=== PATIENT | male | born 1950 | race Caucasian/White ===

== ENCOUNTER 2017-05-06 09:46 | Outpatient (CLI) | payer MEDICARE, SELFPAY ==
[2017-05-06 15:55] LABS: PHA INR Fingerstick 1.6 (0.9-1.1)
[2017-05-13 11:43] LABS: PHA INR Fingerstick 2.9 (0.9-1.1)
== END 2017-05-13 11:55 | disposition home or self-care (01) ==
PROVIDERS: PCP Internal Medicine Adolescent Medicine; Visit Provider Internal Medicine
DX: Z79.01 Long term (current) use of anticoagulants (principal); Z51.81 Encounter for therapeutic drug level monitoring; I48.91 Unspecified atrial fibrillation
CPT/HCPCS: 85610; 99211; G0463

== ENCOUNTER → 2017-05-13 08:23 | Outpatient (POV) | payer MEDICARE, SELFPAY | PROVIDERS: PCP Internal Medicine Adolescent Medicine; Visit Provider Thoracic Surgery (Cardiothoracic Vascular Surgery) | DX: Z00.00 Encounter for general adult medical examination without abnormal findings (principal) ==

== ENCOUNTER 2017-05-20 09:17 | Outpatient (CLI) | payer MEDICARE, SELFPAY ==
[2017-05-20 13:28] LABS: PHA INR Fingerstick 3.8 (0.9-1.1)
== END 2017-05-20 13:43 | disposition home or self-care (01) ==
LOC: ACC 09:19
PROVIDERS: PCP Internal Medicine Adolescent Medicine; Visit Provider Internal Medicine
DX: Z79.01 Long term (current) use of anticoagulants (principal); Z51.81 Encounter for therapeutic drug level monitoring; I48.91 Unspecified atrial fibrillation
CPT/HCPCS: 85610; 99211; G0463

== ENCOUNTER 2017-05-30 09:52 | Outpatient (CLI) | payer MEDICARE, SELFPAY | END 2017-05-30 12:04 | disposition home or self-care (01) | LOC: ACC 09:54 | PROVIDERS: PCP Internal Medicine Adolescent Medicine; Visit Provider Internal Medicine | DX: Z79.01 Long term (current) use of anticoagulants (principal); Z51.81 Encounter for therapeutic drug level monitoring; I48.91 Unspecified atrial fibrillation | CPT/HCPCS: 85610; 99211; G0463 ==

== ENCOUNTER 2017-06-13 10:03 | Outpatient (CLI) | payer MEDICARE, SELFPAY ==
[2017-06-13 11:04] LABS: PHA INR Fingerstick 2.1 (0.9-1.1)
== END 2017-06-13 11:15 | disposition home or self-care (01) ==
LOC: ACC 10:04
PROVIDERS: PCP Internal Medicine Adolescent Medicine; Visit Provider Internal Medicine
DX: Z79.01 Long term (current) use of anticoagulants (principal); Z51.81 Encounter for therapeutic drug level monitoring; I48.91 Unspecified atrial fibrillation
CPT/HCPCS: 85610; 99211; G0463

== ENCOUNTER → 2017-07-04 11:22 | Outpatient (CLI) | payer MEDICARE, SELFPAY ==
[2017-07-04 11:42] LABS: Basophils # 0.1 K/mm3 (0-0.2); Basophils % 0.7 % (0.1-2.0); Eosinophils # 0.3 K/mm3 (0.0-0.4); Eosinophils % 2.6 % (0.1-12.0); Hematocrit 43.8 % (42.0-52.0); Hemoglobin 14.4 g/dL (14.1-18.0); Lymphocytes # 2.1 K/mm3 (0.7-4.5); Lymphocytes % 21.5 K/mm3 (10-50); Mean Corpuscular HGB Conc 32.8 g/dL (31.8-35.4); Mean Corpuscular Hemoglobin 31.8 pg (27.0-31.2); Mean Platelet Volume 7.2 fl (7.4-10.4); Monocytes # 0.4 K/mm3 (0.1-1.0); Monocytes % 4.2 % (1.7-9.3); Neutrophils % 70.9 % (37.0-80.0); Platelet Count 306 K/mm3 (142-424); Red Blood Count 4.52 M/mm3 (4.60-6.20); Red Cell Distribution Width 13.4 % (11.5-17.5); White Blood Count 9.8 K/mm3 (4.8-10.8)
[2017-07-04 13:47] LABS: Alanine Aminotransferase 26 U/L (12-78); Albumin Level 4.1 gm/dL (3.4-5.0); Albumin/Globulin Ratio 1.2 (1.1-1.8); Alkaline Phosphatase 48 U/L (46-116); Anion Gap 10.8 mEq/L (5-15); Aspartate Amino Transferase 20 U/L (15-37); Bilirubin,Total 0.5 mg/dL (0.2-1.0); Blood Urea Nitrogen 12 mg/dL (7-18); Calcium 9.6 mg/dL (8.5-10.1); Carbon Dioxide 32 mmol/L (21.0-32.0); Chloride 103 mmol/L (98-107); Chol/HDL Ratio 8.3 (1-3.5); Cholesterol 257 mg/dL (140-200); Creatinine,Serum 0.96 mg/dL (0.70-1.30); Estimated Glomerular Filt Rate 78 ml/min (>60); GFR (African American) 94 ML/MIN (>60); Globulin 3.3 gm/dl (1.3-3.2); Glucose 109 mg/dL (74-106); HDL Cholesterol 31 mg/dL (27-67); LDL Cholesterol 162 mg/dL (0-130); Potassium 4.8 mmoL/L (3.5-5.1); Sodium 141 mmol/L (136-145); Thyroid Stimulating Hormone 4.32 uIU/ml (0.358-3.740); Total Protein,Serum 7.4 gm/dL (6.4-8.2); Triglycerides 318 mg/dL (30-200); VLDL Cholesterol 64 mg/dL (0-40)
== END ==
PROVIDERS: Visit Provider Internal Medicine Adolescent Medicine
DX: E78.5 Hyperlipidemia, unspecified (principal); I48.0 Paroxysmal atrial fibrillation
CPT/HCPCS: 36415; 80053; 80061; 84443; 85025

== ENCOUNTER → 2017-07-07 10:02 | Outpatient (CLI) | payer MEDICARE, SELFPAY ==
--- NOTE | 2017-07-07 10:05 | MR_ITS ---
MR cervical spine wo con, MR 3-d myelogram/MRCP HISTORY: Pain when flexing and extending neck. Intermittent numbness and tingling radiating down Lt arm. Stiffness in neck ITS.REASON: RADICULOPATHY OF ARM ORDERING PHYSICIAN: Gulshan Haines MD PATIENT AGE: 66 years TECHNIQUE: Standard multiplanar multiecho sequences are performed without contrast. 3-D MIP and myelographic images are also rendered and reviewed FINDINGS: The craniocervical junction has an unremarkable appearance. There is normal alignment. There is slight reversal of the cervical lordosis which may be due to patient positioning or muscle spasm. C2-C3: Unremarkable. C3-C4: Mild right-sided uncovertebral hypertrophy with mild right-sided foraminal narrowing. C4-C5: Unremarkable. C5-C6: 2 mm anterolisthesis of C5 with minimal bulging disc. Mild left foraminal narrowing from uncovertebral hypertrophy. Facet hypertrophic changes are present on the right. C6-C7: There is a small left-sided foraminal disc protrusion/herniation causing narrowing of the left foramen. This may be associated with uncovertebral hypertrophy. This is difficult to ascertain. Nonetheless, there is left-sided foraminal narrowing. Degenerative disc disease is present at this level. C7-T1: Unremarkable. IMPRESSION: 1. 2 mm anterolisthesis of C5 with minimal bulging disc. Mild left foraminal narrowing from uncovertebral hypertrophy. Facet hypertrophic changes are present on the right. 2. There is a small left-sided foraminal disc protrusion/herniation at C6-C7 causing narrowing of the left foramen. This may be associated with uncovertebral hypertrophy. This is difficult to ascertain. Nonetheless, there is left-sided foraminal narrowing. Degenerative disc disease is present at this level.
== END ==
PROVIDERS: PCP Internal Medicine Adolescent Medicine; Visit Provider Internal Medicine Adolescent Medicine
DX: M54.10 Radiculopathy, site unspecified (principal)
CPT/HCPCS: 72141; 76376

== ENCOUNTER 2017-07-11 09:46 | Outpatient (CLI) | payer MEDICARE, SELFPAY ==
[2017-07-11 15:55] LABS: PHA INR Fingerstick 2.4 (0.9-1.1)
== END 2017-07-11 15:58 | disposition home or self-care (01) ==
LOC: ACC 09:47
PROVIDERS: PCP Internal Medicine Adolescent Medicine; Visit Provider Internal Medicine
DX: Z79.01 Long term (current) use of anticoagulants (principal); Z51.81 Encounter for therapeutic drug level monitoring; I48.91 Unspecified atrial fibrillation
CPT/HCPCS: 85610; 99211; G0463

== ENCOUNTER 2017-08-08 10:19 | Outpatient (CLI) | payer MEDICARE, SELFPAY ==
[2017-08-08 11:41] LABS: PHA INR Fingerstick 2.2 (0.9-1.1)
== END 2017-08-08 11:53 | disposition home or self-care (01) ==
LOC: ACC 10:20
PROVIDERS: PCP Internal Medicine Adolescent Medicine; Visit Provider Internal Medicine
DX: Z79.01 Long term (current) use of anticoagulants (principal); Z51.81 Encounter for therapeutic drug level monitoring; I48.91 Unspecified atrial fibrillation
CPT/HCPCS: 85610; 99211; G0463

== ENCOUNTER → 2017-08-19 07:28 | Outpatient (CLI) | payer MEDICARE, SELFPAY ==
--- NOTE | 2017-08-19 07:30 | NM_ITS ---
CARDIOLITE SPECT MYOCARDIAL PERFUSION SCAN, REST AND STRESS: EXERCISE STRESS [facility] REVIEW QGS EF AND WALL MOTION EVALUATION: QPS - PERFUSION EVALUATION HISTORY: soa DOSE: 10.62 mCi technetium 99m mibi intravenously at rest followed by 33.0 mCi technetium 99m mibi following the intravenous ministration of 0.4 mg of Lexiscan. Resting blood pressure is 107/63. Stress blood pressure 118/69. FINDINGS: Ejection fraction is calculated to be 37%. Stress images reveal severe left ventricular dilatation with severely reduced activity throughout the inferior and apical wall. Rest images reveal no significant change. Gated images calculated ejection fraction of 37% with severe left ventricular dilatation and severe global hypokinesis IMPRESSION: Previous inferior apical myocardial infarction without reversible ischemia accompanied by severe left ventricular dilatation severely reduced ejection fraction and severe global hypokinesis
--- NOTE | 2017-08-19 09:57 | HMH.ITSHM ---
meloxicam metoprolol terazosin gabapentin lisinopril amlodipine
== END ==
PROVIDERS: PCP Internal Medicine Adolescent Medicine; Visit Provider Internal Medicine
DX: R06.00 Dyspnea, unspecified (principal); I44.7 Left bundle-branch block, unspecified; I48.91 Unspecified atrial fibrillation; I34.0 Nonrheumatic mitral (valve) insufficiency; I10 Essential (primary) hypertension; Z79.01 Long term (current) use of anticoagulants
CPT/HCPCS: 78452; 93017; 93306; A9502; J2785

== ENCOUNTER 2017-09-15 12:36 | Outpatient (RCR) | payer MEDICARE, SELFPAY | END 2017-11-18 12:58 | disposition home or self-care (01) | LOC: PT 12:36 | PROVIDERS: PCP Internal Medicine Adolescent Medicine; Visit Provider Internal Medicine | DX: Z95.5 Presence of coronary angioplasty implant and graft (principal) | CPT/HCPCS: 93798 ==

== ENCOUNTER 2017-09-19 09:32 | Outpatient (CLI) | payer MEDICARE, SELFPAY ==
[2017-09-19 11:03] LABS: PHA INR Fingerstick 2.3 (0.9-1.1)
[2017-09-19 11:57] LABS: Anion Gap 11.9 mEq/L (5-15); Blood Urea Nitrogen 25 mg/dL (7-18); Calcium 9.1 mg/dL (8.5-10.1); Carbon Dioxide 29 mmol/L (21.0-32.0); Chloride 102 mmol/L (98-107); Creatinine,Serum 1.25 mg/dL (0.70-1.30); Estimated Glomerular Filt Rate 57 ml/min (>60); GFR (African American) 70 ML/MIN (>60); Glucose 114 mg/dL (74-106); Potassium 4.9 mmoL/L (3.5-5.1); Sodium 138 mmol/L (136-145)
== END 2017-09-19 11:29 | disposition home or self-care (01) ==
PROVIDERS: PCP Internal Medicine Adolescent Medicine; Visit Provider Internal Medicine
DX: Z79.01 Long term (current) use of anticoagulants (principal); Z51.81 Encounter for therapeutic drug level monitoring; I48.91 Unspecified atrial fibrillation
CPT/HCPCS: 36415; 80048; 85610; 99211; G0463

== ENCOUNTER → 2017-09-28 07:16 | Outpatient (CLI) | payer MEDICARE, SELFPAY ==
[2017-09-28 09:31] LABS: Anion Gap 12.2 mEq/L (5-15); Blood Urea Nitrogen 16 mg/dL (7-18); Calcium 8.9 mg/dL (8.5-10.1); Carbon Dioxide 30 mmol/L (21.0-32.0); Chloride 103 mmol/L (98-107); Creatinine,Serum 1.14 mg/dL (0.70-1.30); Estimated Glomerular Filt Rate 64 ml/min (>60); GFR (African American) 77 ML/MIN (>60); Glucose 133 mg/dL (74-106); Potassium 4.2 mmoL/L (3.5-5.1); Sodium 141 mmol/L (136-145)
== END ==
PROVIDERS: Visit Provider Urology
DX: Z79.01 Long term (current) use of anticoagulants (principal); Z51.81 Encounter for therapeutic drug level monitoring; I48.91 Unspecified atrial fibrillation
CPT/HCPCS: 36415; 80048

== ENCOUNTER 2017-10-10 09:47 | Outpatient (CLI) | payer MEDICARE, SELFPAY ==
[2017-10-10 11:30] LABS: PHA INR Fingerstick 2.3 (0.9-1.1)
== END 2017-10-10 15:45 | disposition home or self-care (01) ==
LOC: ACC 09:49
PROVIDERS: PCP Internal Medicine Adolescent Medicine; Visit Provider Internal Medicine
DX: Z79.01 Long term (current) use of anticoagulants (principal); Z51.81 Encounter for therapeutic drug level monitoring; I48.91 Unspecified atrial fibrillation
CPT/HCPCS: 85610; 99211; G0463

== ENCOUNTER 2017-11-14 09:28 | Outpatient (CLI) | payer MEDICARE, SELFPAY ==
[2017-11-14 10:12] LABS: PHA INR Fingerstick 2.4 (0.9-1.1)
== END 2017-11-14 10:23 | disposition home or self-care (01) ==
LOC: ACC 09:29
PROVIDERS: PCP Internal Medicine Adolescent Medicine; Visit Provider Internal Medicine
DX: Z79.01 Long term (current) use of anticoagulants (principal); Z51.81 Encounter for therapeutic drug level monitoring; I48.91 Unspecified atrial fibrillation
CPT/HCPCS: 85610; 99211; G0463

== ENCOUNTER → 2017-12-05 11:54 | Outpatient (CLI) | payer MEDICARE, SELFPAY ==
--- NOTE | 2017-12-05 | CA_ITS ---
PROCEDURE: 2-D M-mode and color Doppler study INDICATIONS FOR THE TEST: Chest pain COPD Heart Murmur+ Tobacco Smokingex Palpitations+ Fatigue+ Syncope Edema Hypertension+Diabetes Mellitus Rheumatic Fever SOB+SILVEIRA+Obesity Hyperlipidemia+ Family History HD+ Additional History AFIB, CHF, history of EF 37%, stents PATIENT INFORMATION HEIGHT: 73 WEIGHT: 278 GENDER: Male B/P: 126/72 2-D/M-MODE INTERPRETATION: 2-D MEASUREMENTS OBSERVED VALUES IN CMS Right Ventricular Dimension (RVDd) 2.7 Interventricular Septum (Thickness)(IVsd) 1.2 Left Ventricular Internal Dimensions(LVIDd) 6.6 Left Ventricular Posterior Wall (Thickness)(LVPWd) 1.2 Aortic Root 3.0 Aortic Cusp Separation 2.2 Left Atrial Dimensions (LAD) 5.7 2D 1. Left atrium is markedly enlarged, left ventricle is mildly dilated, visually estimated ejection fraction approximately 40-45%, with no regional wall motion abnormality. 2. The right atrium and right ventricle are mildly enlarged with normal contractility. 3. The aortic valve is thickened and calcified leaflet continue to display mobility. Morphologically there is no aortic stenosis. 4. The mitral valve leaflets are minimally thickened, degenerative changes are seen in both anterior and posterior mitral leaflet. 5. The tricuspid valve is grossly normal. 6. The pulmonic valve is poorly visualized. 7. No significant pericardial effusion noted. DOPPLER INTERROGATION: Doppler interrogation of the aortic, mitral and tricuspid valvular presence of mild aortic, severe mitral and mild tricuspid regurgitation, tricuspid regurgitation jet velocity is insufficient for calculation of the right ventricular systolic pressure. Diastolic parameters are inconclusive. CONCLUSION: 1. Left atrium, dilated left ventricle, visually estimated ejection fraction approximately 40-45%, diastolic parameters are inconclusive. There is no regional wall motion abnormality. 2. Abnormal mitral valve as described above associated with severe mitral regurgitation. 3. Thickened and calcified aortic valve morphologically aortic stenosis, there is mild aortic insufficiency. 4. No significant pericardial effusion noted.
[2017-12-05 12:38] LABS: Hemoglobin A1C 6.5 % (0.0-7.0)
== END ==
PROVIDERS: PCP Internal Medicine Adolescent Medicine; Visit Provider Internal Medicine
DX: R73.9 Hyperglycemia, unspecified (principal); I44.7 Left bundle-branch block, unspecified; I48.91 Unspecified atrial fibrillation
CPT/HCPCS: 36415; 83036; 93306

== ENCOUNTER 2017-12-12 09:38 | Outpatient (CLI) | payer MEDICARE, SELFPAY ==
[2017-12-12 10:42] LABS: PHA INR Fingerstick 2.1 (0.9-1.1)
== END 2017-12-12 10:44 | disposition home or self-care (01) ==
LOC: ACC 09:40
PROVIDERS: PCP Internal Medicine Adolescent Medicine; Visit Provider Internal Medicine
DX: Z51.81 Encounter for therapeutic drug level monitoring (principal); Z79.01 Long term (current) use of anticoagulants; I48.91 Unspecified atrial fibrillation
CPT/HCPCS: 85610; 99211; G0463

== ENCOUNTER → 2018-01-20 09:44 | Outpatient (CLI) | payer MEDICARE, SELFPAY ==
--- NOTE | 2018-01-20 09:45 | CA_ITS ---
PROCEDURE: 2-D M-mode and color Doppler study INDICATIONS FOR THE TEST: Chest pain COPD Heart Murmur Tobacco Smoking Palpitations Fatigue Syncope Edema HypertensionXDiabetes Mellitus Rheumatic Fever SOBXDOEXObesityXHyperlipidemiaX Family History HD Additional History CAD,AF,LBBB [place] DONE 12/22/17 PATIENT INFORMATION HEIGHT: 73 WEIGHT:275 GENDER: Male B/P:116/68 2-D/M-MODE INTERPRETATION: 2-D MEASUREMENTS OBSERVED VALUES IN CMS Right Ventricular Dimension (RVDd) 2.7 Interventricular Septum (Thickness)(IVsd) 1.2 Left Ventricular Internal Dimensions(LVIDd) 6.9 Left Ventricular Posterior Wall (Thickness)(LVPWd) 1.2 Aortic Root 3.3 Aortic Cusp Separation 1.7 Left Atrial Dimensions (LAD) 4.2 2D 1. Left atrium is moderately enlarged, left ventricle is mildly dilated, visually estimated ejection fraction approximately 40%, endocardial surfaces are poorly visualized, there appears to be moderate hypokinesis involving the inferobasal and posterobasal wall. 2. The right atrium and right ventricle are mildly enlarged with normal contractility. 3. The aortic valve is thickened and calcified leaflet continue to display mobility. 4. The mitral valve leaflets are minimally thickened. 5. The pulmonic valve is poorly visualized. 6. No significant pericardial effusion noted. DOPPLER INTERROGATION: Doppler interrogation of the aortic, mitral and tricuspid valvular presence of mild aortic, severe mitral and mild tricuspid regurgitation, calculated right ventricular systolic pressure is 42 mmHg consistent with moderate pulmonary hypertension, there is Doppler evidence of raised left atrial and left ventricular end-diastolic pressure. CONCLUSION: 1. Moderately enlarged left atrium is mildly dilated left ventricle, visually estimated ejection fraction 40% with segmental wall motion abnormality described above, endocardial subsequent poorly visualized. 2. Mild aortic, severe mitral and mild tricuspid regurgitation, dilated right ventricular systolic pressure is 42 mmHg consistent with moderate pulmonary hypertension. 3. Doppler evidence of raised left ventricular end-diastolic as well as left atrial pressure. 4. No significant pericardial effusion noted.
== END ==
PROVIDERS: PCP Internal Medicine Adolescent Medicine; Visit Provider Internal Medicine
DX: E78.5 Hyperlipidemia, unspecified (principal); I10 Essential (primary) hypertension; I11.9 Hypertensive heart disease without heart failure; I25.10 Atherosclerotic heart disease of native coronary artery without angina pectoris; I34.0 Nonrheumatic mitral (valve) insufficiency; I44.7 Left bundle-branch block, unspecified; I48.91 Unspecified atrial fibrillation; I50.40 Unspecified combined systolic (congestive) and diastolic (congestive) heart failure; R01.1 Cardiac murmur, unspecified; R06.00 Dyspnea, unspecified; R60.9 Edema, unspecified; R93.1 Abnormal findings on diagnostic imaging of heart and coronary circulation; R94.31 Abnormal electrocardiogram [ECG] [EKG]; Z01.818 Encounter for other preprocedural examination; Z79.01 Long term (current) use of anticoagulants
CPT/HCPCS: 93306

== ENCOUNTER 2018-01-24 09:41 | Outpatient (CLI) | payer MEDICARE, SELFPAY ==
[2018-01-24 15:28] LABS: PHA INR Fingerstick 1.9 (0.9-1.1)
== END 2018-01-24 15:39 | disposition home or self-care (01) ==
LOC: ACC 09:43
PROVIDERS: PCP Internal Medicine Adolescent Medicine; Visit Provider Internal Medicine
DX: Z51.81 Encounter for therapeutic drug level monitoring (principal); Z79.01 Long term (current) use of anticoagulants; I48.91 Unspecified atrial fibrillation
CPT/HCPCS: 85610; 99211; G0463

== ENCOUNTER 2018-02-20 09:52 | Outpatient (CLI) | payer MEDICARE, SELFPAY | END 2018-02-21 09:42 | disposition home or self-care (01) | LOC: ACC 09:53 | PROVIDERS: PCP Internal Medicine Adolescent Medicine; Visit Provider Internal Medicine | DX: Z51.81 Encounter for therapeutic drug level monitoring (principal); Z79.01 Long term (current) use of anticoagulants; I48.91 Unspecified atrial fibrillation | CPT/HCPCS: 85610; 99211; G0463 ==

== ENCOUNTER → 2018-03-07 07:50 | Outpatient (CLI) | payer MEDICARE, SELFPAY ==
[2018-03-07 08:31] LABS: INR 1.95 (0.9-1.1); Prothrombin Time 19.7 seconds (9.4-11.8)
[2018-03-07 08:50] LABS: Hemoglobin A1C 6.4 % (0.0-7.0)
[2018-03-07 08:56] LABS: Basophils # 0.1 K/mm3 (0-0.2); Basophils % 0.7 % (0.1-2.0); Eosinophils # 0.2 K/mm3 (0.0-0.4); Eosinophils % 2.6 % (0.1-12.0); Hematocrit 38.6 % (42.0-52.0); Hemoglobin 12.7 g/dL (14.1-18.0); Lymphocytes # 1.8 K/mm3 (0.7-4.5); Lymphocytes % 22.5 % (10-50); Mean Corpuscular HGB Conc 32.9 g/dL (31.8-35.4); Mean Corpuscular Hemoglobin 31.5 pg (27.0-31.2); Mean Corpuscular Volume 95.9 fl (80-94); Mean Platelet Volume 7.1 fl (7.4-10.4); Monocytes # 0.5 K/mm3 (0.1-1.0); Monocytes % 5.6 % (1.7-9.3); Neutrophils # 5.6 K/mm3 (1.8-7.8); Neutrophils % 68.6 % (37.0-80.0); Platelet Count 288 K/mm3 (142-424); Red Blood Count 4.02 M/mm3 (4.60-6.20); Red Cell Distribution Width 13.1 % (11.5-17.5); White Blood Count 8.1 K/mm3 (4.8-10.8)
[2018-03-07 09:10] LABS: Alanine Aminotransferase 23 U/L (12-78); Albumin Level 3.8 gm/dL (3.4-5.0); Albumin/Globulin Ratio 1.2 (1.1-1.8); Alkaline Phosphatase 48 U/L (46-116); Anion Gap 13.4 mEq/L (5-15); Aspartate Amino Transferase 13 U/L (15-37); Bilirubin,Total 0.4 mg/dL (0.2-1.0); Blood Urea Nitrogen 16 mg/dL (7-18); Calcium 8.3 mg/dL (8.5-10.1); Carbon Dioxide 29 mmol/L (21.0-32.0); Chloride 104 mmol/L (98-107); Chol/HDL Ratio 5.8 (1-3.5); Cholesterol 168 mg/dL (140-200); Creatinine,Serum 0.96 mg/dL (0.70-1.30); Estimated Glomerular Filt Rate 78 ml/min (>60); GFR (African American) 94 ML/MIN (>60); Globulin 3.1 gm/dl (1.3-3.2); Glucose 128 mg/dL (74-106); HDL Cholesterol 29 mg/dL (27-67); LDL Cholesterol 81 mg/dL (0-130); Potassium 4.4 mmoL/L (3.5-5.1); Sodium 142 mmol/L (136-145); Total Protein,Serum 6.9 gm/dL (6.4-8.2); Triglycerides 291 mg/dL (30-200); VLDL Cholesterol 58 mg/dL (0-40)
== END ==
PROVIDERS: Visit Provider Internal Medicine Adolescent Medicine
DX: E78.5 Hyperlipidemia, unspecified (principal); I48.0 Paroxysmal atrial fibrillation; E11.69 Type 2 diabetes mellitus with other specified complication
CPT/HCPCS: 36415; 80053; 80061; 83036; 85025; 85610

== ENCOUNTER 2018-04-03 10:21 | Outpatient (CLI) | payer MEDICARE, SELFPAY ==
[2018-04-03 11:01] LABS: PHA INR Fingerstick 1.9 (0.9-1.1)
== END 2018-04-03 11:06 | disposition home or self-care (01) ==
LOC: ACC 10:23
PROVIDERS: PCP Internal Medicine Adolescent Medicine; Visit Provider Internal Medicine
DX: Z51.81 Encounter for therapeutic drug level monitoring (principal); Z79.01 Long term (current) use of anticoagulants; I48.91 Unspecified atrial fibrillation
CPT/HCPCS: 85610; 99211; G0463

== ENCOUNTER → 2018-05-08 10:36 | Outpatient (CLI) | payer MEDICARE, SELFPAY ==
--- NOTE | 2018-05-08 10:37 | CI_ITS ---
Cerebrovascular Exam Indications: 785.9 Bruit. IMPRESSIONS 1. The bilateral vertebral arteries are patent with normal antegrade flow. 2. Study suggests 20-49% stenosis involving the right internal carotid artery and the left internal carotid artery. 3. Study suggests >60% stenosis involving the right external carotid artery and the left external carotid artery. Carotid duplex study. Complete study and Doppler flow study including spectral analysis, color and latham scale imaging. Height: Height: 160cm. Height: 63in. Weight: Weight: 132.9kg. Weight: 292.4lb. Body mass index: BMI: 51.9kg/m^2. Body surface area: BSA: 2.52m^2. Location: Vascular laboratory. Patient status: Outpatient. Tables: Arterial flow: + +--------+--------+ Location V sys V ed + +--------+--------+ Right CCA - proximal 77.8cm/s 22cm/s + +--------+--------+ Right CCA - distal 85.5cm/s 18.7cm/s + +--------+--------+ Right ECA 191cm/s -------- + +--------+--------+ Right ICA - proximal 66cm/s 23.2cm/s + +--------+--------+ Right ICA - mid 76.2cm/s 29.1cm/s + +--------+--------+ Right ICA - distal 92.7cm/s 31.8cm/s + +--------+--------+ Right vertebral 34.2cm/s -------- + +--------+--------+ Left CCA - proximal 113cm/s 33.4cm/s + +--------+--------+ Left CCA - distal 138cm/s 26.5cm/s + +--------+--------+ Left ECA 218cm/s -------- + +--------+--------+ Left ICA - proximal 112cm/s 38.5cm/s + +--------+--------+ Left ICA - mid 108cm/s 40.1cm/s + +--------+--------+ Left ICA - distal 127cm/s 39.3cm/s + +--------+--------+ Left vertebral 32.2cm/s -------- + +--------+--------+ Velocity ratios: + + + + + + Right, V sys Right, V ed Left, V sys Left, V ed + + + + + + Max ICA/dist CCA 1.08 1.7 0.92 1.51 + + + + + + (Report amended ) Electronically signed by: Ammon Aiken [id number]
== END ==
PROVIDERS: PCP Internal Medicine Adolescent Medicine; Visit Provider Nurse Practitioner Family
DX: I10 Essential (primary) hypertension (principal); I25.10 Atherosclerotic heart disease of native coronary artery without angina pectoris; I34.0 Nonrheumatic mitral (valve) insufficiency; I44.7 Left bundle-branch block, unspecified; I48.91 Unspecified atrial fibrillation; R01.1 Cardiac murmur, unspecified; R06.00 Dyspnea, unspecified; R09.89 Other specified symptoms and signs involving the circulatory and respiratory systems; R94.31 Abnormal electrocardiogram [ECG] [EKG]; Z79.01 Long term (current) use of anticoagulants
CPT/HCPCS: 93880

== ENCOUNTER 2018-05-15 10:10 | Outpatient (CLI) | payer MEDICARE, SELFPAY ==
[2018-05-15 11:08] LABS: PHA INR Fingerstick 1.8 (0.9-1.1)
== END 2018-05-15 13:22 | disposition home or self-care (01) ==
LOC: ACC 10:11
PROVIDERS: PCP Internal Medicine Adolescent Medicine; Visit Provider Internal Medicine
DX: Z51.81 Encounter for therapeutic drug level monitoring (principal); Z79.01 Long term (current) use of anticoagulants; I48.91 Unspecified atrial fibrillation
CPT/HCPCS: 85610; 99211; G0463

== ENCOUNTER → 2018-05-19 10:18 | Outpatient (CLI) | payer MEDICARE, SELFPAY ==
[2018-05-19 11:04] LABS: INR 1.74 (0.9-1.1); Prothrombin Time 17.6 seconds (9.4-11.8)
[2018-05-19 12:03] LABS: Hemoglobin A1C 6.8 % (0.0-7.0)
[2018-05-19 12:17] LABS: Alanine Aminotransferase 23 U/L (12-78); Albumin/Globulin Ratio 1.2 (1.1-1.8); Alkaline Phosphatase 51 U/L (46-116); Anion Gap 13.5 mEq/L (5-15); Aspartate Amino Transferase 16 U/L (15-37); Bilirubin,Total 0.8 mg/dL (0.2-1.0); Blood Urea Nitrogen 18 mg/dL (7-18); Carbon Dioxide 28 mmol/L (21.0-32.0); Chloride 101 mmol/L (98-107); Chol/HDL Ratio 5.8 (1-3.5); Cholesterol 161 mg/dL (140-200); Creatinine,Serum 1.06 mg/dL (0.70-1.30); Estimated Glomerular Filt Rate 69 ml/min (>60); GFR (African American) 84 ML/MIN (>60); Globulin 3.3 gm/dl (1.3-3.2); Glucose 112 mg/dL (74-106); HDL Cholesterol 28 mg/dL (27-67); LDL Cholesterol 77 mg/dL (0-130); Potassium 4.5 mmoL/L (3.5-5.1); Sodium 138 mmol/L (136-145); Total Protein,Serum 7.3 gm/dL (6.4-8.2); Triglycerides 281 mg/dL (30-200); VLDL Cholesterol 56 mg/dL (0-40)
== END ==
PROVIDERS: Visit Provider Internal Medicine Adolescent Medicine
DX: I48.0 Paroxysmal atrial fibrillation (principal); E11.69 Type 2 diabetes mellitus with other specified complication; E78.5 Hyperlipidemia, unspecified
CPT/HCPCS: 36415; 80053; 80061; 83036; 85610

== ENCOUNTER 2018-06-05 09:59 | Outpatient (CLI) | payer MEDICARE, SELFPAY ==
[2018-06-05 11:07] LABS: PHA INR Fingerstick 1.9 (0.9-1.1)
== END 2018-06-05 11:11 | disposition home or self-care (01) ==
LOC: ACC 10:00
PROVIDERS: PCP Internal Medicine Adolescent Medicine; Visit Provider Internal Medicine
DX: Z51.81 Encounter for therapeutic drug level monitoring (principal); Z79.01 Long term (current) use of anticoagulants
CPT/HCPCS: 85610; 99211; G0463

== ENCOUNTER 2018-07-03 09:19 | Outpatient (CLI) | payer MEDICARE, SELFPAY ==
[2018-07-03 10:12] LABS: PHA INR Fingerstick 1.9 (0.9-1.1)
== END 2018-07-03 10:13 | disposition home or self-care (01) ==
LOC: ACC 09:20
PROVIDERS: PCP Internal Medicine Adolescent Medicine; Visit Provider Internal Medicine
DX: Z51.81 Encounter for therapeutic drug level monitoring (principal); Z79.01 Long term (current) use of anticoagulants; I48.91 Unspecified atrial fibrillation
CPT/HCPCS: 85610; 99211; G0463

== ENCOUNTER 2018-07-24 10:17 | Outpatient (CLI) | payer MEDICARE, SELFPAY ==
[2018-07-24 12:01] LABS: PHA INR Fingerstick 2.5 (0.9-1.1)
== END 2018-07-24 12:10 | disposition home or self-care (01) ==
LOC: ACC 10:18
PROVIDERS: PCP Internal Medicine Adolescent Medicine; Visit Provider Internal Medicine
DX: Z51.81 Encounter for therapeutic drug level monitoring (principal); Z79.01 Long term (current) use of anticoagulants; I48.91 Unspecified atrial fibrillation
CPT/HCPCS: 85610; 99211; G0463

== ENCOUNTER 2018-08-21 09:46 | Outpatient (CLI) | payer MEDICARE, SELFPAY ==
[2018-08-21 10:36] LABS: PHA INR Fingerstick 2.5 (0.9-1.1)
== END 2018-08-21 11:55 | disposition home or self-care (01) ==
LOC: ACC 09:47
PROVIDERS: PCP Internal Medicine Adolescent Medicine; Visit Provider Internal Medicine
DX: Z51.81 Encounter for therapeutic drug level monitoring (principal); Z79.01 Long term (current) use of anticoagulants; I48.91 Unspecified atrial fibrillation
CPT/HCPCS: 85610; 99211; G0463

== ENCOUNTER → 2018-08-22 07:18 | Outpatient (CLI) | payer MEDICARE, SELFPAY ==
[2018-08-22 08:21] LABS: Anion Gap 12.8 mEq/L (5-15); Blood Urea Nitrogen 24 mg/dL (7-18); Calcium 9.1 mg/dL (8.5-10.1); Carbon Dioxide 29 mmol/L (21.0-32.0); Chloride 105 mmol/L (98-107); Creatinine,Serum 1.01 mg/dL (0.70-1.30); Estimated Glomerular Filt Rate 73 ml/min (>60); GFR (African American) 89 ML/MIN (>60); Glucose 122 mg/dL (74-106); Potassium 4.8 mmoL/L (3.5-5.1); Sodium 142 mmol/L (136-145)
== END ==
PROVIDERS: Visit Provider Nurse Practitioner Family
DX: I11.0 Hypertensive heart disease with heart failure (principal); I25.10 Atherosclerotic heart disease of native coronary artery without angina pectoris; I48.91 Unspecified atrial fibrillation; N62 Hypertrophy of breast
CPT/HCPCS: 36415; 80048

== ENCOUNTER 2018-10-02 09:52 | Outpatient (CLI) | payer MEDICARE, SELFPAY ==
[2018-10-02 14:05] LABS: PHA INR Fingerstick 2.5 (0.9-1.1)
== END 2018-10-02 14:27 | disposition home or self-care (01) ==
LOC: ACC 09:53
PROVIDERS: Physician Assistant; PCP Internal Medicine Adolescent Medicine; Visit Provider Internal Medicine
DX: Z51.81 Encounter for therapeutic drug level monitoring (principal); Z79.01 Long term (current) use of anticoagulants; I48.91 Unspecified atrial fibrillation
CPT/HCPCS: 85610; 99211; G0463

== ENCOUNTER → 2018-10-23 08:30 | Outpatient (CLI) | payer MEDICARE, SELFPAY ==
[2018-10-23 09:10] LABS: Anion Gap 11.8 mEq/L (5-15); Blood Urea Nitrogen 16 mg/dL (7-18); Calcium 8.7 mg/dL (8.5-10.1); Carbon Dioxide 29 mmol/L (21.0-32.0); Chloride 106 mmol/L (98-107); Creatinine,Serum 0.91 mg/dL (0.70-1.30); Estimated Glomerular Filt Rate 83 ml/min (>60); GFR (African American) 100 ML/MIN (>60); Glucose 119 mg/dL (74-106); Potassium 4.8 mmoL/L (3.5-5.1); Sodium 142 mmol/L (136-145)
== END ==
PROVIDERS: Visit Provider Internal Medicine
DX: I11.9 Hypertensive heart disease without heart failure (principal); I25.10 Atherosclerotic heart disease of native coronary artery without angina pectoris; Z51.81 Encounter for therapeutic drug level monitoring; Z79.01 Long term (current) use of anticoagulants; I48.91 Unspecified atrial fibrillation
CPT/HCPCS: 36415; 80048

== ENCOUNTER 2018-11-13 09:56 | Outpatient (CLI) | payer MEDICARE, SELFPAY ==
[2018-11-13 11:15] LABS: PHA INR Fingerstick 2.1 (0.9-1.1)
== END 2018-11-13 11:19 | disposition home or self-care (01) ==
LOC: ACC 09:57
PROVIDERS: PCP Internal Medicine Adolescent Medicine; Visit Provider Internal Medicine
DX: Z51.81 Encounter for therapeutic drug level monitoring (principal); Z79.01 Long term (current) use of anticoagulants
CPT/HCPCS: 85610; 99211; G0463

== ENCOUNTER → 2018-12-06 11:29 | Outpatient (CLI) | payer MEDICARE, SELFPAY ==
[2018-12-06 12:11] LABS: Basophils # 0.1 K/mm3 (0-0.2); Basophils % 0.7 % (0.1-2.0); Eosinophils # 0.2 K/mm3 (0.0-0.4); Eosinophils % 2.3 % (0.1-12.0); Hematocrit 30.8 % (42.0-52.0); Hemoglobin 9.3 g/dL (14.1-18.0); Lymphocytes # 1.6 K/mm3 (0.7-4.5); Lymphocytes % 22.6 % (10-50); Mean Corpuscular HGB Conc 30.1 g/dL (31.8-35.4); Mean Corpuscular Hemoglobin 24.7 pg (27.0-31.2); Mean Corpuscular Volume 82.3 fl (80-94); Monocytes # 0.4 K/mm3 (0.1-1.0); Monocytes % 5.6 % (1.7-9.3); Neutrophils # 4.8 K/mm3 (1.8-7.8); Neutrophils % 68.8 % (37.0-80.0); Platelet Count 290 K/mm3 (142-424); Red Blood Count 3.75 M/mm3 (4.60-6.20); Red Cell Distribution Width 16.2 % (11.5-17.5)
[2018-12-06 12:51] LABS: Anion Gap 12.1 mEq/L (5-15); Blood Urea Nitrogen 15 mg/dL (7-18); Calcium 8.6 mg/dL (8.5-10.1); Carbon Dioxide 30 mmol/L (21.0-32.0); Chloride 104 mmol/L (98-107); Creatinine,Serum 1.03 mg/dL (0.70-1.30); Estimated Glomerular Filt Rate 72 ml/min (>60); GFR (African American) 87 ML/MIN (>60); Glucose 98 mg/dL (74-106); Potassium 4.1 mmoL/L (3.5-5.1); Sodium 142 mmol/L (136-145)
== END ==
PROVIDERS: Visit Provider Urology
DX: R06.02 Shortness of breath (principal); I25.10 Atherosclerotic heart disease of native coronary artery without angina pectoris
CPT/HCPCS: 36415; 80048; 85025

== ENCOUNTER 2018-12-25 09:50 | Outpatient (CLI) | payer MEDICARE, SELFPAY ==
[2018-12-25 14:39] LABS: PHA INR Fingerstick 2.7 (0.9-1.1)
== END 2018-12-25 14:40 | disposition home or self-care (01) ==
LOC: ACC 09:51
PROVIDERS: Physician Assistant; PCP Internal Medicine Adolescent Medicine; Visit Provider Internal Medicine
DX: Z51.81 Encounter for therapeutic drug level monitoring (principal); Z79.01 Long term (current) use of anticoagulants; I48.91 Unspecified atrial fibrillation
CPT/HCPCS: 85610; 99211; G0463

== ENCOUNTER 2019-01-26 08:50 | Outpatient (CLI) | payer MEDICARE, SELFPAY | END 2019-01-26 15:51 | disposition home or self-care (01) | LOC: ACC 08:51 | PROVIDERS: PCP Internal Medicine Adolescent Medicine; Visit Provider Internal Medicine | DX: Z51.81 Encounter for therapeutic drug level monitoring (principal); Z79.01 Long term (current) use of anticoagulants; I48.91 Unspecified atrial fibrillation | CPT/HCPCS: 85610; 99211; G0463 ==

== ENCOUNTER → 2019-02-12 08:04 | Outpatient (CLI) | payer MEDICARE, SELFPAY ==
[2019-02-12 08:40] LABS: Basophils # 0.1 K/mm3 (0-0.2); Basophils % 0.9 % (0.1-2.0); Eosinophils # 0.1 K/mm3 (0.0-0.4); Eosinophils % 1.7 % (0.1-12.0); Hematocrit 39.6 % (42.0-52.0); Hemoglobin 11.4 g/dL (14.1-18.0); Lymphocytes # 1.8 K/mm3 (0.7-4.5); Lymphocytes % 21.7 % (10-50); Mean Corpuscular HGB Conc 28.7 g/dL (31.8-35.4); Mean Corpuscular Hemoglobin 24.2 pg (27.0-31.2); Mean Corpuscular Volume 84.3 fl (80-94); Mean Platelet Volume 7.1 fl (7.4-10.4); Monocytes # 0.4 K/mm3 (0.1-1.0); Monocytes % 5.3 % (1.7-9.3); Neutrophils # 5.7 K/mm3 (1.8-7.8); Neutrophils % 70.4 % (37.0-80.0); Platelet Count 425 K/mm3 (142-424); Red Cell Distribution Width 16.2 % (11.5-17.5); White Blood Count 8.1 K/mm3 (4.8-10.8)
[2019-02-12 09:39] LABS: Alanine Aminotransferase 20 U/L (12-78); Albumin Level 3.9 gm/dL (3.4-5.0); Albumin/Globulin Ratio 1.1 (1.1-1.8); Alkaline Phosphatase 72 U/L (46-116); Anion Gap 13.5 mEq/L (5-15); Aspartate Amino Transferase 20 U/L (15-37); Bilirubin,Total 0.4 mg/dL (0.2-1.0); Blood Urea Nitrogen 16 mg/dL (7-18); Calcium 8.2 mg/dL (8.5-10.1); Carbon Dioxide 27 mmol/L (21.0-32.0); Chloride 103 mmol/L (98-107); Chol/HDL Ratio 4.8 (1-3.5); Cholesterol 140 mg/dL (140-200); Creatinine,Serum 1.12 mg/dL (0.70-1.30); Estimated Glomerular Filt Rate 65 ml/min (>60); GFR (African American) 78 ML/MIN (>60); Globulin 3.4 gm/dl (1.3-3.2); Glucose 106 mg/dL (74-106); HDL Cholesterol 29 mg/dL (27-67); LDL Cholesterol 69 mg/dL (0-130); Potassium 4.5 mmoL/L (3.5-5.1); Sodium 139 mmol/L (136-145); Total Protein,Serum 7.3 gm/dL (6.4-8.2); Triglycerides 212 mg/dL (30-200); VLDL Cholesterol 42 mg/dL (0-40)
[2019-02-12 12:36] LABS: Hemoglobin A1C 6.8 % (0.0-7.0)
[2019-02-14 07:35] LABS: H. pylori Breath Test Negative (Negative)
== END ==
PROVIDERS: Internal Medicine Adolescent Medicine; Visit Provider Surgery
DX: E78.5 Hyperlipidemia, unspecified (principal); E11.69 Type 2 diabetes mellitus with other specified complication; I48.0 Paroxysmal atrial fibrillation
CPT/HCPCS: 36415; 80053; 80061; 83013; 83036; 84443; 85025

== ENCOUNTER 2019-02-23 10:00 | Outpatient (CLI) | payer MEDICARE, SELFPAY ==
[2019-02-23 14:07] LABS: PHA INR Fingerstick 2.4 (0.9-1.1)
== END 2019-02-23 14:14 | disposition home or self-care (01) ==
LOC: ACC 10:01
PROVIDERS: PCP Internal Medicine Adolescent Medicine; Visit Provider Internal Medicine
DX: Z51.81 Encounter for therapeutic drug level monitoring (principal); Z79.01 Long term (current) use of anticoagulants; I48.91 Unspecified atrial fibrillation
CPT/HCPCS: 85610; 99211; G0463

== ENCOUNTER 2019-03-30 10:12 | Outpatient (CLI) | payer MEDICARE, SELFPAY ==
[2019-03-30 12:02] LABS: PHA INR Fingerstick 2.5 (0.9-1.1)
== END 2019-03-30 12:09 | disposition home or self-care (01) ==
PROVIDERS: PCP Internal Medicine Adolescent Medicine; Visit Provider Physician Assistant
DX: Z51.81 Encounter for therapeutic drug level monitoring (principal); Z79.01 Long term (current) use of anticoagulants; I48.91 Unspecified atrial fibrillation
CPT/HCPCS: 85610; 99211; G0463

== ENCOUNTER 2019-05-11 10:01 | Outpatient (CLI) | payer MEDICARE, SELFPAY ==
[2019-05-11 15:02] LABS: PHA INR Fingerstick 2.8 (0.9-1.1)
== END 2019-05-11 15:05 | disposition home or self-care (01) ==
LOC: ACC 10:02
PROVIDERS: Nurse Practitioner Family; PCP Internal Medicine Adolescent Medicine; Visit Provider Internal Medicine
DX: Z51.81 Encounter for therapeutic drug level monitoring (principal); Z79.01 Long term (current) use of anticoagulants; I48.91 Unspecified atrial fibrillation
CPT/HCPCS: 85610; 99211; G0463

== ENCOUNTER → 2019-05-23 09:12 | Outpatient (CLI) | payer MEDICARE, SELFPAY | PROVIDERS: PCP Internal Medicine Adolescent Medicine; Visit Provider Internal Medicine | DX: I44.7 Left bundle-branch block, unspecified (principal); I34.0 Nonrheumatic mitral (valve) insufficiency | CPT/HCPCS: 93306 ==

== ENCOUNTER 2019-06-22 10:10 | Outpatient (CLI) | payer MEDICARE, SELFPAY | END 2019-06-22 11:29 | disposition home or self-care (01) | LOC: ACC 10:11 | PROVIDERS: PCP Internal Medicine Adolescent Medicine; Visit Provider Physician Assistant | DX: Z51.81 Encounter for therapeutic drug level monitoring (principal); Z79.01 Long term (current) use of anticoagulants; I48.91 Unspecified atrial fibrillation | CPT/HCPCS: 99211; G0463 ==

== ENCOUNTER → 2019-07-16 11:15 | Outpatient (CLI) | payer MEDICARE, SELFPAY ==
[2019-07-16 12:07] LABS: Basophils # 0.2 K/mm3 (0-0.2); Basophils % 2.1 % (0.1-2.0); Eosinophils # 0.1 K/mm3 (0.0-0.4); Eosinophils % 1.5 % (0.1-12.0); Hematocrit 46.5 % (42.0-52.0); Hemoglobin 14.7 g/dL (14.1-18.0); Lymphocytes # 1.9 K/mm3 (0.7-4.5); Lymphocytes % 23.3 % (10-50); Mean Corpuscular HGB Conc 31.7 g/dL (31.8-35.4); Mean Corpuscular Hemoglobin 29.5 pg (27.0-31.2); Mean Corpuscular Volume 93.4 fl (80-94); Mean Platelet Volume 8.4 fl (7.4-10.4); Monocytes # 0.4 K/mm3 (0.1-1.0); Monocytes % 4.4 % (1.7-9.3); Neutrophils # 5.8 K/mm3 (1.8-7.8); Neutrophils % 68.8 % (37.0-80.0); Platelet Count 317 K/mm3 (142-424); Red Blood Count 4.99 M/mm3 (4.60-6.20); Red Cell Distribution Width 15.5 % (11.5-17.5); White Blood Count 8.4 K/mm3 (4.8-10.8)
[2019-07-16 12:34] LABS: Hemoglobin A1C 6.1 % (4.0-6.0)
[2019-07-16 12:57] LABS: Chloride 97 mmol/L (98-107); Potassium 5.3 mmoL/L (3.5-5.1); Sodium 141 mmol/L (136-145)
[2019-07-16 12:59] LABS: Alanine Aminotransferase 22 U/L (12-78); Anion Gap 16.3 mEq/L (5-15); Aspartate Amino Transferase 30 U/L (17-59); Blood Urea Nitrogen 15 mg/dl (9-20); Carbon Dioxide 33 mmol/L (22.0-30.0); Estimated Glomerular Filt Rate 66 ml/min (>60); GFR (African American) 80 ML/MIN (>60)
[2019-07-16 13:00] LABS: Albumin/Globulin Ratio 1.6 (1.1-1.8); Alkaline Phosphatase 58 U/L (38-126); Bilirubin,Total 0.6 mg/dl (0.2-1.3); Calcium 10.3 mg/dl (8.4-10.2); Chol/HDL Ratio 6.3 (1-3.5); Cholesterol 232 mg/dl (140-200); Globulin 3.2 g/dL (1.3-3.2); Glucose 113 mg/dl (74-100); HDL Cholesterol 37 mg/dl (40-60); Total Protein,Serum 8.2 g/dl (6.3-8.2); Triglycerides 358 mg/dl (30-150); VLDL Cholesterol 72 mg/dL (0-40)
[2019-07-16 13:11] LABS: Direct LDL Cholesterol 140.88 mg/dL (100-129)
== END ==
PROVIDERS: Visit Provider Internal Medicine Adolescent Medicine
DX: E78.5 Hyperlipidemia, unspecified (principal); E11.69 Type 2 diabetes mellitus with other specified complication
CPT/HCPCS: 36415; 80053; 80061; 83036; 85025

== ENCOUNTER 2019-08-17 09:49 | Outpatient (CLI) | payer MEDICARE, SELFPAY | END 2019-08-17 15:54 | disposition home or self-care (01) | LOC: ACC 09:51 | PROVIDERS: Physician Assistant; PCP Internal Medicine Adolescent Medicine; Visit Provider Nurse Practitioner Family | DX: Z51.81 Encounter for therapeutic drug level monitoring (principal); Z79.01 Long term (current) use of anticoagulants; I48.91 Unspecified atrial fibrillation | CPT/HCPCS: 99211; G0463 ==

== ENCOUNTER 2019-09-21 09:53 | Outpatient (CLI) | payer MEDICARE, SELFPAY ==
[2019-09-21 11:45] LABS: PHA INR Fingerstick 2.6 (0.9-1.1)
== END 2019-09-21 11:50 | disposition home or self-care (01) ==
LOC: ACC 09:55
PROVIDERS: Physician Assistant; PCP Internal Medicine Adolescent Medicine; Visit Provider Internal Medicine
DX: Z51.81 Encounter for therapeutic drug level monitoring (principal); Z79.01 Long term (current) use of anticoagulants; I48.91 Unspecified atrial fibrillation
CPT/HCPCS: 85610; 99211; G0463

== ENCOUNTER → 2019-09-28 07:54 | Outpatient (CLI) | payer MEDICARE, SELFPAY ==
[2019-09-28 08:57] LABS: Basophils # 0.1 K/mm3 (0-0.2); Basophils % 0.8 % (0.1-2.0); Eosinophils # 0.1 K/mm3 (0.0-0.4); Eosinophils % 1.6 % (0.1-12.0); Hematocrit 44.9 % (42.0-52.0); Hemoglobin 15.1 g/dL (14.1-18.0); Lymphocytes # 1.5 K/mm3 (0.7-4.5); Lymphocytes % 20.4 % (10-50); Mean Corpuscular HGB Conc 33.6 g/dL (31.8-35.4); Mean Corpuscular Hemoglobin 31.6 pg (27.0-31.2); Mean Corpuscular Volume 94.1 fl (80-94); Monocytes # 0.3 K/mm3 (0.1-1.0); Monocytes % 3.9 % (1.7-9.3); Neutrophils # 5.4 K/mm3 (1.8-7.8); Neutrophils % 73.2 % (37.0-80.0); Platelet Count 270 K/mm3 (142-424); Red Blood Count 4.77 M/mm3 (4.60-6.20); Red Cell Distribution Width 14.3 % (11.5-17.5); White Blood Count 7.3 K/mm3 (4.8-10.8)
[2019-09-28 09:17] LABS: INR 3.23 (0.9-1.1); Prothrombin Time 30.8 seconds (9.4-11.8)
[2019-09-28 09:27] LABS: Chloride 104 mmol/L (98-107); Sodium 138 mmol/L (136-145)
[2019-09-28 09:29] LABS: Blood Urea Nitrogen 20 mg/dl (9-20); Estimated Glomerular Filt Rate 74 ml/min (>60); GFR (African American) 89 ML/MIN (>60)
[2019-09-28 09:30] LABS: Alanine Aminotransferase 19 U/L (12-78); Albumin Level 4.7 g/dl (3.5-5.0); Albumin/Globulin Ratio 1.6 (1.1-1.8); Alkaline Phosphatase 51 U/L (38-126); Aspartate Amino Transferase 28 U/L (17-59); Bilirubin,Total 0.7 mg/dl (0.2-1.3); Carbon Dioxide 30 mmol/L (22.0-30.0); Cholesterol 198 mg/dl (140-200); Globulin 2.9 g/dL (1.3-3.2); Total Protein,Serum 7.6 g/dl (6.3-8.2); Triglycerides 255 mg/dl (30-150); VLDL Cholesterol 51 mg/dL (0-40)
[2019-09-28 09:31] LABS: Calcium 9.9 mg/dl (8.4-10.2); Chol/HDL Ratio 5.5 (1-3.5); Glucose 119 mg/dl (74-100); HDL Cholesterol 36 mg/dl (40-60)
[2019-09-28 09:40] LABS: Hemoglobin A1C 6.2 % (4.0-6.0)
[2019-09-28 09:43] LABS: Direct LDL Cholesterol 106.98 mg/dL (100-129)
== END ==
PROVIDERS: Visit Provider Internal Medicine Adolescent Medicine
DX: I48.0 Paroxysmal atrial fibrillation (principal); E78.5 Hyperlipidemia, unspecified; E11.69 Type 2 diabetes mellitus with other specified complication
CPT/HCPCS: 36415; 80053; 80061; 83036; 85025; 85610

== ENCOUNTER → 2019-11-02 09:55 | Outpatient (CLI) | payer MEDICARE, SELFPAY ==
[2019-11-02 10:48] LABS: INR 3.65 (0.9-1.1); Prothrombin Time 34.5 seconds (9.4-11.8)
== END ==
PROVIDERS: PCP Internal Medicine Adolescent Medicine; Visit Provider Nurse Practitioner Family
DX: I48.91 Unspecified atrial fibrillation (principal); Z79.01 Long term (current) use of anticoagulants
CPT/HCPCS: 36415; 85610

== ENCOUNTER 2019-11-07 09:24 | Outpatient (CLI) | payer MEDICARE, SELFPAY ==
[2019-11-07 10:09] LABS: PHA INR Fingerstick 2.1 (0.9-1.1)
== END 2019-11-07 10:15 | disposition home or self-care (01) ==
LOC: ACC 09:25
PROVIDERS: PCP Internal Medicine Adolescent Medicine; Visit Provider Internal Medicine Adolescent Medicine
DX: Z79.01 Long term (current) use of anticoagulants (principal); Z51.81 Encounter for therapeutic drug level monitoring; I48.91 Unspecified atrial fibrillation
CPT/HCPCS: 85610; 99211; G0463

== ENCOUNTER 2019-11-21 09:16 | Outpatient (CLI) | payer MEDICARE, SELFPAY ==
[2019-11-21 10:09] LABS: PHA INR Fingerstick 2.2 (0.9-1.1)
== END 2019-11-21 10:12 | disposition home or self-care (01) ==
LOC: ACC 09:17
PROVIDERS: Physician Assistant; PCP Internal Medicine Adolescent Medicine; Visit Provider Nurse Practitioner Family
DX: Z51.81 Encounter for therapeutic drug level monitoring (principal); Z79.01 Long term (current) use of anticoagulants; I48.91 Unspecified atrial fibrillation
CPT/HCPCS: 85610; 99211; G0463

== ENCOUNTER → 2019-12-24 09:01 | Outpatient (CLI) | payer MEDICARE, SELFPAY ==
[2019-12-24 09:24] LABS: Basophils # 0.1 K/mm3 (0-0.2); Eosinophils # 0.2 K/mm3 (0.0-0.4); Eosinophils % 1.9 % (0.1-12.0); Hematocrit 44.2 % (42.0-52.0); Hemoglobin 14.5 g/dL (14.1-18.0); Lymphocytes % 22.8 % (10-50); Mean Corpuscular HGB Conc 32.7 g/dL (31.8-35.4); Mean Corpuscular Hemoglobin 31.7 pg (27.0-31.2); Mean Corpuscular Volume 96.9 fl (80-94); Mean Platelet Volume 7.7 fl (7.4-10.4); Monocytes # 0.5 K/mm3 (0.1-1.0); Monocytes % 5.2 % (1.7-9.3); Neutrophils % 69.1 % (37.0-80.0); Platelet Count 232 K/mm3 (142-424); Red Blood Count 4.56 M/mm3 (4.60-6.20); Red Cell Distribution Width 13.9 % (11.5-17.5); White Blood Count 8.7 K/mm3 (4.8-10.8)
[2019-12-24 11:53] LABS: Chloride 102 mmol/L (98-107); Sodium 141 mmol/L (136-145)
[2019-12-24 11:56] LABS: Alanine Aminotransferase 16 U/L (12-78); Alkaline Phosphatase 48 U/L (38-126); Aspartate Amino Transferase 26 U/L (17-59); Bilirubin,Total 0.6 mg/dl (0.2-1.3); Blood Urea Nitrogen 19 mg/dl (9-20); Carbon Dioxide 32 mmol/L (22.0-30.0); Cholesterol 206 mg/dl (140-200); Estimated Glomerular Filt Rate 74 ml/min (>60); GFR (African American) 89 ML/MIN (>60); Triglycerides 335 mg/dl (30-150); VLDL Cholesterol 67 mg/dL (0-40)
[2019-12-24 11:57] LABS: Albumin Level 4.4 g/dl (3.5-5.0); Albumin/Globulin Ratio 1.5 (1.1-1.8); Calcium 9.5 mg/dl (8.4-10.2); Chol/HDL Ratio 6.4 (1-3.5); Globulin 2.9 g/dL (1.3-3.2); Glucose 118 mg/dl (74-100); HDL Cholesterol 32 mg/dl (40-60); Total Protein,Serum 7.3 g/dl (6.3-8.2)
[2019-12-24 12:08] LABS: Direct LDL Cholesterol 104.11 mg/dL (100-129)
[2019-12-24 12:25] LABS: Thyroid Stimulating Hormone 4.68 uIU/mL (0.465-4.68)
[2019-12-24 14:02] LABS: Hemoglobin A1C 6.4 % (4.0-6.0)
== END ==
PROVIDERS: Visit Provider Internal Medicine Adolescent Medicine
DX: E78.5 Hyperlipidemia, unspecified (principal); I48.0 Paroxysmal atrial fibrillation; G25.81 Restless legs syndrome; E11.69 Type 2 diabetes mellitus with other specified complication
CPT/HCPCS: 36415; 80053; 80061; 82728; 83036; 83735; 84443; 85025

== ENCOUNTER 2019-12-25 11:20 | Outpatient (CLI) | payer MEDICARE, SELFPAY ==
[2019-12-25 13:16] LABS: PHA INR Fingerstick 2.2 (0.9-1.1)
== END 2019-12-25 13:19 | disposition home or self-care (01) ==
LOC: ACC 11:24
PROVIDERS: PCP Internal Medicine Adolescent Medicine; Visit Provider Physician Assistant
DX: Z51.81 Encounter for therapeutic drug level monitoring (principal); Z79.01 Long term (current) use of anticoagulants; I48.91 Unspecified atrial fibrillation
CPT/HCPCS: 85610; 99211; G0463

== ENCOUNTER 2020-02-05 11:08 | Outpatient (CLI) | payer MEDICARE, SELFPAY ==
[2020-02-05 16:30] LABS: PHA INR Fingerstick 2.5 (0.9-1.1)
== END 2020-02-05 16:37 | disposition home or self-care (01) ==
LOC: ACC 11:09
PROVIDERS: PCP Internal Medicine Adolescent Medicine; Visit Provider Nurse Practitioner Family
DX: Z51.81 Encounter for therapeutic drug level monitoring (principal); Z79.01 Long term (current) use of anticoagulants
CPT/HCPCS: 85610; 99211; G0463

== ENCOUNTER → 2020-02-28 08:01 | Outpatient (CLI) | payer MEDICARE, SELFPAY ==
--- NOTE | 2020-02-28 08:02 | CA_ITS ---
APPROVED REPORT EXAM: Comprehensive 2D, Doppler, and color-flow Echocardiogram [employer] Supervisor: America Gillis, RT(R) Ht: 6 ft 1 in Wt: 276lbs BSA: 2.47 BP: 116/82 mmHg Indications: severe MR, CAD, CM, EF 30-35% echo 05/2019, AICD, chronic AF 2D Dimensions LVOT 2.18 cm (M/F) 1.5-2.5 M-Mode Dimensions RVDd 2.95 cm (0.9-2.6) LA Diam 6.17 cm (1.9-4.0) LVDd 6.74 cm (3.5-5.7) Ao Diam 3.44 cm (2.0-3.7) LVDs 5.10 cm (3.5-5.7) IVSd 1.03 cm (0.6-1.1) PWd 1.08 cm (0.6-1.1) EF (Teich) 47.20% FS 24.30% EDV (Teich) 234.50 mL ESV (Teich) 123.80 mL LV Diastology E Decel Time 187.00 (160-240 msec) E/A Ratio 2.5 MED E' 8.40 (< 7 cm/sec) E'/MED E' Ratio 13.98 (>14) LAT E' 9.80 (<10 cm/sec) E/LAT E' Ratio 11.98 (>14) Aortic Valve AI PHT 504.00 ms Mitral Valve MV E Max Eyad. 117.00 (40-130 cm/s) MV A Velocity 46.00 (40-130 cm/s) E/A Ratio 2.57 MV Decel. Time 187.00 (160-240 ms) MV PHT 55.00 ms Tricuspid Valve TR P. Velocity 258.00 cm/s RAP Estimate 15.00 mmHg RVSP 41.50 mmHg Left Ventricle Left atrium is moderately enlarged, left ventricle is mildly dilated, there is mild concentric left ventricular hypertrophy, visually estimated ejection fraction 30 to 35%, left ventricle is globally hypokinetic. Superimposed segmental wall motion abnormality cannot be entirely excluded as endocardial surfaces are poorly visualized. Diastolic parameters are inconclusive. Right Ventricle Right atrium is moderately enlarged, right ventricle is mildly dilated with normal contractility, there is catheter noted right atrium and right ventricle which is likely a pacemaker or an AICD lead. Aortic Valve Aortic valve is thickened and calcified leaflet chordae display mobility, there is no aortic stenosis there is mild aortic insufficiency. Mitral Valve Mitral valve leaflets are minimally thickened, there is no mitral stenosis, there is mitral regurgitation present which is likely in severe range. There is tall event with restrictive filling pattern suggestive raise left ventricular end-diastolic pressure. Tricuspid Valve Tricuspid valve grossly normal, there is mild tricuspid regurgitation, calculated right ventricular systolic pressure is 41 mmHg. Pulmonic Valve Pulmonic valve is minimally thickened and fibrosed, there is mild pulmonic insufficiency Great Vessels Aortic root is normal size. Inferior vena cava is normal size with normal inspiratory collapse. Pericardium No significant pericardial effusion noted Conclusion 1. Biatrial enlargement, dilated left ventricle, visually estimated ejection fraction 30 to 35% left ventricle is globally hypokinetic, Doppler evidence of raise left ventricular end-diastolic pressure. Diastolic parameters are inconclusive. 2. Mildly enlarged right ventricle with normal contractility. 3. Thickened and calcified aortic valve without Doppler evidence of aortic stenosis, there is mild aortic insufficiency. 4. Minimally thickened mitral valve leaflet, there is no mitral stenosis, there is mitral regurgitation present which is likely in severe range. 5. Mild tricuspid regurgitation, calculated right ventricular systolic pressure is 41 mmHg. 6. No significant pericardial effusion noted. Electronically signed by : Jhon Lo, 02/28/2020 10:17:44
== END ==
PROVIDERS: PCP Internal Medicine Adolescent Medicine; Visit Provider Physician Assistant
DX: E78.2 Mixed hyperlipidemia (principal); I11.0 Hypertensive heart disease with heart failure; I25.10 Atherosclerotic heart disease of native coronary artery without angina pectoris; I34.0 Nonrheumatic mitral (valve) insufficiency; I48.20 Chronic atrial fibrillation, unspecified; I50.40 Unspecified combined systolic (congestive) and diastolic (congestive) heart failure; R09.89 Other specified symptoms and signs involving the circulatory and respiratory systems; R94.31 Abnormal electrocardiogram [ECG] [EKG]; Z79.01 Long term (current) use of anticoagulants
CPT/HCPCS: 93306

== ENCOUNTER → 2020-03-05 08:50 | Outpatient (CLI) | payer MEDICARE, SELFPAY ==
[2020-03-05 10:54] LABS: Chloride 101 mmol/L (98-107)
[2020-03-05 10:55] LABS: Potassium 5.1 mmoL/L (3.5-5.1); Sodium 142 mmol/L (136-145)
[2020-03-05 10:57] LABS: Blood Urea Nitrogen 17 mg/dl (9-20); Estimated Glomerular Filt Rate 74 ml/min (>60); GFR (African American) 89 ML/MIN (>60)
[2020-03-05 10:58] LABS: Anion Gap 15.1 mEq/L (5-15); Calcium 10.2 mg/dl (8.4-10.2); Carbon Dioxide 31 mmol/L (22.0-30.0); Glucose 124 mg/dl (74-100)
== END ==
PROVIDERS: Visit Provider Internal Medicine Cardiovascular Disease
DX: E78.5 Hyperlipidemia, unspecified (principal); I11.0 Hypertensive heart disease with heart failure; I25.10 Atherosclerotic heart disease of native coronary artery without angina pectoris; I34.0 Nonrheumatic mitral (valve) insufficiency; I44.7 Left bundle-branch block, unspecified; I48.91 Unspecified atrial fibrillation; I50.40 Unspecified combined systolic (congestive) and diastolic (congestive) heart failure; I50.9 Heart failure, unspecified; R09.89 Other specified symptoms and signs involving the circulatory and respiratory systems; R94.31 Abnormal electrocardiogram [ECG] [EKG]; Z79.01 Long term (current) use of anticoagulants
CPT/HCPCS: 36415; 80048

== ENCOUNTER 2020-03-19 10:07 | Outpatient (CLI) | payer MEDICARE, SELFPAY ==
[2020-03-19 12:26] LABS: PHA INR Fingerstick 2.2 (0.9-1.1)
== END 2020-03-19 13:24 | disposition home or self-care (01) ==
LOC: ACC 10:08
PROVIDERS: PCP Internal Medicine Adolescent Medicine; Visit Provider Physician Assistant
DX: Z51.81 Encounter for therapeutic drug level monitoring (principal); Z79.01 Long term (current) use of anticoagulants; I48.91 Unspecified atrial fibrillation
CPT/HCPCS: 85610; 99211; G0463

== ENCOUNTER → 2020-04-02 08:39 | Outpatient (CLI) | payer MEDICARE, SELFPAY ==
[2020-04-02 09:13] LABS: Basophils # 0.1 K/mm3 (0-0.2); Eosinophils # 0.1 K/mm3 (0.0-0.4); Eosinophils % 1.7 % (0.1-12.0); Hematocrit 51.3 % (42.0-52.0); Hemoglobin 16.7 g/dL (14.1-18.0); Lymphocytes % 25.7 % (10-50); Mean Corpuscular HGB Conc 32.5 g/dL (31.8-35.4); Mean Corpuscular Hemoglobin 32.3 pg (27.0-31.2); Mean Corpuscular Volume 99.4 fl (80-94); Mean Platelet Volume 7.7 fl (7.4-10.4); Monocytes # 0.4 K/mm3 (0.1-1.0); Monocytes % 4.7 % (1.7-9.3); Neutrophils # 5.3 K/mm3 (1.8-7.8); Neutrophils % 66.9 % (37.0-80.0); Platelet Count 265 K/mm3 (142-424); Red Blood Count 5.16 M/mm3 (4.60-6.20); Red Cell Distribution Width 13.5 % (11.5-17.5); White Blood Count 7.9 K/mm3 (4.8-10.8)
[2020-04-02 10:07] LABS: Chloride 100 mmol/L (98-107); Sodium 140 mmol/L (136-145)
[2020-04-02 10:09] LABS: Alanine Aminotransferase 25 U/L (12-78); Aspartate Amino Transferase 31 U/L (17-59); Blood Urea Nitrogen 22 mg/dl (9-20); Estimated Glomerular Filt Rate 66 ml/min (>60); GFR (African American) 80 ML/MIN (>60)
[2020-04-02 10:10] LABS: Albumin Level 5.1 g/dl (3.5-5.0); Albumin/Globulin Ratio 1.5 (1.1-1.8); Alkaline Phosphatase 45 U/L (38-126); Bilirubin,Total 0.8 mg/dl (0.2-1.3); Calcium 10.4 mg/dl (8.4-10.2); Carbon Dioxide 30 mmol/L (22.0-30.0); Chol/HDL Ratio 6.4 (1-3.5); Cholesterol 236 mg/dl (140-200); Globulin 3.3 g/dL (1.3-3.2); Glucose 120 mg/dl (74-100); HDL Cholesterol 37 mg/dl (40-60); Total Protein,Serum 8.4 g/dl (6.3-8.2)
[2020-04-02 10:14] LABS: Triglycerides 412 mg/dl (30-150)
[2020-04-02 10:21] LABS: Direct LDL Cholesterol 109.38 mg/dL (100-129)
[2020-04-02 10:40] LABS: Thyroid Stimulating Hormone 4.39 uIU/mL (0.465-4.68)
[2020-04-02 10:42] LABS: Hemoglobin A1C 6.2 % (4.0-6.0)
== END ==
PROVIDERS: Internal Medicine Adolescent Medicine; Visit Provider Internal Medicine Cardiovascular Disease
DX: I48.0 Paroxysmal atrial fibrillation (principal); E11.69 Type 2 diabetes mellitus with other specified complication; E78.5 Hyperlipidemia, unspecified
CPT/HCPCS: 36415; 80048; 80053; 80061; 83036; 84443; 85025

== ENCOUNTER → 2020-05-01 09:50 | Outpatient (CLI) | payer MEDICARE, SELFPAY ==
--- NOTE | 2020-05-01 10:07 | XR_ITS ---
PROCEDURE: XR CHEST PORTABLE CLINICAL HISTORY: COVID OUTPATIENT COMPARISON: CR XR CHEST PORTABLE from 11/29/2018 FINDINGS: There is cardiomegaly without failure. Cardiac pacemaker device is present with biventricular and right atrial leads. Coronary artery stent noted on left. The lungs are clear without infiltrates, suspicious nodules, or pleural effusions. No acute bony abnormalities. IMPRESSION: Cardiomegaly with pacemaker present. No acute finding Dictated by: Ghassan Alcantara MD 05/01/2020 11:14 Ghassan Alcantara MD in [facility] 05/01/2020 11:14
[2020-05-01 10:29] LABS: Adenovirus,PCR Not Detected (NotDetected); Bordetella Pertussis Not Detected (NotDetected); Chlamydophila Pneumoniae, PCR Not Detected (NotDetected); Coronavirus 229E Not Detected (NotDetected); Coronavirus NL63 Not Detected (NotDetected); Coronavirus OC43 Not Detected (NotDetected); Coronovirus HKU1,PCR Not Detected (NotDetected); Human Metapneumovirus Not Detected (NotDetected); Influenza A, PCR Not Detected (NotDetected); Influenza AH1, 2009 Not Detected (NotDetected); Influenza AH1, PCR Not Detected (NotDetected); Influenza AH3,PCR Not Detected (NotDetected); Influenza B, PCR Not Detected (NotDetected); Mycoplasma Pneumoniae, PCR Not Detected (NotDetected); Parainfluenza 1, PCR Not Detected (NotDetected); Parainfluenza 2, PCR Not Detected (NotDetected); Parainfluenza 3, PCR Not Detected (NotDetected); Parainfluenza 4, PCR Not Detected (NotDetected); Respiratory Syncytial Virus Not Detected (NotDetected); Rhinovirus/Enterovirus Not Detected (NotDetected)
[2020-05-01 10:34] VITALS: BMI 27.1
[2020-05-01 10:44] LABS: Basophils % 0.5 % (0.1-2.0); Chloride 101 mmol/L (98-107); Eosinophils % 0.2 % (0.1-12.0); Hematocrit 45.5 % (42.0-52.0); Hemoglobin 14.9 g/dL (14.1-18.0); Lymphocytes # 1.3 K/mm3 (0.7-4.5); Lymphocytes % 19.5 % (10-50); Mean Corpuscular HGB Conc 32.7 g/dL (31.8-35.4); Mean Corpuscular Hemoglobin 31.6 pg (27.0-31.2); Mean Corpuscular Volume 96.5 fl (80-94); Mean Platelet Volume 8.1 fl (7.4-10.4); Monocytes # 0.3 K/mm3 (0.1-1.0); Monocytes % 4.4 % (1.7-9.3); Neutrophils # 5.2 K/mm3 (1.8-7.8); Neutrophils % 75.4 % (37.0-80.0); Platelet Count 246 K/mm3 (142-424); Red Blood Count 4.71 M/mm3 (4.60-6.20); Red Cell Distribution Width 13.4 % (11.5-17.5); Sodium 138 mmol/L (136-145); White Blood Count 6.9 K/mm3 (4.8-10.8)
[2020-05-01 10:45] LABS: Potassium 4.6 mmoL/L (3.5-5.1)
[2020-05-01 10:47] LABS: Blood Urea Nitrogen 20 mg/dl (9-20); Estimated Glomerular Filt Rate 54 ml/min (>60); GFR (African American) 66 ML/MIN (>60)
[2020-05-01 10:48] LABS: Anion Gap 14.6 mEq/L (5-15); Calcium 9.4 mg/dl (8.4-10.2); Carbon Dioxide 27 mmol/L (22.0-30.0); Glucose 140 mg/dl (74-100)
[2020-05-01 13:34] LABS: Coronavirus 19, PCR Detected (NotDetected)
== END ==
PROVIDERS: PCP Internal Medicine Adolescent Medicine; Visit Provider Internal Medicine Adolescent Medicine
DX: Z20.822 Contact with and (suspected) exposure to COVID-19 (principal); U07.1 COVID-19; R50.9 Fever, unspecified
CPT/HCPCS: 36415; 71045; 80048; 85025; 87581; 87633; 87798

== ENCOUNTER 2020-05-02 10:10 | Outpatient (CLI) | payer MEDICARE, SELFPAY ==
[2020-05-02] VITALS (9 sets, daily range): BP systolic 94–113; BP diastolic 57–73; PULSE 69–90; RESP 18; TEMP 36.9–37.2; O2SAT 95–96
--- NOTE | 2020-05-02 11:15 | PC.NURSE ---
pt infusion complete at this time. Will continue to monitor.
== END 2020-05-02 12:25 | disposition home or self-care (01) ==
LOC: INF 10:11
PROVIDERS: PCP Internal Medicine Adolescent Medicine; Visit Provider Internal Medicine Adolescent Medicine
DX: U07.1 COVID-19 (principal)
CPT/HCPCS: 96365

== ENCOUNTER 2020-05-10 13:18 | Inpatient (IN) | payer MEDICARE, SELFPAY ==
[2020-05-10] VITALS (12 sets, daily range): BP systolic 77–119; BP diastolic 47–78; PULSE 65–118; RESP 14–20; TEMP 36.7–37.2; O2SAT 94–99; BMI 28.5; BMI 33.2
--- NOTE | 2020-05-10 13:36 | XR_ITS ---
PROCEDURE: XR CHEST PORTABLE Referring Doctor: Martin Westbrook Patient Age:69Y CLINICAL HISTORY: weakness Dizzy. Low blood pressure some dyspnea COMPARISON: CR XR CHEST PORTABLE from 11/29/2018 CR XR CHEST PORTABLE from 05/01/[address] ANGIO CHEST from 05/10/2020 FINDINGS: AP portable upright chest performed today and compared to a May 01 CXR Prominent cardiomegaly but vascularity appears normal however on plain film with no CHF evident on plain film. No pleural effusions evident CP angle sharp. Pacemaker/ICD device overlying the left chest. Leads appear stable and intact as before. The lungs are well expanded and appear clear. No definitive infiltrates on plain film (But would note subsequent CT a few hours later showed subtle patchy infiltrates bilaterally most evident along the periphery of the left chest). A still these are not evident on plain film although I would note the pacemaker partially obscures the left mid chest where the subtle patchy infiltrates are most evident on subsequent CT The chest wall stable unremarkable IMPRESSION: . Lungs appear clear with no convincing infiltrate or acute findings on this plain film (I would note subsequent CT showed subtle patchy infiltrates at the periphery of the left lung but still these are not evident on this plain film even in retrospect) . Prominent cardiomegaly. . Pacer device overlying the left chest partially obscures the left mid lung Dictated by: Ammon Aiken MD 05/10/2020 20:24 Ammon Aiken MD in [facility] 05/10/2020 20:24
--- NOTE | 2020-05-10 13:42 | ECG_ITS ---
APPROVED REPORT Exam: Resting ECG HR:97 bpm ECG Measurements Heart Rate 97 AXES QRSd 158 QRS 175 QT 410 T 44 QTc 520 Conclusion Electronic ventricular pacemaker Electronically signed by : Gulshan Haines, 05/14/2020 17:47:32
[2020-05-10 13:43] LABS: Basophils # 0.1 K/mm3 (0-0.2); Basophils % 0.7 % (0.1-2.0); Eosinophils # 0.1 K/mm3 (0.0-0.4); Eosinophils % 0.5 % (0.1-12.0); Hematocrit 40.2 % (42.0-52.0); Hemoglobin 12.8 g/dL (14.1-18.0); Lymphocytes # 3.4 K/mm3 (0.7-4.5); Lymphocytes % 32.4 % (10-50); Mean Corpuscular HGB Conc 31.8 g/dL (31.8-35.4); Mean Corpuscular Volume 97.3 fl (80-94); Mean Platelet Volume 8.7 fl (7.4-10.4); Monocytes # 0.5 K/mm3 (0.1-1.0); Monocytes % 4.8 % (1.7-9.3); Neutrophils # 6.5 K/mm3 (1.8-7.8); Neutrophils % 61.7 % (37.0-80.0); Platelet Count 492 K/mm3 (142-424); Red Blood Count 4.13 M/mm3 (4.60-6.20); Red Cell Distribution Width 14.7 % (11.5-17.5); White Blood Count 10.5 K/mm3 (4.8-10.8)
[2020-05-10 14:02] LABS: Chloride 105 mmol/L (98-107); Potassium 4.6 mmoL/L (3.5-5.1); Sodium 141 mmol/L (136-145)
[2020-05-10 14:05] LABS: Alanine Aminotransferase 29 U/L (12-78); Albumin Level 4.1 g/dl (3.5-5.0); Albumin/Globulin Ratio 1.2 (1.1-1.8); Alkaline Phosphatase 54 U/L (38-126); Anion Gap 13.6 mEq/L (5-15); Aspartate Amino Transferase 35 U/L (17-59); Bilirubin,Total 0.8 mg/dl (0.2-1.3); Blood Urea Nitrogen 41 mg/dl (9-20); Carbon Dioxide 27 mmol/L (22.0-30.0); Creatinine Clearance Estimated 91 mL/min (50-200); Estimated Glomerular Filt Rate 74 ml/min (>60); GFR (African American) 89 ML/MIN (>60); Globulin 3.3 g/dL (1.3-3.2); Total Protein,Serum 7.4 g/dl (6.3-8.2)
[2020-05-10 14:06] LABS: Calcium 9.4 mg/dl (8.4-10.2); Glucose 130 mg/dl (74-100)
[2020-05-10 14:19] LABS: Troponin I 0.02 ng/ml (0.00-0.034)
[2020-05-10 14:39] LABS: Lipase 102 U/L (23-300)
[2020-05-10 14:45] LABS: Activated Partial Thrombo Time 37.5 seconds (23.6-34.0)
[2020-05-10 14:52] LABS: NT Pro Brain Natriuretic Pep. 2340 pg/mL (0-125)
[2020-05-10 14:55] LABS: Troponin I 0.02 ng/ml (0.00-0.034)
[2020-05-10 15:14] LABS: Thyroid Stimulating Hormone 1.35 uIU/mL (0.465-4.68)
--- NOTE | 2020-05-10 15:51 | CT_ITS ---
PROCEDURE: CT ANGIO CHEST Referring Doctor: Martin Westbrook Patient Age:69Y CLINCIAL INDICATION: weakness Dyspnea. COMPARISON: No exams were available for comparison TECHNIQUE: IV Contrast: Bolus administration 70ML Isovue 370 followed by 40 mL normal saline Helical axial images obtained with thick slab volume MIP P sagittal and coronal reformats performed by technologist on CT workstation. All CT scans at the facility use one or more dose reduction, viz: automated exposure control, ma/kV adjustment per patient size (including targeted exams where dose is matched to indication, i.e. head), or iterative reconstruction technique. FINDINGS: PULMONARY ARTERIES: No pulmonary embolus evident.. Good visualization of pulmonary arteries with no intraluminal thrombus evident. No PE evident the AORTA: Lack of contrast the reaching aorta makes it difficult evaluate internal features at the aorta. For the only faint contrast aorta but I see no suspicious findings of dissection toward cannot be excluded on this exam but the aorta is normal in caliber. No aneurysmal dilatation. LUNGS: Numerous the scattered small patchy infiltrates bilaterally most evident peripherally. The these are most evident along periphery left lung. Most numerous patchy areas of infiltrate along the lateral aspect of the left upper lobe here at the left mid lung. Also scattered few small patchy infiltrates at posterior LLL and left lung base. Right lung: A few faint peripheral infiltrates at right lung of the most notable at the medial aspect RLL Also small patchy infiltrate at the periphery of the RML and a few at the posterior right keyon at RLL and peripherally at the the RML , as well as at the periphery of the are UL at and just above the fissure Borderline to suggestion of minor thickening central airways of which may reflect some mild associated bronchitis or chronic bronchitis with given history of past smoking. PLEURAL SPACES: No pleural effusion. No evidence of pneumothorax. HEART: Extensive dense coronary artery calcification. Streak artifact from pacemaker wires mild cardiomegaly with slow progression of contrast to the heart which may reflect some diminished cardiac output the the the the the the the. No significant pericardial effusion. MEDIASTINAL AND HILAR STRUCTURES: Calcified nodes subcarinal region reflect old granulomatous disease.. Scattered small to moderate size nodes elsewhere throughout the mediastinum of most likely minor reactive nodes. No significantly enlarged pathological nodes otherwise. No significant hilar adenopathy no mediastinal or hilar mass evident. No dominant adenopathy BONY STRUCTURES: No acute bony abnormalities apparent. Mild degenerative changes T-spine mild dextroscoliosis upper T-spine. Tiny sclerotic focus upper thoracic vertebra most likely bone island approximately T4 LYMPH NODES: No significant enlarged lymph nodes evident. UPPER ABDOMEN: Cholelithiasis-small gallstone dependent gallbladder measuring 3.5 mm size . Fatty changes liver.. Moderate distended a food filled stomach IMPRESSION: 1..Developing Bilateral Pneumonia, left lung > right . Numerous Small Patchy Infiltrates mainly distributed about periphery of lung [place] bilaterally. These patchy infiltrates are most numerous and most evident along the periphery of the left lung This pattern suspect for viral pneumonia such as covid 19. Laboratory correlation required Also note borderline-to mild thickening of central airways which may reflect minimal bronchitis or mild chronic bronchitis. 2...No Evidence Of Pulmonary Embolism. Excellent visualization pulmonary arteries 3..No aorti
--- NOTE | 2020-05-10 15:51 | CT_ITS ---
PROCEDURE: CT HEAD/BRAIN WO CON Referring Doctor: Martin Westbrook Patient Age:69Y CLINICAL INDICATION: weakness 69-year-old Former smoker COMPARISON: No exams were available for comparison TECHNIQUE: No IV contrast utilized on the CT of the brain Standard axial images were obtained. All CT scans at the facility use one or more dose reduction, viz: automated exposure control, ma/kV adjustment per patient size (including targeted exams where dose is matched to indication, i.e. head), or iterative reconstruction technique. FINDINGS: No acute intracranial findings. No intracranial hemorrhage.. No territorial infarct . Diffuse cerebral atrophy, age-appropriate Minimal atherosclerotic calcification at carotid siphons No mass or midline shift nor mass effect. No subdural or extra-axial fluid collection is evident. No hydrocephalus.The ventricles and basal cisterns appear clear and satisfactory. Posterior fossa unremarkable. Scalp unremarkable. Skull intact Small lucent area along inner table skull right frontal region is most likely benign arachnoid granulation. Mastoid air cells are well developed. Only note opacification of a few of the mastoid air cells towards the the most inferior left mastoid tip.-reflecting only very minor mastoid effusion on left the right mastoid air cells clear unremarkable a. Note generous cerumen in the left external auditory canal., with moderate cerumen at the right external auditory canal Middle ear clear. IAC's symmetric. CP angle regions clear Nosinus air-fluid level. Visualized portions of the paranasal sinuses are well developed and clear.. The the IMPRESSION: No acute intracranial findings . Diffuse cerebral atrophy. Minor other observations in text Dictated by: Ammon Aiken MD 05/10/2020 16:57 Ammon Aiken MD in [facility] 05/10/2020 16:57
--- NOTE | 2020-05-10 15:51 | PC.NURSE ---
Per chart pt was tested on 05/01/20 for covid 19 and tested positive at this facility. Per [facility] criteria pt does not need to be tested within 10 days of admission.
--- NOTE | 2020-05-10 16:20 | PC.NURSE ---
pt to radiology
--- NOTE | 2020-05-10 17:49 | HMH.EDWEAK ---
ED Disposition Clinical Impression: Dehydration, AICD (automatic cardioverter/defibrillator) present, Atypical syncope CAD (coronary artery disease) Qualifiers: Coronary Disease-Associated Artery/Lesion type: teller artery [place] vs. transplanted heart: teller heart Associated angina: without angina Qualified Code(s): I25.10 - Atherosclerotic heart disease of teller coronary artery without angina pectoris Atrial fibrillation Qualifiers: Atrial fibrillation type: longstanding persistent Qualified Code(s): I48.11 - Longstanding persistent atrial fibrillation Disposition: Admitted As Inpatient Condition on Discharge: Fair Referrals: Gulshan Haines MD [Primary Care Provider] - - Critical Care Critical Care Time: No Attestation: On 05/10/20, the high probability of a clinically significant, sudden or life threatening deterioration of the following system(s) required my full and direct attention, intervention and personal management. The time I documented below is in addition to time spent performing reported procedures but includes the following listed in this critical care notation. Medical Decision Making - Medical Records Medical records reviewed: Yes: I reviewed the patient's medical records. - Finesse Inquiry Pt receiving controlled substance: No Vital Signs: 05/10/20 13:19 05/10/20 13:49 05/10/20 14:11 Temperature 98.0 F Temperature Source Oral Pulse Rate [Left Radial] 116 H 95 H 93 H Respiratory Rate 14 18 Blood Pressure [Right Arm] 77/52 L 96/75 L 96/61 L Blood Pressure Mean [Right Arm] 60 82 72 Blood Pressure Source [Right Arm] Automatic Cuff Blood Pressure Position [Right Arm] Sitting 02 Sat by Pulse Oximetry 99 98 97 Oxygen Delivery Method Room Air Room Air Room Air 05/10/20 14:30 05/10/20 15:00 05/10/20 15:50 Temperature Temperature Source Pulse Rate [Left Radial] 91 H 103 H 92 H Respiratory Rate Blood Pressure [Right Arm] 95/61 L 109/65 L 90/56 L Blood Pressure Mean [Right Arm] 72 79 67 Blood Pressure Source [Right Arm] Automatic Cuff Automatic Cuff Automatic Cuff Blood Pressure Position [Right Arm] Sitting Sitting Sitting 02 Sat by Pulse Oximetry 95 97 96 Oxygen Delivery Method Room Air Room Air Room Air 05/10/20 17:00 Temperature Temperature Source Pulse Rate [Left Radial] 110 H Respiratory Rate 20 Blood Pressure [Right Arm] 113/71 Blood Pressure Mean [Right Arm] 85 Blood Pressure Source [Right Arm] Automatic Cuff Blood Pressure Position [Right Arm] Sitting 02 Sat by Pulse Oximetry 96 Oxygen Delivery Method Room Air - Lab Data Lab Results 05/10/20 13:38: WBC 10.5, RBC 4.13 L, Hgb 12.8 L, Hct 40.2 L, MCV 97.3 H, MCH 31.0, MCHC 31.8, RDW 14.7, Plt Count 492 H, MPV 8.7, Neut % (Auto) 61.7, Lymph % (Auto) 32.4, [place] % (Auto) 4.8, Eos % (Auto) 0.5, Baso % (Auto) 0.7, Neut # (Auto) 6.5, Lymph # (Auto) 3.4, [place] # (Auto) 0.5, Eos # (Auto) 0.1, Baso # (Auto) 0.1 05/10/20 13:38: Sodium 141, Potassium 4.6, Chloride 105, Carbon Dioxide 27, Anion Gap 13.6, BUN 41 H, Creatinine 1.00, Estimated Creat Clear 91, Estimated GFR 74, Est GFR ( Amer) 89, Glucose 130 H, Calcium 9.4, Total Bilirubin 0.8, AST 35, ALT 29, Alkaline Phosphatase 54, Troponin I 0.02, Total Protein 7.4, Albumin 4.1, Globulin 3.3 H, Albumin/Globulin Ratio 1.2 05/10/20 13:38: APTT 37.5 H 05/10/20 13:38: Troponin I 0.02, NT-Pro-B Natriuret Pep 2340 H, Lipase 102, TSH 1.35 05/10/20 14:48: Lactate 2.0 Result diagrams: 05/10/20 13:38 05/10/20 13:38 Orders (Tests/Meds): ED MEDICATIONS Discontinued Medications Generic Name Dose Route Start Last Admin Trade Name Freq PRN Reason Stop Dose Admin Sodium Chloride 1,000 mls @ 999 mls/hr 05/10/20 13:45 05/10/20 14:03 Sod Chlor 0.9% 1000ml Bag IV 05/10/20 14:45 999 mls/hr .Q1H1M SCOTT Administration Iopamidol 70 ml 05/10/20 16:37 05/10/20 16:38 Iopamidol-370 (76%);100ml Bottle IV 02/20/21 16:38 70 ml ONCE ONE Administration
--- NOTE | 2020-05-10 17:57 | PC.NURSE ---
NELLI HILL speaking with Dr Valenzuela who is pharmacy operations specialist for Dr Haines.
[2020-05-10 18:07] LABS: Microscopic, Urine URINE MICROSCOPIC (MICROSCOPIC)
[2020-05-10 18:09] LABS: Appearance,Urine CLEAR (Clear); Bilirubin,Urine Negative (Negative); Blood, Urine TRACE-I (Negative); Color,Urine YELLOW (Yellow); Glucose,Urine (UA) Negative (Negative); Ketones,Urine TRACE (Negative); Leukocyte Esterase,Urine Negative (Negative); Nitrate,Urine Negative (Negative); Protein,Urine Negative (Negative); Urobilinogen,Urine 0.2 EU/dl (0.2)
[2020-05-10 18:18] LABS: INR 6.38 (0.9-1.1); Prothrombin Time 59.8 seconds (9.4-11.8)
--- NOTE | 2020-05-10 18:18 | PC.NURSE ---
notified ER of critical pt/inr
[2020-05-10 18:23] LABS: Troponin I 0.02 ng/ml (0.00-0.034)
--- NOTE | 2020-05-10 18:34 | PC.NURSE ---
received report on pt. asked about pt bp. no new orders.
[2020-05-10 21:17] LABS: Troponin I 0.02 ng/ml (0.00-0.034)
[2020-05-11] VITALS (16 sets, daily range): BP systolic 86–128; BP diastolic 54–78; PULSE 92–145; RESP 17–21; TEMP 37–37.3; O2SAT 95–97; BMI 33.3
[2020-05-11 03:12] LABS: Basophils # 0.1 K/mm3 (0-0.2); Basophils % 0.6 % (0.1-2.0); Eosinophils # 0.1 K/mm3 (0.0-0.4); Eosinophils % 0.9 % (0.1-12.0); Hematocrit 33.6 % (42.0-52.0); Hemoglobin 11.3 g/dL (14.1-18.0); Lymphocytes # 4.4 K/mm3 (0.7-4.5); Lymphocytes % 37.4 % (10-50); Mean Corpuscular HGB Conc 33.5 g/dL (31.8-35.4); Mean Corpuscular Hemoglobin 31.6 pg (27.0-31.2); Mean Corpuscular Volume 94.3 fl (80-94); Mean Platelet Volume 8.4 fl (7.4-10.4); Monocytes # 0.5 K/mm3 (0.1-1.0); Monocytes % 4.1 % (1.7-9.3); Neutrophils # 6.7 K/mm3 (1.8-7.8); Platelet Count 419 K/mm3 (142-424); Red Blood Count 3.57 M/mm3 (4.60-6.20); Red Cell Distribution Width 13.9 % (11.5-17.5); White Blood Count 11.7 K/mm3 (4.8-10.8)
[2020-05-11 03:32] LABS: Chloride 111 mmol/L (98-107); Sodium 144 mmol/L (136-145)
[2020-05-11 03:33] LABS: Potassium 4.4 mmoL/L (3.5-5.1)
[2020-05-11 03:35] LABS: Alanine Aminotransferase 30 U/L (12-78); Albumin Level 3.7 g/dl (3.5-5.0); Albumin/Globulin Ratio 1.2 (1.1-1.8); Alkaline Phosphatase 48 U/L (38-126); Anion Gap 16.4 mEq/L (5-15); Aspartate Amino Transferase 35 U/L (17-59); Bilirubin,Total 0.7 mg/dl (0.2-1.3); Blood Urea Nitrogen 53 mg/dl (9-20); Carbon Dioxide 21 mmol/L (22.0-30.0); Creatinine Clearance Estimated 109 mL/min (50-200); Estimated Glomerular Filt Rate 83 ml/min (>60); GFR (African American) 101 ML/MIN (>60); Total Protein,Serum 6.7 g/dl (6.3-8.2)
[2020-05-11 03:36] LABS: Glucose 111 mg/dl (74-100)
--- NOTE | 2020-05-11 06:09 | PC.NURSE ---
pt is AxOx4, with activity pt goes into a fib with RVR with rates up to 170, pt complaints of dizziness at these times, but BP remains stable, pt paced at times with rates 80-120, pt did wake up at 0230 and wanted to get on BSC, once on the BSC patient began to complain of SOA, dizzinesss and began to vomit what appeared to blood, HR noted to be 170 at this time, pt also had a tarry black stool at this time, stallion manager was notified and new orders were received, pt was returned to bed and stated he felt better at ths time, since this time patient has rested well
--- NOTE | 2020-05-11 07:48 | XR_ITS ---
PROCEDURE: XR CHEST PORTABLE CLINICAL HISTORY: f/u icu exam COMPARISON: CR XR CHEST PORTABLE from 11/29/2018 CR XR CHEST PORTABLE from 05/01/[address] ANGIO CHEST from 05/10/2020 CR XR CHEST PORTABLE from 05/10/2020 FINDINGS: There is stable moderate generalized cardiomegaly. The left sided chest wall cardiac device is again noted with electrodes in good position. The lung col[place] are well expanded and appear clear of infiltrate. The costophrenic angles are clear. No acute bony abnormalities. IMPRESSION: Stable generalized cardiomegaly, no acute chest pathology noted Dictated by: Dr. Loyd Ryan MD 05/11/2020 08:27 Dr. Loyd Ryan MD in [place] 05/11/2020 08:27
[2020-05-11 08:56] LABS: Prothrombin Time 43.7 seconds (9.4-11.8)
[2020-05-11 08:58] LABS: INR 4.52 (0.9-1.1)
--- NOTE | 2020-05-11 09:04 | PC.NURSE ---
PER MD MARCUM. PT MAY HAVE CLEAR LIQUIDS, BUT WILL BE NPO AFTER MIDNIGHT. CBC AT NOON AND AT 1800. IF HEMOGLOBIN IS BELOW 9 THEN TO INFUSE 2 UNITS PRBC.
--- NOTE | 2020-05-11 09:14 | HMH.HP ---
*Admission Date: 05/10/20 *Chief complaint: Shortness of air/Weakness *History of present illness: 69-year-old white male with coronary atherosclerosis, cardiomyopathy, status post valve replacement who is on chronic warfarin therapy, diagnosed with COVID-19 on May 01. He was weak and had lots of GI symptoms. Did receive intravenous antibody infusion at [facility] on or about May 02 which seemed to improve the situation but he became very weak over the last couple of days. He reports that he had an episode of syncope but awoke spontaneously. Very ill-defined episode, no preceding palpitations, chest pain or neurologic abnormality --he noticed that he has had decreasing p.o. intake, some nausea, came to the hospital, noted to have elevated BNP levels, CT scan of chest revealed no evidence of PE, did have viral type infiltrates, and evidence of fluid overload. Admitted to hospital for further evaluation. Overnight patient had some abdominal discomfort followed by a massive amount of melanotic stool accompanied with GI coffee-ground emesis. He feels better but now feels very weak and tired. [facility] History I have reviewed the patient's past medical history: Yes Medical History: Reports:: Atrial Fibrillation, Carotid Stenosis, Congestive Heart Failure, Coronary Artery Disease, Gastroesophageal Reflux Disease(GERD), Heart Murmur, Hyperlipidemia, Hypertension, Internal Pacemaker, Palpitations, Valvular Heart Disease Denies:: Cancer, Diabetes Mellitus Type 1, Diabetes Mellitus Type 2, MRSA, Seizures *Have you ever received a pneumonia vaccine?: Yes *Have you received a flu vaccine this season?: Yes Other Medical History: Reports: Arthritis. Denies: Blood Transfusion Reaction Laterality Cases: Right: Arthroscopy Shoulder Other Surgeries: Yes: Cardiac Catheterization, Cardiac Surgery, Colonoscopy, Coronary Stent, EGD, Pacemaker, Other Amputation: No Fractures: No - *Social History Smoking Status: Former smoker Tobacco Type: cigarettes # Packs/Day (cigarettes): 1 #Yrs smoked (if former smoker): 4 Alcohol Intake: never Alcohol Intake Frequency:: holidays/special occasions only Substance Use Type: denies use *Occupational Status:: retired Housing: house Household Members: family *Travel in the last 8 weeks: None Family Hx:: Coronary Artery Disease, Heart Attack, Hyperlipidemia, Hypertension Review of Systems - Review of Systems Review of systems:: pertinent systems reviewed and negative unless documented below . Reports fatigue, reports dyspnea is better after admission. GI issues as above. Denies urology issues. Denies skin issues or neurologic issue other than weakness. - *Neurologic Reports fainting, Reports weakness Meds Home Medications Medication Instructions Recorded Confirmed Type citalopram 20 mg tablet 20 mg PO QHS tab 05/02/17 05/10/20 History terazosin 2 mg capsule 4 mg PO QHS cap 05/02/17 05/10/20 History loratadine 10 mg tablet 10 mg PO DAILY tab 08/02/17 05/10/20 History lisinopril 20 mg tablet 20 mg PO DAILY tab 10/18/17 05/10/20 History warfarin 7.5 mg tablet 7.5 mg PO MO #30 tab 01/08/19 05/10/20 Rx famotidine 20 mg tablet 20 mg PO BID 03/02/19 05/10/20 History furosemide 20 mg tablet 20 mg PO DAILY #90 tab 09/17/19 05/10/20 Rx warfarin 5 mg tablet 5 mg PO SUTUWETHFRSA #30 tab 12/05/19 05/10/20 Rx Aspirin [Low Dose Aspirin EC] 81 mg PO DAILY 05/10/20 05/10/20 History Metoprolol Succinate [Metoprolol 50 mg PO BID 05/10/20 05/10/20 History Succinate 50mg Tablet*] Rosuvastatin Calcium 20 mg PO DAILY 05/10/20 05/10/20 History Spironolactone [Spironolactone 25 mg PO DAILY 05/10/20 05/10/20 History 25mg Tablet] Allergies Allergy/AdvReac Type Severity Reaction Status Date / Time No Known Drug Allergies Allergy Unknown Verified 05/10/20 19:46 [NKDA] Exam Vital signs and Labs for Last 24 Hours: Temp Pulse Resp BP Pulse Ox 99.2 F 121 H 21 103/54 L 97 05/11/20
[2020-05-11 09:16] LABS: Hematocrit 30.1 % (42.0-52.0)
[2020-05-11 09:21] LABS: Hemoglobin 10.2 g/dL (14.1-18.0)
[2020-05-11 09:36] LABS: Procalcitonin 0.065 ng/mL (0.0-2.0)
--- NOTE | 2020-05-11 10:07 | PC.NURSE ---
Spke with Dr Haines at approx 1000. Notified him that Dr. Jackson (application development consultant for Gen Surg) was consulting on other patients today if he would like pt to be seen by gen surgery today. Per Dr. Haines, NPO now, and consult Dr. Jackson for consult today. Primary care staff informed, orders entered.
[2020-05-11 12:04] LABS: Basophils % 0.5 % (0.1-2.0); Eosinophils # 0.1 K/mm3 (0.0-0.4); Eosinophils % 1.1 % (0.1-12.0); Hematocrit 29.6 % (42.0-52.0); Hemoglobin 9.6 g/dL (14.1-18.0); Lymphocytes # 1.8 K/mm3 (0.7-4.5); Lymphocytes % 18.4 % (10-50); Mean Corpuscular HGB Conc 32.4 g/dL (31.8-35.4); Mean Corpuscular Hemoglobin 31.3 pg (27.0-31.2); Mean Corpuscular Volume 96.8 fl (80-94); Mean Platelet Volume 8.2 fl (7.4-10.4); Monocytes # 0.4 K/mm3 (0.1-1.0); Monocytes % 3.8 % (1.7-9.3); Neutrophils # 7.2 K/mm3 (1.8-7.8); Neutrophils % 76.3 % (37.0-80.0); Platelet Count 338 K/mm3 (142-424); Red Blood Count 3.06 M/mm3 (4.60-6.20); Red Cell Distribution Width 13.8 % (11.5-17.5); White Blood Count 9.4 K/mm3 (4.8-10.8)
--- NOTE | 2020-05-11 12:10 | HMH.GSCON ---
*Admission Date: 05/10/20 *Reason for consult:: GI bleed. *History of present illness: Mr. Chris is a 69-year-old male with known history of COVID positive. Presented to [facility] emergency department with complaints of syncope and generalized weakness. Describes dehydration and overall not feeling well over the past few days. Admitted to the ICU/special care unit for monitored care. Known history of cardiac dysrhythmias and coronary artery disease. Today is hospital day #1 after admission. Complicated by hematemesis and melena. Multiple episodes over short period of time of coffee-ground emesis followed by bright red blood. No similar episodes in the past. Presents with chronic warfarin therapy with remarkably high INR; greater than 6. Now measures 4.5. Hemoglobin has decreased to 10.2. Currently no signs of active bleeding. Hemodynamically stable. Review of Systems - Review of Systems Review of systems:: pertinent systems reviewed and negative unless documented below - *Neurologic Reports fainting, Reports weakness [facility] History Medical History: Reports:: Atrial Fibrillation, Carotid Stenosis, Congestive Heart Failure, Coronary Artery Disease, Gastroesophageal Reflux Disease(GERD), Heart Murmur, Hyperlipidemia, Hypertension, Internal Pacemaker, Palpitations, Valvular Heart Disease Denies:: Cancer, Diabetes Mellitus Type 1, Diabetes Mellitus Type 2, MRSA, Seizures *Have you ever received a pneumonia vaccine?: Yes *Have you received a flu vaccine this season?: Yes Other Medical History: Reports: Arthritis. Denies: Blood Transfusion Reaction Laterality Cases: Right: Arthroscopy Shoulder Other Surgeries: Yes: Cardiac Catheterization, Cardiac Surgery, Colonoscopy, Coronary Stent, EGD, Pacemaker, Other Amputation: No Fractures: No - *Social History Smoking Status: Former smoker Tobacco Type: cigarettes # Packs/Day (cigarettes): 1 #Yrs smoked (if former smoker): 4 Alcohol Intake: never Alcohol Intake Frequency:: holidays/special occasions only Substance Use Type: denies use *Occupational Status:: retired Housing: house Household Members: family *Travel in the last 8 weeks: None Family Hx:: Coronary Artery Disease, Heart Attack, Hyperlipidemia, Hypertension Meds Home Medications Medication Instructions Recorded Confirmed Type citalopram 20 mg tablet 20 mg PO QHS tab 05/02/17 05/10/20 History terazosin 2 mg capsule 4 mg PO QHS cap 05/02/17 05/10/20 History loratadine 10 mg tablet 10 mg PO DAILY tab 08/02/17 05/10/20 History lisinopril 20 mg tablet 20 mg PO DAILY tab 10/18/17 05/10/20 History warfarin 7.5 mg tablet 7.5 mg PO MO #30 tab 01/08/19 05/10/20 Rx famotidine 20 mg tablet 20 mg PO BID 03/02/19 05/10/20 History furosemide 20 mg tablet 20 mg PO DAILY #90 tab 09/17/19 05/10/20 Rx warfarin 5 mg tablet 5 mg PO SUTUWETHFRSA #30 tab 12/05/19 05/10/20 Rx Aspirin [Low Dose Aspirin EC] 81 mg PO DAILY 05/10/20 05/10/20 History Metoprolol Succinate [Metoprolol 50 mg PO BID 05/10/20 05/10/20 History Succinate 50mg Tablet*] Rosuvastatin Calcium 20 mg PO DAILY 05/10/20 05/10/20 History Spironolactone [Spironolactone 25 mg PO DAILY 05/10/20 05/10/20 History 25mg Tablet] Allergies Allergy/AdvReac Type Severity Reaction Status Date / Time No Known Drug Allergies Allergy Unknown Verified 05/10/20 19:46 [NKDA] Exam Vital signs and Labs for Last 24 Hours: Temp Pulse Resp BP Pulse Ox 99.2 F 145 H 21 103/54 L 97 05/11/20 08:00 05/11/20 08:00 05/11/20 08:00 05/11/20 08:00 05/11/20 08:00 Laboratory Results - last 24 hr 05/10/20 13:38: WBC 10.5, RBC 4.13 L, Hgb 12.8 L, Hct 40.2 L, MCV 97.3 H, MCH 31.0, MCHC 31.8, RDW 14.7, Plt Count 492 H, MPV 8.7, Neut % (Auto) 61.7, Lymph % (Auto) 32.4, [place] % (Auto) 4.8, Eos % (Auto) 0.5, Baso % (Auto) 0.7, Neut # (Auto) 6.5, Lymph # (Auto) 3.4, [place] # (Auto) 0.5, Eos # (Auto) 0.1, Baso # (Auto) 0.1 05/10/20 13:38: Sodium 141, Potassium 4.6
--- NOTE | 2020-05-11 13:33 | HMH.PHAVTE ---
[facility] Pharmacy VTE Monitoring - Patient Demographics Admission date: 05/10/20 Report Date: 05/11/20 Time: 13:33 Allergies/Adverse Reactions: Patient Allergies No Known Drug Allergies [NKDA] Allergy (Unknown, Verified 05/10/20 19:46) Height: 1.85 m Weight: 113.852 kg Patient Problems: Current Active Problems (Last Updated 12/20/18 @ 11:52 by Patito John RN) Dehydration (Acute) Atypical syncope (Acute) Pneumonia due to COVID-19 virus (Acute) GI bleeding (Acute) CHF (congestive heart failure) (Chronic) AICD (automatic cardioverter/defibrillator) present (Chronic) CAD (coronary artery disease) (Chronic) Current use of long-term anticoagulation (Chronic) Atrial fibrillation (Chronic) - VTE Risk Labs: VTE Related Lab Results Hgb 9.6 g/dL (14.1-18.0) L 05/11/20 11:50 Hct 29.6 % (42.0-52.0) L 05/11/20 11:50 Plt Count 338 K/mm3 (142-424) 05/11/20 11:50 PT 43.7 seconds (9.4-11.8) H 05/11/20 08:34 INR 4.52 (0.9-1.1) H 05/11/20 08:34 APTT 37.5 seconds (23.6-34.0) H 05/10/20 13:38 BUN 53 mg/dl (9-20) H D 05/11/20 03:00 Creatinine 0.90 mg/dl (0.66-1.25) 05/11/20 03:00 Estimated Creat Clear 109 mL/min (50-200) 05/11/20 03:00 Was VTE Risk Assessment Performed: Yes VTE Score: 7 VTE Risk Level: Moderate Risk - Prophylaxis VTE Prophylaxis Ordered?: Yes (INR IS SUPRATHERAPEUTIC (INR=4.52)) Types of VTE Prophylaxis: TEDS Knee High Location of Applied Device: Bilateral Lower Extremeties
--- NOTE | 2020-05-11 13:43 | HMH.PHAINT ---
HOME MEDICATIONS RECONCILED FROM RX FILL LIST AND PATIENT INTERVIEW.
--- NOTE | 2020-05-11 13:48 | HMH.PHAINT ---
PATIENT WILL NOT BE GETTING REMDESIVIR OR COVID ORDER SET VITAMINS PER DR MARCUM.
--- NOTE | 2020-05-11 17:30 | PC.NURSE ---
pt had an episode this AM of one dark tarry stool and one vomit of bright bloody color. none since then. pt HR remains in low 100's since each admin of cardizem. pt does report dizziness when ambulating. pt uses urinal. no other complaints. vss. will cont. to monitor.
[2020-05-11 18:38] LABS: Basophils # 0.1 K/mm3 (0-0.2); Basophils % 0.5 % (0.1-2.0); Eosinophils # 0.1 K/mm3 (0.0-0.4); Eosinophils % 0.8 % (0.1-12.0); Hematocrit 28.4 % (42.0-52.0); Hemoglobin 9.4 g/dL (14.1-18.0); Lymphocytes # 3.1 K/mm3 (0.7-4.5); Lymphocytes % 29.7 % (10-50); Mean Corpuscular HGB Conc 33.2 g/dL (31.8-35.4); Mean Corpuscular Hemoglobin 31.7 pg (27.0-31.2); Mean Corpuscular Volume 95.6 fl (80-94); Mean Platelet Volume 8.1 fl (7.4-10.4); Monocytes # 0.4 K/mm3 (0.1-1.0); Monocytes % 3.8 % (1.7-9.3); Neutrophils # 6.7 K/mm3 (1.8-7.8); Platelet Count 354 K/mm3 (142-424); Red Blood Count 2.97 M/mm3 (4.60-6.20); Red Cell Distribution Width 13.9 % (11.5-17.5); White Blood Count 10.4 K/mm3 (4.8-10.8)
[2020-05-12] VITALS (28 sets, daily range): BP systolic 114–164; BP diastolic 63–85; PULSE 72–124; RESP 18–20; TEMP 36.2–37.3; O2SAT 94–98; BMI 33.4; BMI 33.5
--- NOTE | 2020-05-12 06:47 | PC.NURSE ---
pt has had one black tarry stool this shift, no vomiting, pt HR has been 90-112, no complaints of SOA or chest pain, has not complained of dizziness, lungs CTA
[2020-05-12 06:56] LABS: Basophils % 0.5 % (0.1-2.0); Eosinophils # 0.2 K/mm3 (0.0-0.4); Hematocrit 24.4 % (42.0-52.0); Lymphocytes # 2.3 K/mm3 (0.7-4.5); Lymphocytes % 24.6 % (10-50); Mean Corpuscular HGB Conc 33.1 g/dL (31.8-35.4); Mean Corpuscular Hemoglobin 31.9 pg (27.0-31.2); Mean Corpuscular Volume 96.5 fl (80-94); Mean Platelet Volume 8.5 fl (7.4-10.4); Monocytes # 0.4 K/mm3 (0.1-1.0); Monocytes % 4.5 % (1.7-9.3); Neutrophils # 6.2 K/mm3 (1.8-7.8); Neutrophils % 68.4 % (37.0-80.0); Platelet Count 345 K/mm3 (142-424); Red Blood Count 2.53 M/mm3 (4.60-6.20); Red Cell Distribution Width 14.3 % (11.5-17.5); White Blood Count 9.1 K/mm3 (4.8-10.8)
[2020-05-12 07:07] LABS: Chloride 113 mmol/L (98-107); Sodium 142 mmol/L (136-145)
[2020-05-12 07:10] LABS: Alanine Aminotransferase 19 U/L (12-78); Albumin Level 3.3 g/dl (3.5-5.0); Alkaline Phosphatase 46 U/L (38-126); Aspartate Amino Transferase 26 U/L (17-59); Bilirubin,Total 0.7 mg/dl (0.2-1.3); Blood Urea Nitrogen 33 mg/dl (9-20); Calcium 8.6 mg/dl (8.4-10.2); Carbon Dioxide 27 mmol/L (22.0-30.0); Creatinine Clearance Estimated 110 mL/min (50-200); Estimated Glomerular Filt Rate 95 ml/min (>60); GFR (African American) 115 ML/MIN (>60); Glucose 116 mg/dl (74-100); Total Protein,Serum 5.8 g/dl (6.3-8.2)
[2020-05-12 07:11] LABS: Albumin/Globulin Ratio 1.3 (1.1-1.8); Globulin 2.5 g/dL (1.3-3.2)
[2020-05-12 07:12] LABS: Hemoglobin 8.1 g/dL (14.1-18.0)
[2020-05-12 07:19] LABS: INR 3.45 (0.9-1.1); Prothrombin Time 34.2 seconds (9.4-11.8)
--- NOTE | 2020-05-12 07:48 | CA_ITS ---
APPROVED REPORT EXAM: Comprehensive 2D, Doppler, and color-flow Echocardiogram Explosives Worker: Bev Parekh RCS, RVS Ht: 6 ft 0 in Wt: 251lbs BSA: 2.35 BP: 103/54 mmHg Indications: Sever mitral regurgitaiton awaiting repair, s/p Covid-19, A-fib,Cad-CM, Chf 2D Dimensions LVDs 4.90 cm LA Volume 188.30 mL LVOT 2.19 cm (M/F) 1.5-2.5 LA Volume Index 78.50 mL/m2 (M/F) 16-34 M-Mode Dimensions RVDd 2.72 cm (0.9-2.6) LA Diam 6.10 cm (1.9-4.0) LVDd 7.41 cm (3.5-5.7) Ao Diam 3.32 cm (2.0-3.7) LVDs 5.31 cm (3.5-5.7) IVSd 1.21 cm (0.6-1.1) PWd 1.29 cm (0.6-1.1) EF (Teich) 53.20% EPSs 1.35 cm FS 28.30% EDV (Teich) 290.30 mL TAPSE 2.84 (<1.7) ESV (Teich) 135.90 mL LV Diastology E Decel Time 100.00 (160-240 msec) E/A Ratio 1.49 MED E' 11.00 (< 7 cm/sec) E'/MED E' Ratio 10.01 (>14) LAT E' 10.80 (<10 cm/sec) E/LAT E' Ratio 10.19 (>14) Pulm Vein s 39.00 cm/sec Pulm Vein d 27.00 cm/sec Ar-A Duration 117.00 msec Aortic Valve LVOT Max 97.00 (70-110 cm/s) LVOT VTI 13.46 cm AoV Peak Eyad. 212.00 (50-130 cm/s) AI PHT 336.00 ms AO Peak GR. 17.90 mmHg AO Mean GR. 10.10 (<5 mmHg) AO VTI 44.53 (18-25 cm) NATHALY (VTI) 1.14 (2.5-4.5 cm2) Mitral Valve MV E Max Eyad. 110.00 (40-130 cm/s) MV A Velocity 74.00 (40-130 cm/s) E/A Ratio 1.49 MV Decel. Time 100.00 (160-240 ms) MV Mean Gr. 3.00 (<2mmHg) MV PHT 29.00 ms Pulmonary Valve PV Peak Velocity 86.00 (50-150 cm/s) LA End VMAX 206.00 cm/s Tricuspid Valve TR P. Velocity 276.00 cm/s RAP Estimate 10.00 mmHg RVSP 40.40 mmHg Left Ventricle Left atrium is moderately enlarged, left ventricle is mildly dilated, visually estimated ejection fraction approximately 45%, there is abnormal septal motion, diastolic parameters are inconclusive. Right Ventricle Right atrium and right ventricle are mildly enlarged with normal contractility, there is a pacemaker leads in the right atrium and right ventricle. Aortic Valve Aortic valve is minimally thickened and fibrosed, there is no aortic stenosis, there is mild aortic insufficiency. Mitral Valve Mitral valve is minimally thickened and fibrosed, there is severe mitral regurgitation, possibility of ruptured chordae cannot be excluded. Tricuspid Valve Tricuspid valve is grossly normal, there is mild tricuspid regurgitation, tricuspid regurgitation jet velocity is inadequate for calculation of the right ventricular systolic pressure. Pulmonic Valve Pulmonic valve is poorly visualized. Great Vessels Aortic root is normal size. Pericardium No significant pericardial effusion noted. Conclusion 1. Enlarged left atrium, mildly dilated left ventricle, visually estimated ejection fraction 45%, there is abnormal septal motion. Diastolic parameters are inconclusive. 2. Mild aortic insufficiency 3. Severe mitral regurgitation as described above. 4. No significant pericardial effusion noted. Electronically signed by : Jhon Lo, 05/12/2020 18:36:03
--- NOTE | 2020-05-12 08:14 | HMH.ACPN2 ---
Internal Medicine - PN: Subj *Date: 05/12/20 *Time: 08:14 Interval history: No further episodes of melena or coffeeground emesis.... minimal abd pain. Good PO of liquids Exam Vital signs and Labs for Last 24 Hours: Temp Pulse Resp BP Pulse Ox 98.6 F 90 19 137/80 98 05/11/20 20:00 05/12/20 04:00 05/12/20 04:00 05/12/20 04:00 05/12/20 04:00 Laboratory Results - last 24 hr 05/11/20 08:34: PT 43.7 H, INR 4.52 H 05/11/20 08:34: Procalcitonin 0.065 05/11/20 08:34: Hgb 10.2 L, Hct 30.1 L 05/11/20 11:50: WBC 9.4, RBC 3.06 L, Hgb 9.6 L, Hct 29.6 L, MCV 96.8 H, MCH 31.3 H, MCHC 32.4, RDW 13.8, Plt Count 338, MPV 8.2, Neut % (Auto) 76.3, Lymph % (Auto) 18.4, [place] % (Auto) 3.8, Eos % (Auto) 1.1, Baso % (Auto) 0.5, Neut # (Auto) 7.2, Lymph # (Auto) 1.8, [place] # (Auto) 0.4, Eos # (Auto) 0.1, Baso # (Auto) 0.0 05/11/20 18:10: WBC 10.4, RBC 2.97 L, Hgb 9.4 L, Hct 28.4 L, MCV 95.6 H, MCH 31.7 H, MCHC 33.2, RDW 13.9, Plt Count 354, MPV 8.1, Neut % (Auto) 65.0, Lymph % (Auto) 29.7, [place] % (Auto) 3.8, Eos % (Auto) 0.8, Baso % (Auto) 0.5, Neut # (Auto) 6.7, Lymph # (Auto) 3.1, [place] # (Auto) 0.4, Eos # (Auto) 0.1, Baso # (Auto) 0.1 05/12/20 06:10: WBC 9.1, RBC 2.53 L, Hgb 8.1 L D, Hct 24.4 L, MCV 96.5 H, MCH 31.9 H, MCHC 33.1, RDW 14.3, Plt Count 345, MPV 8.5, Neut % (Auto) 68.4, Lymph % (Auto) 24.6, [place] % (Auto) 4.5, Eos % (Auto) 2.0, Baso % (Auto) 0.5, Neut # (Auto) 6.2, Lymph # (Auto) 2.3, [place] # (Auto) 0.4, Eos # (Auto) 0.2, Baso # (Auto) 0.0 05/12/20 06:10: Sodium 142, Potassium 4.0, Chloride 113 H, Carbon Dioxide 27 D, Anion Gap 6.0, BUN 33 H D, Creatinine 0.80, Estimated Creat Clear 110, Estimated GFR 95, Est GFR ( Amer) 115, Glucose 116 H, Calcium 8.6, Total Bilirubin 0.7, AST 26 D, ALT 19 D, Alkaline Phosphatase 46, Total Protein 5.8 L, Albumin 3.3 L D, Globulin 2.5, Albumin/Globulin Ratio 1.3 05/12/20 06:10: PT 34.2 H, INR 3.45 H I & O for Last 24 hours: Intake & Output 05/09/20 05/10/20 05/11/20 05/12/20 11:59 11:59 11:59 11:59 Intake Total 240 / 240 Output Total 435 / 435 1075 / 1075 Balance -435 / -435 -835 / -835 Weight 251 lb 252 lb 7 oz - Constitutional no acute distress, chronically ill appearing - *Routine HEENT Exam Head: Present: normocephalic Eye: Present: EOMI, PERRL ENT: Present: mucous membranes moist - *Routine Neck Exam Present: supple. Absent: lymphadenopathy - *Routine Respiratory Exam Present: CTA bilaterally - *Routine Cardiovascular Exam Present: murmur, irregular rhythm - *Routine Abdominal Exam Present: soft, normoactive bowel sounds. Absent: tenderness - *Routine Extremities Exam Absent: cyanosis, clubbing, edema - *Routine Skin Exam Present: pallor, warm. Absent: rash - *Routine Neurological Exam Present: alert, oriented X3 Assessment and Plan (1) Pneumonia due to COVID-19 virus Status: Acute Category: Medical Code(s): U07.1 - COVID-19; J12.82 - Pneumonia due to coronavirus disease 2019 (2) GI bleeding Status: Acute Category: Medical Code(s): K92.2 - Gastrointestinal hemorrhage, unspecified (3) Atypical syncope Status: Acute Category: Medical Code(s): R55 - Syncope and collapse (4) Dehydration Status: Acute Category: Medical Code(s): E86.0 - Dehydration (5) AICD (automatic cardioverter/defibrillator) present Status: Chronic Category: Surgical Code(s): Z95.810 - Presence of automatic (implantable) cardiac defibrillator (6) Atrial fibrillation Status: Chronic Qualifiers: Atrial fibrillation type: longstanding persistent Qualified Code(s): I48.11 - Longstanding persistent atrial fibrillation Category: Medical Code(s): I48.91 - Unspecified atrial fibrillation (7) CAD (coronary artery disease) Status: Chronic Qualifiers: Coronary Disease-Associated Artery/Lesion type: cahto artery [place] vs. transplanted heart: cahto heart Associated angina: without angina Qualified Code(s): I
--- NOTE | 2020-05-12 14:12 | HMH.CNCARD ---
History of Present Illness Consult date: 05/12/20 Requesting physician: Gulshan Haines Consult reason: atrial fibrillation, congestive heart failure, shortness of breath Chief complaint: SOA, weakness, bleeding History of present illness: This is a 69-year-old white gentleman who was admitted to the hospital with shortness of breath and weakness. The patient was previously diagnosed with COVID-19 on May 01 of this year. The patient did receive IV antibody infusion here at [facility] around May 02 but states that he really did not have any improvement in his symptoms. The patient states that he has been progressively more weak and fatigued and progressively more short of breath. The patient states that he was so weak and fatigued he felt as if he were going to pass out. He states that he really did not have a syncopal episode where he completely went out of it but he felt like he was going to pass out. He states that he was really short of breath especially with exertion. This improved with rest but did not always completely go away. The patient had associated nausea and was not really able to eat much prior to coming into the hospital. Once he was admitted to the hospital the patient did have abdominal discomfort followed by massive coffee-ground emesis and blood in his stool. The patient states that he has continued to have some abdominal pain in the bilateral lower quadrants but this is better than it has been. He denies any fever, chills, PND or orthopnea. He denies any chest pain or chest pressure. He denies any racing of the heart. [facility] History I have reviewed the patient's past medical history: Yes Medical History: Reports:: Atrial Fibrillation, Carotid Stenosis, Congestive Heart Failure, Coronary Artery Disease, Gastroesophageal Reflux Disease(GERD), Heart Murmur, Hyperlipidemia, Hypertension, Internal Pacemaker, Palpitations, Valvular Heart Disease Denies:: Cancer, Diabetes Mellitus Type 1, Diabetes Mellitus Type 2, MRSA, Seizures *Have you ever received a pneumonia vaccine?: Yes *Have you received a flu vaccine this season?: Yes Other Medical History: Reports: Arthritis. Denies: Blood Transfusion Reaction Laterality Cases: Right: Arthroscopy Shoulder Other Surgeries: Yes: Cardiac Catheterization, Cardiac Surgery, Colonoscopy, Coronary Stent, EGD, Pacemaker, Other Amputation: No Fractures: No - *Social History Smoking Status: Former smoker Tobacco Type: cigarettes # Packs/Day (cigarettes): 1 #Yrs smoked (if former smoker): 4 Alcohol Intake: never Alcohol Intake Frequency:: holidays/special occasions only Substance Use Type: denies use *Occupational Status:: retired Housing: house Household Members: family *Travel in the last 8 weeks: None Family Hx:: Coronary Artery Disease, Heart Attack, Hyperlipidemia, Hypertension Meds Home Medications Medication Instructions Recorded Confirmed Type citalopram 20 mg tablet 20 mg PO HS tab 05/02/17 05/11/20 History terazosin 2 mg capsule 4 mg PO HS cap 05/02/17 05/11/20 History loratadine 10 mg tablet 10 mg PO DAILY tab 08/02/17 05/10/20 History lisinopril 20 mg tablet 20 mg PO DAILY tab 10/18/17 05/10/20 History famotidine 20 mg tablet 20 mg PO BID 03/02/19 05/10/20 History furosemide 20 mg tablet 20 mg PO DAILY #90 tab 09/17/19 05/10/20 Rx warfarin 5 mg tablet 5 mg PO SUTUWETHFRSA #30 tab 12/05/19 05/10/20 Rx Aspirin [Low Dose Aspirin EC] 81 mg PO DAILY 05/10/20 05/10/20 History Metoprolol Succinate [Metoprolol 50 mg PO BID 05/10/20 05/10/20 History Succinate 50mg Tablet*] Rosuvastatin Calcium 20 mg PO HS 05/10/20 05/11/20 History Spironolactone [Spironolactone 25 mg PO DAILY 05/10/20 05/10/20 History 25mg Tablet] Brimonidine Tartrate [Alphagan 1 drp EYE-RIGHT BID 05/11/20 05/11/20 History 0.2% Ophth Soln 5mL] Warfarin Sodium [Coumadin 5mg 7.5 mg PO MO@1700 05/11/20 05/11/20 History tablet] Allergies Allergy/AdvReac Type Severity Maria Eugenia
--- NOTE | 2020-05-12 19:05 | PC.NURSE ---
HE IS AOX4, ABLE TO MAKE NEEDS KNOWN TO STAFF, HAS DENIED ABD PAIN AND N/V/D T/O SHIFT. ABD IS SOFT AND ROUND ON PALPATION, BOWEL SOUNDS PRESENT X4, 2 SMALL BLACK TARRY STOOLS THIS SHIFT, NO VOMITING, PT HAS TOLERATED BLOOD TRANSFUSION WELL, VITAL SIGNS HAVE REMAINED STABLE T/O SHIFT, Mary MANZANARES ORDERED DOSE OF METOPROLOL THIS AFTERNOON R/Y TO PT TACHYCARDIA, SHE HAS EXPRESSED THAT SHE WISHES TO KEEP HIS HR BELOW 100 BPM, HE HAS NOT C/O CHEST PAIN, PACED ON TELE WITH FLUCTUATING HR, HE HAS TOLERATED CLEARS T/O SHIFT, BUT WILL NEEDS TO BE NPO AT MIDNIGHT, DR MARCUM HAS STATED THAT GOAL IS FOR GI CONSULT WHEN INR NORMALIZES. NO NEEDS AT THIS TIME, WILL CONTINUE TO MONITOR.
[2020-05-12 19:47] LABS: POC Glucose,Bedside 112 (70-110)
[2020-05-12 19:47] LABS: POC Glucose,Bedside 124 (70-110)
--- NOTE | 2020-05-12 22:49 | PC.NURSE ---
Post transfusion patient shows no s/s of acute distress or transfusion reaction. 1 hour post H&H sent to lab, VS WNL and urine is clear and yellow with no odor noted at this time.
[2020-05-13] VITALS (10 sets, daily range): BP systolic 105–139; BP diastolic 59–78; PULSE 70–82; RESP 17–20; TEMP 36.7–37; O2SAT 94–97; BMI 72.7
[2020-05-13 02:08] LABS: POC Glucose,Bedside 110 (70-110)
[2020-05-13 04:49] LABS: POC Glucose,Bedside 116 (70-110)
[2020-05-13 06:56] LABS: Basophils % 0.5 % (0.1-2.0); Eosinophils # 0.1 K/mm3 (0.0-0.4); Eosinophils % 0.6 % (0.1-12.0); Hematocrit 30.5 % (42.0-52.0); Hemoglobin 10.1 g/dL (14.1-18.0); Lymphocytes % 24.6 % (10-50); Mean Corpuscular HGB Conc 33.3 g/dL (31.8-35.4); Mean Corpuscular Hemoglobin 31.3 pg (27.0-31.2); Mean Corpuscular Volume 93.9 fl (80-94); Mean Platelet Volume 8.5 fl (7.4-10.4); Monocytes # 0.4 K/mm3 (0.1-1.0); Neutrophils # 5.8 K/mm3 (1.8-7.8); Neutrophils % 69.2 % (37.0-80.0); Platelet Count 267 K/mm3 (142-424); Red Blood Count 3.24 M/mm3 (4.60-6.20); Red Cell Distribution Width 15.7 % (11.5-17.5); White Blood Count 8.3 K/mm3 (4.8-10.8)
[2020-05-13 07:00] LABS: Chloride 104 mmol/L (98-107); Potassium 3.7 mmoL/L (3.5-5.1); Sodium 139 mmol/L (136-145)
[2020-05-13 07:03] LABS: Anion Gap 5.7 mEq/L (5-15); Blood Urea Nitrogen 21 mg/dl (9-20); Calcium 8.7 mg/dl (8.4-10.2); Carbon Dioxide 33 mmol/L (22.0-30.0); Creatinine Clearance Estimated 74 mL/min (50-200); Estimated Glomerular Filt Rate 74 ml/min (>60); GFR (African American) 89 ML/MIN (>60); Glucose 110 mg/dl (74-100)
--- NOTE | 2020-05-13 07:15 | HMH.ACPN2 ---
Internal Medicine - PN: Subj *Date: 05/13/20 *Time: 08:34 Interval history: Did well overnight. No acute events. No further events of hematemesis, does reports 2-3 dark stools in the past 24hrs. Received transfusion yesterday, tolerated well with good response. Hgb stable this morning. Vitals better with improved heart rate control this morning. Remains afebrile. Only complaint is some lower abdominal cramping. Denies any nausea, shortness of breath, confusion, chest pain. Exam Vital signs and Labs for Last 24 Hours: Temp Pulse Resp BP Pulse Ox 98.1 F 80 17 111/75 96 05/13/20 00:00 05/13/20 04:00 05/13/20 00:00 05/13/20 00:00 05/13/20 00:00 Laboratory Results - last 24 hr 05/12/20 06:10: PT 34.2 H, INR 3.45 H 05/12/20 08:55: Blood Type A Positive, Antibody Screen Negative, Crossmatch (AHG) See Detail 05/12/20 09:47: Blood Type Confirm A Positive 05/12/20 13:31: POC Glucose 112 H 05/12/20 18:39: POC Glucose 124 H 05/12/20 22:25: Hgb 10.0 L D, Hct 29.0 L 05/12/20 22:56: POC Glucose 110 05/13/20 04:33: POC Glucose 116 H 05/13/20 05:30: WBC 8.3, RBC 3.24 L D, Hgb 10.1 L, Hct 30.5 L, MCV 93.9, MCH 31.3 H, MCHC 33.3, RDW 15.7, Plt Count 267, MPV 8.5, Neut % (Auto) 69.2, Lymph % (Auto) 24.6, [place] % (Auto) 5.0, Eos % (Auto) 0.6, Baso % (Auto) 0.5, Neut # (Auto) 5.8, Lymph # (Auto) 2.0, [place] # (Auto) 0.4, Eos # (Auto) 0.1, Baso # (Auto) 0.0 05/13/20 05:30: Sodium 139, Potassium 3.7, Chloride 104, Carbon Dioxide 33 H D, Anion Gap 5.7, BUN 21 H D, Creatinine 1.00 D, Estimated Creat Clear 74, Estimated GFR 74, Est GFR ( Amer) 89 D, Glucose 110 H, Calcium 8.7 I & O for Last 24 hours: Intake & Output 05/10/20 05/11/20 05/12/20 05/13/20 23:59 23:59 23:59 23:59 Intake Total 240 / 240 870 / 870 88 / 88 Output Total 260 / 260 650 / 1250 2150 / 2750 600 / 600 Balance -260 / -260 -410 / -1010 -1280 / -1880 -512 / -512 Weight 114.107 kg 113.852 kg 115 kg 248.9 kg - Constitutional no acute distress, obese - *Routine HEENT Exam Head: Present: normocephalic Eye: Present: EOMI, PERRL ENT: Present: mucous membranes moist - *Routine Neck Exam Present: supple. Absent: lymphadenopathy - *Routine Respiratory Exam Present: CTA bilaterally - *Routine Cardiovascular Exam Present: RRR - *Routine Abdominal Exam Present: soft, normoactive bowel sounds. Absent: tenderness - *Routine Extremities Exam Absent: cyanosis, clubbing, edema - *Routine Skin Exam Present: warm. Absent: rash - *Routine Neurological Exam Present: alert, oriented X3 Assessment and Plan (1) Pneumonia due to COVID-19 virus Status: Acute Category: Medical Code(s): U07.1 - COVID-19; J12.82 - Pneumonia due to coronavirus disease 2019 (2) GI bleeding Status: Acute Category: Medical Code(s): K92.2 - Gastrointestinal hemorrhage, unspecified (3) Atypical syncope Status: Acute Category: Medical Code(s): R55 - Syncope and collapse (4) Dehydration Status: Acute Category: Medical Code(s): E86.0 - Dehydration (5) AICD (automatic cardioverter/defibrillator) present Status: Chronic Category: Surgical Code(s): Z95.810 - Presence of automatic (implantable) cardiac defibrillator (6) Atrial fibrillation Status: Chronic Qualifiers: Atrial fibrillation type: longstanding persistent Qualified Code(s): I48.11 - Longstanding persistent atrial fibrillation Category: Medical Code(s): I48.91 - Unspecified atrial fibrillation (7) CAD (coronary artery disease) Status: Chronic Qualifiers: Coronary Disease-Associated Artery/Lesion type: [place] artery [place] vs. 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
[2020-05-13 07:27] LABS: INR 3.95 (0.9-1.1); Prothrombin Time 38.7 seconds (9.4-11.8)
--- NOTE | 2020-05-13 08:49 | PC.NURSE ---
SPOKE WITH PEPE RAMOS REGARDING PT HR IN THE 70'S AND ORDERED DOSE OF METOPROLOL SUCCINATE 100 MG SHE STATED THAT IT WAS OKAY TO GIVE R/T PT HAVING AN INTERNAL PACEMAKER. DR PADILLA ALSO AWARE AND HAS GIVEN THE OKAY.
--- NOTE | 2020-05-13 09:52 | HMH.GSPN ---
Subjective Narrative: Patient is a 69-year-old male who was seen in consultation by construction services technician surgery on 05/11/2020. Patient has a history of coronary artery disease, atrial fibrillation, left bundle branch block, congestive heart failure, prior AICD placement, numerous drug-eluting stents placed, on chronic warfarin anticoagulation therapy. He had recently been treated for Covid pneumonia diagnosed on 05/01/2020. He had developed progressive weakness, fatigue, and shortness of air with near syncopal episodes. He was admitted on 05/10/2020. He had developed coffee-ground emesis and melena. INR was 6. He was seen by on-call surgeon and it was felt that once his INR had normalized that EGD would be indicated. Of note, the patient had previously undergone colonoscopy by Dr. Milad Chavez on 11/01/2016 at which time he banded hemorrhoids and noted diverticulosis. I had performed upper endoscopy on 01/16/2019 at which time the patient required Lovenox bridge. He was found to have minimal prepyloric erosion on upper endoscopy. His hemoglobin had diminished to 8 and he was transfused 2 units with appropriate response to 10. It was felt that once his INR normalized upper endoscopy would be entertained. Progress Note: A&P (1) Pneumonia due to COVID-19 virus Status: Acute (2) GI bleeding Status: Acute Assessment and plan: Plan for upper endoscopy once INR within reasonable parameters (3) Atypical syncope Status: Acute (4) Dehydration Status: Acute (5) AICD (automatic cardioverter/defibrillator) present Status: Chronic (6) Atrial fibrillation Status: Chronic (7) CAD (coronary artery disease) Status: Chronic (8) Current use of retirement anticoagulation Status: Chronic (9) Atrial fibrillation Status: Chronic (10) Systolic CHF Status: Chronic (11) Dyspnea Status: Chronic (12) Mitral valve regurgitation Status: Chronic (13) Supratherapeutic INR Status: Acute Exam Vital signs and Labs for Last 24 Hours: Temp Pulse Resp BP Pulse Ox 98.2 F 70 20 115/78 95 05/13/20 07:59 05/13/20 08:59 05/13/20 08:00 05/13/20 07:59 05/13/20 08:00 Laboratory Results - last 24 hr 05/12/20 08:55: Blood Type A Positive, Antibody Screen Negative, Crossmatch (AHG) See Detail 05/12/20 09:47: Blood Type Confirm A Positive 05/12/20 13:31: POC Glucose 112 H 05/12/20 18:39: POC Glucose 124 H 05/12/20 22:25: Hgb 10.0 L D, Hct 29.0 L 05/12/20 22:56: POC Glucose 110 05/13/20 04:33: POC Glucose 116 H 05/13/20 05:30: WBC 8.3, RBC 3.24 L D, Hgb 10.1 L, Hct 30.5 L, MCV 93.9, MCH 31.3 H, MCHC 33.3, RDW 15.7, Plt Count 267, MPV 8.5, Neut % (Auto) 69.2, Lymph % (Auto) 24.6, [place] % (Auto) 5.0, Eos % (Auto) 0.6, Baso % (Auto) 0.5, Neut # (Auto) 5.8, Lymph # (Auto) 2.0, [place] # (Auto) 0.4, Eos # (Auto) 0.1, Baso # (Auto) 0.0 05/13/20 05:30: Sodium 139, Potassium 3.7, Chloride 104, Carbon Dioxide 33 H D, Anion Gap 5.7, BUN 21 H D, Creatinine 1.00 D, Estimated Creat Clear 74, Estimated GFR 74, Est GFR ( Amer) 89 D, Glucose 110 H, Calcium 8.7 05/13/20 05:30: PT 38.7 H, INR 3.95 H I & O for Last 24 hours: Intake & Output 05/10/20 05/11/20 05/12/20 05/13/20 11:59 11:59 11:59 11:59 Intake Total 460 / 460 1098 / 1098 Output Total 435 / 435 1325 / 1325 1900 / 1900 Balance -435 / -435 -865 / -865 -802 / -802 Weight 251 lb 252 lb 7 oz 548 lb 11.689 oz
--- NOTE | 2020-05-13 13:46 | HMH.PNCARD ---
Subjective Date: 05/13/20 Time: 11:00 Principal diagnosis: GI bleed, afib, MR Interval history: This is a 69-year-old white gentleman who was admitted to the hospital with shortness of breath and weakness. The patient was found to have a GI bleed with an INR that was supratherapeutic at 6. His INR is down to 3.9 today but is up from 3.4 yesterday. He did get a unit of packed red blood cells yesterday because of his anemia. He reports having some blood in his stool last night but no more emesis with blood. He denies any chest pain or pressure. He is still having some shortness of breath states that this is better than it was. He denies any lower extremity edema. He denies any racing of the heart. He denies any fever, chills, nausea, vomiting, diarrhea, PND or orthopnea. The patient was found to be in heart failure by his heart logic on his biventricular AICD. He did get IV Lasix yesterday and has a -1200 mL fluid balance. The patient will need to have an EGD but they are waiting until his INR is down to normal range before proceeding with this procedure. Of note he does have severe mitral regurgitation that does require repair which can be done on an outpatient basis. Exam Vital signs and Labs for Last 24 Hours: Temp Pulse Resp BP Pulse Ox 98.2 F 73 20 130/67 97 05/13/20 11:55 05/13/20 11:55 05/13/20 11:55 05/13/20 11:55 05/13/20 11:55 Laboratory Results - last 24 hr 05/12/20 08:55: Blood Type A Positive, Antibody Screen Negative, Crossmatch (AHG) See Detail 05/12/20 13:31: POC Glucose 112 H 05/12/20 18:39: POC Glucose 124 H 05/12/20 22:25: Hgb 10.0 L D, Hct 29.0 L 05/12/20 22:56: POC Glucose 110 05/13/20 04:33: POC Glucose 116 H 05/13/20 05:30: WBC 8.3, RBC 3.24 L D, Hgb 10.1 L, Hct 30.5 L, MCV 93.9, MCH 31.3 H, MCHC 33.3, RDW 15.7, Plt Count 267, MPV 8.5, Neut % (Auto) 69.2, Lymph % (Auto) 24.6, [place] % (Auto) 5.0, Eos % (Auto) 0.6, Baso % (Auto) 0.5, Neut # (Auto) 5.8, Lymph # (Auto) 2.0, [place] # (Auto) 0.4, Eos # (Auto) 0.1, Baso # (Auto) 0.0 05/13/20 05:30: Sodium 139, Potassium 3.7, Chloride 104, Carbon Dioxide 33 H D, Anion Gap 5.7, BUN 21 H D, Creatinine 1.00 D, Estimated Creat Clear 74, Estimated GFR 74, Est GFR ( Amer) 89 D, Glucose 110 H, Calcium 8.7 05/13/20 05:30: PT 38.7 H, INR 3.95 H I & O for Last 24 hours: Intake & Output 05/10/20 05/11/20 05/12/20 05/13/20 23:59 23:59 23:59 23:59 Intake Total 240 / 240 870 / 870 448 / 448 Output Total 260 / 260 650 / 1250 2150 / 2750 600 / 600 Balance -260 / -260 -410 / -1010 -1280 / -1880 -152 / -152 Weight 251 lb 9 oz 251 lb 253 lb 8.505 oz 548 lb 11.689 oz Narrative: Telemetry strip shows V pacing with a rate of 70, underlying atrial fibrillation. echo shows: 1. Enlarged left atrium, mildly dilated left ventricle, visually estimated ejection fraction 45%, there is abnormal septal motion. Diastolic parameters are inconclusive. 2. Mild aortic insufficiency 3. Severe mitral regurgitation as described above. 4. No significant pericardial effusion noted. - Constitutional no acute distress, obese - *Routine HEENT Exam Head: Present: normocephalic, atraumatic Eye: Present: EOMI, PERRL ENT: Present: mucous membranes moist - *Routine Neck Exam Present: supple, full ROM, normal carotid upstroke. Absent: JVD, carotid bruit, lymphadenopathy - *Routine Respiratory Exam Present: CTA bilaterally - *Routine Cardiovascular Exam Present: Normal S1, Normal S2, murmur, irregularly irregular - *Routine Abdominal Exam Present: soft, normoactive bowel sounds. Absent: tenderness, distended - *Routine Extremities Exam Present: full ROM, pulses intact, normal capillary refill. Absent: cyanosis, clubbing, edema - *Routine Skin Exam Present: intact, warm. Absent: erythema, rash - *Routine Neurological Exam Present: alert, oriented X3, CN II-XII intact. Absent: sensory deficit, motor deficit Progress Note: A&P (1) Atrial fibrillation
--- NOTE | 2020-05-13 16:50 | PC.NURSE ---
HE IS AOX4, ABLE TO MAKE NEEDS KNOWN TO STAFF, HE HAS RESTED IN BED FOR DURATION OF SHIFT, HAS BEEN USING URINAL AT THE BEDSIDE, NO BM NOTED THUS FAR, HE HAS DENIED N/V/D ABD IS SOFT ROUND AND NON-TENDER, PACED WITH HR IN 70-80'S ON TELE. TOLERATING RA WELL, NO NEEDS AT THIS TIME.
--- NOTE | 2020-05-13 23:30 | PC.NURSE ---
He is A&Ox4. He reports a productive cough. He is unsure of the sputum color. He did ambulate independently to the bathroom and had a BM. BM was granular in appearance. No blood visualized in stool. He reports SOA occasionally. He reports that his abdomen hurts when he coughs and rates 3/10. He reports pain relief with a BM. Hyperactive bowel sounds. He continues on RA. NPO at midnight.
[2020-05-14] VITALS (19 sets, daily range): BP systolic 97–123; BP diastolic 57–73; PULSE 70–75; RESP 14–18; TEMP 36.6–36.8; O2SAT 94–99; BMI 34.5
--- NOTE | 2020-05-14 05:45 | PC.NURSE ---
His O2 drops while he is asleep but it rebounds quickly. He stated he has been diagnosed with sleep apnea but that he wears breathe right strips at home and it helps.
[2020-05-14 06:16] LABS: Chloride 105 mmol/L (98-107); Sodium 139 mmol/L (136-145)
[2020-05-14 06:19] LABS: Blood Urea Nitrogen 16 mg/dl (9-20); Carbon Dioxide 33 mmol/L (22.0-30.0); Creatinine Clearance Estimated 107 mL/min (50-200); Estimated Glomerular Filt Rate 74 ml/min (>60); GFR (African American) 89 ML/MIN (>60)
[2020-05-14 06:20] LABS: Calcium 8.6 mg/dl (8.4-10.2); Glucose 104 mg/dl (74-100)
[2020-05-14 06:55] LABS: INR 1.32 (0.9-1.1); Prothrombin Time 14.3 seconds (9.4-11.8)
[2020-05-14 06:57] LABS: Basophils % 0.6 % (0.1-2.0); Eosinophils # 0.1 K/mm3 (0.0-0.4); Eosinophils % 1.5 % (0.1-12.0); Hematocrit 30.7 % (42.0-52.0); Hemoglobin 10.5 g/dL (14.1-18.0); Lymphocytes # 1.9 K/mm3 (0.7-4.5); Lymphocytes % 29.2 % (10-50); Mean Corpuscular HGB Conc 34.4 g/dL (31.8-35.4); Mean Corpuscular Volume 95.9 fl (80-94); Mean Platelet Volume 8.9 fl (7.4-10.4); Monocytes # 0.3 K/mm3 (0.1-1.0); Monocytes % 4.8 % (1.7-9.3); Neutrophils # 4.1 K/mm3 (1.8-7.8); Neutrophils % 63.9 % (37.0-80.0); Platelet Count 252 K/mm3 (142-424); Red Cell Distribution Width 15.8 % (11.5-17.5); White Blood Count 6.5 K/mm3 (4.8-10.8)
--- NOTE | 2020-05-14 07:46 | P.PN_ITS ---
[facility] Anesthesia Checklist - Patient Identification Patient Identification: Arm Band, Verbal (Name & ) - Structural Data Admitted From: Inpatient Planned Operative Procedure/s: egd Consent for Planned Operative Procedure(s) Verified: Yes Verified Documents: Surgical Consent - Chart Verification Results Verified: CBC, PT, PTT, INR - Additional verifications Anesthesia Reactions: No Hx Blood Transfusions: No Blood Transfusion Reaction: No - Neurological Assessment Level of Consciousness: Awake - Anesthesia Plan Anesthesia Risk discussed: Yes Anesthesia Plan: Verified ASA Class: IV Anesthesia Type: MAC [facility] History Medical History: Reports:: Atrial Fibrillation, Carotid Stenosis, Congestive Heart Failure, Coronary Artery Disease, Gastroesophageal Reflux Disease(GERD), Heart Murmur, Hyperlipidemia, Hypertension, Internal Pacemaker, Palpitations, Valvular Heart Disease Denies:: Cancer, Diabetes Mellitus Type 1, Diabetes Mellitus Type 2, MRSA, Seizures *Have you ever received a pneumonia vaccine?: Yes *Have you received a flu vaccine this season?: Yes Other Medical History: Reports: Arthritis. Denies: Blood Transfusion Reaction Anesthesia experience/problems:: no problems Laterality Cases: Right: Arthroscopy Shoulder Other Surgeries: Yes: Cardiac Catheterization, Cardiac Surgery, Colonoscopy, Coronary Stent, EGD, Pacemaker, Other Amputation: No Fractures: No - *Social History Smoking Status: Former smoker Tobacco Type: cigarettes # Packs/Day (cigarettes): 1 #Yrs smoked (if former smoker): 4 Alcohol Intake: never Alcohol Intake Frequency:: holidays/special occasions only Substance Use Type: denies use *Occupational Status:: retired Housing: house Household Members: family *Travel in the last 8 weeks: None Family Hx:: Coronary Artery Disease, Heart Attack, Hyperlipidemia, Hypertension
[2020-05-14 07:52] LABS: POC Glucose,Bedside 103 (70-110)
[2020-05-14 07:52] LABS: POC Glucose,Bedside 114 (70-110)
[2020-05-14 07:52] LABS: POC Glucose,Bedside 104 (70-110)
[2020-05-14 07:52] LABS: POC Glucose,Bedside 112 (70-110)
--- NOTE | 2020-05-14 08:08 | HMH.SCOPE ---
- Procedure: Date: 05/14/20 Patient Date of :: 1950 Procedure Performed:: Esophagogastroduodenoscopy with biopsy Indications:: Patient is a 69-year-old male who was seen in consultation by electronic train control technician surgery on 05/11/2020. Patient has a history of coronary artery disease, atrial fibrillation, left bundle branch block, congestive heart failure, prior AICD placement, numerous drug-eluting stents placed, on chronic warfarin anticoagulation therapy. He had recently been treated for Covid pneumonia diagnosed on 05/01/2020. He had developed progressive weakness, fatigue, and shortness of air with near syncopal episodes. He was re-admitted on 05/10/2020. He had developed coffee-ground emesis and melena. INR was 6. He was seen by on-call surgeon and it was felt that once his INR had normalized that EGD would be indicated. Of note, the patient had previously undergone colonoscopy by Dr. Milad Chavez on 11/01/2016 at which time he banded hemorrhoids and noted diverticulosis. I had performed upper endoscopy on 01/16/2019 at which time the patient required Lovenox bridge. He was found to have minimal prepyloric erosion on upper endoscopy at that time. His hemoglobin had diminished to 8 and he was transfused 2 units with appropriate response to 10. And has remained stable. It was felt that once his INR normalized upper endoscopy would be entertained. INR was within reasonable limits this morning. Performing Provider:: Carlos Eli MD Referring Provider:: Gulshan Haines MD Sedation:: MAC sedation Procedure:: Patient was taken to endoscopy procedure room. He was positioned in lateral decubitus position. Adequate intravenous sedation was achieved. Olympus endoscope was inserted via the oropharynx. Esophagus was cannulated and surveyed. Esophagus appeared unremarkable. Gastroesophageal junction was encountered at approximately 40 cm from the incisors. Stomach was cannulated and insufflated. There was some moderate nonerosive mid body gastritis. Retroflexion revealed no evidence of any appreciable hiatal hernia. In the prepyloric location of the antrum there were approximately 3 small ulcers with exudate and clean base with no stigmata of recent bleeding. 1 ulcer appeared more inflamed with reactive surrounding gastritis. Pylorus was traversed and endoscope was advanced into the mid duodenum which appeared unremarkable. However, within the duodenal bulb there was some nonerosive duodenitis. Limited biopsy was obtained of the edge of the more inflamed appearing prepyloric ulcer. Stomach was desufflated and the endoscope was withdrawn. Findings:: 3 ulcerations in the antrum with clean exudative base and no stigmata of recent bleeding Moderate nonerosive gastritis Nonerosive duodenitis Recommendations:: Continue proton pump inhibitor. May consider Cytotec in addition. May require repeat endoscopy in the future to assess for healing. Complications:: None Estimated blood obtained (mL): 1
--- NOTE | 2020-05-14 08:40 | HMH.ACPN2 ---
Internal Medicine - PN: Subj *Date: 05/14/20 *Time: 08:40 Interval history: Patient has returned from upper endoscopy which was done without complications, procedure note reviewed, surgery input appreciated. Patient feels good, is oriented, breathing easily. Exam Vital signs and Labs for Last 24 Hours: Temp Pulse Resp BP Pulse Ox 98.1 F 70 18 123/64 94 L 05/14/20 07:46 05/14/20 08:22 05/14/20 07:46 05/14/20 07:46 05/14/20 07:46 Laboratory Results - last 24 hr 05/13/20 11:34: POC Glucose 103 05/13/20 17:25: POC Glucose 112 H 05/13/20 20:27: POC Glucose 114 H 05/14/20 04:41: POC Glucose 104 05/14/20 05:16: WBC 6.5, RBC 3.20 L, Hgb 10.5 L, Hct 30.7 L, MCV 95.9 H, MCH 33.0 H, MCHC 34.4, RDW 15.8, Plt Count 252, MPV 8.9, Neut % (Auto) 63.9, Lymph % (Auto) 29.2, [place] % (Auto) 4.8, Eos % (Auto) 1.5, Baso % (Auto) 0.6, Neut # (Auto) 4.1, Lymph # (Auto) 1.9, [place] # (Auto) 0.3, Eos # (Auto) 0.1, Baso # (Auto) 0.0 05/14/20 05:16: Sodium 139, Potassium 4.0, Chloride 105, Carbon Dioxide 33 H, Anion Gap 5.0, BUN 16, Creatinine 1.00, Estimated Creat Clear 107, Estimated GFR 74, Est GFR ( Amer) 89, Glucose 104 H, Calcium 8.6 05/14/20 05:16: PT 14.3 H, INR 1.32 H I & O for Last 24 hours: Intake & Output 05/11/20 05/12/20 05/13/20 05/14/20 11:59 11:59 11:59 11:59 Intake Total 460 / 460 1098 / 1098 544 / 544 Output Total 435 / 435 1325 / 1325 1900 / 1900 Balance -435 / -435 -865 / -865 -802 / -802 544 / 544 Weight 251 lb 252 lb 7 oz 548 lb 11.689 oz 247 lb 1.6 oz Narrative: Alert, oriented, normal vital signs, lungs clear, abdomen soft, heart rate irregular, rate controlled. Previously noted murmur. No edema, no clubbing, neurologically intact. Oropharynx clear. Assessment and Plan (1) Atrial fibrillation Status: Chronic Qualifiers: Atrial fibrillation type: longstanding persistent Qualified Code(s): I48.11 - Longstanding persistent atrial fibrillation Category: Medical Code(s): I48.91 - Unspecified atrial fibrillation (2) Pneumonia due to COVID-19 virus Status: Acute Category: Medical Code(s): U07.1 - COVID-19; J12.82 - Pneumonia due to coronavirus disease 2019 (3) GI bleeding Status: Acute Category: Medical Code(s): K92.2 - Gastrointestinal hemorrhage, unspecified (4) Atypical syncope Status: Acute Category: Medical Code(s): R55 - Syncope and collapse (5) Dehydration Status: Acute Category: Medical Code(s): E86.0 - Dehydration (6) AICD (automatic cardioverter/defibrillator) present Status: Chronic Category: Surgical Code(s): Z95.810 - Presence of automatic (implantable) cardiac defibrillator (7) CAD (coronary artery disease) Status: Chronic Qualifiers: Coronary Disease-Associated Artery/Lesion type: [place] artery Circle vs. transplanted heart: [place] heart Associated angina: without angina Qualified Code(s): I25.10 - Atherosclerotic heart disease of [place] coronary artery without angina pectoris Category: Medical Code(s): I25.10 - Atherosclerotic heart disease of [place] coronary artery without angina pectoris (8) Current use of manager terminal anticoagulation Status: Chronic Category: Medical Code(s): Z79.01 - vermin exterminator (current) use of anticoagulants (9) Systolic CHF Status: Chronic Qualifiers: Heart failure chronicity: acute on chronic Qualified Code(s): I50.23 - Acute on chronic systolic (congestive) heart failure Category: Medical Code(s): I50.20 - Unspecified systolic (congestive) heart failure (10) Dyspnea Status: Chronic Qualifiers: Dyspnea type: shortness of breath Qualified Code(s): R06.02 - Shortness of breath; R06.00 - Dyspnea, unspecified; R06.01 - Orthopnea Category: Medical Code(s): R06.00 - Dyspnea, unspecified (11) Mitral valve regurgitation Status: Chronic Qualifiers: Cardiac valve disease etiology: etiology unspecified Qualified Code(s): I34.0 - Nonrheumat
--- NOTE | 2020-05-14 08:49 | SUR.OPER ---
Pt recovered in procedure room
--- NOTE | 2020-05-14 10:49 | HMH.PNCARD ---
Subjective Date: 05/14/20 Time: 10:30 Principal diagnosis: GI bleed, afib, MR Interval history: This is a 69-year-old white gentleman who was admitted to the hospital with shortness of breath and weakness. He was found to have a GI bleed with a supratherapeutic INR. His INR did reversed with vitamin K and he underwent EGD this morning. This does show 3 areas of ulceration to the antrum with clean exudative base and no recent bleeding. There is moderate nonerosive gastritis and nonerosive duodenitis. Proton pump inhibitor has been recommended. They will also consider Cytotec and repeat EGD later to check for healing. Today the patient denies any chest pain or pressure. He states his shortness of breath is much better. He denies any lower extremity edema. He denies any fever, chills, nausea, vomiting, diarrhea, PND or orthopnea. He remains in atrial fibrillation with rate control. He has been diuresed for CHF as well. Exam Vital signs and Labs for Last 24 Hours: Temp Pulse Resp BP Pulse Ox 98.2 F 70 14 112/62 96 05/14/20 10:00 05/14/20 10:00 05/14/20 10:00 05/14/20 10:00 05/14/20 10:00 Laboratory Results - last 24 hr 05/13/20 11:34: POC Glucose 103 05/13/20 17:25: POC Glucose 112 H 05/13/20 20:27: POC Glucose 114 H 05/14/20 04:41: POC Glucose 104 05/14/20 05:16: WBC 6.5, RBC 3.20 L, Hgb 10.5 L, Hct 30.7 L, MCV 95.9 H, MCH 33.0 H, MCHC 34.4, RDW 15.8, Plt Count 252, MPV 8.9, Neut % (Auto) 63.9, Lymph % (Auto) 29.2, [place] % (Auto) 4.8, Eos % (Auto) 1.5, Baso % (Auto) 0.6, Neut # (Auto) 4.1, Lymph # (Auto) 1.9, [place] # (Auto) 0.3, Eos # (Auto) 0.1, Baso # (Auto) 0.0 05/14/20 05:16: Sodium 139, Potassium 4.0, Chloride 105, Carbon Dioxide 33 H, Anion Gap 5.0, BUN 16, Creatinine 1.00, Estimated Creat Clear 107, Estimated GFR 74, Est GFR ( Amer) 89, Glucose 104 H, Calcium 8.6 05/14/20 05:16: PT 14.3 H, INR 1.32 H I & O for Last 24 hours: Intake & Output 05/11/20 05/12/20 05/13/20 05/14/20 23:59 23:59 23:59 23:59 Intake Total 240 / 240 870 / 870 808 / 808 184 / 184 Output Total 650 / 1250 2150 / 2750 600 / 600 Balance -410 / -1010 -1280 / -1880 208 / 208 184 / 184 Weight 251 lb 253 lb 8.505 oz 548 lb 11.689 oz 247 lb 1.6 oz Narrative: Telemetry strip shows ventricular pacing with a rate of 70, underlying rhythm is atrial fibrillation. - Constitutional no acute distress, obese - *Routine HEENT Exam Head: Present: normocephalic, atraumatic Eye: Present: EOMI, PERRL ENT: Present: mucous membranes moist - *Routine Neck Exam Present: supple, full ROM, normal carotid upstroke. Absent: JVD, carotid bruit, lymphadenopathy - *Routine Respiratory Exam Present: CTA bilaterally - *Routine Cardiovascular Exam Present: Normal S1, Normal S2, murmur, irregularly irregular - *Routine Abdominal Exam Present: soft, normoactive bowel sounds. Absent: tenderness, distended - *Routine Extremities Exam Present: full ROM, pulses intact, normal capillary refill. Absent: cyanosis, clubbing, edema - *Routine Skin Exam Present: intact, warm. Absent: erythema, rash - *Routine Neurological Exam Present: alert, oriented X3, CN II-XII intact. Absent: sensory deficit, motor deficit Progress Note: A&P (1) Atrial fibrillation Status: Chronic (2) Pneumonia due to COVID-19 virus Status: Acute (3) GI bleeding Status: Acute (4) Atypical syncope Status: Acute (5) Dehydration Status: Acute (6) AICD (automatic cardioverter/defibrillator) present Status: Chronic (7) CAD (coronary artery disease) Status: Chronic (8) Current use of parts counterman anticoagulation Status: Chronic (9) Systolic CHF Status: Chronic (10) Dyspnea Status: Chronic (11) Mitral valve regurgitation Status: Chronic (12) Supratherapeutic INR Status: Acute Assessment and Plan for All Diagnoses:: plan: 1. Patient was mated to the hospital shortness of breath and fatigue. He was treated
[2020-05-14 11:09] LABS: POC Glucose,Bedside 125 (70-110)
--- NOTE | 2020-05-14 13:44 | HMH.DCSUM ---
General - General Admission date:: 05/10/20 Discharge date: 05/14/20 HPI HPI: 69-year-old white male with coronary atherosclerosis, cardiomyopathy, status post valve replacement who is on chronic warfarin therapy, diagnosed with COVID-19 on May 01. He was weak and had lots of GI symptoms. Did receive intravenous antibody infusion at [facility] on or about May 02 which seemed to improve the situation but he became very weak over the last couple of days. He reports that he had an episode of syncope but awoke spontaneously. Very ill-defined episode, no preceding palpitations, chest pain or neurologic abnormality --he noticed that he has had decreasing p.o. intake, some nausea, came to the hospital, noted to have elevated BNP levels, CT scan of chest revealed no evidence of PE, did have viral type infiltrates, and evidence of fluid overload. Admitted to hospital for further evaluation. Overnight patient had some abdominal discomfort followed by a massive amount of melanotic stool accompanied with GI coffee-ground emesis. He feels better but now feels very weak and tired. Hospital Course Hospital Course: Respiratory status was stable throughout his admission, did not require oxygen. The night after admission had evidence of a significant GI bleed with blood loss, transfused with 2 units and stabilized. Please see daily progress notes. Surgery was able to do endoscopy today after INR was corrected. Showed 3 areas of previous bleeding, no active bleeding. Recommended twice daily proton pump inhibitor and Cytotec. Patient felt much better, cardiology saw him and recommended no anticoagulation therapy given high risk of bleeding until they have seen him again next week for possible definitive therapy with watchman device. Patient felt good today, 8, up in the chair, did his activities of daily living, will be discharged home with close follow-up as noted. Objective Vital signs: Temp Pulse Resp BP Pulse Ox 98.0 F 70 16 105/67 L 95 05/14/20 12:30 05/14/20 12:30 05/14/20 12:30 05/14/20 12:30 05/14/20 12:30 no acute distress - *Routine HEENT Exam Head: Present: normocephalic Eye: Present: EOMI, PERRL ENT: Present: mucous membranes moist - *Routine Neck Exam Present: supple - *Routine Respiratory Exam Present: CTA bilaterally - *Routine Cardiovascular Exam Present: RRR, murmur, irregular rhythm - *Routine Abdominal Exam Present: soft, normoactive bowel sounds. Absent: tenderness - *Routine Extremities Exam Absent: cyanosis, clubbing, edema - *Routine Skin Exam Present: warm. Absent: rash - Detailed Eye Exam Eyelids: Bilateral normal inspection Results Labs on day of discharge: Labs from last 24 hours 05/14/20 05/14/20 05/14/20 10:55 05:16 05:16 WBC RBC Hgb Hct MCV MCH MCHC RDW Plt Count MPV Neut % (Auto) Lymph % (Auto) [place] % (Auto) Eos % (Auto) Baso % (Auto) Neut # (Auto) Lymph # (Auto) [place] # (Auto) Eos # (Auto) Baso # (Auto) PT 14.3 H INR 1.32 H Sodium 139 Potassium 4.0 Chloride 105 Carbon Dioxide 33 H Anion Gap 5.0 BUN 16 Creatinine 1.00 Estimated Creat Clear 107 Estimated GFR 74 Est GFR ( Amer) 89 Glucose 104 H POC Glucose 125 H Calcium 8.6 05/14/20 05/14/20 05/13/20 05:16 04:41 20:27 WBC 6.5 RBC 3.20 L Hgb 10.5 L Hct 30.7 L MCV 95.9 H MCH 33.0 H MCHC 34.4 RDW 15.8 Plt Count 252 MPV 8.9 Neut % (Auto) 63.9 Lymph % (Auto) 29.2 [place] % (Auto) 4.8 Eos % (Auto) 1.5 Baso % (Auto) 0.6 Neut # (Auto) 4.1 Lymph # (Auto) 1.9 [place] # (Auto) 0.3 Eos # (Auto) 0.1 Baso # (Auto) 0.0 PT INR Sodium Potassium Chloride Carbon Dioxide Anion Gap BUN Creatinine Estimated Creat Clear Estimated GFR Est GFR ( Amer) Gl
== END 2020-05-14 14:41 | disposition home or self-care (01) | DRG 177 ==
LOC: ER 17:59 → ICU 05-11 10:04
PROVIDERS: Surgery; Admitting Provider Family Medicine; Emergency Provider Emergency Medicine; PCP Internal Medicine Adolescent Medicine; Visit Provider Internal Medicine Adolescent Medicine
PROC: 0DJ08ZZ Inspection of Upper Intestinal Tract, Via Natural or Artificial Opening Endoscopic (ICD-10-PCS; CPT 43235; principal; 2020-05-14 08:00)
DX: U07.1 COVID-19 (principal); J12.82 Pneumonia due to coronavirus disease 2019; I50.23 Acute on chronic systolic (congestive) heart failure; I48.11 Longstanding persistent atrial fibrillation; K92.2 Gastrointestinal hemorrhage, unspecified; I11.0 Hypertensive heart disease with heart failure; Z87.891 Personal history of nicotine dependence; I34.0 Nonrheumatic mitral (valve) insufficiency; Z95.810 Presence of automatic (implantable) cardiac defibrillator; Z95.5 Presence of coronary angioplasty implant and graft; Z79.01 Long term (current) use of anticoagulants; Z79.82 Long term (current) use of aspirin; Z79.899 Other long term (current) drug therapy; I25.5 Ischemic cardiomyopathy
CPT/HCPCS: 43239; 36415; 70450; 71045; 71275; 80048; 80053; 81001; 82962; 83605; 83690; 83880; 84145; 84443; 84484; 85014; 85018; 85025; 85610; 85730; 86850; 88305; 93005; 93306; 96365; 99284; J2405; P9016; Q9967

== ENCOUNTER → 2020-05-26 09:51 | Outpatient (CLI) | payer MEDICARE, SELFPAY ==
[2020-05-26 12:37] LABS: Basophils # 0.1 K/mm3 (0-0.2); Basophils % 0.8 % (0.1-2.0); Eosinophils # 0.1 K/mm3 (0.0-0.4); Eosinophils % 1.5 % (0.1-12.0); Hematocrit 37.1 % (42.0-52.0); Hemoglobin 11.8 g/dL (14.1-18.0); Lymphocytes # 1.9 K/mm3 (0.7-4.5); Lymphocytes % 26.7 % (10-50); Mean Corpuscular HGB Conc 31.8 g/dL (31.8-35.4); Mean Corpuscular Hemoglobin 30.8 pg (27.0-31.2); Mean Corpuscular Volume 96.8 fl (80-94); Mean Platelet Volume 8.8 fl (7.4-10.4); Monocytes # 0.4 K/mm3 (0.1-1.0); Neutrophils # 4.7 K/mm3 (1.8-7.8); Neutrophils % 66.1 % (37.0-80.0); Platelet Count 155 K/mm3 (142-424); Red Blood Count 3.83 M/mm3 (4.60-6.20); Red Cell Distribution Width 16.7 % (11.5-17.5); White Blood Count 7.1 K/mm3 (4.8-10.8)
[2020-05-26 13:17] LABS: Chloride 101 mmol/L (98-107); Potassium 5.2 mmoL/L (3.5-5.1); Sodium 141 mmol/L (136-145)
[2020-05-26 13:20] LABS: Anion Gap 11.2 mEq/L (5-15); Blood Urea Nitrogen 16 mg/dl (9-20); Carbon Dioxide 34 mmol/L (22.0-30.0); Estimated Glomerular Filt Rate 66 ml/min (>60); GFR (African American) 80 ML/MIN (>60)
[2020-05-26 13:21] LABS: Glucose 112 mg/dl (74-100)
== END ==
PROVIDERS: PCP Internal Medicine Adolescent Medicine; Visit Provider Internal Medicine
DX: Z01.818 Encounter for other preprocedural examination (principal); Z20.822 Contact with and (suspected) exposure to COVID-19
CPT/HCPCS: 36415; 80048; 85025; U0003

== ENCOUNTER → 2020-06-21 08:03 | Outpatient (CLI) | payer MEDICARE, SELFPAY ==
[2020-06-21 08:57] LABS: Basophils # 0.1 K/mm3 (0-0.2); Basophils % 0.9 % (0.1-2.0); Eosinophils # 0.1 K/mm3 (0.0-0.4); Eosinophils % 1.4 % (0.1-12.0); Hematocrit 42.5 % (42.0-52.0); Hemoglobin 13.1 g/dL (14.1-18.0); Lymphocytes # 1.9 K/mm3 (0.7-4.5); Lymphocytes % 23.6 % (10-50); Mean Corpuscular HGB Conc 30.8 g/dL (31.8-35.4); Mean Corpuscular Hemoglobin 29.3 pg (27.0-31.2); Mean Corpuscular Volume 95.3 fl (80-94); Mean Platelet Volume 7.7 fl (7.4-10.4); Monocytes # 0.3 K/mm3 (0.1-1.0); Monocytes % 4.4 % (1.7-9.3); Neutrophils # 5.5 K/mm3 (1.8-7.8); Neutrophils % 69.7 % (37.0-80.0); Platelet Count 249 K/mm3 (142-424); Red Blood Count 4.46 M/mm3 (4.60-6.20); Red Cell Distribution Width 14.2 % (11.5-17.5); White Blood Count 7.8 K/mm3 (4.8-10.8)
[2020-06-21 10:37] LABS: Chloride 100 mmol/L (98-107); Potassium 4.5 mmoL/L (3.5-5.1); Sodium 138 mmol/L (136-145)
[2020-06-21 10:40] LABS: Anion Gap 12.5 mEq/L (5-15); Blood Urea Nitrogen 20 mg/dl (9-20); Carbon Dioxide 30 mmol/L (22.0-30.0); Estimated Glomerular Filt Rate 74 ml/min (>60); GFR (African American) 89 ML/MIN (>60)
[2020-06-21 10:41] LABS: Calcium 9.9 mg/dl (8.4-10.2); Glucose 122 mg/dl (74-100)
[2020-06-21 13:49] LABS: Coronavirus 19 IgG Antibody Positive (Negative); Coronavirus 19 IgM Antibody Negative (Negative)
== END ==
PROVIDERS: PCP Internal Medicine Adolescent Medicine; Visit Provider Nurse Practitioner Family
DX: E78.5 Hyperlipidemia, unspecified (principal); I25.10 Atherosclerotic heart disease of native coronary artery without angina pectoris; I34.0 Nonrheumatic mitral (valve) insufficiency; I44.7 Left bundle-branch block, unspecified; I48.91 Unspecified atrial fibrillation; I50.40 Unspecified combined systolic (congestive) and diastolic (congestive) heart failure; K92.2 Gastrointestinal hemorrhage, unspecified; R06.00 Dyspnea, unspecified; Z79.01 Long term (current) use of anticoagulants; I48.11 Longstanding persistent atrial fibrillation; Z01.818 Encounter for other preprocedural examination; Z20.822 Contact with and (suspected) exposure to COVID-19; I11.0 Hypertensive heart disease with heart failure
CPT/HCPCS: 36415; 80048; 85025; 86328; U0003

== ENCOUNTER 2020-06-23 08:55 | Day surgery (SDC) | payer MEDICARE, SELFPAY ==
[2020-06-23] VITALS (12 sets, daily range): BP systolic 100–140; BP diastolic 59–81; PULSE 73–95; RESP 12–18; TEMP 36.8; O2SAT 90–99; BMI 34.9
--- NOTE | 2020-06-23 07:18 | IR_ITS ---
APPROVED REPORT Patient Location: Outpatient PROCEDURES Left heart catheterization Left ventriculogram Selective coronary angiogram INDICATION Preoperative evaluation for watchman device, Ischemic cardiomyopathy, Known coronary disease, Systolic congestive heart failure, Informed consent was obtained prior to the procedure. COMPLICATIONS None Estimated Blood Loss: Less than 10 mls TECHNIQUE One percent lidocaine used to anesthetize the right anterior aspect of the wrist. The right radial artery was accessed via the Seldinger technique. A 6 Thai sheath was placed in the right radial artery. 2.5 mg of verapamil, 800 mcg of nitroglycerin, 1mg Lidocaine and 5000 U Heparin were given through the arterial sheath. The trap catheter was also used to perform left heart catheterization, left ventriculogram and selective coronary angiogram. At the end of the procedure the sheath was removed good hemostasis was achieved using Traclet band, patient was transferred to the postop holding area in stable condition. ANGIOGRAPHIC RESULTS The left main artery Normal The left anterior descending artery Has stents in the proximal through mid segment which have mild 20 to 30% diffuse in-stent restenosis. The mid LAD then has a 40 to 50% stenosis within a 2 mm diameter vessel. The circumflex artery Gives rise to a ramus intermedius which is proximally occluded the true circumflex artery gives rise to 2 medium sized obtuse marginal arteries both of which are patent with mild 20 to 30% stenosis The right coronary artery Is a dominant vessel and has diffuse proximal and mid vessel calcifications with diffuse 20 and 30% nonflow limiting stenosis The HUANG ventriculogram reveals Dilated ventricle with reduced ejection fraction estimated 25% The left ventricular end-diastolic pressure 30 mmHg IMPRESSION Coronary disease as described above Reduced ejection fraction with moderate to severely elevated LVEDP PLAN 1. Medical management 2. Interrogate biventricular pacemaker and determine if [facility] therapy can be adjusted to provide better LV synchrony 3. Increase diuretics in order to decrease EDP 4. Continued standard therapy for systolic congestive heart failure as well as coronary artery/ischemic heart disease Electronically signed by : Song Hopper, 06/23/2020 10:46:06
== END 2020-06-23 14:46 | disposition home or self-care (01) ==
LOC: CATHLAB 08:57
PROVIDERS: PCP Internal Medicine Adolescent Medicine; Visit Provider Internal Medicine
DX: E78.5 Hyperlipidemia, unspecified (principal); I11.0 Hypertensive heart disease with heart failure; I25.10 Atherosclerotic heart disease of native coronary artery without angina pectoris; I34.0 Nonrheumatic mitral (valve) insufficiency; I44.7 Left bundle-branch block, unspecified; I48.11 Longstanding persistent atrial fibrillation; I50.22 Chronic systolic (congestive) heart failure; K92.2 Gastrointestinal hemorrhage, unspecified; Z79.01 Long term (current) use of anticoagulants
CPT/HCPCS: 93458; 99152; C1725; C1760; C1769; J1644; Q9967

== ENCOUNTER → 2020-08-11 07:59 | Outpatient (CLI) | payer MEDICARE, SELFPAY | PROVIDERS: Visit Provider Thoracic Surgery (Cardiothoracic Vascular Surgery) | DX: Z11.52 Encounter for screening for COVID-19 (principal); U07.1 COVID-19 | CPT/HCPCS: U0003 ==

== ENCOUNTER → 2020-10-29 07:41 | Outpatient (CLI) | payer MEDICARE, SELFPAY ==
[2020-10-29 08:05] LABS: Basophils # 0.1 K/mm3 (0-0.2); Eosinophils # 0.1 K/mm3 (0.0-0.4); Eosinophils % 1.9 % (0.1-12.0); Hematocrit 30.5 % (42.0-52.0); Hemoglobin 9.2 g/dL (14.1-18.0); Lymphocytes # 1.4 K/mm3 (0.7-4.5); Lymphocytes % 20.7 % (10-50); Mean Corpuscular HGB Conc 30.2 g/dL (31.8-35.4); Mean Corpuscular Hemoglobin 25.3 pg (27.0-31.2); Mean Corpuscular Volume 83.9 fl (80-94); Mean Platelet Volume 8.2 fl (7.4-10.4); Monocytes # 0.3 K/mm3 (0.1-1.0); Monocytes % 4.4 % (1.7-9.3); Neutrophils # 4.8 K/mm3 (1.8-7.8); Platelet Count 402 K/mm3 (142-424); Red Blood Count 3.63 M/mm3 (4.60-6.20); Red Cell Distribution Width 14.6 % (11.5-17.5); White Blood Count 6.6 K/mm3 (4.8-10.8)
[2020-10-29 08:56] LABS: Chloride 105 mmol/L (98-107); Potassium 4.5 mmoL/L (3.5-5.1); Sodium 141 mmol/L (136-145)
[2020-10-29 08:58] LABS: Alanine Aminotransferase 12 U/L (12-78); Bilirubin,Unconjugated 0.2 mg/dL (0.0-1.1); Blood Urea Nitrogen 16 mg/dl (9-20); Estimated Glomerular Filt Rate 74 ml/min (>60); GFR (African American) 89 ML/MIN (>60)
[2020-10-29 08:59] LABS: Albumin Level 4.6 g/dl (3.5-5.0); Alkaline Phosphatase 85 U/L (38-126); Anion Gap 14.5 mEq/L (5-15); Aspartate Amino Transferase 25 U/L (17-59); Bilirubin,Direct 0.6 mg/dl (0.0-0.4); Bilirubin,Indirect 0.2 mg/dL (0.0-0.9); Bilirubin,Total 0.8 mg/dl (0.2-1.3); Calcium 9.2 mg/dl (8.4-10.2); Carbon Dioxide 26 mmol/L (22.0-30.0); Chol/HDL Ratio 5.7 (1-3.5); Cholesterol 154 mg/dl (140-200); Glucose 118 mg/dl (74-100); HDL Cholesterol 27 mg/dl (40-60); Total Protein,Serum 7.5 g/dl (6.3-8.2); Triglycerides 204 mg/dl (30-150); VLDL Cholesterol 41 mg/dL (0-40)
[2020-10-29 09:10] LABS: Direct LDL Cholesterol 85.82 mg/dL (100-129)
[2020-10-29 09:15] LABS: Free T4 (Free Thyroxine) 1.19 ng/dl (0.78-2.19)
== END ==
PROVIDERS: Visit Provider Physician Assistant
DX: E78.5 Hyperlipidemia, unspecified (principal); I25.10 Atherosclerotic heart disease of native coronary artery without angina pectoris; I34.0 Nonrheumatic mitral (valve) insufficiency; I44.7 Left bundle-branch block, unspecified; I48.91 Unspecified atrial fibrillation; I50.40 Unspecified combined systolic (congestive) and diastolic (congestive) heart failure; I50.9 Heart failure, unspecified; K92.2 Gastrointestinal hemorrhage, unspecified; R09.89 Other specified symptoms and signs involving the circulatory and respiratory systems; R94.31 Abnormal electrocardiogram [ECG] [EKG]; I11.0 Hypertensive heart disease with heart failure
CPT/HCPCS: 36415; 80048; 80061; 80076; 84439; 84443; 85025

== ENCOUNTER → 2021-03-02 11:46 | Outpatient (CLI) | payer MEDICARE, SELFPAY ==
[2021-03-02 12:20] LABS: Basophils # 0.1 K/mm3 (0-0.2); Basophils % 0.8 % (0.1-2.0); Eosinophils # 0.2 K/mm3 (0.0-0.4); Eosinophils % 2.2 % (0.1-12.0); Hemoglobin 14.4 g/dL (14.1-18.0); Lymphocytes # 2.1 K/mm3 (0.7-4.5); Mean Corpuscular Hemoglobin 29.1 pg (27.0-31.2); Mean Corpuscular Volume 90.8 fl (80-94); Mean Platelet Volume 7.5 fl (7.4-10.4); Monocytes # 0.4 K/mm3 (0.1-1.0); Monocytes % 4.4 % (1.7-9.3); Neutrophils # 5.4 K/mm3 (1.8-7.8); Neutrophils % 66.5 % (37.0-80.0); Platelet Count 281 K/mm3 (142-424); Red Blood Count 4.96 M/mm3 (4.60-6.20); White Blood Count 8.1 K/mm3 (4.8-10.8)
[2021-03-02 12:56] LABS: Alanine Aminotransferase 20 U/L (12-78); Albumin Level 4.8 g/dl (3.5-5.0); Alkaline Phosphatase 62 U/L (38-126); Anion Gap 13.9 mEq/L (5-15); Aspartate Amino Transferase 35 U/L (17-59); Bilirubin,Direct 0.2 mg/dl (0.0-0.4); Bilirubin,Indirect 0.6 mg/dL (0.0-0.9); Bilirubin,Total 0.8 mg/dl (0.2-1.3); Bilirubin,Unconjugated 0.5 mg/dL (0.0-1.1); Blood Urea Nitrogen 19 mg/dl (9-20); Calcium 10.1 mg/dl (8.4-10.2); Carbon Dioxide 36 mmol/L (22.0-30.0); Chloride 96 mmol/L (98-107); Chol/HDL Ratio 6.6 (1-3.5); Cholesterol 198 mg/dl (140-200); Estimated Glomerular Filt Rate 73 ml/min (>60); GFR (African American) 89 ML/MIN (>60); Glucose 115 mg/dl (74-100); HDL Cholesterol 30 mg/dl (40-60); Potassium 4.9 mmoL/L (3.5-5.1); Sodium 141 mmol/L (136-145); Total Protein,Serum 7.8 g/dl (6.3-8.2); Triglycerides 335 mg/dl (30-150); VLDL Cholesterol 67 mg/dL (0-40)
[2021-03-02 13:07] LABS: Direct LDL Cholesterol 106.95 mg/dL (100-129)
[2021-03-02 13:14] LABS: Free T4 (Free Thyroxine) 1.24 ng/dl (0.78-2.19)
[2021-03-02 13:28] LABS: Thyroid Stimulating Hormone 1.86 uIU/mL (0.465-4.68)
== END ==
PROVIDERS: Visit Provider Physician Assistant
DX: E11.9 Type 2 diabetes mellitus without complications (principal); E78.2 Mixed hyperlipidemia; I11.0 Hypertensive heart disease with heart failure; I25.10 Atherosclerotic heart disease of native coronary artery without angina pectoris; I34.0 Nonrheumatic mitral (valve) insufficiency; I48.11 Longstanding persistent atrial fibrillation; I50.22 Chronic systolic (congestive) heart failure; I50.23 Acute on chronic systolic (congestive) heart failure; Z79.01 Long term (current) use of anticoagulants; Z95.810 Presence of automatic (implantable) cardiac defibrillator; Z98.890 Other specified postprocedural states; I63.9 Cerebral infarction, unspecified
CPT/HCPCS: 80048; 80061; 80076; 84439; 84443; 85025

== ENCOUNTER → 2021-03-31 12:41 | Outpatient (CLI) | payer MEDICARE, SELFPAY ==
--- NOTE | 2021-03-31 12:45 | CA_ITS ---
APPROVED REPORT EXAM: Comprehensive 2D, Doppler, and color-flow Echocardiogram Acquisition Associate: Bev Parekh, RCS, RVS Ht: 6 ft 0 in Wt: 276lbs BSA: 2.44 BP: 147/95 mmHg Indications: LVE, CHF, A-fib, S/p MV repair: appendage ligation, Hx-COVID, HTN, HLD, Obesity 2D Dimensions IVSd 1.04 cm LVEF (Visual) 29.10 % PWd 1.24 cm LA Volume 108.10 mL LVDd 6.44 cm LA Volume Index 44.30 mL/m2 (M/F) 16-34 LVDs 5.54 cm Aortic Root 3.35 cm Left Atrium 5.73 cm LVOT 2.02 cm (M/F) 1.5-2.5 M-Mode Dimensions RVDd 3.75 cm (0.9-2.6) LA Diam 5.74 cm (1.9-4.0) LVDd 6.28 cm (3.5-5.7) Ao Diam 3.36 cm (2.0-3.7) LVDs 5.36 cm (3.5-5.7) IVSd 1.29 cm (0.6-1.1) PWd 0.98 cm (0.6-1.1) EF (Teich) 32.40% EPSs 1.87 cm FS 15.70% EDV (Teich) 205.60 mL TAPSE 1.65 (<1.7) ESV (Teich) 138.90 mL LV Diastology E Decel Time 158.00 (160-240 msec) E/A Ratio 1.13 MED E' 6.50 (< 7 cm/sec) MED A' 5.50 cm/s E'/MED E' Ratio 17.03 (>14) LAT E' 7.50 (<10 cm/sec) E/LAT E' Ratio 14.76 (>14) Aortic Valve LVOT Max 86.00 (70-110 cm/s) LVOT VTI 13.76 cm AoV Peak Eyad. 150.00 (50-130 cm/s) AI PHT 461.00 ms AO Peak GR. 9.00 mmHg AO Mean GR. 4.90 (<5 mmHg) AO VTI 28.25 (18-25 cm) NATHALY (VTI) 1.56 (2.5-4.5 cm2) Mitral Valve MV E Max Eyad. 111.00 (40-130 cm/s) MV A Velocity 98.00 (40-130 cm/s) E/A Ratio 1.13 MV Decel. Time 158.00 (160-240 ms) MV Mean Gr. 5.00 (<2mmHg) MV PHT 46.00 ms Pulmonary Valve PV Peak Velocity 62.00 (50-150 cm/s) OR End VMAX 201.00 cm/s Tricuspid Valve TR P. Velocity 258.00 cm/s RAP Estimate 10.00 mmHg RVSP 36.70 mmHg Left Ventricle Left atrium is moderately enlarged, left ventricle is mildly dilated, there is reduced left ventricular systolic function, visually estimated ejection fraction 35% left ventricular globally hypokinetic. Diastolic parameters are inconclusive. Right Ventricle Right atrium and right ventricle are mildly enlarged, there is pacemaker leads in the right atrium and right ventricle. Aortic Valve Aortic valve is thickened and calcified without Doppler evidence of aortic stenosis, there is mild aortic insufficiency. Mitral Valve Mitral valve ring is present in mitral position, there is no significant mitral inflow obstruction seen, there is mitral regurgitation present which is likely in severe range. Tricuspid Valve Tricuspid valve is minimally thickened, there is mild tricuspid regurgitation, calculated right ventricular systolic pressure 36 mmHg. Pulmonic Valve Pulmonic valve is poorly visualized. Great Vessels Aortic root is normal size. Inferior vena cava is poorly visualized. Pericardium No significant pericardial effusion noted. Conclusion 1. Biatrial enlargement, dilated left ventricle, severely reduced left ventricular systolic function, visually estimated ejection fraction 35%, left ventricle is globally hypokinetic, diastolic parameters inconclusive. 2. Status post mitral valve repair, there is no significant mitral inflow obstruction, there is mitral regurgitation present which is likely in severe range. 3. Mild tricuspid regurgitation, calculated right ventricular systolic pressure 36 mmHg. 4. No significant pericardial effusion noted. 5. Inferior vena cava is not well visualized. Electronically signed by : Jhon Lo MD 03/31/2021 19:51:35
--- NOTE | 2021-03-31 13:29 | XR_ITS ---
FINAL REPORT CLINICAL HISTORY: dyspnea COMPARISON: May 11, 2020 FINDINGS: Cardiomegaly is noted. Postoperative changes are seen from median sternotomy. A left subclavian ICD is present. There is mild pulmonary vascular congestion, worse. No acute pulmonary abnormalities identified. There is no pneumothorax. The bony thorax is intact. IMPRESSION: Mild pulmonary vascular congestion, worse. Reviewed, Interpreted and Dictated by Carlos Fernández III, MD Transcribed by Maria Antonia Landis Authenticated by Carlos Fernández III, MD on 03/31/2021 02:37:34 PM [facility]
== END ==
PROVIDERS: PCP Internal Medicine Adolescent Medicine; Visit Provider Physician Assistant
DX: E78.2 Mixed hyperlipidemia (principal); I11.0 Hypertensive heart disease with heart failure; I25.10 Atherosclerotic heart disease of native coronary artery without angina pectoris; I34.0 Nonrheumatic mitral (valve) insufficiency; I48.11 Longstanding persistent atrial fibrillation; I50.22 Chronic systolic (congestive) heart failure; I50.23 Acute on chronic systolic (congestive) heart failure; Z79.01 Long term (current) use of anticoagulants; Z95.810 Presence of automatic (implantable) cardiac defibrillator; Z98.890 Other specified postprocedural states
CPT/HCPCS: 71046; 93306

== ENCOUNTER → 2021-04-08 08:00 | Outpatient (CLI) | payer MEDICARE, SELFPAY ==
[2021-04-08 09:41] LABS: Blood Urea Nitrogen 23 mg/dl (9-20); Calcium 9.9 mg/dl (8.4-10.2); Carbon Dioxide 32 mmol/L (22.0-30.0); Chloride 98 mmol/L (98-107); Estimated Glomerular Filt Rate 66 ml/min (>60); GFR (African American) 80 ML/MIN (>60); Glucose 123 mg/dl (74-100); Sodium 139 mmol/L (136-145)
[2021-04-08 09:50] LABS: NT Pro Brain Natriuretic Pep. 1090 pg/mL (0-125)
== END ==
PROVIDERS: Visit Provider Internal Medicine Cardiovascular Disease
DX: Z01.812 Encounter for preprocedural laboratory examination; Z11.52 Encounter for screening for COVID-19; R06.02 Shortness of breath; I11.0 Hypertensive heart disease with heart failure; I25.10 Atherosclerotic heart disease of native coronary artery without angina pectoris; I34.0 Nonrheumatic mitral (valve) insufficiency; I48.11 Longstanding persistent atrial fibrillation; I50.22 Chronic systolic (congestive) heart failure; I50.23 Acute on chronic systolic (congestive) heart failure; E78.2 Mixed hyperlipidemia; R09.89 Other specified symptoms and signs involving the circulatory and respiratory systems; R94.31 Abnormal electrocardiogram [ECG] [EKG]; Z79.01 Long term (current) use of anticoagulants; Z95.810 Presence of automatic (implantable) cardiac defibrillator; Z98.890 Other specified postprocedural states
CPT/HCPCS: 36415; 80048; 83880; C9803; U0003; U0005

== ENCOUNTER 2021-04-10 07:14 | Day surgery (SDC) | payer MEDICARE, SELFPAY ==
[2021-04-10 07:38] VITALS: BP 133/95; PULSE 97; RESP 16; TEMP 36.9; O2SAT 97; BMI 37.3
--- NOTE | 2021-04-10 07:51 | CA_ITS ---
APPROVED REPORT EXAM: Comprehensive 2D, Doppler, and color-flow Echocardiogram Hog Cooler: RT Geno(R) Ht: 6 ft 0 in Wt: 275lbs BSA: 2.44 BP: 139/80 mmHg Indications: severe MR, hx of MV repair, HTN, hyperlipidemia, obesity, appendage ligation, CHF Mitral Valve MV Mean Gr. 2.00 (<2mmHg) MV PHT 55.00 ms MVA PHT 4.0 cm2 Procedure After obtaining informed consent, patient underwent transesophageal echo in the [facility]. Type of Sedation : Conscious Sedation Sedation was administered by Afshin Worley C.R.N.A. Transesophageal probe was inserted and advanced into esophagus without difficulty by Dr. Lilly Dumas. The CAMERON was performed without complications. Throughout the procedure, the blood pressure, pulse oximetry, cardiac rhythm, and rate were monitored. The patient tolerated the procedure without adverse effects. Recovery from conscious sedation was uneventful and vital signs were stable. Left Ventricle Left ventricle is mildly dilated, reduced left ventricular systolic function, visually estimated ejection fraction in the obtained views is approximately 30 to 35%. Left ventricle is globally hypokinetic. Right Ventricle Right ventricle is mildly enlarged with mild reduced contractility. Atria Left atrium is moderately enlarged, there is no thrombus seen in left atrium, left atrial appendage does not appear to be ligated, there is no thrombus seen in the left atrial appendage, there is poor appendage flow. Right atrium is moderately enlarged, there is catheter noted in the right atrium and right ventricle which is likely a pacemaker lead. Intra-atrial septum is intact, there is no flow across the interatrial septum, agitated saline contrast study fails to identify intracardiac shunt. Aortic Valve Aortic valve is thickened and calcified without restriction to leaflet mobility, there is mild aortic insufficiency. Mitral Valve Status post mitral valve repair with mitral valve ring, there is no mitral inflow obstruction, there is mitral regurgitation present which is likely in severe range. Pulmonary vein Doppler was not obtainable. Tricuspid Valve Tricuspid valve leaflets are minimally thickened, there is mild tricuspid regurgitation. Pulmonic Valve Pulmonic valve is grossly normal. Great Vessels Aortic root is normal size. Ascending, arch and descending thoracic aorta there is no aneurysm or dissection. Inferior vena cava is not well visualized. Pericardium No significant pericardial effusion noted. Conclusion 1. Biatrial enlargement, dilated left ventricle, reduced left ventricular systolic function, visually estimated ejection fraction in the obtained views is 30 to 35%. 2. Status post mitral valve repair, the valve leaflets have significant degenerative changes both in the anterior posterior mitral leaflet, there is no significant mitral inflow obstruction, there is severe mitral regurgitation present, there is no perivalvular regurgitation. 3. Mild tricuspid regurgitation. 4. Mildly enlarged right ventricle with mild reduced contractility. 5. Mild aortic and tricuspid regurgitation. 6. Agitated saline contrast study fails to identify intracardiac shunt. 7. No significant pericardial effusion noted. Electronically signed by : Jhon Lo MD 04/10/2021 10:35:13
[2021-04-10 07:58] VITALS: BP 133/95; PULSE 97; RESP 16; TEMP 36.9; O2SAT 95
[2021-04-10 08:09] VITALS: BP 133/95; PULSE 97; RESP 16; TEMP 36.9; O2SAT 95
[2021-04-10 08:29] VITALS: BP 85/50; PULSE 75; RESP 21; O2SAT 94
[2021-04-10 08:31] VITALS: BP 91/56; PULSE 82; RESP 21; O2SAT 95
--- NOTE | 2021-04-10 08:39 | P.PN_ITS ---
[facility] Anesthesia Checklist - Patient Identification Patient Identification: Arm Band, Verbal (Name & ) - Structural Data Admitted From: Home Planned Operative Procedure/s: CAMERON Consent for Planned Operative Procedure(s) Verified: Yes Verified Documents: Surgical Consent - NPO Status Verified Time NPO: 00:00 - Additional verifications Anesthesia Reactions: No Hx Blood Transfusions: No Blood Transfusion Reaction: No - Airway Assessment C-Spine Mobility Assessed: Yes TMJ Mobility Assessed: Yes Dentition: Good Dentition - Neurological Assessment Level of Consciousness: Awake, Alert, Appropriate - Anesthesia Plan Anesthesia Risk discussed: Yes Anesthesia Type: MAC [facility] History Medical History: Reports:: Atrial Fibrillation, Carotid Stenosis, Congestive Heart Failure, Coronary Artery Disease, Gastroesophageal Reflux Disease(GERD), Heart Murmur, Hyperlipidemia, Hypertension, Internal Pacemaker, Palpitations, Valvular Heart Disease Denies:: Cancer, Diabetes Mellitus Type 1, Diabetes Mellitus Type 2, MRSA, Seizures *Have you ever received a pneumonia vaccine?: Yes *Have you received a flu vaccine this season?: Yes Other Medical History: Reports: Arthritis. Denies: Blood Transfusion Reaction Anesthesia experience/problems:: none Laterality Cases: Right: Arthroscopy Shoulder Other Surgeries: Yes: CABG, Cardiac Catheterization, Cardiac Surgery, Colonoscopy, Coronary Stent, EGD, Pacemaker, Other Amputation: No Fractures: No - *Social History Smoking Status: Former smoker Tobacco Type: cigarettes # Packs/Day (cigarettes): 1 #Yrs smoked (if former smoker): 4 Alcohol Intake: never Alcohol Intake Frequency:: holidays/special occasions only Substance Use Type: denies use *Occupational Status:: retired Housing: house Household Members: family *Travel in the last 8 weeks: None Family Hx:: Coronary Artery Disease, Heart Attack, Hyperlipidemia, Hypertension
[2021-04-10 09:22] VITALS: BP 111/64; PULSE 82; RESP 18; O2SAT 96
[2021-04-10 09:48] LABS: Basophils # 0.1 K/mm3 (0-0.2); Basophils % 1.6 % (0.1-2.0); Eosinophils # 0.2 K/mm3 (0.0-0.4); Eosinophils % 2.1 % (0.1-12.0); Hematocrit 49.6 % (42.0-52.0); Hemoglobin 15.7 g/dL (14.1-18.0); Lymphocytes # 1.8 K/mm3 (0.7-4.5); Lymphocytes % 21.6 % (10-50); Mean Corpuscular HGB Conc 31.7 g/dL (31.8-35.4); Mean Corpuscular Hemoglobin 30.7 pg (27.0-31.2); Mean Platelet Volume 8.6 fl (7.4-10.4); Monocytes # 0.6 K/mm3 (0.1-1.0); Monocytes % 6.9 % (1.7-9.3); Neutrophils # 5.7 K/mm3 (1.8-7.8); Neutrophils % 67.7 % (37.0-80.0); Platelet Count 310 K/mm3 (142-424); Red Blood Count 5.12 M/mm3 (4.60-6.20); Red Cell Distribution Width 17.2 % (11.5-17.5); White Blood Count 8.4 K/mm3 (4.8-10.8)
[2021-04-10 09:53] LABS: Chloride 98 mmol/L (98-107); Potassium 5.4 mmoL/L (3.5-5.1); Sodium 140 mmol/L (136-145)
[2021-04-10 09:56] LABS: Anion Gap 19.4 mEq/L (5-15); Blood Urea Nitrogen 26 mg/dl (9-20); Calcium 9.8 mg/dl (8.4-10.2); Carbon Dioxide 28 mmol/L (22.0-30.0); Creatinine Clearance Estimated 118 mL/min (50-200); Estimated Glomerular Filt Rate 73 ml/min (>60); GFR (African American) 89 ML/MIN (>60); Glucose 118 mg/dl (74-100)
[2021-04-10 10:05] LABS: NT Pro Brain Natriuretic Pep. 991 pg/mL (0-125)
== END 2021-04-10 09:26 | disposition home or self-care (01) ==
PROVIDERS: PCP Internal Medicine Adolescent Medicine; Visit Provider Internal Medicine Cardiovascular Disease
DX: E78.2 Mixed hyperlipidemia (principal); I11.0 Hypertensive heart disease with heart failure; I25.10 Atherosclerotic heart disease of native coronary artery without angina pectoris; I34.0 Nonrheumatic mitral (valve) insufficiency; I48.11 Longstanding persistent atrial fibrillation; I50.23 Acute on chronic systolic (congestive) heart failure; R06.02 Shortness of breath; R09.89 Other specified symptoms and signs involving the circulatory and respiratory systems; R94.31 Abnormal electrocardiogram [ECG] [EKG]; Z79.01 Long term (current) use of anticoagulants; Z95.810 Presence of automatic (implantable) cardiac defibrillator
CPT/HCPCS: 80048; 83880; 85025; 93312; J2704

== ENCOUNTER → 2021-04-28 08:07 | Outpatient (CLI) | payer MEDICARE, SELFPAY ==
[2021-04-28 08:42] LABS: Basophils # 0.1 K/mm3 (0-0.2); Basophils % 1.6 % (0.1-2.0); Eosinophils # 0.2 K/mm3 (0.0-0.4); Eosinophils % 2.8 % (0.1-12.0); Hematocrit 44.1 % (42.0-52.0); Lymphocytes % 25.1 % (10-50); Mean Corpuscular HGB Conc 31.8 g/dL (31.8-35.4); Mean Corpuscular Hemoglobin 31.2 pg (27.0-31.2); Mean Corpuscular Volume 98.1 fl (80-94); Mean Platelet Volume 7.8 fl (7.4-10.4); Monocytes # 0.4 K/mm3 (0.1-1.0); Monocytes % 5.1 % (1.7-9.3); Neutrophils # 5.1 K/mm3 (1.8-7.8); Neutrophils % 65.4 % (37.0-80.0); Platelet Count 255 K/mm3 (142-424); Red Cell Distribution Width 15.7 % (11.5-17.5); White Blood Count 7.8 K/mm3 (4.8-10.8)
[2021-04-28 10:08] LABS: Chloride 98 mmol/L (98-107); Potassium 4.9 mmoL/L (3.5-5.1); Sodium 136 mmol/L (136-145)
[2021-04-28 10:11] LABS: Blood Urea Nitrogen 20 mg/dl (9-20); Estimated Glomerular Filt Rate 73 ml/min (>60); GFR (African American) 89 ML/MIN (>60)
[2021-04-28 10:12] LABS: Anion Gap 12.9 mEq/L (5-15); Calcium 9.4 mg/dl (8.4-10.2); Carbon Dioxide 30 mmol/L (22.0-30.0); Glucose 122 mg/dl (74-100)
[2021-04-28 10:19] LABS: NT Pro Brain Natriuretic Pep. 1370 pg/mL (0-125)
== END ==
PROVIDERS: Urology; PCP Internal Medicine Adolescent Medicine; Visit Provider Physician Assistant
DX: Z01.812 Encounter for preprocedural laboratory examination; Z11.52 Encounter for screening for COVID-19; R06.00 Dyspnea, unspecified; I48.91 Unspecified atrial fibrillation; I34.0 Nonrheumatic mitral (valve) insufficiency; I50.40 Unspecified combined systolic (congestive) and diastolic (congestive) heart failure; I11.0 Hypertensive heart disease with heart failure; E78.5 Hyperlipidemia, unspecified; I25.10 Atherosclerotic heart disease of native coronary artery without angina pectoris; R09.89 Other specified symptoms and signs involving the circulatory and respiratory systems; R94.31 Abnormal electrocardiogram [ECG] [EKG]; Z79.01 Long term (current) use of anticoagulants; Z95.810 Presence of automatic (implantable) cardiac defibrillator; Z98.890 Other specified postprocedural states
CPT/HCPCS: 36415; 80048; 83880; 85025; C9803; U0003; U0005

== ENCOUNTER 2021-04-30 08:09 | Day surgery (SDC) | payer MEDICARE, SELFPAY ==
[2021-04-30] VITALS (13 sets, daily range): BP systolic 101–145; BP diastolic 57–91; PULSE 69–86; RESP 16–20; TEMP 36.7–36.8; O2SAT 90–99; BMI 37.5
--- NOTE | 2021-04-30 07:03 | IR_ITS ---
APPROVED REPORT Patient Location: Outpatient PROCEDURES Right heart catheterization Left heart catheterization Selective coronary angiogram Left ventriculogram INDICATION Preoperative evaluation for mitral valve surgery, Severe mitral regurgitation, Pulmonary hypertension Informed consent was obtained prior to the procedure. COMPLICATIONS None Estimated Blood Loss: Less than 10 mls TECHNIQUE One percent lidocaine was used to anesthetize the right anterior aspect of the right wrist. The right radial artery was accessed via the Seldinger technique and a 6 [place] hydrophilic sheath was placed in the right radial artery. Following this one percent lidocaine was used to anesthetize the right anterior aspect of the right neck. The right internal jugular vein was accessed via the Seldinger technique and a 7 [place] sheath was placed in the right internal jugular vein. Following this an arterial cocktail was administered using 5000U heparin, 2.5 mg verapamil, 1mg Lidocaine and 800mcg nitroglycerin into the right radial sheath. A trap catheter was used to perform left heart catheterization left ventriculogram and selective coronary angiography while a [place]Maggie catheter was used to perform right heart catheterization. Saturations were obtained in the pulmonary artery and right atrium. At the end of the procedure the arterial sheath was removed good hemostasis was achieved using Traclet band. Patient was transferred to the postop holding area in stable condition for venous sheath removal. ANGIOGRAPHIC RESULTS The left main artery Normal The left anterior descending artery Has proximal to mid vessel eccentric 30 to 40% stenosis with diffuse multiple 30% stenoses throughout the mid segment. The circumflex artery Is nondominant gives rise to a moderate sized ramus intermedius which is occluded at mid segment. It does give off a small to moderate branch prior to the occlusion which has 30% to 40% mid vessel stenoses. This branches 1.25 mm in diameter. The circumflex artery is a nondominant vessel has mild proximal 20 to 30% stenoses The right coronary artery Is a dominant vessel and has proximal and mid vessel diffuse 20 to 30% stenoses. Distally there are multiple 30% stenoses The HUANG ventriculogram reveals Dilated ventricle with reduced ejection fraction estimated at 30% The left ventricular end-diastolic pressure 24 mmHg Right atrial pressure 15 mmHg Pulmonary pressure 45/25 mmHg Pulmonary occlusion pressure 24 mmHg Right atrial saturation and pulmonary saturation 77% IMPRESSION Coronary disease as described above Dilated ventricle with reduced ejection fraction Moderate pulmonary hypertension Elevated left-sided filling pressures PLAN 1. For the time being patient would benefit from additional diuresis in order to decrease LVEDP and left-sided filling pressures 2. Medical management for coronary artery disease 3. Mitral valve surgery at Dr. Lo's discretion Electronically signed by : Song Hopper MD 04/30/2021 13:21:13
--- NOTE | 2021-04-30 11:08 | SUR.PHASEII ---
REPORT TO TG IN POST OP
[2021-04-30 13:40] LABS: CATHL Arterial O2 SAT 77 % (90-100); CATHL Venous O2 SAT 78 % (75-80)
== END 2021-04-30 13:05 | disposition home or self-care (01) ==
LOC: CATHLAB 08:11
PROVIDERS: PCP Internal Medicine Adolescent Medicine; Visit Provider Internal Medicine
DX: E78.5 Hyperlipidemia, unspecified (principal); I25.10 Atherosclerotic heart disease of native coronary artery without angina pectoris; I34.0 Nonrheumatic mitral (valve) insufficiency; I48.91 Unspecified atrial fibrillation; R06.00 Dyspnea, unspecified; R09.89 Other specified symptoms and signs involving the circulatory and respiratory systems; R94.31 Abnormal electrocardiogram [ECG] [EKG]; Z79.01 Long term (current) use of anticoagulants; Z95.810 Presence of automatic (implantable) cardiac defibrillator; I50.43 Acute on chronic combined systolic (congestive) and diastolic (congestive) heart failure; I11.0 Hypertensive heart disease with heart failure
CPT/HCPCS: 82810; 93460; 99152; C1725; C1760; C1769; C1894; J1644; Q9967

== ENCOUNTER → 2021-06-04 08:50 | Outpatient (CLI) | payer MEDICARE, SELFPAY ==
[2021-06-04 10:26] LABS: Chol/HDL Ratio 7.3 (1-3.5); Cholesterol 175 mg/dl (140-200); HDL Cholesterol 24 mg/dl (40-60); Triglycerides 304 mg/dl (30-150); VLDL Cholesterol 61 mg/dL (0-40)
[2021-06-04 10:29] LABS: Anion Gap 14.8 mEq/L (5-15); Blood Urea Nitrogen 24 mg/dl (9-20); Calcium 9.7 mg/dl (8.4-10.2); Carbon Dioxide 29 mmol/L (22.0-30.0); Chloride 99 mmol/L (98-107); Estimated Glomerular Filt Rate 66 ml/min (>60); GFR (African American) 80 ML/MIN (>60); Glucose 124 mg/dl (74-100); Potassium 4.8 mmoL/L (3.5-5.1); Sodium 138 mmol/L (136-145)
[2021-06-04 10:37] LABS: Direct LDL Cholesterol 86.65 mg/dL (100-129)
[2021-06-04 17:08] LABS: Hemoglobin A1C 6.6 % (4.0-6.0)
== END ==
PROVIDERS: PCP Internal Medicine Adolescent Medicine; Visit Provider Internal Medicine
DX: E78.5 Hyperlipidemia, unspecified (principal); I25.10 Atherosclerotic heart disease of native coronary artery without angina pectoris; I34.0 Nonrheumatic mitral (valve) insufficiency; I48.91 Unspecified atrial fibrillation; I50.20 Unspecified systolic (congestive) heart failure; I50.9 Heart failure, unspecified; Z79.01 Long term (current) use of anticoagulants; Z95.810 Presence of automatic (implantable) cardiac defibrillator; Z98.890 Other specified postprocedural states; I11.0 Hypertensive heart disease with heart failure; Z79.899 Other long term (current) drug therapy
CPT/HCPCS: 36415; 80048; 80061; 83036

== ENCOUNTER → 2021-08-10 08:20 | Outpatient (CLI) | payer MEDICARE, SELFPAY ==
[2021-08-10 09:36] LABS: Anion Gap 12.6 mEq/L (5-15); Blood Urea Nitrogen 21 mg/dl (9-20); Calcium 9.6 mg/dl (8.4-10.2); Carbon Dioxide 26 mmol/L (22.0-30.0); Chloride 101 mmol/L (98-107); Estimated Glomerular Filt Rate 66 ml/min (>60); GFR (African American) 80 ML/MIN (>60); Glucose 129 mg/dl (74-100); Potassium 4.6 mmoL/L (3.5-5.1); Sodium 135 mmol/L (136-145)
== END ==
PROVIDERS: Visit Provider Internal Medicine Advanced Heart Failure and Transplant Cardiology
DX: I50.22 Chronic systolic (congestive) heart failure (principal); Z20.822 Contact with and (suspected) exposure to COVID-19
CPT/HCPCS: 36415; 80048; C9803; U0003; U0005

== ENCOUNTER → 2021-09-08 08:00 | Outpatient (CLI) | payer MEDICARE, SELFPAY ==
[2021-09-08 09:18] LABS: Anion Gap 12.1 mEq/L (5-15); Blood Urea Nitrogen 25 mg/dl (9-20); Carbon Dioxide 31 mmol/L (22.0-30.0); Chloride 100 mmol/L (98-107); Estimated Glomerular Filt Rate 54 ml/min (>60); GFR (African American) 66 ML/MIN (>60); Glucose 129 mg/dl (74-100); Potassium 5.1 mmoL/L (3.5-5.1); Sodium 138 mmol/L (136-145)
== END ==
PROVIDERS: PCP Internal Medicine Adolescent Medicine; Visit Provider Nurse Practitioner Family
DX: I50.20 Unspecified systolic (congestive) heart failure (principal); I25.5 Ischemic cardiomyopathy
CPT/HCPCS: 36415; 80048

== ENCOUNTER → 2021-09-15 08:48 | Outpatient (CLI) | payer MEDICARE, SELFPAY ==
[2021-09-15 09:59] LABS: Anion Gap 12.4 mEq/L (5-15); Blood Urea Nitrogen 22 mg/dl (9-20); Calcium 9.9 mg/dl (8.4-10.2); Carbon Dioxide 32 mmol/L (22.0-30.0); Chloride 99 mmol/L (98-107); Estimated Glomerular Filt Rate 60 ml/min (>60); GFR (African American) 72 ML/MIN (>60); Glucose 120 mg/dl (74-100); Potassium 5.4 mmoL/L (3.5-5.1); Sodium 138 mmol/L (136-145)
[2021-09-15 14:00] LABS: Hemoglobin A1C 6.3 % (4.0-6.0)
== END ==
PROVIDERS: PCP Internal Medicine Adolescent Medicine; Visit Provider Internal Medicine Adolescent Medicine
DX: E11.69 Type 2 diabetes mellitus with other specified complication (principal)
CPT/HCPCS: 36415; 80048; 83036

== ENCOUNTER → 2021-10-02 07:30 | Outpatient (CLI) | payer MEDICARE, SELFPAY ==
[2021-10-02 08:08] LABS: Basophils # 0.1 K/mm3 (0-0.2); Basophils % 1.6 % (0.1-2.0); Eosinophils # 0.2 K/mm3 (0.0-0.4); Eosinophils % 2.1 % (0.1-12.0); Hematocrit 42.6 % (42.0-52.0); Hemoglobin 14.1 g/dL (14.1-18.0); Lymphocytes # 1.9 K/mm3 (0.7-4.5); Lymphocytes % 22.9 % (10-50); Mean Corpuscular HGB Conc 33.1 g/dL (31.8-35.4); Mean Corpuscular Hemoglobin 33.8 pg (27.0-31.2); Mean Platelet Volume 8.1 fl (7.4-10.4); Monocytes # 0.5 K/mm3 (0.1-1.0); Monocytes % 5.5 % (1.7-9.3); Neutrophils # 5.7 K/mm3 (1.8-7.8); Neutrophils % 67.8 % (37.0-80.0); Platelet Count 269 K/mm3 (142-424); Red Blood Count 4.18 M/mm3 (4.60-6.20); Red Cell Distribution Width 12.7 % (11.5-17.5); White Blood Count 8.5 K/mm3 (4.8-10.8)
[2021-10-02 08:30] LABS: Hemoglobin A1C 6.2 % (4.0-6.0)
[2021-10-02 08:35] LABS: Chloride 99 mmol/L (98-107); Potassium 4.3 mmoL/L (3.5-5.1); Sodium 138 mmol/L (136-145)
[2021-10-02 08:37] LABS: Alanine Aminotransferase 19 U/L (12-78); Aspartate Amino Transferase 30 U/L (17-59); Blood Urea Nitrogen 30 mg/dl (9-20); Estimated Glomerular Filt Rate 60 ml/min (>60); GFR (African American) 72 ML/MIN (>60)
[2021-10-02 08:38] LABS: Albumin Level 4.7 g/dl (3.5-5.0); Albumin/Globulin Ratio 1.7 (1.1-1.8); Alkaline Phosphatase 50 U/L (38-126); Anion Gap 13.3 mEq/L (5-15); Bilirubin,Total 0.5 mg/dl (0.2-1.3); Calcium 9.8 mg/dl (8.4-10.2); Carbon Dioxide 30 mmol/L (22.0-30.0); Chol/HDL Ratio 7.1 (1-3.5); Cholesterol 184 mg/dl (140-200); Globulin 2.7 g/dL (1.3-3.2); Glucose 132 mg/dl (74-100); HDL Cholesterol 26 mg/dl (40-60); Total Protein,Serum 7.4 g/dl (6.3-8.2); Triglycerides 360 mg/dl (30-150); VLDL Cholesterol 72 mg/dL (0-40)
[2021-10-02 08:49] LABS: Direct LDL Cholesterol 85.41 mg/dL (100-129)
[2021-10-02 08:55] LABS: T4 (Thyroxine) 7.8 ug/dl (5.53-11.0); Triiodothryronine (T3) Uptake 39 % (23.5-40.5)
[2021-10-02 09:09] LABS: Thyroid Stimulating Hormone 2.25 uIU/mL (0.465-4.68)
== END ==
PROVIDERS: PCP Internal Medicine Adolescent Medicine; Visit Provider Nurse Practitioner Family
DX: Z01.818 Encounter for other preprocedural examination (principal); Z20.822 Contact with and (suspected) exposure to COVID-19; R42 Dizziness and giddiness; I48.0 Paroxysmal atrial fibrillation; E11.69 Type 2 diabetes mellitus with other specified complication; E78.5 Hyperlipidemia, unspecified
CPT/HCPCS: 36415; 80053; 80061; 83036; 84436; 84443; 84479; 85025; C9803; U0003; U0005

== ENCOUNTER → 2021-11-18 07:56 | Outpatient (CLI) | payer MEDICARE, SELFPAY ==
[2021-11-18 08:50] LABS: Chloride 104 mmol/L (98-107); Sodium 141 mmol/L (136-145)
[2021-11-18 08:51] LABS: Potassium 4.2 mmoL/L (3.5-5.1)
[2021-11-18 08:54] LABS: Anion Gap 16.2 mEq/L (5-15); Blood Urea Nitrogen 23 mg/dl (9-20); Calcium 9.5 mg/dl (8.4-10.2); Carbon Dioxide 25 mmol/L (22.0-30.0); Estimated Glomerular Filt Rate 66 ml/min (>60); GFR (African American) 80 ML/MIN (>60); Glucose 150 mg/dl (74-100)
== END ==
PROVIDERS: PCP Internal Medicine Adolescent Medicine; Visit Provider Internal Medicine Advanced Heart Failure and Transplant Cardiology
DX: I50.22 Chronic systolic (congestive) heart failure (principal)
CPT/HCPCS: 36415; 80048

== ENCOUNTER → 2022-04-19 07:54 | Outpatient (CLI) | payer MEDICARE, SELFPAY ==
[2022-04-19 08:44] LABS: Chloride 103 mmol/L (98-107)
[2022-04-19 08:45] LABS: Potassium 4.5 mmoL/L (3.5-5.1); Sodium 140 mmol/L (136-145)
[2022-04-19 08:47] LABS: Blood Urea Nitrogen 26 mg/dl (9-20); Estimated Glomerular Filt Rate 73 ml/min (>60); GFR (African American) 89 ML/MIN (>60)
[2022-04-19 08:48] LABS: Anion Gap 12.5 mEq/L (5-15); Carbon Dioxide 29 mmol/L (22.0-30.0); Glucose 114 mg/dl (74-100)
== END ==
PROVIDERS: Nurse Practitioner Family; PCP Internal Medicine Adolescent Medicine; Visit Provider Internal Medicine Adolescent Medicine
DX: I50.20 Unspecified systolic (congestive) heart failure (principal); I25.5 Ischemic cardiomyopathy
CPT/HCPCS: 36415; 80048

== ENCOUNTER → 2022-11-25 08:58 | Outpatient (CLI) | payer MEDICARE, SELFPAY ==
[2022-11-25 09:28] LABS: Basophils # 0.1 K/mm3 (0-0.2); Basophils % 0.6 % (0.1-2.0); Eosinophils # 0.2 K/mm3 (0.0-0.4); Eosinophils % 2.7 % (0.1-12.0); Hemoglobin 14.2 g/dL (14.1-18.0); Lymphocytes # 1.5 K/mm3 (0.7-4.5); Lymphocytes % 19.5 % (10-50); Mean Corpuscular HGB Conc 31.6 g/dL (31.8-35.4); Mean Corpuscular Hemoglobin 30.5 pg (27.0-31.2); Mean Corpuscular Volume 96.7 fl (80-94); Mean Platelet Volume 7.9 fl (7.4-10.4); Monocytes # 0.4 K/mm3 (0.1-1.0); Monocytes % 4.9 % (1.7-9.3); Neutrophils # 5.5 K/mm3 (1.8-7.8); Neutrophils % 72.3 % (37.0-80.0); Platelet Count 240 K/mm3 (142-424); Red Blood Count 4.65 M/mm3 (4.60-6.20); White Blood Count 7.7 K/mm3 (4.8-10.8)
[2022-11-25 10:10] LABS: Alanine Aminotransferase 19 U/L (12-78); Albumin Level 4.6 g/dl (3.5-5.0); Albumin/Globulin Ratio 1.6 (1.1-1.8); Alkaline Phosphatase 47 U/L (38-126); Anion Gap 12.1 mEq/L (5-15); Aspartate Amino Transferase 25 U/L (17-59); Bilirubin,Total 0.7 mg/dl (0.2-1.3); Blood Urea Nitrogen 27 mg/dl (9-20); Calcium 9.5 mg/dl (8.4-10.2); Carbon Dioxide 29 mmol/L (22.0-30.0); Chloride 102 mmol/L (98-107); Cholesterol 168 mg/dl (140-200); Estimated Glomerular Filt Rate 59 ml/min (>60); GFR (African American) 72 ML/MIN (>60); Globulin 2.9 g/dL (1.3-3.2); Glucose 110 mg/dl (74-100); HDL Cholesterol 24 mg/dl (40-60); Potassium 5.1 mmoL/L (3.5-5.1); Sodium 138 mmol/L (136-145); Total Protein,Serum 7.5 g/dl (6.3-8.2); Triglycerides 267 mg/dl (30-150); VLDL Cholesterol 53 mg/dL (0-40)
[2022-11-25 10:17] LABS: Hemoglobin A1C 6.3 % (4.0-6.0)
[2022-11-25 10:21] LABS: NT Pro Brain Natriuretic Pep. 1900 pg/mL (0-125)
[2022-11-25 10:22] LABS: Direct LDL Cholesterol 85.37 mg/dL (100-129)
[2022-11-25 10:41] LABS: Thyroid Stimulating Hormone 1.53 uIU/mL (0.465-4.68)
== END ==
PROVIDERS: PCP Internal Medicine Adolescent Medicine; Visit Provider Nurse Practitioner Family
DX: I50.20 Unspecified systolic (congestive) heart failure (principal); E78.5 Hyperlipidemia, unspecified; E11.9 Type 2 diabetes mellitus without complications; I48.0 Paroxysmal atrial fibrillation
CPT/HCPCS: 36415; 80053; 80061; 83036; 83880; 84443; 85025

== ENCOUNTER → 2022-12-23 08:18 | Outpatient (CLI) | payer MEDICARE, SELFPAY ==
[2022-12-23 08:59] LABS: Chloride 101 mmol/L (98-107); Potassium 4.4 mmoL/L (3.5-5.1); Sodium 139 mmol/L (136-145)
[2022-12-23 09:02] LABS: Blood Urea Nitrogen 24 mg/dl (9-20); Estimated Glomerular Filt Rate 59 ml/min (>60); GFR (African American) 72 ML/MIN (>60)
[2022-12-23 09:03] LABS: Anion Gap 13.4 mEq/L (5-15); Calcium 9.2 mg/dl (8.4-10.2); Carbon Dioxide 29 mmol/L (22.0-30.0); Glucose 111 mg/dl (74-100)
[2022-12-23 09:11] LABS: NT Pro Brain Natriuretic Pep. 1630 pg/mL (0-125)
== END ==
PROVIDERS: PCP Internal Medicine Adolescent Medicine; Visit Provider Nurse Practitioner Family
DX: I50.20 Unspecified systolic (congestive) heart failure (principal)
CPT/HCPCS: 36415; 80048; 83880

== ENCOUNTER 2023-04-27 00:47 | Emergency (ER) | payer MEDICARE, SELFPAY ==
[2023-04-27 00:49] VITALS: BP 153/107; PULSE 118; RESP 16; TEMP 37.6; O2SAT 96; BMI 36.3
[2023-04-27 00:58] VITALS: BP 153/107; PULSE 68; RESP 22; O2SAT 94
--- NOTE | 2023-04-27 01:02 | ECG_ITS ---
APPROVED REPORT Exam: Resting ECG HR:116 bpm ECG Measurements Heart Rate 116 AXES TN 236 P -86 QRSd 166 QRS 199 QT 388 T 38 QTc 457 Conclusion ELECTRONIC VENTRICULAR PACEMAKER ABNORMAL RHYTHM ECG UNCONFIRMED REPORT Electronically signed by : Gulshan Haines MD 04/27/2023 21:46:22
--- NOTE | 2023-04-27 01:02 | XR_ITS ---
PROCEDURE INFORMATION: Exam: XR Chest Exam date and time: 04/27/2023 1:11 AM Age: 72 years old Clinical indication: Shortness of breath; Additional info: SOA TECHNIQUE: Imaging protocol: Radiologic exam of the chest. Views: 1 view. COMPARISON: CR XR CHEST 2V 03/31/2021 1:40 PM FINDINGS: Tubes, catheters and devices: There is a left chest implanted cardiac device. Lungs: No evidence of acute pulmonary disease or infiltrates Pleural spaces: No large effusion or pneumothorax. Heart/Mediastinum: Stable cardiac and mediastinal contours. There is a prosthetic cardiac valve. Bones/joints: No evidence of acute osseous abnormalities within the visualized portions of the thoracic spine and ribs. Osseous structures appear appropriate for patient age. The patient is status post median sternotomy. IMPRESSION: No dense parenchymal consolidation, pleural effusion, or pneumothorax.
--- NOTE | 2023-04-27 01:03 | ED_ITS ---
Discharge Plan Disposition Patient Disposition: Home, Self-Care Prescriptions Prescriptions: New levofloxacin 750 mg tablet 750 mg PO DAILY 5 Days Qty: 5 0RF No Action aspirin 81 mg tablet,delayed release (DR/EC) 81 mg PO DAILY Entresto 49-51 mg tablet 1 tab PO BID tamsulosin 0.4 mg capsule 0.4 mg PO DAILY Patient Comments: TAKE 1 CAPSULE BY MOUTH ONCE DAILY citalopram 20 mg tablet 20 mg PO HS Farxiga 10 mg tablet 10 mg PO DAILY spironolactone 100 mg tablet 100 mg PO DAILY Patient Comments: TAKE 1 TABLET BY MOUTH ONCE DAILY timolol maleate 0.5 % drops 1 drp Eye-Right BID Patient Comments: INSTILL 1 DROP INTO RIGHT EYE TWICE DAILY latanoprost 0.005 % drops 1 drp Eye-Both HS Patient Comments: INSTILL 1 DROP INTO EACH EYE ONCE DAILY AT NIGHT rosuvastatin 40 mg tablet 40 mg PO DAILY Qty: 90 3RF brimonidine 5 ML bottle 1 drp Eye-Right BID pantoprazole 40 MG tablet,delayed release (DR/EC) 40 mg PO BID metoprolol succinate 50 mg tablet extended release 24 hr 50 mg PO DAILY levothyroxine 88 MCG tablet 88 mcg PO DAILY Referrals Follow up/Referrals: Gulshan Haines MD [Primary Care Provider] - See instructions Activity Restrictions/Add. Instructions Additional Instructions/Restrictions: Please follow-up with your primary care provider. Please return to the emergency department if you develop any new or worsening symptoms or become concerned for your health. Please take antibiotics as prescribed for treatment of possible bacterial pneumonia. Clinical Impressions Clinical Impression: Acute dyspnea Pneumonia Qualifiers: Pneumonia type: due to unspecified organism Laterality: unspecified laterality Discharge ED Provider: [facility] HPI General Chief complaint: Shortness of Breath/Dyspnea Stated complaint: Weakness,SOA Time Seen by Provider: 04/27/23 01:01 History of Present Illness HPI narrative: 32-year-old male with history of hypertension, hyperlipidemia, coronary artery disease status post multiple stents, A-fib, AICD in place, presents with worsening shortness of breath. He reports that he has been having chills, nasal congestion, intermittent productive cough at home over the last 4 days. Denies fever. Patient denies any significant pulmonary history, reports that he quit smoking 30 years ago. He denies any chest pain abdominal pain. Related Data Home Medications Medication Instructions Recorded Confirmed citalopram 20 mg tablet 20 mg PO HS Depression 05/02/17 04/27/23 brimonidine 0.2 % eye drops 1 drp Eye-Right BID EYES 05/11/20 04/27/23 pantoprazole 40 mg tablet,delayed 40 mg PO BID GERD 06/23/20 04/27/23 release levothyroxine 88 mcg tablet 88 mcg PO DAILY thyroid 04/10/21 04/27/23 tamsulosin 0.4 mg capsule 0.4 mg PO DAILY 06/24/21 04/27/23 aspirin 81 mg tablet,delayed 81 mg PO DAILY 09/30/21 04/27/23 release sacubitril 49 mg-valsartan 51 mg 1 tab PO BID 09/30/21 04/27/23 tablet (Entresto) dapagliflozin propanediol 10 mg 10 mg PO DAILY 12/30/21 04/27/23 tablet (Farxiga) latanoprost 0.005 % eye drops 1 drp Eye-Both HS 04/06/23 04/27/23 spironolactone 100 mg tablet 100 mg PO DAILY 04/06/23 04/27/23 timolol maleate 0.5 % eye drops 1 drp Eye-Right BID 04/06/23 04/27/23 metoprolol succinate 50 mg 50 mg PO DAILY 04/27/23 04/27/23 tablet,extended release 24 hr Previous Rx's Medication Instructions Recorded rosuvastatin 40 mg tablet 40 mg PO DAILY Cholesterol #90 tabs 09/20/22 levofloxacin 750 mg tablet 750 mg PO DAILY 5 days #5 tabs 04/27/23 Allergies Allergy/AdvReac Type Severity Reaction Status Date / Time No Known Drug Allergies Allergy Unknown Verified 04/27/23 01:23 [NKDA] [facility] Disclaimer: The information contained in this section may have been updated after the patient was seen, as this information can be updated by other users. 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 use of usp anticoagulation Encounter for pre-operative cardiovascular clearance Gynecomastia HHD (hypertensive heart disease) HLD (hyperlipidemia) Ischemic mitral valve regurgitation Severe mitral valve regurgitation Surgical History History of colonoscopy S/P left atrial appendage ligation Social History Smoking Status: Former smoker tobacco type: cigarettes packs per day: 1 second hand exposure: No alcohol intake: never substance use type: denies use current occupational status: retired Travel in the last 8 weeks: Inside the [place] household members: family housing: apartment current occupational exposures/hazards: No caffeine: Yes ROS Obtained: Yes All systems reviewed & no additional complaints except as documented Physical Exam General General appearance: alert and in no apparent distress Head Head exam: atraumatic and normocephalic Eye Eye exam: Present normal appearance, PERRL and EOMI ENT ENT exam: Present normal oropharynx and normal external ear exam Neck Neck exam: Present normal inspection and full ROM Chest Chest inspection: Present normal inspection and symmetric chest wall rise; Absent tenderness Respiratory Respiratory exam: Present other (Faint rhonchi heard on the right); Absent respiratory distress Cardiovascular Cardiovascular exam: Present tachycardia and irregular rhythm Abdominal Exam Abdominal exam: Present soft and distention; Absent tenderness or guarding Extremities Exam Extremities exam: Present normal inspection; Absent edema or joint swelling Back Exam Back exam: Present normal inspection; Absent tenderness Neurological Exam Neurological exam: Present alert and oriented X3; Absent motor sensory deficit Psychiatric Psychiatric exam: Present normal affect and normal mood Skin Skin exam: Present warm, dry and normal color Lymphatic Lymphatic Findings: no adenopathy Medical Decision Making Medical Records Medical records reviewed: Yes I reviewed the patient's medical records. Finesse Inquiry Pt receiving controlled substance: No Finesse was queried for this patient: No Vital Signs: 04/27/23 00:49 04/27/23 00:58 04/27/23 01:31 Temperature 99.6 F Temperature Source Oral Pulse Rate 68 82 Pulse Rate [Radial] 118 H Respiratory Rate 16 22 23 Blood Pressure 153/107 H 142/76 H Blood Pressure [Right Arm] 153/107 H Blood Pressure Mean [Right Arm] 122 Blood Pressure Source Blood Pressure Source [Right Arm] Automatic Cuff Blood Pressure Position Blood Pressure Position [Right Arm] Supine 02 Sat by Pulse Oximetry 96 94 L 92 L Oxygen Delivery Method Room Air 04/27/23 02:02 Temperature 99.5 F Temperature Source Oral Pulse Rate 88 Pulse Rate [Radial] Respiratory Rate 16 Blood Pressure 139/93 H Blood Pressure [Right Arm] Blood Pressure Mean [Right Arm] Blood Pressure Source Automatic Cuff Blood Pressure Source [Right Arm] Blood Pressure Position Sitting Blood Pressure Position [Right Arm] 02 Sat by Pulse Oximetry Oxygen Delivery Method Room Air Lab Data Lab results reviewed: Yes I reviewed the patient's lab results. Lab Results 04/27/23 01:00: WBC 10.3, RBC 4.22 L, Hgb 13.5 L, Hct 42.5, MCV 100.7 H, MCH 32.0 H, MCHC 31.8, RDW 13.2, Plt Count 227, MPV 8.0, Neut % (Auto) 72.9, Lymph % (Auto) 19.0, [place] % (Auto) 3.9, Eos % (Auto) 3.5, Baso % (Auto) 0.7, Neut # (Auto) 7.5, Lymph # (Auto) 2.0, [place] # (Auto) 0.4, Eos # (Auto) 0.4, Baso # (Auto) 0.1, Sodium 138, Potassium 4.2, Chloride 101, Carbon Dioxide 29, Anion Gap 12.2, BUN 23 H, Creatinine 1.30 H, Estimated Creat Clear 88, Estimated GFR 54 L, Est GFR ( Amer) 65, Glucose 145 H, Calcium 8.9, Total Bilirubin 0.7, AST 28, ALT 21, Alkaline Phosphatase 44, Total Protein 7.4, Albumin 4.4, Globulin 3.0, Albumin/Globulin Ratio 1.5 04/27/23 01:06: SARS-CoV-2 (PCR) Not detected, Influenza A Untype (PCR) Not detected, Influenza Type B (PCR) Not detected 04/27/23 01:00 04/27/23 01:00 Orders (Tests/Meds): ED MEDICATIONS Discontinued Medications Generic Name Dose Route Start Last Admin Trade Name Freq PRN Reason Stop Dose Admin Levofloxacin 750 mg 04/27/23 01:58 04/27/23 02:01 Levofloxacin 750 Mg Tablet PO 04/27/23 01:59 750 mg ONCE ONE Administration ORDERS Category Date Time Status CXR --portable [XR chest portable] Stat Exams 04/27/23 01:02 Completed CBC w/Auto Diff [Complete Blood Count Auto Diff] Stat Lab 04/27/23 01:00 Completed CMP [Comprehensive Metabolic Panel] Stat Lab 04/27/23 01:00 Completed Rapid PCR Covid and Flu A/B Stat Lab 04/27/23 01:06 Completed ECG initial [place] Routine Y 04/27/23 01:02 Completed Medical Decision Narrative: 72-year-old male with history as reported above presents with 4 days of worsening cough, nasal congestion, shortness of breath, chills. History was obtained via conversation with patient, chart review. On arrival, patient is temp 99.6, mildly tachycardic, satting mid 90s on room air moving all extremities spontaneously. Full physical exam performed and significant for faint rhonchi on the right. Differential includes but is not limited to bacterial pneumonia, viral pneumonia, COVID, flu. Workup initiated including CBC CMP open flu swab chest x-ray. On re-evaluation, patient [remains afebrile, HD stable.] Continues to sat mid 90s on room air. Tachycardia resolved. Laboratory workup independently interpreted by me and significant for no leukocytosis, normal electrolytes and renal function for patient.. Imaging independently interpreted by me and significant for no obvious focal opacity see radiology read for full review of final results. EKG independently interpreted by me and significant for rate of 116, intermitten tly V paced rhythm, no apparent ischemic ST changes.. Admission for treatment of pneumonia was considered given age and comorbidities, but deemed unnecessary due to hemodynamic stability, normal oxygen levels, lack of definitive diagnostic imaging. Given patient history, exam and workup, patient's presentation most likely represents either viral syndrome or bacterial pneumonia. Patient is continuing to feel worse after 4 days, has mildly decreased oxygen saturations and mildly increased heart rate, has been having productive cough. Given his age and comorbidities he is at high risk for decompensation if he has a bacterial pneumonia that is untreated. His chest x-ray is not concerning, but his history and exam are concerning enough. He was treated with Levaquin in ED and discharged with prescription for Levaquin for treatment of community acquired pneumonia. Procedures Risk/Benefits of Procedure(s) Were Explained: Yes Critical Care Critical Care Time Critical Care Time: No
[2023-04-27 01:12] LABS: Basophils # 0.1 K/mm3 (0-0.2); Basophils % 0.7 % (0.1-2.0); Eosinophils # 0.4 K/mm3 (0.0-0.4); Eosinophils % 3.5 % (0.1-12.0); Hematocrit 42.5 % (42.0-52.0); Hemoglobin 13.5 g/dL (14.1-18.0); Mean Corpuscular HGB Conc 31.8 g/dL (31.8-35.4); Mean Corpuscular Volume 100.7 fl (80-94); Monocytes # 0.4 K/mm3 (0.1-1.0); Monocytes % 3.9 % (1.7-9.3); Neutrophils # 7.5 K/mm3 (1.8-7.8); Neutrophils % 72.9 % (37.0-80.0); Platelet Count 227 K/mm3 (142-424); Red Blood Count 4.22 M/mm3 (4.60-6.20); Red Cell Distribution Width 13.2 % (11.5-17.5); White Blood Count 10.3 K/mm3 (4.8-10.8)
[2023-04-27 01:17] LABS: Alanine Aminotransferase 21 U/L (12-78); Albumin Level 4.4 g/dl (3.5-5.0); Albumin/Globulin Ratio 1.5 (1.1-1.8); Alkaline Phosphatase 44 U/L (38-126); Anion Gap 12.2 mEq/L (5-15); Aspartate Amino Transferase 28 U/L (17-59); Bilirubin,Total 0.7 mg/dl (0.2-1.3); Blood Urea Nitrogen 23 mg/dl (9-20); Calcium 8.9 mg/dl (8.4-10.2); Carbon Dioxide 29 mmol/L (22.0-30.0); Chloride 101 mmol/L (98-107); Creatinine Clearance Estimated 88 mL/min (50-200); Estimated Glomerular Filt Rate 54 ml/min (>60); GFR (African American) 65 ML/MIN (>60); Glucose 145 mg/dl (74-100); Potassium 4.2 mmoL/L (3.5-5.1); Sodium 138 mmol/L (136-145); Total Protein,Serum 7.4 g/dl (6.3-8.2)
[2023-04-27 01:30] LABS: Coronavirus 19, PCR Not Detected (NotDetected); Influenza A, PCR Not Detected (NotDetected); Influenza B, PCR Not Detected (NotDetected)
[2023-04-27 01:31] VITALS: BP 142/76; PULSE 82; RESP 23; O2SAT 92
--- NOTE | 2023-04-27 01:42 | PC.NURSE ---
patients given ice chips
[2023-04-27] MEDS: levoFLOXacin 750 MG TABLET PO (02:01)
[2023-04-27 02:02] VITALS: BP 139/93; PULSE 88; RESP 16; TEMP 37.5; O2SAT 95
== END 2023-04-27 02:06 | disposition home or self-care (01) ==
PROVIDERS: Emergency Provider Emergency Medicine; PCP Internal Medicine Adolescent Medicine
DX: J18.9 Pneumonia, unspecified organism (principal); R06.00 Dyspnea, unspecified; R06.02 Shortness of breath; E78.5 Hyperlipidemia, unspecified; I48.91 Unspecified atrial fibrillation; I11.9 Hypertensive heart disease without heart failure; I25.118 Atherosclerotic heart disease of native coronary artery with other forms of angina pectoris; I34.0 Nonrheumatic mitral (valve) insufficiency; Z87.891 Personal history of nicotine dependence; Z95.810 Presence of automatic (implantable) cardiac defibrillator
CPT/HCPCS: 71045; 80053; 85025; 87636; 93005

== ENCOUNTER 2023-04-27 19:07 | Observation (INO) | payer MEDICARE, SELFPAY ==
[2023-04-27] VITALS (8 sets, daily range): BP systolic 115–132; BP diastolic 68–84; PULSE 84–106; RESP 18–22; TEMP 36.9–37.1; O2SAT 93–95; BMI 35.6
--- NOTE | 2023-04-27 19:24 | ECG_ITS ---
APPROVED REPORT Exam: Resting ECG HR:113 bpm ECG Measurements Heart Rate 113 AXES [place] 221 P 241 QRSd 176 QRS 180 QT 398 T 34 QTc 465 Conclusion ELECTRONIC VENTRICULAR PACEMAKER ABNORMAL RHYTHM ECG UNCONFIRMED REPORT Electronically signed by : Gulshan Haines MD 04/27/2023 21:44:30
--- NOTE | 2023-04-27 19:25 | XR_ITS ---
PROCEDURE INFORMATION: Exam: XR Chest Exam date and time: 04/27/2023 7:32 PM Age: 72 years old Clinical indication: Shortness of breath; Prior surgery; Surgery date: 6+ months; Surgery type: Pacemaker; Additional info: Shortness of air TECHNIQUE: Imaging protocol: Radiologic exam of the chest. Views: 2 views. COMPARISON: CR XR CHEST PORTABLE 04/27/2023 1:11 AM FINDINGS: Tubes, catheters and devices: Stable implanted cardiac device. Lungs: Unremarkable. No consolidation. Pleural spaces: Unremarkable. No pleural effusion. No pneumothorax. Heart/Mediastinum: Prosthetic cardiac valve. Stable cardiomegaly. Bones/joints: Median sternotomy wires. IMPRESSION: No acute findings.
[2023-04-27 19:40] LABS: Basophils # 0.1 K/mm3 (0-0.2); Basophils % 0.6 % (0.1-2.0); Eosinophils # 0.2 K/mm3 (0.0-0.4); Eosinophils % 1.5 % (0.1-12.0); Hematocrit 41.2 % (42.0-52.0); Lymphocytes # 1.9 K/mm3 (0.7-4.5); Lymphocytes % 16.3 % (10-50); Mean Corpuscular HGB Conc 33.9 g/dL (31.8-35.4); Mean Corpuscular Hemoglobin 33.7 pg (27.0-31.2); Mean Corpuscular Volume 99.4 fl (80-94); Mean Platelet Volume 8.1 fl (7.4-10.4); Monocytes # 0.6 K/mm3 (0.1-1.0); Monocytes % 5.1 % (1.7-9.3); Neutrophils # 8.7 K/mm3 (1.8-7.8); Neutrophils % 76.5 % (37.0-80.0); Platelet Count 221 K/mm3 (142-424); Red Blood Count 4.14 M/mm3 (4.60-6.20); White Blood Count 11.3 K/mm3 (4.8-10.8)
--- NOTE | 2023-04-27 19:40 | PC.NURSE ---
patient gone to RAD at this time.
[2023-04-27 19:41] LABS: Chloride 100 mmol/L (98-107); Potassium 4.6 mmoL/L (3.5-5.1); Sodium 133 mmol/L (136-145)
[2023-04-27 19:44] LABS: Alanine Aminotransferase 24 U/L (12-78); Albumin Level 4.8 g/dl (3.5-5.0); Albumin/Globulin Ratio 1.5 (1.1-1.8); Alkaline Phosphatase 45 U/L (38-126); Anion Gap 13.6 mEq/L (5-15); Aspartate Amino Transferase 33 U/L (17-59); Bilirubin,Total 1.2 mg/dl (0.2-1.3); Blood Urea Nitrogen 24 mg/dl (9-20); Calcium 9.2 mg/dl (8.4-10.2); Carbon Dioxide 24 mmol/L (22.0-30.0); Creatinine Clearance Estimated 94 mL/min (50-200); Estimated Glomerular Filt Rate 59 ml/min (>60); GFR (African American) 72 ML/MIN (>60); Globulin 3.1 g/dL (1.3-3.2); Glucose 134 mg/dl (74-100); Total Protein,Serum 7.9 g/dl (6.3-8.2)
[2023-04-27 19:45] LABS: Lactic Acid 1.7 mmol/L (0.7-2.1)
[2023-04-27 19:49] LABS: VBG Base Excess -2.7 mmol/L (-2.4-2.3); VBG Oxygen Saturation 82.4 % (50-70); VBG PCO2 36.1 mmol/L (35-51); VBG PO2 44.6 mmol/L (28-40); VBG Total CO2 23.1 mmol/L (23-27)
[2023-04-27 19:54] LABS: NT Pro Brain Natriuretic Pep. 9820 pg/mL (0-125)
[2023-04-27 19:57] LABS: Troponin I < 0.01 ng/ml (0.00-0.034)
--- NOTE | 2023-04-27 20:00 | PC.NURSE ---
patient back in room at this time.
--- NOTE | 2023-04-27 20:02 | PC.NURSE ---
in room talking with patient at this time.
--- NOTE | 2023-04-27 20:19 | HMH.EDCP ---
Discharge Plan Disposition Patient Disposition: Admitted Prescriptions Prescriptions: No Action aspirin 81 mg tablet,delayed release (DR/EC) 81 mg PO DAILY Entresto 49-51 mg tablet 1 tab PO BID tamsulosin 0.4 mg capsule 0.4 mg PO DAILY Patient Comments: TAKE 1 CAPSULE BY MOUTH ONCE DAILY citalopram 20 mg tablet 20 mg PO HS Farxiga 10 mg tablet 10 mg PO DAILY spironolactone 100 mg tablet 100 mg PO DAILY Patient Comments: TAKE 1 TABLET BY MOUTH ONCE DAILY timolol maleate 0.5 % drops 1 drp Eye-Right BID Patient Comments: INSTILL 1 DROP INTO RIGHT EYE TWICE DAILY latanoprost 0.005 % drops 1 drp Eye-Both HS Patient Comments: INSTILL 1 DROP INTO EACH EYE ONCE DAILY AT NIGHT rosuvastatin 40 mg tablet 40 mg PO DAILY Qty: 90 3RF brimonidine 5 ML bottle 1 drp Eye-Right BID pantoprazole 40 MG tablet,delayed release (DR/EC) 40 mg PO BID metoprolol succinate 50 mg tablet extended release 24 hr 50 mg PO DAILY levofloxacin 750 mg tablet 750 mg PO DAILY 5 Days Qty: 5 0RF levothyroxine 88 MCG tablet 88 mcg PO DAILY Referrals Follow up/Referrals: Gulshan Haines MD [Primary Care Provider] - See instructions Clinical Impressions Clinical Impression: Acute decompensated heart failure, URI (upper respiratory infection) Discharge ED Provider: Kenji Tavares General Chief Complaint: Shortness of Breath/Dyspnea Stated Complaint: SOA Time Seen by Provider: 04/27/23 20:00 Mode of Arrival: Ambulatory Source of Information: Patient Limitations: Physical Limitations Description of Symptoms (Recalled from ER Triage Doc. by RN): pt reports being sick for 5 days, seen here last night for SOA, given antibiotics, reports SOA getting worse, hard to breathing laying down, non productive cough, runny nose History of Present Illness HPI narrative: Patient is a 72-year-old male who is a bounce back from an ED visit earlier today. He has a history of decompensated ischemic cardiomyopathy most recently having an echo showing an ejection fraction of 35%. Also has a history of having a sternotomy and open heart failure for valvular repair he is unable to describe exactly which valve this was but it was done in 2020 he states. He is followed by Dr. Hopper here for his heart failure. Also followed by [facility] heart failure team. Has an AICD in place. Was seen this morning for what he describes as productive cough and a cold. [place] well earlier in the week was able to do activities of daily living was able to get up feed his animals cook himself breakfast etc. However the last 4 days he has had severe fatigue any type of movement severely short of breath. No increase in weight gain no lower extremity swelling the side of a portion is normal. No decreased urine output. But he also states that he is having decreased p.o. intake. He was seen by Dr. Brandon Florence this morning had a normal chest x-ray just I had a high clinical pretest probability for bacterial pneumonia and started him on Levaquin. Patient states he is only gotten worse at home. States he has been unable to sleep for 48 hours to his dyspnea. States that if I discharged him right now he will come right back to the emergency department. Related Data Home Medications Medication Instructions Recorded Confirmed citalopram 20 mg tablet 20 mg PO HS Depression 05/02/17 04/27/23 brimonidine 0.2 % eye drops 1 drp Eye-Right BID EYES 05/11/20 04/27/23 pantoprazole 40 mg tablet,delayed 40 mg PO BID GERD 06/23/20 04/27/23 release levothyroxine 88 mcg tablet 88 mcg PO DAILY thyroid 04/10/21 04/27/23 tamsulosin 0.4 mg capsule 0.4 mg PO DAILY 06/24/21 04/27/23 aspirin 81 mg tablet,delayed 81 mg PO DAILY 09/30/21 04/27/23 release sacubitril 49 mg-valsartan 51 mg 1 tab PO BID 09/30/21 04/27/23 tablet (Entresto) dapagliflozin propanediol 10 mg 10 mg PO DAILY 12/30/21 04/27/23 tablet (Farxiga) latanoprost 0.005 % eye drops 1 drp Eye-Both HS 04/06/23 04/27/23 spironolactone 100 mg tablet 100 mg PO DAILY 04/06/23 04/27/23 timolol maleate 0.5 % eye drops 1 drp Eye-Right BID 04/06/23 04/27/23 metoprolol succinate 50 mg 50 mg PO DAILY 04/27/23 04/27/23 tablet,extended release 24 hr Previous Rx's Medication Instructions Recorded rosuvastatin 40 mg tablet 40 mg PO DAILY Cholesterol #90 tabs 09/20/22 levofloxacin 750 mg tablet 750 mg PO DAILY 5 days #5 tabs 04/27/23 Allergies Allergy/AdvReac Type Severity Reaction Status Date / Time No Known Drug Allergies Allergy Unknown Verified 04/27/23 01:23 [NKDA] [facility] Disclaimer: The information contained in this section may have been updated after the patient was seen, as this information can be updated by other users. 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 Encounter for pre-operative cardiovascular clearance Gynecomastia HHD (hypertensive heart disease) HLD (hyperlipidemia) Ischemic mitral valve regurgitation Severe mitral valve regurgitation Surgical History History of colonoscopy S/P left atrial appendage ligation Social History Smoking Status: Never smoker second hand exposure: No alcohol intake: never substance use type: denies use current occupational status: retired Travel in the last 8 weeks: Inside the [place] household members: family housing: apartment current occupational exposures/hazards: No caffeine: Yes ROS Obtained: Yes All systems reviewed & no additional complaints except as documented Physical Exam General General appearance: alert Respiratory Respiratory exam: Present other (Diffuse coarse breath sounds no respiratory distress oxygen saturation is 93% on room air) Cardiovascular Cardiovascular exam: Present regular rate, normal rhythm and other (Bilateral lower extremity pitting edema symmetric) Neurological Exam Neurological exam: Present alert and oriented X3 HEART Score HEART Score HEART Score assessment performed?: Yes History (anamnesis): Slightly suspicious ECG: Non-specific disturbance Age: >65 years Risk factors: 3 or more risk factors Troponin: </= normal limit HEART Score: 5 Procedures Miscellaneous Procedure Procedure Performed: Limited cardiac ultrasound Indication: Dyspnea Identified structures: The heart was visualized in the parasternal long axis, parastenal short axis, apical four chamber and subxyphiod views. The IVC was visualized in the short axis and long axis at its entry into the right atrium. Findings: Severely depressed LVEF, no pericardial effusion no evidence of right heart strain. IVC is plethoric without respirophasic variation Impression: Severe heart failure with reduced ejection fraction no evidence of right heart strain or pericardial effusion Images were saved to permanent archive The study was technically adequate CPT: 64656-14 This study was performed by ia, and I personally interpreted all images/videos. Based on my clinical judgement, these images were adequate and did not necessitate further imaging. Limited lung ultrasound A focused ultrasound exam of the pleural spaces was performed to evaluate for pneumothorax, pulmonary edema, pleural effusion and/or consolidation. The ultrasound was performed with the following indications, as noted in the H&P: Dyspnea Identified structures: Right and left thoracic cavities were examined. Findings: Bilateral lung sliding is present there are scant B-lines in the anterior and lateral aspects of the right and left aspect no pleural effusions bilaterally no focal consolidation Impression: No evidence of pneumothorax that there are no pleural effusions bilaterally there is some scant B-lines consistent with mild pulmonary edema Images are saved to permanent archive The study was technically adequate CPT 56230-32 This study was performed by ia, and I personally interpreted all images/videos. Based on my clinical judgement, these images were adequate and did not necessitate further imaging. Critical Care Critical Care Time Critical Care Time: No Medical Decision Making [place] Inquiry Pt receiving controlled substance: No Vital Signs Vital Signs: 04/27/23 19:08 04/27/23 19:30 04/27/23 20:00 Temperature 98.5 F Temperature Source Oral Pulse Rate 84 98 H Pulse Rate [Right] 106 H Respiratory Rate 20 18 20 Blood Pressure 124/80 132/84 Blood Pressure [Right Arm] 115/83 Blood Pressure Mean 91 89 Blood Pressure Mean [Right Arm] 93 Blood Pressure Source [Right Arm] Automatic Cuff Blood Pressure Position [Right Arm] Sitting 02 Sat by Pulse Oximetry 95 95 94 L Oxygen Delivery Method Room Air Room Air Room Air Lab Data Lab results reviewed: Yes I reviewed the patient's lab results. Labs: Lab Results 04/27/23 19:20: WBC 11.3 H, RBC 4.14 L, Hgb 14.0 L, Hct 41.2 L, MCV 99.4 H, MCH 33.7 H, MCHC 33.9, RDW 13.0, Plt Count 221, MPV 8.1, Neut % (Auto) 76.5, Lymph % (Auto) 16.3, [place] % (Auto) 5.1, Eos % (Auto) 1.5, Baso % (Auto) 0.6, Neut # (Auto) 8.7 H, Lymph # (Auto) 1.9, [place] # (Auto) 0.6, Eos # (Auto) 0.2, Baso # (Auto) 0.1, Sodium 133 L, Potassium 4.6, Chloride 100, Carbon Dioxide 24, Anion Gap 13.6, BUN 24 H, Creatinine 1.20, Estimated Creat Clear 94, Estimated GFR 59, Est GFR ( Amer) 72, Glucose 134 H, Lactate 1.7, Calcium 9.2, Total Bilirubin 1.2, AST 33, ALT 24, Alkaline Phosphatase 45, Troponin I < 0.01, NT-Pro-B Natriuret Pep 9820 H, Total Protein 7.9, Albumin 4.8, Globulin 3.1, Albumin/Globulin Ratio 1.5 04/27/23 19:28: VBG pH 7.40, VBG pCO2 36.1, VBG pO2 44.6 H, VBG HCO3 22.0 L, VBG Total CO2 23.1, VBG O2 Saturation 82.4 H, VBG Base Excess -2.7 L 04/27/23 19:20 04/27/23 19:20 Response Orders (Tests/Meds): ORDERS Category Date Time Status Chest XR 2 view (NOT portable) [XR chest 2V] Stat Exams 04/27/23 19:25 Completed POCUS Point of Care (ER Only) Stat Exams 04/27/23 20:08 Ordered Brain Natriuretic Peptide Stat Lab 04/27/23 19:20 Completed Complete Blood Count Auto Diff Stat Lab 04/27/23 19:20 Completed Comprehensive Metabolic Panel Stat Lab 04/27/23 19:20 Completed Lactic Acid Stat Lab 04/27/23 19:20 Completed Troponin I Q3H Lab 04/27/23 22:30 Ordered Troponin I Q3H Lab 04/28/23 01:30 Ordered Troponin I Stat Lab 04/27/23 19:20 Completed Blood Culture Stat Micro 04/27/23 19:48 Received VBG [Venous Blood Gas] Stat RT 04/27/23 19:28 Completed ECG initial [place] Routine Y 04/27/23 19:24 Completed ECG Data Tracing #1: Attestation: I reviewed this ECG and interpreted as documented below: (Hypersensitivity EKG shows a ventricular rate of 113 there is electronic ventricular pacemaker Sgarbossa is negative cannot rule out ischemia appears to be appropriately capturing) MDM Narrative Medical Decision Narrative: Patient is a 72-year-old male bounce back here primarily for worsening shortness of breath superimposed on what appears to be a viral upper respiratory infection. COVID and flu are negative earlier this morning. Chest x-ray x 2 is negative for focal consolidation is not consistent with a bacterial infection. At this point I would discontinue antibiotics. I suspect that his viral respiratory infection exacerbated his severe heart failure. I did a bedside echo which did show severe depressed EF which appears to be worse than 35% document in the past. It is possible at some point in the past has had further ischemia. He is not in any distress not hypoxic but he is a bounce back states he cannot eat and cannot sleep at home due to his severe dyspnea. For this reason we will put him in the hospital for further cardiac evaluation.
--- NOTE | 2023-04-27 20:20 | PC.NURSE ---
Observation admission to 207 with decompensated heart failure to service of the hospitalist.
--- NOTE | 2023-04-27 20:27 | P.HP_ITS ---
History of Present Illness *Admission Date: 04/27/23 *Reason for visit:: SOB *History of present illness: This is a 72-year-old male with extensive cardiac PMHx including HFrEF, s/p AICD in placement, CAD, HLD, HTN, mitral regurgitation, afib, who was seen earlier today and discharged home for SOB. Patient returned back due to worsening of his symptoms. Patient stated he felt well earlier in the week was able to do activities of daily living was able to get up feed his animals cook himself breakfast etc. However the last 4 days he has had severe fatigue any type of movement severely short of breath. No increase in weight gain no lower extremity swelling the side of a portion is normal. No decreased urine output. But he also states that he is having decreased p.o. intake. He was seen this morning had a normal chest x-ray just I had a high clinical pretest probability for bacterial pneumonia and started him on Levaquin. Patient states he is only gotten worse at home. States he has been unable to sleep for 48 hours to his dyspnea. Admitted for further work up and treatment. [facility] Disclaimer: The information contained in this section may have been updated after the patient was seen, as this information can be updated by other users. 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 Encounter for pre-operative cardiovascular clearance Gynecomastia HFrEF (heart failure with reduced ejection fraction) HHD (hypertensive heart disease) HLD (hyperlipidemia) Ischemic mitral valve regurgitation Severe mitral valve regurgitation Surgical History (Updated 04/28/23 @ 13:30 by Vinita Leonard APRN) History of colonoscopy Presence of biventricular AICD S/P left atrial appendage ligation Social History (Updated 04/27/23 @ 21:25 by Bimal Zamora RN) Smoking Status: Former smoker tobacco type: cigarettes packs per day: 1 second hand exposure: No alcohol intake: former substance use type: denies use current occupational status: retired Travel in the last 8 weeks: [place] the [place] household members: family housing: apartment current occupational exposures/hazards: No caffeine: Yes Review of Systems Review of Systems Review of systems:: pertinent systems reviewed and negative unless documented below Meds Home Medications and Allergies Home Medications Medication Instructions Recorded Confirmed Type citalopram 20 mg tablet 20 mg PO HS Depression 05/02/17 04/27/23 History brimonidine 0.2 % eye drops 1 drp Eye-Right BID EYES 05/11/20 04/27/23 History pantoprazole 40 mg tablet,delayed 40 mg PO BID GERD 06/23/20 04/27/23 History release levothyroxine 88 mcg tablet 88 mcg PO DAILY thyroid 04/10/21 04/27/23 History tamsulosin 0.4 mg capsule 0.4 mg PO DAILY 06/24/21 04/27/23 History aspirin 81 mg tablet,delayed 81 mg PO DAILY 09/30/21 04/27/23 History release sacubitril 49 mg-valsartan 51 mg 1 tab PO BID 09/30/21 04/27/23 History tablet (Entresto) dapagliflozin propanediol 10 mg 10 mg PO DAILY 12/30/21 04/27/23 History tablet (Farxiga) rosuvastatin 40 mg tablet 40 mg PO DAILY Cholesterol #90 tabs 09/20/22 04/27/23 Rx latanoprost 0.005 % eye drops 1 drp Eye-Both HS 04/06/23 04/27/23 History spironolactone 100 mg tablet 100 mg PO DAILY 04/06/23 04/27/23 History timolol maleate 0.5 % eye drops 1 drp Eye-Right BID 04/06/23 04/27/23 History ascorbic acid (vitamin C) 100 mg 100 mg PO DAILY 04/27/23 04/27/23 History tablet famotidine 20 mg tablet 20 mg PO DAILY 04/27/23 04/27/23 History levofloxacin 750 mg tablet 750 mg PO DAILY 5 days #5 tabs 04/27/23 04/27/23 Rx metoprolol succinate 50 mg 50 mg PO BID 04/27/23 04/28/23 History tablet,extended release 24 hr prednisolone acetate 1 % eye 1 drp Eye-Right BID 04/27/23 04/27/23 History drops,suspension sennosides 8.6 mg tablet (senna) 8.6 mg PO HS 04/27/23 04/27/23 History New Prescriptions to Start Prescriptions: Allergies Allergy/AdvReac Type Severity Reaction Status Date / Time No Known Drug Allergies Allergy Unknown Verified 04/27/23 01:23 [NKDA] Exam Data for Last 24 hours Vital signs and Labs for Last 24 Hours: Temp Pulse Resp BP Pulse Ox O2 Del Method 98.5 F 98 H 20 132/84 94 L Room Air 04/27/23 19:08 04/27/23 20:00 04/27/23 20:00 04/27/23 20:00 04/27/23 20:00 04/27/23 20:00 Laboratory Results - last 24 hr 04/27/23 19:20: WBC 11.3 H, RBC 4.14 L, Hgb 14.0 L, Hct 41.2 L, MCV 99.4 H, MCH 33.7 H, MCHC 33.9, RDW 13.0, Plt Count 221, MPV 8.1, Neut % (Auto) 76.5, Lymph % (Auto) 16.3, [place] % (Auto) 5.1, Eos % (Auto) 1.5, Baso % (Auto) 0.6, Neut # (Auto) 8.7 H, Lymph # (Auto) 1.9, [place] # (Auto) 0.6, Eos # (Auto) 0.2, Baso # (Auto) 0.1, Sodium 133 L, Potassium 4.6, Chloride 100, Carbon Dioxide 24, Anion Gap 13.6, BUN 24 H, Creatinine 1.20, Estimated Creat Clear 94, Estimated GFR 59, Est GFR ( Amer) 72, Glucose 134 H, Lactate 1.7, Calcium 9.2, Total Bilirubin 1.2, AST 33, ALT 24, Alkaline Phosphatase 45, Troponin I < 0.01, NT-Pro-B Natriuret Pep 9820 H, Total Protein 7.9, Albumin 4.8, Globulin 3.1, Albumin/Globulin Ratio 1.5 04/27/23 19:28: VBG pH 7.40, VBG pCO2 36.1, VBG pO2 44.6 H, VBG HCO3 22.0 L, VBG Total CO2 23.1, VBG O2 Saturation 82.4 H, VBG Base Excess -2.7 L I & O for Last 24 hours: Intake & Output 04/24/23 04/25/23 04/26/23 04/27/23 23:59 23:59 23:59 23:59 Weight 122.47 kg Constitutional Constitutional: mild distress, obese and cooperative *Routine HEENT Exam Head: Present normocephalic and atraumatic Eye: Present EOMI, PERRL and normal accommodation ENT: Present mucous membranes moist *Routine Neck Exam Neck: Present supple, full ROM and trachea midline; Absent lymphadenopathy *Routine Respiratory Exam Respiratory: Present CTA bilaterally, normal respiratory effort, able to speak in complete sentences and symmetric chest movement; Absent respiratory distress *Routine Cardiovascular Exam Cardiovascular: Present RRR, Normal S1, Normal S2 and murmur *Routine Abdominal Exam Abdominal: Present soft, normoactive bowel sounds and obese; Absent tenderness *Routine Rectal Exam Rectal:: deferred *Routine Genitalia Exam Genitalia:: deferred *Routine Extremities Exam Extremities: Present full ROM and pulses intact; Absent cyanosis, clubbing or edema *Routine Skin Exam Skin: Present intact, dry and warm; Absent rash *Routine Neurological Exam Neurological: Present alert, oriented X3, normal reflexes, moving all extremities and normal speech Routine Psychiatric Exam Psychiatric: Present normal thought process, cooperative and good judgment H&P: Result Imaging and Cardiology EKG: Status: image reviewed by me and Preliminary report Chest x-ray: Status: image reviewed by me, Preliminary report and final report Assessment and Plan *Assessment and plan (1) Acute dyspnea: Status: Acute Category: Medical Code(s): R06.00 - Dyspnea, unspecified (2) Acute decompensated heart failure: Status: Acute Category: Medical Code(s): I50.9 - Heart failure, unspecified (3) Status post mitral valve repair: Status: Chronic Category: Surgical Code(s): Z98.890 - Other specified postprocedural states (4) AICD (automatic cardioverter/defibrillator) present: Status: Chronic Category: Surgical Code(s): Z95.810 - Presence of automatic (implantable) cardiac defibrillator (5) HLD (hyperlipidemia): Status: Chronic Qualifiers: Hyperlipidemia type: mixed hyperlipidemia Qualified Code(s): E78.2 - Mixed hyperlipidemia Category: Medical Code(s): E78.5 - Hyperlipidemia, unspecified (6) HHD (hypertensive heart disease): Status: Chronic Qualifiers: Heart failure chronicity: chronic Heart failure presence: with heart failure Heart failure type: systolic Qualified Code(s): I11.0 - Hypertensive heart disease with heart failure; I50.22 - Chronic systolic (congestive) heart failure Category: Medical Code(s): I11.9 - Hypertensive heart disease without heart failure (7) CAD (coronary artery disease): Status: Chronic Qualifiers: Associated angina: without angina Coronary Disease-Associated Artery/Lesion type: [place] artery [place] vs. transplanted heart: [place] heart Qualified Code(s): I25.10 - Atherosclerotic heart disease of [place] coronary artery without angina pectoris Category: Medical Code(s): I25.10 - Atherosclerotic heart disease of [place] coronary artery without angina pectoris Plan 72-year-old male with extensive cardiac PMHx including HFrEF, s/p AICD in placement, CAD, HLD, HTN, mitral regurgitation, afib, who was seen earlier today and discharged home for SOB. Patient returned back due to worsening of his symptoms. Of note, patient has a history of ischemic cardiomyopathy most recently echo showing an ejection fraction of 35%. Also has a history of having a sternotomy and open heart failure for valvular repair he is unable to describe exactly which valve this was but it was done in 2020 he states. He is followed by Dr. Hopper here for his heart failure as well as [facility] heart failure team. Has an AICD in place. On arrival patient presented visible congested but satting in the 90's on RA. respiratory panel obtained. Bedside heart US performed by ED provider suspected markedly reduced EF, presumably worse than previous, BNP 9820. CXR negative for focal congestion. Findings discussed with ER. We proceed with the admission. Plan as follow: -Acute dyspnea in the setting of acute decompensated heart failure: [facility] Obtain echo in the morning One-time Lasix 40 mg IV given Monitor for shortness of breath, currently on room air Patient on home Entresto and spironolactone. Resumed -Other complicating factors: Status post mitral valve repair, with mitral regurgitation. -Other ruled out diagnoses is URI: Respiratory panel ordered. COVID and influenza negative Chest x-ray negative Sputum culture pending Guaifenesin 600 mg p.o. twice daily for cough History of hypertensive heart disease, CAD hyperlipidemia AICD placement: Medical conditions reviewed Patient on metoprolol aspirin and statin Obesity. Lovenox for DVT prophylaxis. On Protonix for GERD and GI bleed protection Patient would like to be DNR. Plan discussed with patient and agreed for. Rounded on patient after nurse practitioner. Personally examined and interviewed patient. Agree with exam findings and care plan as documented.
--- NOTE | 2023-04-27 20:28 | PC.NURSE ---
Rounded on patient, patient provided with a cup of ice at this time.
--- NOTE | 2023-04-27 21:02 | PC.NURSE ---
pt arrived to floor via wheelchair @2100
[2023-04-27] MEDS: PANTOPRAZOLE 40MG TABLET 40 MG PO (21:03)
[2023-04-27] MEDS: ENOXAPARIN 40MG/0.4ML SYRINGE 40 MG SQ (21:03)
--- NOTE | 2023-04-27 21:51 | PC.NURSE ---
patients scrotum is covered in numerous small dot sized blood blisters - after shower patient had blood running down his legs and believes he washed to hard with washcloth. He states this is his baseline and has happened before. Bleeding stopped quickly. denies pain or discomfort.
[2023-04-27 23:30] LABS: Troponin I < 0.01 ng/ml (0.00-0.034)
[2023-04-28] VITALS (10 sets, daily range): BP systolic 115–120; BP diastolic 64–86; PULSE 77–106; RESP 16–22; TEMP 36.6–37.4; O2SAT 90–96; BMI 35.1
[2023-04-28 01:50] LABS: Troponin I 0.01 ng/ml (0.00-0.034)
[2023-04-28] MEDS: FUROSEMIDE 40MG/4ML VIAL 40 MG IV ×3 (02:56→15:58)
[2023-04-28 07:17] LABS: Basophils % 0.3 % (0.1-2.0); Eosinophils # 0.2 K/mm3 (0.0-0.4); Eosinophils % 1.5 % (0.1-12.0); Hematocrit 41.5 % (42.0-52.0); Hemoglobin 13.4 g/dL (14.1-18.0); Lymphocytes # 2.1 K/mm3 (0.7-4.5); Lymphocytes % 18.3 % (10-50); Mean Corpuscular HGB Conc 32.2 g/dL (31.8-35.4); Mean Corpuscular Hemoglobin 31.4 pg (27.0-31.2); Mean Corpuscular Volume 97.6 fl (80-94); Monocytes # 0.8 K/mm3 (0.1-1.0); Monocytes % 7.4 % (1.7-9.3); Neutrophils # 8.1 K/mm3 (1.8-7.8); Neutrophils % 72.5 % (37.0-80.0); Platelet Count 207 K/mm3 (142-424); Red Blood Count 4.26 M/mm3 (4.60-6.20); Red Cell Distribution Width 13.2 % (11.5-17.5); White Blood Count 11.2 K/mm3 (4.8-10.8)
[2023-04-28 07:22] LABS: Chloride 99 mmol/L (98-107); Potassium 4.6 mmoL/L (3.5-5.1); Sodium 136 mmol/L (136-145)
[2023-04-28 07:25] LABS: Alanine Aminotransferase 21 U/L (12-78); Albumin Level 4.5 g/dl (3.5-5.0); Albumin/Globulin Ratio 1.5 (1.1-1.8); Alkaline Phosphatase 47 U/L (38-126); Anion Gap 13.6 mEq/L (5-15); Aspartate Amino Transferase 34 U/L (17-59); Bilirubin,Total 1.2 mg/dl (0.2-1.3); Blood Urea Nitrogen 24 mg/dl (9-20); Calcium 9.2 mg/dl (8.4-10.2); Carbon Dioxide 28 mmol/L (22.0-30.0); Creatinine Clearance Estimated 85 mL/min (50-200); Estimated Glomerular Filt Rate 54 ml/min (>60); GFR (African American) 65 ML/MIN (>60); Globulin 3.1 g/dL (1.3-3.2); Glucose 107 mg/dl (74-100); Magnesium 1.8 mg/dl (1.6-2.3); Total Protein,Serum 7.6 g/dl (6.3-8.2)
--- NOTE | 2023-04-28 08:02 | HMH.PHAINT1 ---
Pharmacy Intervention Comments: Reconciled medications using external prescription fill history and clarified with patient.
[2023-04-28] MEDS: ENOXAPARIN 40MG/0.4ML SYRINGE 40 MG SQ (09:19)
[2023-04-28] MEDS: PANTOPRAZOLE 40MG TABLET 40 MG PO ×2 (09:20→20:07)
[2023-04-28] MEDS: DAPAGLIFLOZIN PROPANEDIOL 10 MG TABLET PO (09:20)
[2023-04-28] MEDS: SPIRONOLACTONE 25MG TABLET 100 MG PO (09:20)
[2023-04-28] MEDS: ASPIRIN EC 81MG TABLET 81 MG PO (09:20)
[2023-04-28] MEDS: METOPROLOL SUCCINATE XL 50MG TABLET 50 MG PO (09:20)
[2023-04-28] MEDS: guaiFENesin 600 MG TAB.ER.12H PO ×2 (09:20→20:07)
[2023-04-28] MEDS: FAMOTIDINE 20MG TABLET 20 MG PO (09:20)
[2023-04-28] MEDS: LEVOTHYROXINE 88MCG (0.088MG) TAB 88 MCG PO (09:20)
[2023-04-28] MEDS: SACUBITRIL/VALSARTAN 24-26MG TABLET 2 EACH PO (09:20)
[2023-04-28] MEDS: BRIMONIDINE 0.2% OPHTH SOLN 5ML BOTTLE OP ×2 (09:21→20:10)
[2023-04-28] MEDS: prednisoLONE 1% OPTH SOL 5ML OP ×2 (09:21→20:11)
[2023-04-28] MEDS: TIMOLOL 0.5% OPTH SOLN 5ML OP ×2 (09:21→20:09)
--- NOTE | 2023-04-28 13:23 | P.CONCA_ITS ---
History of Present Illness History of Present Illness Consult date: 04/28/23 Requesting physician: Tuan Cortes Consult reason: shortness of breath Chief complaint: SOA History of present illness: This is a 72-year-old white gentleman who presented to the emergency department with complaints of shortness of breath. Patient has known coronary artery disease, HFrEF status post RECORD CENTER SPECIALIST-D placement, hypertension, hyperlipidemia, mitral valve repair, and chronic atrial fibrillation status post left atrial appendage ligation. The patient was evaluated in the emergency department earlier yesterday with shortness of breath and discharged home from the ER. He returned back to the ER later that evening with worsening shortness of breath. The patient states earlier in this week he felt great and was able to do all ac tivities without any problems, even feeding [place] the farm. And then approximately 3 to 4 days ago he started to experience extreme fatigue and severe shortness of breath. The patient states that anytime he was exerting himself he just felt like he could not catch his breath. The patient reports that he felt like his lungs were congested and he had a nonproductive cough associated with the shortness of breath. He denies any weight gain or lower extremity edema. He has no orthopnea. He denies any chest pain or pressure. He denies any fever, chills, nausea, vomiting, diarrhea. [facility] Disclaimer: The information contained in this section may have been updated after the martha qiu was seen, as this information can be updated by other users. Medical History (Updated 04/28/23 @ 13:30 by Vinita Leonard APRN) Anemia Atypical angina CAD (coronary artery disease) Current use of long term care phlebotomist anticoagulation Encounter for pre-operative cardiovascular clearance Gynecomastia HFrEF (heart failure with reduced ejection fraction) HHD (hypertensive heart disease) HLD (hyperlipidemia) Ischemic mitral valve regurgitation Severe mitral valve regurgitation Surgical History (Updated 04/28/23 @ 13:30 by Vinita Leonard APRN) History of colonoscopy Presence of biventricular AICD S/P left atrial appendage ligation Social History (Updated 04/27/23 @ 21:25 by Bimal Zamora RN) Smoking Status: Former smoker tobacco type: cigarettes packs per day: 1 second hand exposure: No alcohol intake: former substance use type: denies use current occupational status: retired Travel in the last 8 weeks: Inside the [place] household members: family housing: apartment current occupational exposures/hazards: No caffeine: Yes Review of Systems Review of Systems Review of systems:: pertinent systems reviewed and negative unless documented below Constitutional Constitutional: Reports system reviewed and no additional complaints, except as documented, Reports fatigue and Reports lethargy Eyes Eyes: Reports system reviewed and no additional complaints, except as documented ENT Ears, Nose, Mouth, and Throat: Reports system reviewed and no additional complaints, except as documented *Cardiovascular Cardiovascular: Reports system reviewed and no additional complaints, except as documented, Denies chest pain, Reports dyspnea and Reports dyspnea on exertion *Respiratory Respiratory: Reports system reviewed and no additional complaints, except as documented, Reports chest congestion, Reports cough, Reports dyspnea and Reports dyspnea on exertion *Gastrointestinal Gastrointestinal: Reports system reviewed and no additional complaints, except as documented *Genitourinary Genitourinary: Reports system reviewed and no additional complaints, except as documented *Musculoskeletal Musculoskeletal: Reports system reviewed and no additional complaints, except as documented Integumentary/Breasts Skin/Breast: Reports system reviewed and no additional complaints, except as documented *Neurologic Neurologic: Reports system reviewed and no additional complaints, except as documented Psychiatric Psychiatric: Reports system reviewed and no additional complaints, except as documented Endocrine Endocrine: Reports system reviewed and no additional complaints, except as documented and Reports fatigue Hematologic/Lymphatic Hematologic/Lymphatic: Reports system reviewed and no additional complaints, except as documented Allergic/Immunologic Allergic/Immunologic: Reports system reviewed and no additional complaints, except as documented Exam Data for Last 24 hours Vital signs and Labs for Last 24 Hours: Temp Pulse Resp BP Pulse Ox O2 Del Method O2 Flow Rate 99.3 F 100 H 20 118/75 96 Nasal Cannula 2 04/28/23 11:35 04/28/23 12:00 04/28/23 11:35 04/28/23 11:35 04/28/23 11:35 04/28/23 11:40 04/28/23 11:40 Laboratory Results - last 24 hr 04/27/23 19:20: WBC 11.3 H, RBC 4.14 L, Hgb 14.0 L, Hct 41.2 L, MCV 99.4 H, MCH 33.7 H, MCHC 33.9, RDW 13.0, Plt Count 221, MPV 8.1, Neut % (Auto) 76.5, Lymph % (Auto) 16.3, Lyman % (Auto) 5.1, Eos % (Auto) 1.5, Baso % (Auto) 0.6, Neut # (Auto) 8.7 H, Lymph # (Auto) 1.9, Lyman # (Auto) 0.6, Eos # (Auto) 0.2, Baso # (Auto) 0.1, Sodium 133 L, Potassium 4.6, Chloride 100, Carbon Dioxide 24, Anion Gap 13.6, BUN 24 H, Creatinine 1.20, Estimated Creat Clear 94, Estimated GFR 59, Est GFR ( Amer) 72, Glucose 134 H, Lactate 1.7, Calcium 9.2, Total Bilirubin 1.2, AST 33, ALT 24, Alkaline Phosphatase 45, Troponin I < 0.01, NT-Pro-B Natriuret Pep 9820 H, Total Protein 7.9, Albumin 4.8, Globulin 3.1, Albumin/Globulin Ratio 1.5 04/27/23 19:28: VBG pH 7.40, VBG pCO2 36.1, VBG pO2 44.6 H, VBG HCO3 22.0 L, VBG Total CO2 23.1, VBG O2 Saturation 82.4 H, VBG Base Excess -2.7 L 04/27/23 22:50: Troponin I < 0.01 04/28/23 01:20: Troponin I 0.01 04/28/23 06:50: WBC 11.2 H, RBC 4.26 L, Hgb 13.4 L, Hct 41.5 L, MCV 97.6 H, MCH 31.4 H, MCHC 32.2, RDW 13.2, Plt Count 207, MPV 7.0 L, Neut % (Auto) 72.5, Lymph % (Auto) 18.3, Lyman % (Auto) 7.4, Eos % (Auto) 1.5, Baso % (Auto) 0.3, Neut # (Auto) 8.1 H, Lymph # (Auto) 2.1, Lyman # (Auto) 0.8, Eos # (Auto) 0.2, Baso # (Auto) 0.0, Sodium 136, Potassium 4.6, Chloride 99, Carbon Dioxide 28, Anion Gap 13.6, BUN 24 H, Creatinine 1.30 H, Estimated Creat Clear 85, Estimated GFR 54 L, Est GFR ( Amer) 65, Glucose 107 H D, Calcium 9.2, Magnesium 1.8, Total Bilirubin 1.2, AST 34, ALT 21, Alkaline Phosphatase 47, Total Protein 7.6, Albumin 4.5, Globulin 3.1, Albumin/Globulin Ratio 1.5 I & O for Last 24 hours: Intake & Output 04/25/23 04/26/23 04/27/23 04/28/23 23:59 23:59 23:59 23:59 Intake Total 130 / 130 355 / 355 Output Total 1400 / 1400 Balance 130 / 130 -1045 / -1045 Weight 270 lb 264 lb 11.2 oz Narrative: EKG #1 is V pacing with a rate of 116 bpm. EKG #2 is V pacing with a rate of 113 bpm. Constitutional Constitutional: no acute distress and obese *Routine HEENT Exam Head: Present normocephalic and atraumatic ENT: Present mucous membranes moist *Routine Neck Exam Neck: Present supple, full ROM and normal carotid upstroke; Absent JVD, carotid bruit or lymphadenopathy *Routine Respiratory Exam Respiratory: Present CTA bilaterally, normal respiratory effort, able to speak in complete sentences and symmetric chest movement *Routine Cardiovascular Exam Cardiovascular: Present Normal S1, Normal S2 and irregularly irregular; Absent murmur or gallop *Routine Abdominal Exam Abdominal: Present soft and normoactive bowel sounds; Absent tenderness, distended or organomegaly *Routine Extremities Exam Extremities: Present full ROM, pulses intact and normal capillary refill; Absent cyanosis, clubbing or edema *Routine Skin Exam Skin: Present intact and warm; Absent erythema *Routine Neurological Exam Neurological: Present alert, oriented X3 and CN II-XII intact; Absent sensory deficit or motor deficit Routine Psychiatric Exam Psychiatric: Present normal affect Meds Home Medications and Allergies Home Medications Medication Instructions Recorded Confirmed Type citalopram 20 mg tablet 20 mg PO HS Depression 05/02/17 04/27/23 History brimonidine 0.2 % eye drops 1 drp Eye-Right BID EYES 05/11/20 04/27/23 History pantoprazole 40 mg tablet,delayed 40 mg PO BID GERD 06/23/20 04/27/23 History release levothyroxine 88 mcg tablet 88 mcg PO DAILY thyroid 04/10/21 04/27/23 History tamsulosin 0.4 mg capsule 0.4 mg PO DAILY 06/24/21 04/27/23 History aspirin 81 mg tablet,delayed 81 mg PO DAILY 09/30/21 04/27/23 History release sacubitril 49 mg-valsartan 51 mg 1 tab PO BID 09/30/21 04/27/23 History tablet (Entresto) dapagliflozin propanediol 10 mg 10 mg PO DAILY 12/30/21 04/27/23 History tablet (Farxiga) rosuvastatin 40 mg tablet 40 mg PO DAILY Cholesterol #90 tabs 09/20/22 04/27/23 Rx latanoprost 0.005 % eye drops 1 drp Eye-Both HS 04/06/23 04/27/23 History spironolactone 100 mg tablet 100 mg PO DAILY 04/06/23 04/27/23 History timolol maleate 0.5 % eye drops 1 drp Eye-Right BID 04/06/23 04/27/23 History ascorbic acid (vitamin C) 100 mg 100 mg PO DAILY 04/27/23 04/27/23 History tablet famotidine 20 mg tablet 20 mg PO DAILY 04/27/23 04/27/23 History levofloxacin 750 mg tablet 750 mg PO DAILY 5 days #5 tabs 04/27/23 04/27/23 Rx metoprolol succinate 50 mg 50 mg PO BID 04/27/23 04/28/23 History tablet,extended release 24 hr prednisolone acetate 1 % eye 1 drp Eye-Right BID 04/27/23 04/27/23 History drops,suspension sennosides 8.6 mg tablet (senna) 8.6 mg PO HS 04/27/23 04/27/23 History New Prescriptions to Start Prescriptions: Allergies Allergy/AdvReac Type Severity Reaction Status Date / Time No Known Drug Allergies Allergy Unknown Verified 04/27/23 01:23 [NKDA] Assessment and Plan *Assessment and plan (1) Acute dyspnea: Status: Acute Category: Medical Code(s): R06.00 - Dyspnea, unspecified (2) HFrEF (heart failure with reduced ejection fraction): Status: Acute Category: Medical Code(s): I50.20 - Unspecified systolic (congestive) heart failure (3) Severe mitral valve regurgitation: Status: Acute Category: Medical Code(s): I34.0 - Nonrheumatic mitral (valve) insufficiency (4) Atrial fibrillation: Status: Chronic Qualifiers: Atrial fibrillation type: unspecified chronic Qualified Code(s): I48.20 - Chronic atrial fibrillation, unspecified Category: Medical Code(s): I48.91 - Unspecified atrial fibrillation (5) S/P left atrial appendage ligation: Status: Acute Category: Surgical Code(s): Z98.890 - Other specified postprocedural states (6) Status post mitral valve repair: Status: Chronic Category: Surgical Code(s): Z98.890 - Other specified postprocedural states (7) CAD (coronary artery disease): Status: Chronic Qualifiers: Coronary Disease-Associated Artery/Lesion type: [place] artery [place] vs. transplanted heart: [place] heart Associated angina: without angina Qualified Code(s): I25.10 - Atherosclerotic heart disease of [place] coronary artery without angina pectoris Category: Medical Code(s): I25.10 - Atherosclerotic heart disease of [place] coronary artery without angina pectoris (8) HHD (hypertensive heart disease): Status: Chronic Qualifiers: Heart failure presence: with heart failure Heart failure type: systolic Heart failure chronicity: chronic Qualified Code(s): I11.0 - Hypertensive heart disease with heart failure; I50.22 - Chronic systolic (congestive) heart failure Category: Medical Code(s): I11.9 - Hypertensive heart disease without heart failure (9) HLD (hyperlipidemia): Status: Chronic Qualifiers: Hyperlipidemia type: mixed hyperlipidemia Qualified Code(s): E78.2 - Mixed hyperlipidemia Category: Medical Code(s): E78.5 - Hyperlipidemia, unspecified (10) HTN (hypertension): Status: Chronic Qualifiers: Hypertension type: essential hypertension Qualified Code(s): I10 - Essential (primary) hypertension Category: Medical Code(s): I10 - Essential (primary) hypertension (11) Presence of biventricular AICD: Status: Acute Category: Surgical Code(s): Z95.810 - Presence of automatic (implantable) cardiac defibrillator Plan Plan: 1. The patient presented to the hospital with shortness of breath. He was admitted for an acute exacerbation of HFrEF. He was given a one-time dose of Lasix. Will continue to diurese him with Lasix 40 mg IV twice daily. 2. Preliminary echocardiogram shows that his ejection fraction is around 20%. The patient is status post mitral valve repair but still has severe mitral regurgitation. This can be because of his decompensated congestive heart failure. Once he is euvolemic we do need to repeat his echocardiogram and if his MR is still in the severe range he may need to be considered for repeat repair/replacement of the mitral valve. 3. He denies any chest pain or pressure. He ruled out for an MT. No plans for invasive left cardiac catheterization at this time. 4. Will get a D-dimer due to his shortness of breath and he was tachycardic on arrival. 5. Coronary artery disease is likely stable. 6. His blood pressure is well-controlled. 7. His LDL goal is less than 55. He is on a statin. 8. Continue Farxiga, Entresto, spironolactone and Toprol for HFrEF. 9. The patient does have chronic atrial fibrillation. He is rate controlled. The patient has a history of a GI bleed and is not on anticoagulation. However, he is status post left atrial pended ligation. 10. The patient has a RECORD CENTER SPECIALIST-D in place and is followed in cardiology clinic. His device heart logic shows that he has no fluid increase. However his echocardiogram does show significant pulmonary hypertension so he is likely fluid overloaded at this time so we will continue with diuresis. 11. The patient will need to be started on low-dose oral Lasix on an outpatient basis once he is discharged from the hospital. 12. Further recommendations will be made pending the patient's response to treatment. Thank you for the opportunity to help participate in the care of this patient. All recommendations and orders are per Dr. Kim.
[2023-04-28] MEDS: SODIUM CHLORIDE 3% 15ML NEB 3 ML IH (13:25)
[2023-04-28 14:02] LABS: D-Dimer 0.38 ug/mL (0.0-0.5)
--- NOTE | 2023-04-28 18:02 | EXP.ACUTE.PN ---
Subjective *Date: 04/28/23 *Time: 18:33 Interval history: Patient states he is feeling little better this morning. Able to lay flat and breathe. Denies any chest pain. Afebrile. Still has minor cough. Having good urine output, -600 cc overnight. Medical Exam Vital signs and Labs for Last 24 Hours: Vital Signs Temp Pulse Pulse Resp BP BP Pulse Ox 04/28/23 16:00 100 H 04/28/23 15:54 04/28/23 15:42 98.3 F 103 H 22 120/86 95 04/28/23 14:58 04/28/23 13:25 77 18 04/28/23 12:00 100 H 04/28/23 11:40 04/28/23 11:35 99.3 F 105 H 20 118/75 96 04/28/23 10:12 04/28/23 08:00 95 04/28/23 09:00 04/28/23 08:00 99.4 F 106 H 16 116/80 94 L 04/28/23 08:00 106 H 04/28/23 06:11 04/28/23 04:00 98 H 04/28/23 04:52 04/28/23 03:54 98.3 F 95 H 22 115/71 93 L 04/28/23 03:00 04/28/23 00:00 95 H 04/27/23 23:56 98.5 F 102 H 20 121/68 93 L 04/28/23 00:38 04/27/23 22:39 04/27/23 21:00 04/27/23 21:28 100 H 04/27/23 21:21 98.6 F 100 H 20 127/76 93 L 04/27/23 20:48 98.7 F 95 H 22 128/77 04/27/23 20:30 101 H 128/77 93 L 04/27/23 20:00 98 H 20 132/84 94 L 04/27/23 19:30 84 18 124/80 95 04/27/23 19:08 98.5 F 106 H 20 115/83 95 O2 Del Method O2 Flow Rate 04/28/23 16:00 04/28/23 15:54 Nasal Cannula 2 04/28/23 15:42 Room Air 04/28/23 14:58 Nasal Cannula 2 04/28/23 13:25 04/28/23 12:00 04/28/23 11:40 Nasal Cannula 2 04/28/23 11:35 Room Air 04/28/23 10:12 Nasal Cannula 2 04/28/23 08:00 Nasal Cannula 2 04/28/23 09:00 Nasal Cannula 2 04/28/23 08:00 Room Air 04/28/23 08:00 04/28/23 06:11 Room Air 04/28/23 04:00 04/28/23 04:52 Room Air 04/28/23 03:54 Room Air 04/28/23 03:00 Room Air 04/28/23 00:00 04/27/23 23:56 Room Air 04/28/23 00:38 Room Air 04/27/23 22:39 Room Air 04/27/23 21:00 Room Air 04/27/23 21:28 Room Air 04/27/23 21:21 Room Air 04/27/23 20:48 Room Air 04/27/23 20:30 04/27/23 20:00 Room Air 04/27/23 19:30 Room Air 04/27/23 19:08 Room Air Intake and Output 04/28/23 04/28/23 04/28/23 07:59 15:59 23:59 Intake Total 875 / 875 Output Total 750 / 1925 1175 / 1925 Balance -750 / -1050 -300 / -1050 Intake: Intake, Oral Amount 875 / 875 Output: Output, Urine Amount 750 / 1925 1175 / 1925 Other: Number of Unmeasured Voids 0 Number of Bowel Movements 1 Weight 120.066 kg Patient Weight 04/28/23 23:59 Weight 120.066 kg Laboratory Results - last 24 hr 04/27/23 19:20: WBC 11.3 H, RBC 4.14 L, Hgb 14.0 L, Hct 41.2 L, MCV 99.4 H, MCH 33.7 H, MCHC 33.9, RDW 13.0, Plt Count 221, MPV 8.1, Neut % (Auto) 76.5, Lymph % (Auto) 16.3, Roberts % (Auto) 5.1, Eos % (Auto) 1.5, Baso % (Auto) 0.6, Neut # (Auto) 8.7 H, Lymph # (Auto) 1.9, Roberts # (Auto) 0.6, Eos # (Auto) 0.2, Baso # (Auto) 0.1, Sodium 133 L, Potassium 4.6, Chloride 100, Carbon Dioxide 24, Anion Gap 13.6, BUN 24 H, Creatinine 1.20, Estimated Creat Clear 94, Estimated GFR 59, Est GFR ( Amer) 72, Glucose 134 H, Lactate 1.7, Calcium 9.2, Total Bilirubin 1.2, AST 33, ALT 24, Alkaline Phosphatase 45, Troponin I < 0.01, NT-Pro-B Natriuret Pep 9820 H, Total Protein 7.9, Albumin 4.8, Globulin 3.1, Albumin/Globulin Ratio 1.5 04/27/23 19:28: VBG pH 7.40, VBG pCO2 36.1, VBG pO2 44.6 H, VBG HCO3 22.0 L, VBG Total CO2 23.1, VBG O2 Saturation 82.4 H, VBG Base Excess -2.7 L 04/27/23 22:50: Troponin I < 0.01 04/28/23 01:20: Troponin I 0.01 04/28/23 06:50: WBC 11.2 H, RBC 4.26 L, Hgb 13.4 L, Hct 41.5 L, MCV 97.6 H, MCH 31.4 H, MCHC 32.2, RDW 13.2, Plt Count 207, MPV 7.0 L, Neut % (Auto) 72.5, Lymph % (Auto) 18.3, Roberts % (Auto) 7.4, Eos % (Auto) 1.5, Baso % (Auto) 0.3, Neut # (Auto) 8.1 H, Lymph # (Auto) 2.1, Roberts # (Auto) 0.8, Eos # (Auto) 0.2, Baso # (Auto) 0.0, Sodium 136, Potassium 4.6, Chloride 99, Carbon Dioxide 28, Anion Gap 13.6, BUN 24 H, Creatinine 1.30 H, Estimated Creat Clear 85, Estimated GFR 54 L, Est GFR ( Amer) 65, Glucose 107 H D, Calcium 9.2, Magnesium 1.8, Total Bilirubin 1.2, AST 34, ALT 21, Alkaline Phosphatase 47, Total Protein 7.6, Albumin 4.5, Globulin 3.1, Albumin/Globulin Ratio 1.5 04/28/23 13:42: D-Dimer 0.38 I & O for Labs for Last 24 Hours: Intake & Output 04/25/23 04/26/23 04/27/23 04/28/23 23:59 23:59 23:59 23:59 Intake Total 130 / 130 875 / 875 Output Total 1925 / 1925 Balance 130 / 130 -1050 / -1050 Weight 122.47 kg 120.066 kg Constitutional: Present no acute distress, obese and chronically ill appearing Head: Present atraumatic and normocephalic ENT: Present normal exam Respiratory: Present crackles (fine in posterior lung [place]) and normal respiratory effort; Absent rhonchi or wheezes Cardiac: Present Reg Rate and Rhythm GI: Present soft and normal bowel sounds; Absent distention or tenderness Extremities: Present normal inspection, full ROM and edema (trace BLE) Skin: Present intact; Absent erythema Neuro: Present Grossly Intact, alert, awake, oriented x 3 and moves all extremities Assessment and Plan *Assessment and plan (1) HFrEF (heart failure with reduced ejection fraction): Status: Acute Category: Medical Code(s): I50.20 - Unspecified systolic (congestive) heart failure (2) Severe mitral valve regurgitation: Status: Acute Category: Medical Code(s): I34.0 - Nonrheumatic mitral (valve) insufficiency (3) Atrial fibrillation: Status: Chronic Qualifiers: Atrial fibrillation type: unspecified chronic Qualified Code(s): I48.20 - Chronic atrial fibrillation, unspecified Category: Medical Code(s): I48.91 - Unspecified atrial fibrillation (4) Acute dyspnea: Status: Acute Category: Medical Code(s): R06.00 - Dyspnea, unspecified (5) Acute decompensated heart failure: Status: Acute Category: Medical Code(s): I50.9 - Heart failure, unspecified (6) Status post mitral valve repair: Status: Chronic Category: Surgical Code(s): Z98.890 - Other specified postprocedural states (7) AICD (automatic cardioverter/defibrillator) present: Status: Chronic Category: Surgical Code(s): Z95.810 - Presence of automatic (implantable) cardiac defibrillator (8) HLD (hyperlipidemia): Status: Chronic Qualifiers: Hyperlipidemia type: mixed hyperlipidemia Qualified Code(s): E78.2 - Mixed hyperlipidemia Category: Medical Code(s): E78.5 - Hyperlipidemia, unspecified (9) HHD (hypertensive heart disease): Status: Chronic Qualifiers: Heart failure presence: with heart failure Heart failure type: systolic Heart failure chronicity: chronic Qualified Code(s): I11.0 - Hypertensive heart disease with heart failure; I50.22 - Chronic systolic (congestive) heart failure Category: Medical Code(s): I11.9 - Hypertensive heart disease without heart failure (10) CAD (coronary artery disease): Status: Chronic Qualifiers: Coronary Disease-Associated Artery/Lesion type: [place] artery [place] vs. transplanted heart: [place] heart Associated angina: without angina Qualified Code(s): I25.10 - Atherosclerotic heart disease of [place] coronary artery without angina pectoris Category: Medical Code(s): I25.10 - Atherosclerotic heart disease of [place] coronary artery without angina pectoris Plan 72-year-old male with extensive cardiac PMHx including HFrEF, s/p AICD in placement, CAD, HLD, HTN, mitral regurgitation, afib, who was seen earlier today and discharged home for SOB. Patient returned back due to worsening of his symptoms. Of note, patient has a history of ischemic cardiomyopathy most recently echo showing an ejection fraction of 35%. Also has a history of having a sternotomy and open heart failure for valvular repair he is unable to describe exactly which valve this was but it was done in 2020 he states. He is followed by Dr. Hopper here for his heart failure as well as [facility] heart failure team. Has an AICD in place. On arrival patient presented visible congested but satting in the 90's on RA. respiratory panel obtained. Bedside heart US performed by ED provider suspected markedly reduced EF, presumably worse than previous, BNP 9820. CXR negative for focal congestion. Findings discussed with ER. Admitted for further management. Cardiology consulted. Responding to diuresis. Continues to require inpatient management for further optimization of volume status. Problems addressed as follows: -Acute dyspnea in the setting of acute decompensated heart failure with reduced ejection fraction -Severe mitral valve regurgitation -Atrial fibrillation Cardiology consulted, appreciate their recommendations. Discussed case this morning, continue diuresis with Lasix 40 mg IV twice daily. Preliminary echocardiogram obtained showing EF around 20%. Still has severe mitral valve regurgitation even in the setting of post valve repair. Recommend repeat echocardiogram once patient is euvolemic Continue aspirin 81 mg daily, dapagliflozin 10 mg daily, metoprolol succinate 50 mg twice daily, Crestor 40 mg daily, spironolactone 100 mg daily continue Farxiga, spironolactone and Toprol for HFrEF. A-fib status post atrial appendage ligation, does not need therapeutic anticoagulation The patient has a INWARD TOLL OPERATOR-D in place and is followed in cardiology clinic. His device heart logic shows that he has no fluid increase. However his echocardiogram does show significant pulmonary hypertension so he is likely fluid overloaded at this time so we will continue with diuresis. Hypothyroid: Continue levothyroxine 88 mcg daily Glaucoma: Continue timolol, prednisone, latanoprost eyedrops Continue citalopram 20 mg nightly for depression Obesity: Complicates all aspects of his care Lovenox for DVT prophylaxis Protonix for GERD and GI bleed protection Patient would like to be DNR. Cardiac diet
[2023-04-28] MEDS: CITALOPRAM 20 MG PO (20:07)
[2023-04-28] MEDS: ROSUVASTATIN 40 MG 1 EACH PO (20:08)
[2023-04-28] MEDS: SACUBITRIL PO (20:08)
[2023-04-28] MEDS: VALSARTAN PO (20:08)
[2023-04-28] MEDS: *PAT OWN MED* TAMSULOSIN 0.4MG CAPSULE 0.400000000000000022 MG PO (20:09)
[2023-04-28] MEDS: LATANOPROST 0.005% OPTH SOLN 2.5ML OP (20:11)
--- NOTE | 2023-04-28 20:18 | CA_ITS ---
APPROVED REPORT EXAM: Comprehensive 2D, Doppler, and color-flow Echocardiogram Insurance Agency Manager: Felicita Roy CRT Ht: 6 ft 1 in Wt: 270lbs BSA: 2.44 BP: 132/84 mmHg Indications: Atrial Fibrillation, Hyperlipidemia, Hypertension/HDD, DNR, S/P MV REPAIR, WATCHMAN DEVICE, CAD, HTN, DM 2D Dimensions LA Volume 64.60 mL LA Volume Index 25.80 mL/m2 (M/F) 16-34 M-Mode Dimensions RVDd 4.13 cm (0.9-2.6) LA Diam 5.57 cm (1.9-4.0) LVDd 6.37 cm (3.5-5.7) LVDs 5.47 cm (3.5-5.7) IVSd 1.45 cm (0.6-1.1) PWd 0.73 cm (0.6-1.1) EF (Teich) 29.40% FS 14.10% EDV (Teich) 206.30 mL TAPSE 1.08 (<1.7) ESV (Teich) 145.60 mL LV Diastology E Decel Time 187 (160-240 msec) E/A Ratio 2.62 MED A' 5.50 cm/s Aortic Valve AI PHT 443.00 ms AO Peak GR. 9.30 mmHg Mitral Valve MV E Max Eyad. 138.0 (40-130 cm/s) MV A Velocity 53.0 (40-130 cm/s) E/A Ratio 2.62 MV PHT 55.0 ms Pulmonary Valve PV Peak Velocity 188.0 (50-150 cm/s) Tricuspid Valve TR P. Velocity 332.00 cm/s RAP Estimate 10.00 mmHg RVSP 54.00 mmHg Left Ventricle The left ventricle is normal size. Left ventricular systolic function is severely decreased. There is normal left ventricular wall thickness. There is severe global hypokinesis present. Diastolic function is indeterminate due to atrial fibrillation. LVEF is 20%. Right Ventricle The right ventricle is moderately dilated. There is moderate reduction in RV function. Atria Left atrium is moderately dilated. Right atrium is moderately dilated. There is no Doppler evidence of interatrial shunt. Aortic Valve The aortic valve is mildly thickened. There is no aortic valvular stenosis. Mild to moderate aortic regurgitation. Mitral Valve Moderate mitral annular calcification. The mitral valve leaflets are mildly thickened. The posterior leaflet appears to have restricted motion. Mild mitral stenosis. Mean MV gradient 6 mmHg (HR 78 bpm). At least moderate mitral regurgitation is present. The MR jet is eccentric and anteriorly directed. The MR jet may be underestimated due to eccentric jet. Tricuspid Valve The tricuspid valve leaflets are thin and pliable. Moderate tricuspid regurgitation. RVSP is 35-40 mmHg. Pulmonic Valve The pulmonary valve is normal in structure. Mild pulmonic regurgitation. Great Vessels The aortic root is normal in size. The ascending aorta is not well-visualized. IVC is normal in size and collapses >50% with inspiration. Pericardium There is no pericardial effusion. Other Information Study Quality: Fair Conclusion Severely reduced LV systolic function (LVEF 20%). Moderate RV dilation with moderate reduction in RV function. Biatrial dilation. Mild to moderate AI. At least moderate MR. The MR jet is eccentric and may be underestimated. Mild MS (mean MV gradient 6 mmHg at HR 78 bpm). Moderate TR. Mild PI. RVSP 35-40 mmHg. Electronically signed by : Leanna Kim MD 05/02/2023 10:46:18
[2023-04-29] VITALS: BP 128/78; PULSE 80; PULSE 90; PULSE 92; RESP 16; TEMP 37.1; O2SAT 94
[2023-04-29 04:00] VITALS: BP 129/70; PULSE 84; PULSE 99; RESP 17; TEMP 36.9; O2SAT 91; BMI 33.3
[2023-04-29] MEDS: LEVOTHYROXINE 88MCG (0.088MG) TAB 88 MCG PO (06:04)
[2023-04-29 06:09] LABS: Basophils % 0.3 % (0.1-2.0); Eosinophils # 0.2 K/mm3 (0.0-0.4); Eosinophils % 1.6 % (0.1-12.0); Hematocrit 44.2 % (42.0-52.0); Lymphocytes # 1.8 K/mm3 (0.7-4.5); Lymphocytes % 17.6 % (10-50); Mean Corpuscular HGB Conc 34.2 g/dL (31.8-35.4); Mean Corpuscular Hemoglobin 33.4 pg (27.0-31.2); Mean Corpuscular Volume 97.6 fl (80-94); Mean Platelet Volume 8.2 fl (7.4-10.4); Monocytes # 0.6 K/mm3 (0.1-1.0); Monocytes % 6.1 % (1.7-9.3); Neutrophils # 7.6 K/mm3 (1.8-7.8); Neutrophils % 74.5 % (37.0-80.0); Platelet Count 220 K/mm3 (142-424); Red Blood Count 4.53 M/mm3 (4.60-6.20); Red Cell Distribution Width 13.1 % (11.5-17.5); White Blood Count 10.3 K/mm3 (4.8-10.8)
[2023-04-29 06:14] LABS: Chloride 97 mmol/L (98-107); Potassium 3.9 mmoL/L (3.5-5.1); Sodium 137 mmol/L (136-145)
[2023-04-29 06:15] LABS: Hemoglobin 15.1 g/dL (14.1-18.0)
[2023-04-29 06:16] LABS: Blood Urea Nitrogen 38 mg/dl (9-20); Creatinine Clearance Estimated 70 mL/min (50-200); Estimated Glomerular Filt Rate 46 ml/min (>60); GFR (African American) 55 ML/MIN (>60)
[2023-04-29 06:17] LABS: Alanine Aminotransferase 22 U/L (12-78); Albumin Level 4.7 g/dl (3.5-5.0); Albumin/Globulin Ratio 1.4 (1.1-1.8); Alkaline Phosphatase 52 U/L (38-126); Anion Gap 13.9 mEq/L (5-15); Aspartate Amino Transferase 41 U/L (17-59); Bilirubin,Total 1.1 mg/dl (0.2-1.3); Calcium 9.3 mg/dl (8.4-10.2); Carbon Dioxide 30 mmol/L (22.0-30.0); Globulin 3.3 g/dL (1.3-3.2); Glucose 113 mg/dl (74-100)
[2023-04-29 08:00] VITALS: BP 89/48; PULSE 100; PULSE 99; RESP 18; TEMP 37.1; O2SAT 91; O2SAT 92
[2023-04-29] MEDS: *PAT OWN MED* ASPIRIN EC 81MG TABLET 81 MG PO (08:24)
[2023-04-29] MEDS: *PAT OWN MED* DAPAGLIFLOZIN PROPANEDIOL 10 MG TABLET PO (08:25)
[2023-04-29] MEDS: *PAT OWN MED* FAMOTIDINE 20MG TABLET 20 MG PO (08:26)
[2023-04-29] MEDS: METOPROLOL SUCCINATE 50 MG PO (08:28)
[2023-04-29] MEDS: FUROSEMIDE 40MG/4ML VIAL 40 MG IV (08:28)
[2023-04-29] MEDS: guaiFENesin 600 MG TAB.ER.12H PO (08:28)
[2023-04-29] MEDS: PANTOPRAZOLE 40MG TABLET 40 MG PO (08:29)
--- NOTE | 2023-04-29 08:36 | PC.NURSE ---
ok to give metoprolol [address] Cortes
[2023-04-29] MEDS: SPIRONOLACTONE 100 MG 1 EACH PO (09:06)
[2023-04-29 09:07] LABS: Cholesterol 199 mg/dl (140-200); HDL Cholesterol 25 mg/dl (40-60); Triglycerides 185 mg/dl (30-150); VLDL Cholesterol 37 mg/dL (0-40)
[2023-04-29] MEDS: SACUBITRIL PO (09:07)
[2023-04-29] MEDS: VALSARTAN PO (09:07)
[2023-04-29 09:17] LABS: Direct LDL Cholesterol 120.39 mg/dL (100-129)
--- NOTE | 2023-04-29 11:55 | P.DS_ITS ---
General Admission date:: 04/27/23 Discharge date: 04/29/23 HPI HPI HPI: This is a 72-year-old male with extensive cardiac PMHx including HFrEF, s/p AICD in placement, CAD, HLD, HTN, mitral regurgitation, afib, who was seen earlier today and discharged home for SOB. Patient returned back due to worsening of his symptoms. Patient stated he felt well earlier in the week was able to do activities of daily living was able to get up feed his animals cook himself breakfast etc. However the last 4 days he has had severe fatigue any type of movement severely short of breath. No increase in weight gain no lower ex tremity swelling the side of a portion is normal. No decreased urine output. But he also states that he is having decreased p.o. intake. He was seen this morning had a normal chest x-ray just I had a high clinical pretest probability for bacterial pneumonia and started him on Levaquin. Patient states he is only gotten worse at home. States he has been unable to sleep for 48 hours to his dyspnea. Admitted for further work up and treatment. Hospital Course Hospital Course Hospital Course: 72-year-old male with extensive cardiac PMHx including HFrEF, s/p AICD in placement, CAD, HLD, HTN, mitral regurgitation, afib, who was seen earlier today and discharged home for SOB. Patient returned back due to worsening of his symptoms. Of note, patient has a history of ischemic cardiomyopathy most recently echo showing an ejection fraction of 35%. Also has a history of having a sternotomy and open heart failure for valvular repair he is unable to describe exactly which valve this was but it was done in 2020 he states. He is followed by Dr. Hopper here for his heart failure as well as [facility] heart failure team. Has an AICD in place. On arrival patient presented visible congested but satting in the 90's on RA. respiratory panel obtained. Bedside heart US performed by ED provider suspected markedly reduced EF, presumably worse than previous, BNP 9820. CXR negative for focal congestion. Findings discussed with ER. Admitted for further management. Cardiology consulted. Patient responded well to diuresis with improvement and dyspnea, ability to lay flat, volume status. Plan for close follow-up as an outpatient for further management. Stable to discharge home. Problems addressed as follows: -Acute dyspnea in the setting of acute decompensated heart failure with reduced ejection fraction -Severe mitral valve regurgitation -Atrial fibrillation Cardiology consulted, appreciate their assistance during admission. Initiated on diuretics. Continue at discharge. Responded well with appropriate diuresis and improved symptoms. Preliminary echocardiogram obtained showing EF around 20%. Still has severe mitral valve regurgitation even in the setting of post valve repair. Recommend repeat echocardiogram once patient is euvolemic. Continue aspirin 81 mg daily, dapagliflozin 10 mg daily, metoprolol succinate 50 mg twice daily, Crestor 40 mg daily, spironolactone 100 mg daily for HFrEF. A- fib status post atrial appendage ligation, does not need therapeutic anticoagulation. 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 His device heart logic shows that he has no fluid increase. However his echocardiogram does show significant pulmonary hypertension so he is likely fluid overloaded at this time so we will continue with diuresis with Lasix daily. Stable to discharge home. Will have further discussion as an outpatient possibility of reevaluation of mitral valve regurgitation and repair options. Hypothyroid: Continue levothyroxine 88 mcg daily Glaucoma: Continue timolol, prednisone, latanoprost eyedrops Continue citalopram 20 mg nightly for depression Exam Data for Last 24 hours Vital signs and Labs for Last 24 Hours: Temp Pulse Resp BP Pulse Ox O2 Del Method O2 Flow Rate 98.8 F 99 H 18 89/48 L 92 L Room Air 2 04/29/23 08:00 04/29/23 08:00 04/29/23 08:00 04/29/23 08:00 04/29/23 08:00 04/29/23 10:22 04/28/23 15:54 Laboratory Results - last 24 hr 04/28/23 13:42: D-Dimer 0.38 04/29/23 05:20: WBC 10.3, RBC 4.53 L, Hgb 15.1 D, Hct 44.2, MCV 97.6 H, MCH 33.4 H, MCHC 34.2, RDW 13.1, Plt Count 220, MPV 8.2, Neut % (Auto) 74.5, Lymph % (Auto) 17.6, [place] % (Auto) 6.1, Eos % (Auto) 1.6, Baso % (Auto) 0.3, Neut # (Auto) 7.6, Lymph # (Auto) 1.8, [place] # (Auto) 0.6, Eos # (Auto) 0.2, Baso # (Auto) 0.0, Sodium 137, Potassium 3.9, Chloride 97 L, Carbon Dioxide 30, Anion Gap 13.9, BUN 38 H D, Creatinine 1.50 H, Estimated Creat Clear 70, Estimated GFR 46 L, Est GFR ( Amer) 55 L, Glucose 113 H, Calcium 9.3, Magnesium 2.0 D, Total Bilirubin 1.1, AST 41, ALT 22, Alkaline Phosphatase 52, Total Protein 8.0, Albumin 4.7, Globulin 3.3 H, Albumin/Globulin Ratio 1.4, Triglycerides 185 H, Cholesterol 199, LDL Cholesterol Direct 120.39, VLDL Cholesterol 37, HDL Cholesterol 25 L, Cholesterol/HDL Ratio 8.0 H I & O for Last 24 hours: Intake & Output 04/26/23 04/27/23 04/28/23 04/29/23 23:59 23:59 23:59 23:59 Intake Total 130 / 130 1295 / 1535 660 / 660 Output Total 1926 / 1926 0 / 0 Balance 130 / 130 -631 / -391 660 / 660 Weight 122.47 kg 120.066 kg 113.988 kg Constitutional Constitutional: no acute distress and obese *Routine HEENT Exam Head: Present normocephalic and atraumatic ENT: Present mucous membranes moist *Routine Neck Exam Neck: Present supple, full ROM and normal carotid upstroke; Absent JVD, carotid bruit or lymphadenopathy *Routine Respiratory Exam Respiratory: Present CTA bilaterally, normal respiratory effort, able to speak in complete sentences and symmetric chest movement; Absent rhonchi, wheezes or crackles *Routine Cardiovascular Exam Cardiovascular: Present Normal S1, Normal S2, murmur and irregularly irregular; Absent gallop *Routine Abdominal Exam Abdominal: Present soft and normoactive bowel sounds; Absent tenderness, distended or organomegaly *Routine Extremities Exam Extremities: Present full ROM, pulses intact and normal capillary refill; Absent cyanosis, clubbing or edema *Routine Skin Exam Skin: Present intact and warm; Absent erythema *Routine Neurological Exam Neurological: Present alert, oriented X3, CN II-XII intact and moving all extremities; Absent sensory deficit, motor deficit or altered mental status Routine Psychiatric Exam Psychiatric: Present normal affect Results Data Completed and Pending Labs on day of discharge: Labs from last 24 hours 04/29/23 04/28/23 05:20 13:42 WBC 10.3 RBC 4.53 L Hgb 15.1 D Hct 44.2 MCV 97.6 H MCH 33.4 H MCHC 34.2 RDW 13.1 Plt Count 220 MPV 8.2 Neut % (Auto) 74.5 Lymph % (Auto) 17.6 [place] % (Auto) 6.1 Eos % (Auto) 1.6 Baso % (Auto) 0.3 Neut # (Auto) 7.6 Lymph # (Auto) 1.8 [place] # (Auto) 0.6 Eos # (Auto) 0.2 Baso # (Auto) 0.0 D-Dimer 0.38 Sodium 137 Potassium 3.9 Chloride 97 L Carbon Dioxide 30 Anion Gap 13.9 BUN 38 H D Creatinine 1.50 H Estimated Creat Clear 70 Estimated GFR 46 L Est GFR ( Amer) 55 L Glucose 113 H Calcium 9.3 Magnesium 2.0 D Total Bilirubin 1.1 AST 41 ALT 22 Alkaline Phosphatase 52 Total Protein 8.0 Albumin 4.7 Globulin 3.3 H Albumin/Globulin Ratio 1.4 Triglycerides 185 H Cholesterol 199 LDL Cholesterol Direct 120.39 VLDL Cholesterol 37 HDL Cholesterol 25 L Cholesterol/HDL Ratio 8.0 H DS: Diagnosis Discharge Diagnosis (1) Acute dyspnea: Status: Acute Code(s): R06.00 - Dyspnea, unspecified (2) Acute decompensated heart failure: Status: Acute Code(s): I50.9 - Heart failure, unspecified (3) Status post mitral valve repair: Status: Chronic Code(s): Z98.890 - Other specified postprocedural states (4) AICD (automatic cardioverter/defibrillator) present: Status: Chronic Code(s): Z95.810 - Presence of automatic (implantable) cardiac defibrillator (5) HLD (hyperlipidemia): Status: Chronic Code(s): E78.5 - Hyperlipidemia, unspecified Qualifiers: Hyperlipidemia type: mixed hyperlipidemia Qualified Code(s): E78.2 - Mixed hyperlipidemia (6) HHD (hypertensive heart disease): Status: Chronic Code(s): I11.9 - Hypertensive heart disease without heart failure Qualifiers: Heart failure chronicity: chronic Heart failure presence: with heart failure Heart failure type: systolic Qualified Code(s): I11.0 - Hypertensive heart disease with heart failure; I50.22 - Chronic systolic (congestive) heart failure (7) CAD (coronary artery disease): Status: Chronic Code(s): I25.10 - Atherosclerotic heart disease of [place] coronary artery without angina pectoris Qualifiers: Associated angina: without angina Coronary Disease-Associated Artery/Lesion type: [place] artery [place] vs. transplanted heart: [place] heart Qualified Code(s): I25.10 - Atherosclerotic heart disease of [place] coronary artery without angina pectoris Meds Home Medications and Allergies Home Medications Medication Instructions Recorded Confirmed Type citalopram 20 mg tablet 20 mg PO HS Depression 05/02/17 04/27/23 History brimonidine 0.2 % eye drops 1 drp Eye-Right BID EYES 05/11/20 04/27/23 History pantoprazole 40 mg tablet,delayed 40 mg PO BID GERD 06/23/20 04/27/23 History release levothyroxine 88 mcg tablet 88 mcg PO DAILY thyroid 04/10/21 04/27/23 History tamsulosin 0.4 mg capsule 0.4 mg PO DAILY 06/24/21 04/27/23 History aspirin 81 mg tablet,delayed 81 mg PO DAILY 09/30/21 04/27/23 History release dapagliflozin propanediol 10 mg 10 mg PO DAILY 12/30/21 04/27/23 History tablet (Farxiga) rosuvastatin 40 mg tablet 40 mg PO DAILY Cholesterol #90 tabs 09/20/22 04/27/23 Rx latanoprost 0.005 % eye drops 1 drp Eye-Both HS 04/06/23 04/27/23 History spironolactone 100 mg tablet 100 mg PO DAILY 04/06/23 04/27/23 History timolol maleate 0.5 % eye drops 1 drp Eye-Right BID 04/06/23 04/27/23 History ascorbic acid (vitamin C) 100 mg 100 mg PO DAILY 04/27/23 04/27/23 History tablet famotidine 20 mg tablet 20 mg PO DAILY 04/27/23 04/27/23 History metoprolol succinate 50 mg 50 mg PO BID 04/27/23 04/28/23 History tablet,extended release 24 hr prednisolone acetate 1 % eye 1 drp Eye-Right BID 04/27/23 04/27/23 History drops,suspension sennosides 8.6 mg tablet (senna) 8.6 mg PO HS 04/27/23 04/27/23 History furosemide 40 mg tablet (Lasix) 40 mg PO DAILY 30 days #30 tabs 04/29/23 Rx sacubitril 24 mg-valsartan 26 mg 1 tab PO BID 30 days #60 tabs 04/29/23 Rx tablet (Entresto) New Prescriptions to Start Prescriptions: furosemide [Lasix] Tuan Cortes sacubitril-valsartan [Entresto] Tuan Cortes Allergies Allergy/AdvReac Type Severity Reaction Status Date / Time No Known Drug Allergies Allergy Unknown Verified 04/27/23 01:23 [NKDA] Discharge Plan Disposition Patient Disposition: Home, Self-Care Condition: Good Follow up Plan Follow up with: Gulshan Haines MD [Primary Care Provider] - 05/04/23 8:45 am Gregory Kim MD [Staff Physician] - 05/10/23 2:45 pm Prescriptions/Medication Reconciliation: New Entresto 24-26 mg tablet 1 tab PO BID 30 Days Qty: 60 0RF furosemide [Lasix] 40 mg tablet 40 mg PO DAILY 30 Days Qty: 30 0RF Continued aspirin 81 mg tablet,delayed release (DR/EC) 81 mg PO DAILY tamsulosin 0.4 mg capsule 0.4 mg PO DAILY Patient Comments: TAKE 1 CAPSULE BY MOUTH ONCE DAILY citalopram 20 mg tablet 20 mg PO HS Farxiga 10 mg tablet 10 mg PO DAILY spironolactone 100 mg tablet 100 mg PO DAILY Patient Comments: TAKE 1 TABLET BY MOUTH ONCE DAILY timolol maleate 0.5 % drops 1 drp Eye-Right BID Patient Comments: INSTILL 1 DROP INTO RIGHT EYE TWICE DAILY latanoprost 0.005 % drops 1 drp Eye-Both HS Patient Comments: INSTILL 1 DROP INTO EACH EYE ONCE DAILY AT NIGHT rosuvastatin 40 mg tablet 40 mg PO DAILY Qty: 90 3RF brimonidine 5 ML bottle 1 drp Eye-Right BID pantoprazole 40 MG tablet,delayed release (DR/EC) 40 mg PO BID metoprolol succinate 50 mg tablet extended release 24 hr 50 mg PO BID sennosides [senna] 8.6 mg Tablet 8.6 mg PO HS famotidine 20 mg Tablet 20 mg PO DAILY prednisolone acetate 1 % drops,suspension 1 drp Eye-Right BID Patient Comments: INSTILL 1 DROP INTO RIGHT EYE TWICE DAILY ascorbic acid (vitamin C) 100 mg Tablet 100 mg PO DAILY levothyroxine 88 MCG tablet 88 mcg PO DAILY Discontinued Entresto 49-51 mg tablet 1 tab PO BID levofloxacin 750 mg tablet 750 mg PO DAILY 5 Days Qty: 5 0RF Other Ambulatory Orders: Basic Metabolic Panel (Routine) Timeframe: 1 Week Facility: [facility] - Location: Laboratory Ordered By: Tuan Cortes Problem Reconciliation Problems Reviewed?: Yes Patient Discharge Instructions ACTIVITY: Continue current activity DIET: continue same diet Patient Instructions: DI for Heart Failure, DI for Viral Upper Respiratory Infection -- Adult Providers Primary Care Provider: Gulshan Haines Admit Provider: Tuan Cortes Attending Provider: Tuan Cortes
[2023-04-29 12:00] VITALS: BP 88/55; PULSE 110; PULSE 57; RESP 18; TEMP 36.9; O2SAT 92
--- NOTE | 2023-04-29 12:37 | EXP.CARD.PN ---
Subjective Subjective Date: 04/29/23 Time: 09:30 Principal diagnosis: SOA, HFrEF Interval history: This is a 72-year-old white gentleman who presented to the emergency department with complaints of shortness of breath. He was admitted to the hospital for an acute exacerbation of HFrEF. The patient has been diuresed with IV Lasix and he states that he feels much better. He states his shortness of breath is significantly improved. He states that he has a minor cough still but this is much better than it was. He denies any lower extremity edema. He denies any chest pain or pressure. He denies any fever, chills, nausea, vomiting, diarrhea, PND or orthopnea. Exam Data for Last 24 hours Vital signs and Labs for Last 24 Hours: Temp Pulse Resp BP Pulse Ox O2 Del Method O2 Flow Rate 98.8 F 99 H 18 89/48 L 92 L Room Air 2 04/29/23 08:00 04/29/23 08:00 04/29/23 08:00 04/29/23 08:00 04/29/23 08:00 04/29/23 12:15 04/28/23 15:54 Laboratory Results - last 24 hr 04/28/23 13:42: D-Dimer 0.38 04/29/23 05:20: WBC 10.3, RBC 4.53 L, Hgb 15.1 D, Hct 44.2, MCV 97.6 H, MCH 33.4 H, MCHC 34.2, RDW 13.1, Plt Count 220, MPV 8.2, Neut % (Auto) 74.5, Lymph % (Auto) 17.6, [place] % (Auto) 6.1, Eos % (Auto) 1.6, Baso % (Auto) 0.3, Neut # (Auto) 7.6, Lymph # (Auto) 1.8, [place] # (Auto) 0.6, Eos # (Auto) 0.2, Baso # (Auto) 0.0, Sodium 137, Potassium 3.9, Chloride 97 L, Carbon Dioxide 30, Anion Gap 13.9, BUN 38 H D, Creatinine 1.50 H, Estimated Creat Clear 70, Estimated GFR 46 L, Est GFR ( Amer) 55 L, Glucose 113 H, Calcium 9.3, Magnesium 2.0 D, Total Bilirubin 1.1, AST 41, ALT 22, Alkaline Phosphatase 52, Total Protein 8.0, Albumin 4.7, Globulin 3.3 H, Albumin/Globulin Ratio 1.4, Triglycerides 185 H, Cholesterol 199, LDL Cholesterol Direct 120.39, VLDL Cholesterol 37, HDL Cholesterol 25 L, Cholesterol/HDL Ratio 8.0 H I & O for Last 24 hours: Intake & Output 04/26/23 04/27/23 04/28/23 04/29/23 23:59 23:59 23:59 23:59 Intake Total 130 / 130 1295 / 1535 660 / 660 Output Total 1925 / 192 0 / 0 Balance 130 / 130 -631 / -391 660 / 660 Weight 270 lb 264 lb 11.2 oz 251 lb 4.8 oz Narrative: EKG #1 is V pacing with a rate of 116 bpm. EKG #2 is V pacing with a rate of 113 bpm. Constitutional Constitutional: no acute distress and obese *Routine HEENT Exam Head: Present normocephalic and atraumatic ENT: Present mucous membranes moist *Routine Neck Exam Neck: Present supple, full ROM and normal carotid upstroke; Absent JVD, carotid bruit or lymphadenopathy *Routine Respiratory Exam Respiratory: Present CTA bilaterally, normal respiratory effort, able to speak in complete sentences and symmetric chest movement *Routine Cardiovascular Exam Cardiovascular: Present Normal S1, Normal S2 and irregularly irregular; Absent murmur or gallop *Routine Abdominal Exam Abdominal: Present soft and normoactive bowel sounds; Absent tenderness, distended or organomegaly *Routine Extremities Exam Extremities: Present full ROM, pulses intact and normal capillary refill; Absent cyanosis, clubbing or edema *Routine Skin Exam Skin: Present intact and warm; Absent erythema *Routine Neurological Exam Neurological: Present alert, oriented X3 and CN II-XII intact; Absent sensory deficit or motor deficit Routine Psychiatric Exam Psychiatric: Present normal affect Progress Note: A&P Assessment and plan (1) Acute dyspnea: Status: Acute (2) Status post mitral valve repair: Status: Chronic (3) HLD (hyperlipidemia): Status: Chronic (4) HHD (hypertensive heart disease): Status: Chronic (5) CAD (coronary artery disease): Status: Chronic (6) HFrEF (heart failure with reduced ejection fraction): Status: Acute (7) Presence of biventricular AICD: Status: Acute (8) S/P left atrial appendage ligation: Status: Acute (9) Anemia: Status: Acute (10) Atrial fibrillation: Status: Chronic (11) HTN (hypertension): Status: Chronic (12) Mitral valve regurgitation: Status: Chronic Assessment and Plan Assessment and Plan for All Diagnoses:: Plan: 1. The patient presented to the hospital with shortness of breath. He was admitted for an acute exacerbation of HFrEF. The patient has been diuresed with IV Lasix and his shortness of breath has significantly improved. Will stop IV Lasix and put him on Lasix 20 mg p.o. daily. 2. Preliminary echocardiogram shows that his ejection fraction is around 20%. The patient is status post mitral valve repair but still has severe mitral regurgitation. This can be the cause of his decompensated congestive heart failure. Once he is euvolemic will repeat an echocardiogram and if his MR is still in the severe range he may need to be considered for repeat repair/replacement of the mitral valve. 3. He denies any chest pain or pressure. He ruled out for an [facility]. No plans for invasive left cardiac catheterization at this time. 4. His D-dimer was negative. 5. Coronary artery disease is likely stable. 6. His blood pressure is well-controlled. 7. His LDL goal is less than 55. He is on a statin. His LDL is 120. 8. Continue Farxiga, Entresto, spironolactone and Toprol for HFrEF. 9. The patient does have chronic atrial fibrillation. He is rate controlled. The patient has a history of a GI bleed and is not on anticoagulation. However, he is status post left atrial pended ligation. 10. 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 His device heart logic shows that he has no fluid increase. However his echocardiogram does show significant pulmonary hypertension so he is likely fluid overloaded at this time so we will continue with diuresis. 11. The patient is stable for discharge home today from a cardiac standpoint. The patient will need to be discharged on the following cardiac medications: Aspirin 81 mg daily, Farxiga 10 mg daily, Lasix 20 mg p.o. daily, Toprol XL 50 mg daily, Protonix 40 mg twice daily, Crestor 40 mg at bedtime, spironolactone 100 mg daily, Entresto 49/51 mg twice daily. Thank you for the opportunity to help participate in the care of this patient. All recommendations and orders are per Dr. Kim.
--- NOTE | 2023-05-02 14:24 | CARE MANAGER ---
Called and spoke with patient regarding recent discharge. Patient states that he is doing well. He was aware of scheduled f/u appts and has started new medication. He voiced no concerns at time of call.
== END 2023-04-29 14:07 | disposition home or self-care (01) ==
LOC: ER 20:19 → 2ND 20:25
PROVIDERS: Nurse Practitioner Family; Admitting Provider Internal Medicine Adolescent Medicine; Emergency Provider Student in an Organized Health Care Education/Training Program; PCP Internal Medicine Adolescent Medicine; Visit Provider Internal Medicine Adolescent Medicine
DX: I11.0 Hypertensive heart disease with heart failure (principal); I50.23 Acute on chronic systolic (congestive) heart failure; I34.0 Nonrheumatic mitral (valve) insufficiency; I48.20 Chronic atrial fibrillation, unspecified; Z95.810 Presence of automatic (implantable) cardiac defibrillator; E78.2 Mixed hyperlipidemia; I50.22 Chronic systolic (congestive) heart failure; I25.10 Atherosclerotic heart disease of native coronary artery without angina pectoris; D64.9 Anemia, unspecified; I25.5 Ischemic cardiomyopathy; E78.5 Hyperlipidemia, unspecified; E03.9 Hypothyroidism, unspecified
CPT/HCPCS: 36415; 71045; 71046; 80053; 80061; 82803; 83605; 83735; 83880; 84484; 85025; 85378; 87040; 87636; 93005; 93306; 99285; G0378

== ENCOUNTER 2023-05-03 08:42 | Outpatient (CLI) | payer MEDICARE, SELFPAY ==
[2023-05-03 09:21] LABS: Basophils % 0.5 % (0.1-2.0); Eosinophils # 0.2 K/mm3 (0.0-0.4); Eosinophils % 2.9 % (0.1-12.0); Hematocrit 45.3 % (42.0-52.0); Hemoglobin 15.1 g/dL (14.1-18.0); Lymphocytes # 1.6 K/mm3 (0.7-4.5); Lymphocytes % 20.3 % (10-50); Mean Corpuscular HGB Conc 33.4 g/dL (31.8-35.4); Mean Corpuscular Hemoglobin 32.9 pg (27.0-31.2); Mean Corpuscular Volume 98.6 fl (80-94); Mean Platelet Volume 7.9 fl (7.4-10.4); Monocytes # 0.4 K/mm3 (0.1-1.0); Monocytes % 4.8 % (1.7-9.3); Neutrophils # 5.6 K/mm3 (1.8-7.8); Neutrophils % 71.5 % (37.0-80.0); Platelet Count 291 K/mm3 (142-424); Red Blood Count 4.59 M/mm3 (4.60-6.20); Red Cell Distribution Width 12.8 % (11.5-17.5); White Blood Count 7.9 K/mm3 (4.8-10.8)
[2023-05-03 10:13] LABS: Hemoglobin A1C 6.3 % (4.0-6.0)
[2023-05-03 13:59] LABS: Chloride 104 mmol/L (98-107); Sodium 138 mmol/L (136-145)
[2023-05-03 14:02] LABS: Alanine Aminotransferase 27 U/L (12-78); Albumin Level 4.4 g/dl (3.5-5.0); Albumin/Globulin Ratio 1.5 (1.1-1.8); Alkaline Phosphatase 53 U/L (38-126); Aspartate Amino Transferase 33 U/L (17-59); Bilirubin,Total 0.6 mg/dl (0.2-1.3); Blood Urea Nitrogen 42 mg/dl (9-20); Carbon Dioxide 26 mmol/L (22.0-30.0); Cholesterol 188 mg/dl (140-200); Estimated Glomerular Filt Rate 46 ml/min (>60); GFR (African American) 55 ML/MIN (>60); Total Protein,Serum 7.4 g/dl (6.3-8.2); Triglycerides 211 mg/dl (30-150); VLDL Cholesterol 42 mg/dL (0-40)
[2023-05-03 14:03] LABS: Calcium 9.4 mg/dl (8.4-10.2); Chol/HDL Ratio 9.4 (1-3.5); Glucose 115 mg/dl (74-100); HDL Cholesterol 20 mg/dl (40-60)
[2023-05-03 14:14] LABS: Direct LDL Cholesterol 105.49 mg/dL (100-129)
[2023-05-03 14:34] LABS: Thyroid Stimulating Hormone 3.17 uIU/mL (0.465-4.68)
== END 2023-05-03 23:59 ==
PROVIDERS: PCP Internal Medicine Adolescent Medicine; Visit Provider Internal Medicine Adolescent Medicine
DX: E11.69 Type 2 diabetes mellitus with other specified complication (principal); I10 Essential (primary) hypertension
CPT/HCPCS: 36415; 80053; 80061; 83036; 84443; 85025

== ENCOUNTER 2023-05-23 13:52 | Outpatient (CLI) | payer MEDICARE, SELFPAY ==
--- NOTE | 2023-05-23 13:53 | CA_ITS ---
APPROVED REPORT EXAM: Limited 2D, Doppler, and color-flow Echocardiogram Hearing Therapy Director: Dominique Hammonds RVT Ht: 6 ft 1 in Wt: 270lbs BSA: 2.44 BP: 132/84 mmHg Indications: EF CHECK AND RECHECK MR,MV REPAIR 2020,AFIB,HTN,HLD,WATCHMAN,CAD 2D Dimensions Left Atrium 5.84 cm M: 3.0 - 4.0 EF AP4 29.50 % GL Strain -10.5 % M-Mode Dimensions RVDd 3.47 cm (0.9-2.6) LVDd 6.67 cm (3.5-5.7) Ao Diam 3.34 cm (2.0-3.7) LVDs 5.07 cm (3.5-5.7) IVSd 1.13 cm (0.6-1.1) PWd 0.52 cm (0.6-1.1) EF (Teich) 46.70% FS 24.00% EDV (Teich) 229.00 mL ESV (Teich) 122.10 mL Mitral Valve MV Mean Gr. 3.40 (<2mmHg) MV PHT 81.0 ms Other Information Study Quality: Fair Conclusion This is a limited TTE to evaluate for LVEF. Limited windows were obtained. Left ventricle is normal size. There is normal LV wall thickness. There is severe reduction in LV systolic function. Severe global hypokinesis is present. LVEF is 20%. s/p mitral valve repair. There is at least moderate mitral regurgitation present. The MR jet is eccentric and anteriorly directed. Mean MV gradient is 5 mmHg (HR 88 bpm). Mild to moderate AI is present. Compared to prior study from 04/28/2023, the LVEF appears unchanged. Electronically signed by : Leanna Kim MD 05/24/2023 18:22:23
== END 2023-05-23 23:59 ==
LOC: RT 13:53
PROVIDERS: PCP Internal Medicine Adolescent Medicine; Visit Provider Internal Medicine
DX: E78.5 Hyperlipidemia, unspecified (principal); I10 Essential (primary) hypertension; I25.10 Atherosclerotic heart disease of native coronary artery without angina pectoris; I48.91 Unspecified atrial fibrillation; Z95.810 Presence of automatic (implantable) cardiac defibrillator; Z98.890 Other specified postprocedural states
CPT/HCPCS: 93308

== ENCOUNTER 2023-12-01 08:41 | Outpatient (CLI) | payer MEDICARE, SELFPAY ==
[2023-12-01 10:10] LABS: Blood Urea Nitrogen 38 mg/dl (9-20); Calcium 9.5 mg/dl (8.4-10.2); Carbon Dioxide 30 mmol/L (22.0-30.0); Chloride 103 mmol/L (98-107); Estimated Glomerular Filt Rate 46 ml/min (>60); GFR (African American) 55 ML/MIN (>60); Glucose 108 mg/dl (74-100); Sodium 139 mmol/L (136-145)
[2023-12-01 10:18] LABS: NT Pro Brain Natriuretic Pep. 3120 pg/mL (0-125)
== END 2023-12-01 23:59 | disposition home or self-care (01) ==
LOC: LAB 08:45
PROVIDERS: PCP Internal Medicine Adolescent Medicine; Visit Provider Nurse Practitioner Family
DX: I50.20 Unspecified systolic (congestive) heart failure (principal)
CPT/HCPCS: 36415; 80048; 83880

== ENCOUNTER 2023-12-15 08:06 | Outpatient (CLI) | payer MEDICARE, SELFPAY ==
[2023-12-15 09:24] LABS: Anion Gap 11.4 mEq/L (5-15); Blood Urea Nitrogen 33 mg/dl (9-20); Calcium 9.5 mg/dl (8.4-10.2); Carbon Dioxide 24 mmol/L (22.0-30.0); Chloride 105 mmol/L (98-107); Estimated Glomerular Filt Rate 46 ml/min (>60); GFR (African American) 55 ML/MIN (>60); Glucose 116 mg/dl (74-100); Potassium 4.4 mmoL/L (3.5-5.1); Sodium 136 mmol/L (136-145)
== END 2023-12-15 23:59 | disposition home or self-care (01) ==
LOC: LAB 08:10
PROVIDERS: PCP Internal Medicine Adolescent Medicine; Visit Provider Nurse Practitioner Family
DX: I50.22 Chronic systolic (congestive) heart failure (principal)
CPT/HCPCS: 36415; 80048

== ENCOUNTER 2025-01-20 02:13 | Observation (INO) | payer MEDICARE, SELFPAY ==
--- OUTSIDE RECORDS SUMMARY | 2024-06-23 16:30 | XMS_ITS ---
Author Organization [facility] Address [address] [place] [address] Care Team Providers Care Electronic Technologist Name Role Phone Gulshan Haines Primary Care Provider [phone] Migration, Provider Unavailable Unavailable Allergies Allergen (clinical drug ingredient) Drug/Non Drug Allergy documented on EMR Reaction Allergy Type Onset Date Status [place] RYE (uncoded) Unknown Allergy Active [facility] Conversion Encounter Medications Medication SIG (Take, Route, Frequency, Duration) Notes Start Date End Date Status Tamsulosin HCl 0.4 MG 1 cap(s) orally once a day; Duration: 90 days Active Citalopram Hydrobromide 20 MG 1 tab(s) orally once a day; Duration: 90 Active Latanoprost 0.005 % 1 gtt in each eye once a day (in the evening) Active TIMOLOL MALEATE (EQV-ISTALOL) MALEATE 0.5% 1 GTT RT EYE TWICE A DAY *Please review for potential replacement for e-prescription and drug interaction check* Active Rosuvastatin Calcium 40 MG 1 TAB(S) ORALLY ONCE A DAY *Please review and pick correct [facility]ulati [facility]. If intended option is not shown, discontinue and re-order from Quick Search* Active prednisoLONE Acetate 1 % 1 gtt in each affected eye 4 times a day Active Senna 8.6 MG 1 tab(s) orally once a day (at bedtime) Active Aspirin 81 MG 1 tab(s) orally once a day; Duration: 30 day(s) Active B-12 1000 MCG 1 tab(s) orally once a day; Duration: 30 day(s) Active Multivitamin - 1 tab(s) orally once a day; Duration: 30 day(s) Active Vitamin C 500 MG 100mg orally once a day Active Entresto 49-51 MG 1/2 tab orally 2 times a day Active Metoprolol Succinate ER 50 MG 1 tab(s) orally twice a day; Duration: 30 days Active Furosemide 40 MG 1/2tab(s) orally once a day Active DAPAGLIFLOZIN 10 MG 1 TAB(S) ORALLY ONCE A DAY *Please review for potential replacement for e-prescription and drug interaction check* Active Levothyroxine Sodium 88 MCG 1 tab(s) orally once a day; Duration: 30 day(s) Active Spironolactone 100 MG 1 tab(s) orally once a day Active Pantoprazole Sodium 40 MG 1 tab(s) orally once a day; Duration: 90 days Active Encounters Encounter Location Date Provider Diagnosis [facility] [address] [facility] [address] [facility] [address] [place] [address] 06/23/2024 Provider Migration Plan Of Treatment Medication Medication Name Sig Start Date Stop Date Notes Levothyroxine Sodium 88 MCG 1 tab(s) ora lly once a day; Duration: 30 day(s) Pantoprazole Sodium 40 MG 1 tab(s) orall y once a day; Duration: 90 days Next Appt Details Provider Name:Gulshan Haines, 02/04/2025 11:15:00 AM, [address] [facility] [address] [facility], [address], [place], [address], Progress Notes * Jerson IRWINDOB:1950 (74 yo M)Acc No.[id number]:06/23/2024 Patient: Jerson TENORIO Provider: Dallin morgan Migration :1950 A ge:73 Y S ex:Male Date:06/23/2024 Address:[address] [place] [address] [place] [id number] Pcp:Gulshan Haines Subjective: * Chief Complaints: * 1 . [facility] To [facility] Conversion Encounter. * Medical History: * Medications: T aking Spironolactone 100 MG Tablet 1 tab(s) orally once a day , Taking DAPAGLIFLOZIN 10 MG TABLET 1 TAB(S) ORALLY ONCE A DAY , Notes to Pharmacist: *Please review for potential replacement for e-prescription and drug interaction check*, Taking Furosemide 40 MG Tablet 1/2tab(s) orally once a day , Taking Metoprolol Succinate ER 50 MG Tablet Extended Release 24 Hour 1 tab(s) orally twice a day , Taking Entresto 49-51 MG Tablet 1/2 tab orally 2 times a day , Taking Vitamin C 500 MG Tablet 100mg orally once a day , Taking prednisoLONE Acetate 1 % Suspension 1 gtt in each affected eye 4 times a day , Taking Multivitamin - Tablet 1 tab(s) orally once a day , Taking B-12 1000 MCG Tablet 1 tab(s) orally once a day , Taking Aspirin 81 MG Tablet Delayed Release 1 tab(s) orally once a day , Taking Senna 8.6 MG Tablet 1 tab(s) orally once a day (at bedtime) , Taking Rosuvastatin Calcium 40 MG CAPSULE 1 TAB(S) ORALLY ONCE A DAY , Notes to Pharmacist: *Please review and pick correct strength-formulation from [facility] options. If intended option is not shown, discontinue and re-order from Quick Search*, Taking TIMOLOL MALEATE (EQV-ISTALOL) MALEATE 0.5% SOLUTION 1 GTT RT EYE TWICE A DAY , Notes to Pharmacist: *Please review for potential replacement for e-prescription and drug interaction check*, Taking Latanoprost 0.005 % Solution 1 gtt in each eye once a day (in the evening) , Taking Citalopram Hydrobromide 20 MG Tablet 1 tab(s) orally once a day , Taking Tamsulosin HCl 0.4 MG Capsule 1 cap(s) orally once a day * Allergies: R YE. Objective: * Vitals: Assessment: Plan: * Treatment: * * Electronic signature of Mae noyola Migration on 01/20/2025 at 02:39 AM EST Sign off status: Pending * Provider: Dallin morgan Migration Date: 0 06/23/2024 Generated for Debby hart/Toshia/Jessie on: 03/22/2024 02:39 AM EST
--- OUTSIDE RECORDS SUMMARY | 2025-01-07 06:00 | XMS_ITS ---
Author Organization 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 Name Role Phone Gulshan Haines Primary Care Provider Allergies Allergen (clinical drug ingredient) Drug/Non Drug Allergy documented on EMR Reaction Allergy Type Onset Date Status [place] RYE (uncoded) Unknown Allergy Active Results Component Value Reference Range Notes LIPID PANEL, STANDARD (7600) Reviewed date:01/08/2025 03:29:30 PM Interpretation: Performing Lab:[facility], [facility], [id number] Carlos Briones Notes/Report: NON-FASTING; NON-FASTING; NON-FASTING; NON-FASTING; NON-FAST FASTING:YES FASTING: YES CHOLESTEROL, TOTAL 182 <200 mg/dL HDL CHOLESTEROL 35 > OR = 40 mg/dL TRIGLYCERIDES 366 <150 mg/dL If a non-fasting specimen was collected, consider repeat triglyceride testing on a fasting specimen if clinically indicated. Rosana et al. J. of Clin. Lipidol. 2015;9:129-169. LDL-CHOLESTEROL 98 Reference range: <100 Desirable range <100 mg/dL for primary prevention; <70 mg/dL for patients with CHD or diabetic patients with > or = 2 CHD risk factors. LDL-C is now calculated using the Pat calculation, which is a validated novel method providing better accuracy than the Friedewald equation in the estimation of LDL-C. Vimal DIOP et al. MARGARITA. 2013;310(19): 9332-3864 (http://education.TinyCircuits.Poptip/faq/WWP633) CHOL/HDLC RATIO 5.2 <5.0 (calc) NON HDL CHOLESTEROL 147 <130 mg/dL (calc) For patients with diabetes plus 1 major ASCVD risk factor, treating to a non-HDL-C goal of <100 mg/dL (LDL-C of <70 mg/dL) is considered a therapeutic option. [facility] (23225) Reviewed date:01/08/2025 03:29:30 PM Interpretation: Performing Lab:CB, [facility] [address], Supply [id number] Carlos Briones Notes/Report: NON-FASTING; NON-FASTING; NON-FASTING; NON-FASTING; NON-FAST FASTING:YES FASTING: YES GLUCOSE 99 65-99 mg/dL Fasting reference interval UREA NITROGEN (BUN) 29 7-25 mg/dL CREATININE 1.53 0.70-1.28 mg/dL EGFR 47 > OR = 60 mL/min/1.73m2 BUN/CREATININE RATIO 19 6-22 (calc) SODIUM 137 135-146 mmol/L POTASSIUM 4.7 3.5-5.3 mmol/L CHLORIDE 98 98-110 mmol/L CARBON DIOXIDE 28 20-32 mmol/L CALCIUM 9.9 8.6-10.3 mg/dL PROTEIN, TOTAL 7.8 6.1-8.1 g/dL ALBUMIN 5.0 3.6-5.1 g/dL GLOBULIN 2.8 1.9-3.7 g/dL (calc) ALBUMIN/GLOBULIN RATIO 1.8 1.0-2.5 (calc) BILIRUBIN, TOTAL 0.7 0.2-1.2 mg/dL ALKALINE PHOSPHATASE 49 35-144 U/L AST 18 10-35 U/L ALT 11 9-46 U/L CBC (INCLUDES DIFF/PLT) (639 9) Reviewed date:01/08/2025 03:29:30 PM Interpretation: Performing Lab:RITU, [facility] [address], [place] [id number] Carlos Briones Notes/Report: NON-FASTING; NON-FASTING; NON-FASTING; NON-FASTING; NON-FAST FASTING:YES FASTING: YES WHITE BLOOD CELL COUNT 10.0 3.8-10.8 Thousand/ uL RED BLOOD CELL COUNT 4.41 4.20-5.80 Million/uL HEMOGLOBIN 14.4 13.2-17.1 g/dL HEMATOCRIT 43.1 38.5-50.0 % MCV 97.7 80.0-100.0 fL MCH 32.7 27.0-33.0 pg MCHC 33.4 32.0-36.0 g/dL For adults, a slight decrease in the calculated MCHC value (in the range of 30 to 32 g/dL) is most likely not clinically significant; however, it should be interpreted with caution in correlation with other red cell parameters and the patient's clinical condition. RDW 13.1 11.0-15.0 % PLATELET COUNT 257 140-400 Thousand/uL MPV 10.2 7.5-12.5 fL ABSOLUTE NEUTROPHILS 7500 1830-6309 cells/uL ABSOLUTE LYMPHOCYTES 9648 956-4512 cells/uL ABSOLUTE MONOCYTES 660 200-950 cells/uL ABSOLUTE EOSINOPHILS 220 15-500 cells/uL ABSOLUTE BASOPHILS 70 0-200 cells/uL NEUTROPHILS 75 LYMPHOCYTES 15.5 MONOCYTES 6.6 EOSINOPHILS 2.2 BASOPHILS 0.7 SED RATE BY MODIFIED CLARITA MARIE (809) Reviewed date:01/08/2025 03:29:30 PM Interpretation: Performing Lab:[facility] [address], [place] [id number] Carlos Briones Notes/Report: NON-FASTING; NON-FASTING; NON-FASTING; NON-FASTING; NON-FAST FASTING:YES FASTING: YES SED RATE BY MODIFIED CLARITAREN 14 < OR = 20 mm/h C-REACTIVE PROTEIN (4420) Reviewed date:01/08/2025 03:29:30 PM Interpretation: Performing Lab:[facility] [address], [place] [id number] Carlos Briones Notes/Report: NON-FASTING; NON-FASTING; NON-FASTING; NON-FASTING; NON-FAST FASTING:YES FASTING: YES C-REACTIVE PROTEIN <3.0 <8.0 mg/L HEMOGLOBIN A1c (496) Reviewed date:01/08/2025 03:29:31 PM Interpretation: Performing Lab:[facility] [address], [facility] Clinic[facility]vgtVB[address] Carlos Linda Briones Notes/Report: NON-FASTING; NON-FASTING; NON-FASTING; NON-FASTING; NON-FAST FASTING:YES FASTING: YES HEMOGLOBIN A1c 6.4 <5.7 % For someone without known diabetes, a hemoglobin A1c value between 5.7% and 6.4% is consistent with prediabetes and should be confirmed with a follow-up test. For someone with known diabetes, a value <7% indicates that their diabetes is well controlled. A1c targets should be individualized based on duration of diabetes, age, comorbid conditions, and other considerations. This assay result is consistent with an increased risk of diabetes. Currently, no consensus exists regarding use of hemoglobin A1c for diagnosis of diabetes for children. REASON FOR VISIT 4 month Follow up , lips feel puffy & knees feel like they're rubbing. Medications Medication SIG (Take, Route, Frequency, Duration) Notes Start Date End Date Status Tamsulosin HCl 0.4 MG 1 cap(s) orally once a day; Duration: 90 days Active Pantoprazole Sodium 40 MG 1 tab(s) orally once a day; Duration: 90 days Active Citalopram Hydrobromide 20 MG 1 tab(s) orally once a day; Duration: 90 Active Levothyroxine Sodium 88 MCG 1 tab(s) orally once a day; Duration: 30 day(s) Active Latanoprost 0.005 % 1 gtt in each eye once a day (in the evening) Active Aspirin 81 MG 1 tab(s) orally once a day; Duration: 30 day(s) Active Senna 8.6 MG 1 tab(s) orally once a day (at bedtime) Active Rosuvastatin Calcium 40 MG 1 TAB(S) ORALLY ONCE A DAY *Please review and pick correct strength-formulati on from MUJIN options. If intended option is not shown, discontinue and re-order from Quick Search* Active TIMOLOL MALEATE (EQV-ISTALOL) MALEATE 0.5% 1 GTT RT EYE TWICE A DAY *Please review for potential replacement for e-prescription and drug interaction check* Active Metoprolol Succinate ER 50 MG 1 tab(s) orally twice a day; Duration: 30 days Active Vitamin C 500 MG 100mg orally once a day Active prednisoLONE Acetate 1 % 1 gtt in each affected eye 4 times a day Active Multivitamin - 1 tab(s) orally once a day; Duration: 30 day(s) Active B-12 1000 MCG 1 tab(s) orally once a day; Duration: 30 day(s) Active Furosemide 40 MG 1 tab orally MWF Active Spironolactone 100 MG 1 tab(s) orally once a day Active DAPAGLIFLOZIN 10 MG 1 TAB(S) ORALLY ONCE A DAY Active Immunizations Vaccine Route Administration Date Status Comme nts Fluzone High Dose IM Intramuscular 01/07/2025 Administered Vital Signs Temperature 97.1 degrees Fahrenheit 01/08/20 25 Blood pressure systolic 126 mm Hg 01/08/20 25 Blood pressure diastolic 78 mm Hg 025 Heart Rate 84 /min 01/07/2025 Height 72 in 01/07/2025 Weight 266.2 lbs 01/07/2025 BMI 36.1 kg/m2 01/07/2025 Encounters Encounter Location Date Provider Diagnosis [facility] [address] [place] [address] 01/07/2025 Gulshan Haines Immunization(s) administered Z23 ; Hyperlipemia, idiopathic familial E78.5 ; Hypertension, essential I10 ; Type 2 diabetes mellitus with other specified complication E11.69 ; 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 No other change in plan at this point from a lipid perspective 01/07/2025 Hypertension, essential (ICD-10 - I10) Blood pressures are good, however given my request of patient to hold Entresto I will see him back in 4 weeks to reassess volume status 01/07/2025 Type 2 diabetes mellitus with other specified complication (ICD-10 - E11.69) Check A1c. 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 I am concerned that angioedema might be from low-dose angiotensin receptor blockade. Patient notes that he is have this problem for 2 years and has been on Entresto about that same length of time 01/07/2025 Swelling of both lips (ICD-10 - R22.0) Check inflammatory labs, hold Entresto Plan Of Treatment Medication Medication Name Sig Start Date Stop Date Notes Entresto 49-51 MG 1/2 tab orally 2 times a day Treatment Notes Assessment Notes Hyperlipemia, idiopathic familial Check labs as noted. No other change in plan at this point from a lipid perspective Hypertension, essential Blood pressures are good, however given my request of patient to hold Entresto I will see him back in 4 weeks to reassess volume status Type 2 diabetes mellitus wit h other specified complication Check A1c. I will review all labs personally Chronic combined systolic an d diastolic heart failure Will hold Entresto. I am concerned that angioedema might be from low-dose angiotensin receptor blockade. Patient notes that he is have this problem for 2 years and has been on Entresto about that same length of time Swelling of both lips Check inflammatory labs, hold Entresto Next Appt Details Follow Up: 4 Weeks, Reason: Provider Name:Gulshan Haines, 02/04/2025 11:15:00 AM, [address] [facility], [address], [place], [address], Progress Notes * Jerson IRWINDOB:1950 (74 yo M)Acc No.[id number]:01/07/2025 Progress notes Patient: Jerson TENORIO Provider: Tyler Haines MD :1950 A ge:74 Y S ex:Male Date:01/07/2025 Address:[address] [place] [address] [id number] Subjective: * Chief Complaints: * 1 . 4 month Follow up , lips feel puffy & knees feel like they're rubbing.. * HPI: g en: Here for regular follow-up. Has a couple of new complaints. Notes that over the past couple of years he has felt like his lips have been puffy and swollen. He is never mention this before, has talked about it with his dentist and they have tried a couple of different fittings of dentures but he does not think it is his teeth he thinks it is his lips. See discussion below. Also feels like his knees are crepitant, feels like things are rubbing together in his knees has no pain. No distal edema, otherwise functional status is pretty good. * Medical History: H ypertension, Hyperlipidemia, GERD, Mitral valve regurgitation, Carpal tunnel syndrome, Heart Attack, Pacemaker/AICD, EGD with chronic gastritis, Diabetes, Anemia, Fluid on Lungs. 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 08/2020, Open heart surgery 08/2020. * Hospitalization/Major Diagno stic Procedure: P acemaker placement- [facility] 11/2018, Mitral Valve replacement with left atrial appendage ligation at [facility], Dr Ortiz 2020, Open heart surgery 08/2020, Heart issues- [facility] 04/2023. * Family History: F ather: . M other: , diagnosed with Heart Disease. P aternal Grand Father: . P aternal Grand Mother: , diagnosed with Diabetes. M aternal Grand Father: . M aternal Grand Mother: . P aternal uncle: alive. P aternal aunt: . M aternal uncle: . M aternal aunt: . S iblings: alive, cataracts. C hildren: alive, one son is . 1 brother(s) - healthy. 2 son(s) - healthy. .? * Social History: S moking A re you a:: former smoker , How long has it been since you last smoked?: > 10 years. R ecreational drug use: no. Exercise: no. Home smoke detector use: yes. Caffeine: yes, frequency:1.5 mugs coffee daily. Living Will: No. Alcohol: no. Sexually active: no. Travel outside [place]: no. Occupation: retired. lives alone. * Medications: T aking Spironolactone 100 MG Tablet 1 tab(s) orally once a day , Taking DAPAGLIFLOZIN 10 MG TABLET 1 TAB(S) ORALLY ONCE A DAY , Taking Furosemide 40 MG Tablet 1 tab orally MWF , Taking Metoprolol Succinate ER 50 MG [...] *Please review and pick correct strength-formulation from MUJIN options. If intended option is not shown, discontinue and re-order from Quick Search*, Taking TIMOLOL MALEATE (EQV-ISTALOL) MALEATE 0.5% SOLUTION 1 GTT RT EYE TWICE A DAY , Notes to Pharmacist: *Please review for potential replacement for e-prescription and drug interaction check*, Taking Latanoprost 0.005 % Solution 1 gtt in each eye once a day (in the evening) , Taking Tamsulosin HCl 0.4 MG Capsule 1 cap(s) orally once a day , Taking Pantoprazole Sodium 40 MG Tablet Delayed Release 1 tab(s) orally once a day , Taking Citalopram Hydrobromide 20 MG Tablet 1 tab(s) orally once a day , Taking Levothyroxine Sodium 88 MCG Tablet 1 tab(s) orally once a day , Medication List reviewed and reconciled with the patient * Allergies: R YE. Objective: * Vitals: N urse: KJ, Pain: 0, Temp: 97.1, RR: 20, HR: 84, BP: 126/78, Ht: 72, Wt: 266.2, BMI:36.1. * Examination: G eneral Examination: P leasant and talkative. I do not see any visible angioedema around his face but patient feels like his lips are both rubbery and tight on the upper and lower aspect. No stridor. Lungs are clear. Knees are crepitant bilaterally, no redness, good range of motion. Patient denies pain with knee exam. Assessment: * Assessment: 1. H yperlipemia, idiopathic familial - E78.5 (Primary) 2 . I mmunization(s) administered - Z23 (Primary) 3 . H ypertension, essential - I10 ?4. T ype 2 diabetes mellitus with other specified complication - E11.69 5 . 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 C hronic combined systolic and diastolic heart failure - I50.42 7 . S welling of both lips - R22.0 Plan: * Treatment: Value Reference Range T RIGLYCERIDES 366 H <150 - mg/dL * C HOLESTEROL, TOTAL 182 <200 - mg/dL * H DL CHOLESTEROL 35 L > OR = 40 - mg/dL * L DL-CHOLESTEROL 98 - mg/dL (calc) * C HOL/HDLC RATIO 5.2 H <5.0 - (calc) * N ON HDL CHOLESTEROL 147 H <130 - mg/dL (calc) * Lyn Blank 01/08/2025 03:29:24 PM EDT > Patient informedThis lab was reviewed by Lyn Blank on 01/08/2025 at 15:29 PM EDT ?LAB: COMPREHENSIVE METABOLIC PANEL (06997)* Value Reference Range G LUCOSE 99 65-99 - mg/dL * U JU NITROGEN (BUN) 29 H 7-25 - mg/dL * C REATININE 1.53 H 0.70-1.28 - mg/dL * B UN/CREATININE RATIO 19 6-22 - (calc) * S ODIUM 137 135-146 - mmol/L * P OTASSIUM 4.7 3.5-5.3 - mmol/L * C HLORIDE 98 98-110 - mmol/L * C ARBON DIOXIDE 28 20-32 - mmol/L * C ALCIUM 9.9 8.6-10.3 - mg/dL * P ROTEIN, TOTAL 7.8 6.1-8.1 - g/dL * A LBUMIN 5.0 3.6-5.1 - g/dL * G LOBULIN 2.8 1.9-3.7 - g/dL (calc ) * A LBUMIN/GLOBULIN RATIO 1.8 1.0-2.5 - (calc) * B ILIRUBIN, TOTAL 0.7 0.2-1.2 - mg/dL * A LKALINE PHOSPHATASE 49 35-144 - U/L * A ST 18 10-35 - U/L * A LT 11 9-46 - U/L * E GFR 47 L > OR = 60 - mL/min/1 .73m2 * Lyn Blank 01/08/2025 03:29:24 PM EDT > Patient informedThis lab was reviewed by Lyn Blank on 01/08/2025 at 15:29 PM EDT Notes: Check labs as noted. No other change in plan at this point from a lipid perspective? 2.?Hypertension, essential? Notes: Blood pressures are good, however given my request of patient to hold Entresto I will see him back in 4 weeks to reassess volume status??3.?Type 2 diabetes mellitus with other specified complication?LAB: HEMOGLOBIN A1c (496)* Value Reference Range H EMOGLOBIN A1c 6.4 H <5.7 - % * Lyn Blank 01/08/2025 03:29:24 PM EDT > Patient informedThis lab was reviewed by Lyn Blank on 01/08/2025 at 15:29 PM EDT Notes: Check A1c. I will review all labs personally??4.?Chronic combined systolic and diastolic heart failure?LAB: CBC (INCLUDES DIFF/PLT) (4092)* Value Reference Range W AVNI BLOOD CELL COUNT 10.0 3.8-10.8 - Thousan d/uL * R ED BLOOD CELL COUNT 4.41 4.20-5.80 - Million/ uL * H EMOGLOBIN 14.4 13.2-17.1 - g/dL * H EMATOCRIT 43.1 38.5-50.0 - % * M CV 97.7 80.0-100.0 - fL * M CH 32.7 27.0-33.0 - pg * M CHC 33.4 32.0-36.0 - g/dL * R DW 13.1 11.0-15.0 - % * P LATELET COUNT 257 140-400 - Thousand/u L * N EUTROPHILS 75 - % * A BSOLUTE NEUTROPHILS 7500 7222-9170 - cells/uL * L YMPHOCYTES 15.5 - % * A BSOLUTE LYMPHOCYTES 2482 323-6320 - cells/uL * M ONOCYTES 6.6 - % * A BSOLUTE MONOCYTES 660 200-950 - cells/uL * E OSINOPHILS 2.2 - % * A BSOLUTE EOSINOPHILS 220 15-500 - cells/uL * B ASOPHILS 0.7 - % * A BSOLUTE BASOPHILS 70 0-200 - cells/uL * M PV 10.2 7.5-12.5 - fL * Lyn Blank 01/08/2025 03:29:24 PM EDT > Patient informedThis lab was reviewed by Lyn Blank on 01/08/2025 at 15:29 PM EDT ?LAB: SED RATE BY MODIFIED WESTERGREN (809)* Value Reference Range S ED RATE BY MODIFIED 14 < OR = 20 - mm/h * Lyn Blank 01/08/2025 03:29:24 PM EDT > Patient informedThis lab was reviewed by Lyn Blank on 01/08/2025 at 15:29 PM EDT ?LAB: C-REACTIVE PROTEIN (4420)* Value Reference Range C -REACTIVE PROTEIN <3.0 <8.0 - mg/L * Lyn Blank 01/08/2025 03:29:24 PM EDT > Patient informedThis lab was reviewed by Lyn Blank on 01/08/2025 at 15:29 PM EDT Notes: Will hold Entresto. I am concerned that angioedema might be from low-dose angiotensin receptor blockade. Patient notes that he is have this problem for 2 years and has been on Entresto about that same length of time??5.?Swelling of both lips? Stop Entresto Tablet, 49-51 MG, 1/2 tab, orally, 2 times a day.?LAB: CBC (INCLUDES DIFF/PLT) (6399)* Value Reference Range W AVNI BLOOD CELL COUNT 10.0 3.8-10.8 - Thousan d/uL * R ED BLOOD CELL COUNT 4.41 4.20-5.80 - Million/ uL * H EMOGLOBIN 14.4 13.2-17.1 - g/dL * H EMATOCRIT 43.1 38.5-50.0 - % * M CV 97.7 80.0-100.0 - fL * M CH 32.7 27.0-33.0 - pg * M CHC 33.4 32.0-36.0 - g/dL * R DW 13.1 11.0-15.0 - % * P LATELET COUNT 257 140-400 - Thousand/u L * N EUTROPHILS 75 - % * A BSOLUTE NEUTROPHILS 7500 7097-3728 - cells/uL * L YMPHOCYTES 15.5 - % * A BSOLUTE LYMPHOCYTES 5306 061-2494 - cells/uL * M ONOCYTES 6.6 - % * A BSOLUTE MONOCYTES 660 200-950 - cells/uL * E OSINOPHILS 2.2 - % * A BSOLUTE EOSINOPHILS 220 15-500 - cells/uL * B ASOPHILS 0.7 - % * A BSOLUTE BASOPHILS 70 0-200 - cells/uL * M PV 10.2 7.5-12.5 - fL * Lyn Blank 01/08/2025 03:29:24 PM EDT > Patient informedThis lab was reviewed by Lyn Blank on 01/08/2025 at 15:29 PM EDT ?LAB: SED RATE BY MODIFIED WESTERGREN (809)* Value Reference Range S ED RATE BY MODIFIED 14 < OR = 20 - mm/h * Lyn Blank 01/08/2025 03:29:24 PM EDT > Patient informedThis lab was reviewed by Lyn Blank on 01/08/2025 at 15:29 PM EDT ?LAB: C-REACTIVE PROTEIN (4420)* Value Reference Range C -REACTIVE PROTEIN <3.0 <8.0 - mg/L * Lyn Blank 01/08/2025 03:29:24 PM EDT > Patient informedThis lab was reviewed by Lyn Blank on 01/08/2025 at 15:29 PM EDT Notes: Check inflammatory labs, hold Entresto?? * Immunizations: Fluzone High Dose : 0.7 mL (Route: Intramuscular) given by ADARSH Mustafa on Right Arm (Immunization(s) administered) * Procedure Codes: 9 0662 Influenza High Dose Vaccine >65 Years Old, Units: 1.40 , G0008 ADMINISTRATION-FLU VACCINE MEDICARE ONLY, G2211 Complex e/m visit add on * Follow Up: 4 Weeks * * Sign off status: Completed true * Provider: Tyler Haines MD Date: Generated for Debby hart/Toshia/Kristinitting on: 03/22/2024 02:40 AM EST History and Physical Notes * HPI (History of Present Illness) Category Sub-Category Detail Notes Category Not es gen Here for regular follow-up. Has a couple of new complaints. Notes that over the past couple of years he has felt like his lips have been puffy and swollen. He is never mention this before, has talked about it with his dentist and they have tried a couple of different fittings of dentures but he does not think it is his teeth he thinks it is his lips. See discussion below. Also feels like his knees are crepitant, feels like things are rubbing together in his knees has no pain. No distal edema, otherwise functional status is pretty good. Examination Category Sub-Category Detail Notes Category Not es General Examination Pleasant and talkative. I do not see any visible angioedema around his face but patient feels like his lips are both rubbery and tight on the upper and lower aspect. No stridor. Lungs are clear. Knees are crepitant bilaterally, no redness, good range of motion. Patient denies pain with knee exam
[2025-01-20] VITALS (11 sets, daily range): BP systolic 116–128; BP diastolic 57–84; PULSE 59–110; RESP 14–37; TEMP 36.6–37.4; O2SAT 92–99; BMI 34.5
--- NOTE | 2025-01-20 02:17 | XR_ITS ---
PROCEDURE INFORMATION: Exam: XR Chest Exam date and time: 01/20/2025 3:00 AM Age: 74 years old Clinical indication: Shortness of breath; Additional info: SOA fluid in lungs HX hfrer TECHNIQUE: Imaging protocol: Radiologic exam of the chest. Views: 1 view. COMPARISON: CR XR CHEST 2V 04/27/2023 7:32 PM FINDINGS: Tubes, catheters and devices: Two lead right heart pacemaker defibrillator. Lungs: Unremarkable. No consolidation. Pleural spaces: Unremarkable. Left pleural effusion. No pneumothorax. Heart/Mediastinum: Stable cardiomegaly. Prosthetic valve. Bones/joints: Unremarkable. IMPRESSION: New left-sided effusion. Stable cardiomegaly. Prior median sternotomy and valve replacement.
--- NOTE | 2025-01-20 02:22 | CT_ITS ---
PROCEDURE INFORMATION: Exam: CT Head Without Contrast Exam date and time: 01/20/2025 4:28 AM Age: 74 years old Clinical indication: Injury or trauma; Fall; Blunt trauma (contusions or hematomas); Additional info: Fall, takes thinners TECHNIQUE: Imaging protocol: Computed tomography of the head without contrast. Radiation optimization: All CT scans at this facility use at least one of these dose optimization techniques: automated exposure control; mA and/or kV adjustment per patient size (includes targeted exams where dose is matched to clinical indication); or iterative reconstruction. COMPARISON: CT HEAD/BRAIN WO CON 05/10/2020 4:21 PM FINDINGS: Brain: Normal. No hemorrhage. Unremarkable white matter. No mass effect. Cerebral ventricles: No ventriculomegaly. Paranasal sinuses: Visualized sinuses are unremarkable. No fluid levels. Mastoid air cells: Visualized mastoid air cells are well aerated. Bones: Unremarkable. No acute fracture. Soft tissues: Unremarkable. IMPRESSION: No acute intracranial abnormality.
--- NOTE | 2025-01-20 02:22 | XR_ITS ---
PROCEDURE INFORMATION: Exam: XR Right Knee Exam date and time: 01/20/2025 3:04 AM Age: 74 years old Clinical indication: Injury or trauma; Fall; Blunt trauma; Knee; Bilateral; Additional info: Fall onto knee TECHNIQUE: Imaging protocol: Radiologic exam of the right knee. Views: 3 views. COMPARISON: No relevant prior studies available. FINDINGS: Bones/joints: Mild osteoarthritic changes with narrowing of the lateral compartment and marginal osteophytes.. Soft tissues: Normal. IMPRESSION: No acute findings.
--- NOTE | 2025-01-20 02:22 | CT_ITS ---
PROCEDURE INFORMATION: Exam: CT Cervical Spine Without Contrast Exam date and time: 01/20/2025 4:39 AM Age: 74 years old Clinical indication: Injury or trauma; Fall; Blunt trauma; Additional info: Fall takes thinners TECHNIQUE: Imaging protocol: Computed tomography of the cervical spine without contrast. Radiation optimization: All CT scans at this facility use at least one of these dose optimization techniques: automated exposure control; mA and/or kV adjustment per patient size (includes targeted exams where dose is matched to clinical indication); or iterative reconstruction. COMPARISON: CT HEAD/BRAIN WO CON 01/20/2025 4:28 AM FINDINGS: Bones: No acute fracture. Normal alignment. No significant disc bulge or herniation. No severe spinal canal stenosis. No significant neural foraminal narrowing. Lungs: Lung apices are normal. Soft tissues: Unremarkable. IMPRESSION: No acute cervical spine fracture.
--- NOTE | 2025-01-20 02:22 | XR_ITS ---
PROCEDURE INFORMATION: Exam: XR Left Knee Exam date and time: 01/20/2025 3:04 AM Age: 74 years old Clinical indication: Injury or trauma; Fall; Blunt trauma; Knee; Bilateral; Additional info: Fall onto knee TECHNIQUE: Imaging protocol: Radiologic exam of the left knee. Views: 3 views. COMPARISON: No relevant prior studies available. FINDINGS: Bones/joints: Normal. Soft tissues: Normal. IMPRESSION: No acute findings.
--- OUTSIDE RECORDS SUMMARY | 2025-01-20 02:39 | XMS_ITS | Encounter Summary ---
Author Organization [facility] Address [address] [place] [address] Care Team Providers Care Mis Director Name Role Phone Gulshan Haines MD Primary Care Provider + [phone] Song Hopper MD Unavailable [phone] Constantino Hutton MD Unavailable [phone] Reason for Visit * Reason Comments Med Refill Encounter Details Date Type Department Care Team (Late st Contact Info) Description 11/30/2024 Refill [facility] [address] [facility] [address] [place] [address] Sina Kc MD [address] [facility] [address] [place] [address] Social History Tobacco Use Types Packs/Day Years Used Date Smoking Tobacco: Former Passive Smoke Exposure: Past Smokeless Tobacco: Never Alcohol Use Standard Drinks/Week Comments No 0 (1 standard drink = 0.6 oz pur e alcohol) PHQ-2 Answer Date Recorded Patient Health Questionnaire-2 Score 0 09/13/2024 PHQ-9 Answer Date Recorded Patient Health Questionnaire-9 Score 0 09/13/2024 PHQ-2A Answer Date Recorded Patient Health Questionnaire-2 Score 0 11/11/2022 Sex and Gender Information Value Date Recorded Sex Assigned at Male 05/27/2021 4:34 PM EST Legal Sex Male 7:29 PM EDT Gender Identity Not on file Sexual Orientation Straight 05/27/2021 4: 34 PM EST documented as of this encounter Plan of Treatment Upcoming Encounters Date Type Department Care Team (Late st Contact Info) Description 01/28/2025 10:30 AM EST Office Visit [facility] [address] [place] [address] Sina Kc MD [address] [place] [address] 03/28/2025 10:00 AM EST Appointment Medical Office Building Cardiac Diagnostic Testing Medical Office Building Echo [facility] [address] [facility] [address], [address] [place] [address] 03/28/2025 10:40 AM EST Office Visit [facility]ie Thornton [address] [facility] [facility] [address], [address] [place] [address] Maia Land, PARTNER MANAGEMENT CONSULTANT [address] [place] [address] documented as of this encounter Visit Diagnoses Not on filedocumented in this encounter Additional Health Concerns Assessment Noted Time PHQ-9 Depression Total Score: 0 09/14/19 25 11:03 AM EDT A fall risk assessment has been complete d for the patient 10/01/2024 9:47 AM EDT A Body Mass Index follow-up plan has been documented for the patient 10/01/2024 11:20 AM EDT documented as of this encounter Care Teams Mis Director Relationship Specialty Start Date End Date Gulshan Haines MD [address] [facility] [address] [place] [address] PCP - General 08/01/20 Song Hopper MD [address] [facility] [address] [place] [address] Referring Physician 11/14/20 Constantino Hutton MD [address] [place] [address] Referring Physician Interventional Cardiology 07/13/21 documented as of this encounter
--- OUTSIDE RECORDS SUMMARY | 2025-01-20 02:39 | XMS_ITS | Encounter Summary ---
Author Organization [facility] Address [address] [place] [address] Care Team Providers Care Process Engineering Manager Name Role Phone Gulshan Haines MD Primary Care Provider + [phone] Song Hopper MD Unavailable [phone] Constantino Hutton MD Unavailable [phone] Reason for Visit * Reason Onset Date Comments [facility] Same Day Appt/Overbook Request 12/12/2024 Encounter Details Date Type Department Care Team (Late st Contact Info) Description 12/12/2024 Telephone [facility] [place] [address] [facility], [address] [place] [address] Maia Land, ARMOR RECONNAISSANCE VEHICLE CREWMAN [address] [place] [address] [facility] Same Day Appt/Overbook Request Social History Tobacco Use Types Packs/Day Years [...] PM EST documented as of this encounter Miscellaneous Notes * Telephone Encounter - Pamela Victoria Kalia - 12/12/2024 10:59 AM EDT Same Day Appt/Overbook Request Reason for Call: Patient has bumped appointment with Echo same day for Maia Land. Best contact number: [phone] (home) Optimal time of day to reach caller: ANYTIME Additional comments/information from caller: None Note: Please do not reply to this message. Follow-up communication and further actions as a result of this message need to be communicated with the patient directly, if the patient is not active onMyChart. If the patient is active on MyChart, they will receive notification of the communication/outcome via [employer]. documented in this encounter Plan of Treatment Upcoming Encounters Date Type Department Care Team (Late st Contact Info) Description 01/28/2025 10:30 AM EST Office Visit [facility] [address], [address] [place] [address] Sina Kc MD [address] [facility] [address] [place] [address] 03/28/2025 10:00 AM EST Appointment Medical Office Building Cardiac Diagnostic Testing Medical Office Building Echo Lab [address] [facility], [address] [place] [address] 03/28/2025 10:40 AM EST Office Visit [facility] [place] [address] [facility], [address] [place] [address] Maia Land, ARMOR RECONNAISSANCE VEHICLE CREWMAN [address] [place] [address] documented as of this encounter [...] documented as of this encounter Care Teams Process Engineering Manager Relationship Specialty Start Date End Date Gulshan Haines MD [address] [place] [address] [place] [address] PCP - General 08/01/20 Song Hopper MD [address] [place] [address] Referring Physician 11/14/20 Constantino Hutton MD [address] [place] [address] Referring Physician Interventional Cardiology 07/13/21 documented as of this encounter
--- OUTSIDE RECORDS SUMMARY | 2025-01-20 02:39 | XMS_ITS | Encounter Summary ---
Author Organization [facility] Address [address] [place] [address] Care Team Providers Care Chief Wellness Officer Name Role Phone Gulshan Haines MD Primary Care Provider + [phone] oSng Hopper MD Unavailable [phone] Constantino Hutton MD Unavailable [phone] Reason for Visit * Reason Comments Med Refill Encounter Details Date Type Department Care Team (Late st Contact Info) Description 12/15/2024 Refill [facility] [place] [address] [facility], [address] [place] [address] Sina Kc MD [address] [facility] [address] [place] [address] Social History Tobacco Use Types [...] Description 01/28/2025 10:30 AM EST Office Visit [facility] [place] [address] [place] [address] Sina Kc MD [address] [place] [address] 03/28/2025 10:00 AM EST Appointment Medical Office Building Cardiac Diagnostic Testing Medical Office Building Echo Lab [address] [facility], [address] [place] [address] 03/28/2025 10:40 AM EST Office Visit [facility] [place] [address] [facility], [address] [place] [address] Maia Land, REGISTRAR ASSISTANT [address] [place] [address] documented as of this encounter [...] documented as of this encounter Care Teams Chief Wellness Officer Relationship Specialty Start Date End Date Gulshan Haines MD [address] [facility] [address] [place] [address] PCP - General 08/01/20 Song Hopper MD [address] [facility] [address] [place] [address] Referring Physician 11/14/20 Constantino Hutton MD [address] [place] [address] Referring Physician Interventional Cardiology 07/13/21 documented as of this encounter
--- OUTSIDE RECORDS SUMMARY | 2025-01-20 02:39 | XMS_ITS | Clinical Summary ---
Author Organization [facility] Address [address] [place] [address] Care Team Providers Care Application Integration Specialist Name Role Phone Gulshan Haines MD Primary Care Provider + [phone] Allergies No known active allergies Medications lovastatin (MEVACOR) 40 MG tablet Take 40 mg by mouth Daily. Active meloxicam (MOBIC) 15 MG tablet Take 15 mg by mouth Daily. Active citalopram (CeleXA) 20 MG tablet Take 20 mg by mouth Daily. Active metoprolol tartrate (LOPRESSOR) 50 MG tablet Take 50 mg by mouth 2 (Two) Times a Day. Active terazosin (HYTRIN) 5 MG capsule Take 4 mg by mouth Every Night. Active benazepril (LOTENSIN) 20 MG tablet Take 20 mg by mouth Daily. Active amLODIPine (NORVASC) 10 MG tablet Take 10 mg by mouth Daily. Active loratadine (CLARITIN) 10 MG tablet Take 10 mg by mouth Daily. Active raNITIdine (ZANTAC) 300 MG tablet Take 300 mg by mouth 2 (Two) Times a Day. Active Garnavillo-3 Fatty Acids (FISH OIL) 1000 MG capsule capsule Take 1,000 mg by mouth 2 (Two) Times a Day With Meals. Active warfarin (COUMADIN) 7.5 MG tablet Take 7.5 mg by mouth Daily. Active Active Problems Problem Noted Date Diagnosed Date Non-rheumatic mitral regurgitation 08/03/2016 Family History Medical History Relation Name Comments Heart attack Mother Relation Name Status Comments Father Mother Social History Tobacco Use Types Packs/Day Years Used Date Smoking Tobacco: Former Cigarettes 2.5 30 0 08/03/1951 - 08[birth year]04[birth year]1979 Smokeless Tobacco: Never Alcohol Use Standard Drinks/Week Comments No 0 (1 standard drink = 0.6 oz pur e alcohol) Abuse Screen Answer Date Recorded Unsafe at Home or Work/School Not on file Feels Threatened by Someone? Not on file 11/2022 Does Anyone Keep You from Co ntacting Others or Doint Things Outside the Home? Not on file 12/27/2022 Physical Sign of Abuse Present Not on file 1 Housing Stability Answer Date Recorded Current Living Arrangements Not on file 11/2022 Potentially Unsafe Housing Conditions Not on shannon e 12/27/2022 Family and Community Support Answer [place] e Recorded Help with Day-to-Day Activities Not on file 12/27/2022 Lonely or Isolated Not on file 12/27/2022 Employment Answer Date Recorded Do you want help finding or keeping work or a mercedes b? Not on file 12/27/2022 Disabilities Answer Date Recorded Concentrating, Remembering, or Making Decisions Difficulty Not on file 12/27/2022 Doing Errands Independently Difficulty Not on fi le 12/27/2022 Education Answer Date Recorded Help with school or training? Not on file Preferred Language Not on file 12/27/2022 Sex and Gender Information Value Date Recorded Sex Assigned at Not on file Legal Sex Male 12:09 PM EDT Gender Identity Not on file Sexual Orientation Not on file Occupation Industry Job Start Date Job End Date Retired Not on file Not on file Not on file Last Filed Vital Signs Vital Sign Reading Time Taken Comments Blood Pressure 108/64 05/13/2017 2:22 PM EST Pulse 70 05/13/2017 2:22 PM EST Temperature 36.7 C (98.1 F) 05/13/2017 2:22 PM EST Respiratory Rate - - Oxygen Saturation 97% 05/13/2017 2:22 PM EST Inhaled Oxygen Concentration - - Weight 125 kg (276 lb 3.2 oz) 05/13/2017 2:22 PM EST Height 185.4 cm (6' 1 ) 05/13/2017 2:22 PM EST Body Mass Index 36.44 05/13/2017 2:22 PM EST Plan of Treatment Health Maintenance Due Date Last Done Comments TDAP/TD VACCINES (1 - Tdap) 12/17/1967 COLOGUARD 1993 COLON CANCER SCREENING 5 YEAR SIGMOIDOSCOPY 1993 COLONOSCOPY [address] CANCER SCREENING 1993 CT COLONOGRAPHY 1993 FECAL OCCULT BLOOD TEST 1993 FIT Testing (1 year) 1993 Pneumococcal Vaccine 50+ (1 of 1 - PCV) 1998 ZOSTER VACCINE (1 of 2) 1998 ANNUAL PHYSICAL 08/03/2016 HEPATITIS C SCREENING 08/03/2016 RSV Vaccine - Adults (1 - 1-dose 75+ series) INFLUENZA VACCINE 10/19/2024 COVID-19 Vaccine ( - 2023- season) 2024 Insurance [employer] [id number] MEDICARE A & B Care Teams Application Integration Specialist Relationship Specialty Start Date End Date Gulshan Haines MD [address] [facility] [address] [place] [address] PCP - General Adolescent Medicine 05/12/17
--- OUTSIDE RECORDS SUMMARY | 2025-01-20 02:40 | XMS_ITS | Encounter Summary ---
Author Organization [facility] Address [address] [place] [address] Care Team Providers Care Porcelain Mixer Name Role Phone Gulshan Haines MD Primary Care Provider + [phone] Song Hopper MD Unavailable [phone] Constantino Hutton MD Unavailable [phone] Reason for Visit * Reason Comments Med Refill Encounter Details Date Type Department Care Team (Late st Contact Info) Description 01/02/2025 Refill [facility] [address] [facility], [address] [place] [address] Sina Kc MD [address] [facility] [address] [place] [address] Social History Tobacco Use Types [...] Description 01/28/2025 10:30 AM EST Office Visit [facility] [place] [address] [place] [address] Sina Kc MD [address] [place] [address] 03/28/2025 10:00 AM EST Appointment Medical Office Building Cardiac Diagnostic Testing Medical Office Building Echo Lab [address] [facility], [address] [place] [address] 03/28/2025 10:40 AM EST Office Visit [facility] [place] [address] [facility], [address] [place] [address] Maia Land, SNOW REMOVER [address] [place] [address] documented as of this encounter [...] documented as of this encounter Care Teams Porcelain Mixer Relationship Specialty Start Date End Date Gulshan Haines MD [address] [facility] [address] [place] [address] PCP - General 08/01/20 Song Hopper MD 1210 [facility] [address] [place] [address] Referring Physician 11/14/20 Constantino Hutton MD [address] [place] [address] Referring Physician Interventional Cardiology 07/13/21 documented as of this encounter
--- OUTSIDE RECORDS SUMMARY | 2025-01-20 02:40 | XMS_ITS | Data Portability ---
Author Organization [facility] Address [address] [facility] [address] [place] [address] Care Team Providers Care Underground Roof Bolter Name Role Phone CHIDI MARCUM Primary Care Provider Assessment Encounter Date Assessment Date Assessment LastModified by Organization Details LastModified Time 08/18/2017 08/18/2017 Mr. 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 He seems to be improving at this time. I've carefully reviewed his MRI and do not see any other significant compressive findings. I think with his current status, no surgery is recommended. I am going to write him for a home traction unit which she may trial to speed his recovery. He'll wean off the Neurontin as tolerated. His follow-up will be as needed, but he understands that he can call us at any time with questions or concerns. If his pain became severe again, we would trial physical therapy prior to surgery. [email or web address] Not available 08/18/2017 09:18:41 Plan of Treatment Reminders Order Date Submit Date Provider Last Modified By Organization Details Last Modified Time Details Appointments None record ed. Lab None record ed. Referral None record ed. Procedures None record ed. Surgeries None record ed. Imaging None record ed. Medication Orders None record ed. Patient TargetsNo targets recorded. Patient InstructionsNo instructions recorded. Reason for Referral None Reported. Procedures Surgical History Date Name Laterality Status Provider Name and Address Organization Details Recorded Time Other completed [facility] 08/18/2017 09:05:18 Shoulder joint surgery completed [facility] 08/18/2017 09:05:31 Imaging Results None recorded. Procedure Notes None recorded. Medical Equipment None Reported. Allergies No known drug allergies Medications Name Sig Start Date Stop Date Status Note LastModified by Organization Details LastModified Time atorvastatin 80 mg tablet Take 1 tablet every day by oral route. active Not Available Not Available No t Available metoprolol succinate ER 50 mg tablet,extende d release 24 hr Take 1 tablet every day by oral route. active Not Available Not Available No t Available meloxicam 15 mg tablet Take 1 tablet every day by oral route. active Not Available Not Available No t Available Zantac 300 mg tablet Take 1 tablet every day by oral route. active Not Available Not Available No t Available citalopram 20 mg tablet Take 1 tablet every day by oral route. active Not Available Not Available No t Available amlodipine 10 mg tablet Take 1 tablet every day by oral route. active Not Available Not Available No t Available Neurontin 100 mg capsule Take 1 capsule 3 times a day by oral route. active Not Available Not Available No t Available loratadine active Not Available Not Av ailable Not Available warfarin active Not Available Not Avai lable Not Available terazosin active Not Available Not [place] ilable Not Available Vitals Date Recorded Body height Body mass index (BMI) Body weight Systolic And Diastolic Provider Name and Address Organization Details Last Updated DateTime 08/18/2017 185.42 cm 37.7 kg/m2 498100.42 g 122/82 mm[Hg] Kaila Garcia [facility] 08/18/2017 09:10:31 Social History Question Answer Notes LastModified by Organizat ion Details LastModified Time Tobacco Smoking Status Former Smoker Kaila Garcia [facility] 08/18/2017 09:05:06 What Was The Date Of Your Most Recent Tobacco Screening? 08/18/2017 Information n ot available 05/08/2019 Sex: Unknown Functional Status None recorded. Mental Status None recorded. Family History Relationship Description Onset Age of this Age Resolved Age Notes LastModified by Organization Details LastModified Time Unspecified Relation Hypertensive disorder [email or web address] Not available 08/18 09:05:54 Unspecified Relation Myocardial infarction [email or web address] Not available 07/21 09:06:01 Medical History Condition Response High Cholesterol Y Sleep Apnea Y Hypertension Y Past Encounters Encounter ID Performer Location Encounter Start Date Encounter Closed Date Diagnosis/Indication Diagnosis SNOMED-CT Code Diagnosis ICD10 Code Diagnosis IMO Codes Diagnosis Note [id number] RYAN ESCOBAR MD NEUROSURG [facility]it[facility] [address] [place] [address] 08/18/2017 08:09:21 08/18/2017 09:15:14 Cervical radiculopathy 54487700 M54.12 Health Concerns Section Related Observation LastModified by Organization Detai ls LastModified Time None Recorded Concern Status LastModified by Organization Details LastModified Time None Recorded Advance Directives Directive None Recorded Payers Insurance Date Sequence Insurance Name Policy Number Policy Severino Covered Member ID Severino Member ID Guarantor Name 08/18/2017 1 [employer]ICARE-[employer] (MEDICARE) Jerson Chris [id number] Jerson Chris Notes Date Note Type Note Provider Name and Address Organization Details Recorded Time 08/18/2017 text/html Mr. Jerson Chris is a 66-year-old gentleman with fairly sudden onset of left shoulder and arm pain approximately 4 months ago. He underwent a cortisone injection, and seen some good relief of his pain. At this time he denies any pain but does describe an electric numbness in his left arm going down to his second and third digits. The sensation is intermittent. It is made worse with certain arm movements. He describes no significant weakness. No loss of bowel or bladder control. No difficulty walking. Other than the cortisone injection and Neurontin he has not done any conservative management at this time. He is currently taking Neurontin 100 mg 3 times daily. He also takes meloxicam. He is on warfarin. He presents today with an MRI of the cervical spine for neurosurgical consultation. RYAN ESCOBAR MD [facility] [place], [address], [facility] 08/18/2017 09:19:09
--- OUTSIDE RECORDS SUMMARY | 2025-01-20 02:40 | XMS_ITS | Patient Health Record ---
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 Role Phone Gulshan Haines Primary Care Provider Migration, Provider Unavailable Unavailable Allergies Allergen (clinical drug ingredient) Drug/Non Drug Allergy documented on EMR Reaction Allergy Type Onset Date Status [place] RYE (uncoded) Unknown Allergy Active Results Component Value Reference Range Notes Microalbumin (In-House) Reviewed date:03/05/2024 02:51:04 PM Interpretation:Normal Performing Lab: Notes/Report: Normal ALB 10mg CRE 50mg A:C <30mg/g LIPID PANEL, STANDARD (7600) Reviewed date:03/06/2024 04:31:40 PM Interpretation: Performing Lab:CB, [facility] [id number] [facility], [facility] HospitalXnxcCP[address] Carlos Briones Notes/Report: NON-FASTING; NON-FASTING; NON-FASTING; NON-FASTING CHOLESTEROL, TOTAL 184 <200 mg/dL HDL CHOLESTEROL 34 > OR = 40 mg/dL TRIGLYCERIDES 309 <150 mg/dL If a non-fasting specimen was collected, consider repeat triglyceride testing on a fasting specimen if clinically indicated. Rosana et al. J. of Clin. Lipidol. 2015;9:129-169. LDL-CHOLESTEROL 109 Reference range: <100 Desirable range <100 mg/dL for primary prevention; <70 mg/dL for patients with CHD or diabetic patients with > or = 2 CHD risk factors. LDL-C is now calculated using the Vimal-Rogers calculation, which is a validated novel method providing better accuracy than the Friedewald equation in the estimation of LDL-C. Vimal SS et al. MARGARITA. 2013;310(29): 7739-4040 (http://education.BotScanner.com/faq/TOA793) CHOL/HDLC RATIO 5.4 <5.0 (calc) NON HDL CHOLESTEROL 150 <130 mg/dL (calc) For patients with diabetes plus 1 major ASCVD risk factor, treating to a non-HDL-C goal of <100 mg/dL (LDL-C of <70 mg/dL) is considered a therapeutic option. COMPREHENSIVE METABOLIC PANE L (80027) Reviewed date:03/06/2024 04:31:41 PM Interpretation: Performing Lab:RITU DevoliaGumaro Barbere[address] HarmonL[address] Carlos Briones Notes/Report: NON-FASTING; NON-FASTING; NON-FASTING; NON-FASTING GLUCOSE 108 65-99 mg/dL Fasting reference interval For someone without known diabetes, a glucose value between 100 and 125 mg/dL is consistent with prediabetes and should be confirmed with a follow-up test. UREA NITROGEN (BUN) 40 7-25 mg/dL CREATININE 1.94 0.70-1.28 mg/dL EGFR 35 > OR = 60 mL/min/1.73m2 BUN/CREATININE RATIO 21 6-22 (calc) SODIUM 138 135-146 mmol/L POTASSIUM 4.9 3.5-5.3 mmol/L CHLORIDE 98 98-110 mmol/L CARBON DIOXIDE 29 20-32 mmol/L CALCIUM 10.1 8.6-10.3 mg/dL PROTEIN, TOTAL 7.5 6.1-8.1 g/dL ALBUMIN 4.9 3.6-5.1 g/dL GLOBULIN 2.6 1.9-3.7 g/dL (calc) ALBUMIN/GLOBULIN RATIO 1.9 1.0-2.5 (calc) BILIRUBIN, TOTAL 0.7 0.2-1.2 mg/dL ALKALINE PHOSPHATASE 36 35-144 U/L AST 15 10-35 U/L ALT 10 9-46 U/L CBC (INCLUDES DIFF/PLT) (639 9) Reviewed date:03/06/2024 04:31:41 PM Interpretation: Performing Lab:RITU MeetMeMitul [id number] [employer]tel [facility], [facility] HospitalWgeiXE[address] Carlos Briones Notes/Report: NON-FASTING; NON-FASTING; NON-FASTING; NON-FASTING WHITE BLOOD CELL COUNT 8.1 3.8-10.8 Thousand/ uL RED BLOOD CELL COUNT 4.23 4.20-5.80 Million/uL HEMOGLOBIN 13.9 13.2-17.1 g/dL HEMATOCRIT 40.7 38.5-50.0 % MCV 96.2 80.0-100.0 fL MCH 32.9 27.0-33.0 pg MCHC 34.2 32.0-36.0 g/dL For adults, a slight decrease in the calculated MCHC value (in the range of 30 to 32 g/dL) is most likely not clinically significant; however, it should be interpreted with caution in correlation with other red cell parameters and the patient's clinical condition. RDW 12.1 11.0-15.0 % PLATELET COUNT 275 140-400 Thousand/uL MPV 10.2 7.5-12.5 fL ABSOLUTE NEUTROPHILS [phone] cells/uL ABSOLUTE LYMPHOCYTES 8514 024-7431 cells/uL ABSOLUTE MONOCYTES 575 200-950 cells/uL ABSOLUTE EOSINOPHILS 203 15-500 cells/uL ABSOLUTE BASOPHILS 73 0-200 cells/uL NEUTROPHILS 67.2 LYMPHOCYTES 22.3 MONOCYTES 7.1 EOSINOPHILS 2.5 BASOPHILS 0.9 HEMOGLOBIN A1c (496) Reviewed date:03/06/2024 04:31:41 PM Interpretation: Performing Lab:RITU [employer] [id number] [employer] [facility], [facility] HospitalGycfKD[address] Carlos Briones Notes/Report: NON-FASTING; NON-FASTING; NON-FASTING; NON-FASTING HEMOGLOBIN A1c 6.4 <5.7 % of total Hgb For someone without known diabetes, a hemoglobin [...] A1c for diagnosis of diabetes for children. THYROID PANEL WITH TSH (6368 ) Reviewed date:06/08/2024 12:00:42 PM Interpretation: Performing Lab:RITU, [facility] [id number] [facility], [facility] HospitalEtqzBV[address] Carlos Briones Notes/Report: NON-FASTING; NON-FASTING; NON-FASTING; NON-FASTING; NON-FAST T3 UPTAKE 34 22-35 % T4 (THYROXINE), TOTAL 6.9 4.9-10.5 mcg/dL FREE T4 INDEX (T7) 2.3 1.4-3.8 TSH 2.54 0.40-4.50 mIU/L LIPID PANEL, STANDARD (7600) Reviewed date:06/08/2024 12:00:42 PM Interpretation: Performing Lab:RITU meQuilibrium Faph2877 [facility], [facility] HospitalRgnnGP[address] Carlos Briones Notes/Report: NON-FASTING; NON-FASTING; NON-FASTING; NON-FASTING; NON-FAST CHOLESTEROL, TOTAL 185 <200 mg/dL HDL CHOLESTEROL 32 > OR = 40 mg/dL TRIGLYCERIDES 328 <150 mg/dL If a non-fasting specimen was collected, consider repeat triglyceride testing on a fasting specimen if clinically indicated. Wayne et al. J. of Clin. Lipidol. 2015;9:129-169. LDL-CHOLESTEROL 109 Reference range: <100 Desirable range <100 mg/dL for primary prevention; <70 mg/dL for patients with CHD or diabetic patients with > or = 2 CHD risk factors. LDL-C is now calculated using the Vimal-Rogers calculation, which is a validated novel method providing better accuracy than the Friedewald equation in the estimation of LDL-C. Vimal SS et al. MARGARITA. 2013;310(19): 9592-7176 (http://education.BotScanner.com/faq/UMI437) CHOL/HDLC RATIO 5.8 <5.0 (calc) NON HDL CHOLESTEROL 153 <130 mg/dL (calc) For patients with diabetes plus 1 major ASCVD risk factor, treating to a non-HDL-C goal of <100 mg/dL (LDL-C of <70 mg/dL) is considered a therapeutic option. COMPREHENSIVE METABOLIC PANE L (96069) Reviewed date:06/08/2024 12:00:42 PM Interpretation: Performing Lab:RITU DevoliaGrand [facility] Hospitale1355 [address] [facility], [facility] HospitalKrtxWB[address] Carlos Briones Notes/Report: NON-FASTING; NON-FASTING; NON-FASTING; NON-FASTING; NON-FAST GLUCOSE 109 65-99 mg/dL Fasting reference interval For someone without known diabetes, a glucose value between 100 and 125 mg/dL is consistent with prediabetes and should be confirmed with a follow-up test. UREA NITROGEN (BUN) 31 7-25 mg/dL CREATININE 1.86 0.70-1.28 mg/dL EGFR 37 > OR = 60 mL/min/1.73m2 BUN/CREATININE RATIO 17 6-22 (calc) SODIUM 137 135-146 mmol/L POTASSIUM 5.0 3.5-5.3 mmol/L CHLORIDE 98 98-110 mmol/L CARBON DIOXIDE 28 20-32 mmol/L CALCIUM 10.2 8.6-10.3 mg/dL PROTEIN, TOTAL 7.5 6.1-8.1 g/dL ALBUMIN 4.8 3.6-5.1 g/dL GLOBULIN 2.7 1.9-3.7 g/dL (calc) ALBUMIN/GLOBULIN RATIO 1.8 1.0-2.5 (calc) BILIRUBIN, TOTAL 0.7 0.2-1.2 mg/dL ALKALINE PHOSPHATASE 41 35-144 U/L AST 19 10-35 U/L ALT 11 9-46 U/L MAGNESIUM (622) Reviewed date:06/08/2024 12:00:42 PM Interpretation: Performing Lab:RITU [facility] [id number] [employer] [facility], [facility] HospitalFqvcPK[address] Carlos Briones Notes/Report: NON-FASTING; NON-FASTING; NON-FASTING; NON-FASTING; NON-FAST MAGNESIUM 2.0 1.5-2.5 mg/dL CBC (INCLUDES DIFF/PLT) (639 9) Reviewed date:06/08/2024 12:00:43 PM Interpretation: Performing Lab:RITU meQuilibrium Htej6377 [address] [facility], [facility] HospitalDrtuJT[address] Carlos Briones Notes/Report: NON-FASTING; NON-FASTING; NON-FASTING; NON-FASTING; NON-FAST WHITE BLOOD CELL COUNT 8.0 3.8-10.8 Thousand/ uL RED BLOOD CELL COUNT 4.10 4.20-5.80 Million/uL HEMOGLOBIN 13.4 13.2-17.1 g/dL HEMATOCRIT 40.0 38.5-50.0 % MCV 97.6 80.0-100.0 fL MCH 32.7 27.0-33.0 pg MCHC 33.5 32.0-36.0 g/dL For adults, a slight decrease in the calculated MCHC value (in the range of 30 to 32 g/dL) is most likely not clinically significant; however, it should be interpreted with caution in correlation with other red cell parameters and the patient's clinical condition. RDW 12.0 11.0-15.0 % PLATELET COUNT 295 140-400 Thousand/uL MPV 10.4 7.5-12.5 fL ABSOLUTE NEUTROPHILS 5264 9087-7004 cells/uL ABSOLUTE LYMPHOCYTES 0554 787-3743 cells/uL ABSOLUTE MONOCYTES 536 200-950 cells/uL ABSOLUTE EOSINOPHILS 248 15-500 cells/uL ABSOLUTE BASOPHILS 72 0-200 cells/uL NEUTROPHILS 65.8 LYMPHOCYTES 23.5 MONOCYTES 6.7 EOSINOPHILS 3.1 BASOPHILS 0.9 LIPID PANEL, STANDARD (7600) Reviewed date:09/14/2024 10:34:27 AM Interpretation: Performing Lab:RITU [facility] Wwuj1782 [facility], [facility] HospitalYzuzUS[address] Carlos Briones Notes/Report: NON-FASTING; NON-FASTING FASTING:YES FASTING: YES CHOLESTEROL, TOTAL 167 <200 mg/dL HDL CHOLESTEROL 33 > OR = 40 mg/dL TRIGLYCERIDES 286 <150 mg/dL If a non-fasting specimen was collected, consider repeat triglyceride testing on a fasting specimen if clinically indicated. Rosana et al. J. of Clin. Lipidol. 2015;9:129-169. LDL-CHOLESTEROL 93 Reference range: <100 Desirable range <100 mg/dL for primary prevention; <70 mg/dL for patients with CHD or diabetic patients with > or = 2 CHD risk factors. LDL-C is now calculated using the Vimal-Ken calculation, which is a validated novel method providing better accuracy than the Friedewald equation in the estimation of LDL-C. Vimal DIOP et al. MARGARITA. 2013;310(19): 6049-6128 (http://education.BotScanner.ZummZumm/faq/SOP612) CHOL/HDLC RATIO 5.1 <5.0 (calc) NON HDL CHOLESTEROL 134 <130 mg/dL (calc) For patients with diabetes plus 1 major ASCVD risk factor, treating to a non-HDL-C goal of <100 mg/dL (LDL-C of <70 mg/dL) is considered a therapeutic option. BASIC METABOLIC PANEL (12254 ) Reviewed date:09/14/2024 10:34:27 AM Interpretation: Performing Lab:RITU [facility]-M[facility].mee1355 [employer], [facility] PartnersJlckCW[address] Carlos Briones Notes/Report: NON-FASTING; NON-FASTING FASTING:YES FASTING: YES GLUCOSE 92 65-99 mg/dL Fasting reference interval UREA NITROGEN (BUN) 27 7-25 mg/dL CREATININE 1.55 0.70-1.28 mg/dL EGFR 46 > OR = 60 mL/min/1.73m2 BUN/CREATININE RATIO 17 6-22 (calc) SODIUM 137 135-146 mmol/L POTASSIUM 4.9 3.5-5.3 mmol/L CHLORIDE 99 98-110 mmol/L CARBON DIOXIDE 29 20-32 mmol/L CALCIUM 9.4 8.6-10.3 mg/dL HEMOGLOBIN A1c (496) Reviewed date:01/08/2025 03:29:31 PM Interpretation: Performing Lab:RITU Devolia-Migo.mee1355 [employer], [facility] PartnersDzytWF[address] Carlos Briones Notes/Report: NON-FASTING; NON-FASTING; NON-FASTING; NON-FASTING; [...] A1c for diagnosis of diabetes for children. C-REACTIVE PROTEIN (4420) Reviewed date:01/08/2025 03:29:30 PM Interpretation: Performing Lab:RITU Convoee1355 [employer], NearwayZgfsNY[address] Carlos Briones Notes/Report: NON-FASTING; NON-FASTING; NON-FASTING; NON-FASTING; NON-FAST FASTING:YES FASTING: YES C-REACTIVE PROTEIN <3.0 <8.0 mg/L SED RATE BY MODIFIED CLARITA FRANK (809) Reviewed date:01/08/2025 03:29:30 PM Interpretation: Performing Lab:RITU, [facility] [id number] [employer] Migo.meWxmcZN[address] Carlos Briones Notes/Report: NON-FASTING; NON-FASTING; NON-FASTING; NON-FASTING; NON-FAST FASTING:YES FASTING: YES SED RATE BY MODIFIED ALON 14 < OR = 20 mm/h CBC (INCLUDES DIFF/PLT) (639 9) Reviewed date:01/08/2025 03:29:30 PM Interpretation: Performing Lab:RITU, [facility] [employer] [id number] Five[employer]l [employer] Migo.meZalsHD[address] Carlos Briones Notes/Report: NON-FASTING; NON-FASTING; NON-FASTING; NON-FASTING; NON-FAST FASTING:YES FASTING: YES WHITE BLOOD CELL COUNT 10.0 3.8-10.8 Thousand/ uL RED BLOOD CELL COUNT 4.41 4.20-5.80 Million/uL HEMOGLOBIN 14.4 13.2-17.1 g/dL HEMATOCRIT 43.1 38.5-50.0 % MCV 97.7 80.0-100.0 fL MCH 32.7 27.0-33.0 pg MCHC 33.4 32.0-36.0 g/dL condition. For adults, a slight decrease in the calculated MCHC interpreted with caution in correlation with other red cell parameters and the patient's clinical value (in the range of 30 to 32 g/dL) is most likely not clinically significant; however, it should be RDW 13.1 11.0-15.0 % PLATELET COUNT 257 140-400 Thousand/uL MPV 10.2 7.5-12.5 fL ABSOLUTE NEUTROPHILS 7500 1129-6465 cells/uL ABSOLUTE LYMPHOCYTES 8372 794-9410 cells/uL ABSOLUTE MONOCYTES 660 200-950 cells/uL ABSOLUTE EOSINOPHILS 220 15-500 cells/uL ABSOLUTE BASOPHILS 70 0-200 cells/uL NEUTROPHILS 75 LYMPHOCYTES 15.5 MONOCYTES 6.6 EOSINOPHILS 2.2 BASOPHILS 0.7 COMPREHENSIVE METABOLIC PANE L (13732) Reviewed date:01/08/2025 03:29:30 PM Interpretation: Performing Lab:RITU DevoliaGrand [facility] Hospitale1355 [facility] [address] Carlos Briones Notes/Report: NON-FASTING; NON-FASTING; NON-FASTING; NON-FASTING; [...] 18 10-35 U/L ALT 11 9-46 U/L LIPID PANEL, STANDARD (7600) Reviewed date:01/08/2025 03:29:30 PM Interpretation: Performing Lab:[facility]U [facility] Xkgc9132 [facility] CenterNeighborMDGeising[facility] Center[address] Carlos Briones Notes/Report: NON-FASTING; NON-FASTING; NON-FASTING; NON-FASTING; NON-FAST FASTING:YES FASTING: YES CHOLESTEROL, TOTAL 182 <200 mg/dL HDL CHOLESTEROL 35 > OR = 40 mg/dL TRIGLYCERIDES 366 <150 mg/dL If a non-fasting specimen was collected, consider repeat triglyceride testing on a fasting specimen if clinically indicated. Rosana et al. J. of Clin. Lipidol. 2015;9:129-169. LDL-CHOLESTEROL 98 <70 mg/dL for patients with CHD or diabetic patients with > or = 2 CHD risk factors. LDL-C is now calculated using the Vimal-Rogers calculation, which is a validated novel method providing better accuracy than the Friedewald equation in the estimation of LDL-C. Vimal DIOP et al. MARGARITA. 2013;310(90): 5512-1134 (http://education.BotScanner.ZummZumm/faq/FDY193) Reference range: <100 Desirable range <100 mg/dL for primary prevention; CHOL/HDLC RATIO 5.2 <5.0 (calc) NON HDL CHOLESTEROL 147 <130 mg/dL (calc) For patients with diabetes plus 1 major ASCVD risk factor, treating to a non-HDL-C goal of <100 mg/dL (LDL-C of <70 mg/dL) is considered a therapeutic option. Reason For Referral No Information Medications Medication SIG (Take, Route, Frequency, Duration) Notes Start Date End Date Status Pantoprazole Sodium 40 MG 1 tab(s) orally once a day; Duration: 90 days Active Furosemide 40 MG 1 tab orally MWF Active Latanoprost 0.005 % 1 gtt in each eye once a day (in the evening) Active Metoprolol Succinate ER 50 MG 1 tab(s) orally twice a day; Duration: 30 days Active Tamsulosin HCl 0.4 MG 1 cap(s) orally once a day; Duration: 90 days Active Vitamin C 500 MG 100mg orally once a day Active Citalopram Hydrobromide 20 MG 1 tab(s) orally once a day; Duration: 90 Active prednisoLONE Acetate 1 % 1 gtt in each affected eye 4 times a day Active Levothyroxine Sodium 88 MCG 1 tab(s) orally once a day; Duration: 30 day(s) Active Multivitamin - 1 tab(s) orally once a day; Duration: 30 day(s) Active B-12 1000 MCG 1 tab(s) orally once a day; Duration: 30 day(s) Active Aspirin 81 MG 1 tab(s) orally once a day; Duration: 30 day(s) Active Senna 8.6 MG 1 tab(s) orally once a day (at bedtime) Active Spironolactone 100 MG 1 tab(s) orally once a day Active Rosuvastatin Calcium 40 MG 1 TAB(S) ORALLY ONCE A DAY *Please review and pick correct strength-formulati on from [email or web address] options. If intended option is not shown, discontinue and re-order from Quick Search* Active DAPAGLIFLOZIN 10 MG 1 TAB(S) ORALLY ONCE A DAY Active TIMOLOL MALEATE (EQV-ISTALOL) MALEATE 0.5% 1 GTT RT EYE TWICE A DAY *Please review for potential replacement for e-prescription and drug interaction check* Active Immunizations Vaccine Route Administration Date Status Comme nts Fluzone High Dose IM Intramuscular 12/14/2017 Administered Fluzone High Dose IM Intramuscular 12/08/2018 Administered Fluzone High Dose IM Intramuscular 01/09/2020 Administered Fluzone High Dose IM Intramuscular 12/22/2020 Administered Fluzone High Dose IM Intramuscular 01/15/2022 Administered Fluzone High Dose IM Intramuscular 02/14/2023 Administered Fluzone High Dose IM Intramuscular 12/07/2023 Administered Fluzone High Dose IM Intramuscular 01/07/2025 Administered Influenza (Fluzone)--Medicare only IM Intramuscular 01/03/2015 Administered Influenza (Fluzone)--Medicare only IM Intramuscular 01/05/2016 Administered Influenza (Fluzone)--Medicare only IM Intramuscular 01/19/2017 Administered Pneumovax 23 IM Intramuscular 09/06/2016 Administered Prevnar PCV-20 (Pneumococcal conjugate 20) IM Intramuscular 07/14/2022 Administered Problems Problem Type SNOMED Code ICD Code Onset Dates Problem Status W/U Status Risk Notes Problem Peripheral circulatory disorder associated with diabetes mellitus (513540416) Type 2 diabetes mellitus with other circulatory complications (E11.59) Active confirmed Problem Type 2 diabetes mellitus with other specified complication (E11.69) Active confirmed Problem Atherosclerotic heart disease of [place] coronary artery without angina pectoris (942100534596096) Atherosclerotic heart disease of [place] coronary artery without angina pectoris (I25.10) Active confirmed Problem 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 (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) 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) Active confirmed Problem Hyperlipidemia (71594707) Hyperlipemia, idiopathic familial (E78.5) Active confirmed Problem Gastroesophageal reflux disease (885552650) GERD without esophagitis (K21.9) Active confirmed Problem Essential hypertension (41200419) Hypertension, essential (I10) Active confirmed Problem Restless legs syndrome (40084553) Restless leg syndrome (G25.81) Active confirmed Problem Acquired hypothyroidism (929315773) Acquired hypothyroidism (E03.9) Active confirmed Problem History of heart valve repair with prosthesis (851731270791760) Mitral valve replaced (Z95.2) Active confirmed Problem Chronic combined systolic and diastolic heart failure (877933308072384) Chronic combined systolic and diastolic heart failure (I50.42) Active confirmed Problem Major depression, single episode (76614815) Major depressive episode (F32.9) Active confirmed Problem Atrial fibrillation (18414294) Atrial fibrillation with controlled ventricular rate (I48.91) Active confirmed Problem Systolic heart failure (746891067) HFrEF (heart failure with reduced ejection fraction) (I50.20) Active confirmed Problem Recurrent major depressive episodes (022001737) Recurrent major depressive episodes (F33.9) Active confirmed Vital Signs Heart Rate 84 /min 01/07/2025 Temperature 97.1 degrees Fahrenheit 01/07/2025 Blood pressure diastolic 78 mm Hg 01/07/2025 Height 72 in 01/07/2025 Blood pressure systolic 126 mm Hg 01/07/2025 Weight 266.2 lbs 01/07/2025 BMI 36.1 kg/m2 01/07/2025 Encounters Encounter Location Date Provider Diagnosis [facility] [address] [place], [place] [address] 06/23/2024 Provider Migration [facility] [address] [place], [place] [address] 03/05/2024 Gulshanlondon Haines Type 2 diabetes mellitus with other specified complication E11.69 ; Hyperlipemia, idiopathic familial E78.5 ; Hypertension, essential I10 ; HFrEF (heart failure with reduced ejection fraction) I50.20 and Recurrent major depressive episodes F33.9 [facility] [address] [place], [place] [address] 06/06/2024 Gulshanlondon Haines Type 2 diabetes mellitus with other specified complication E11.69 ; 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 I25.811 ; Atrial fibrillation with controlled ventricular rate I48.91 ; Restless leg syndrome G25.81 ; HFrEF (heart failure with reduced ejection fraction) I50.20 and Acquired hypothyroidism E03.9 [facility] [address] [place], [place] [address] 09/10/2024 Gulshan Besrona Hyperlipemia, idiopathic familial E78.5 ; Chronic combined systolic and diastolic heart failure I50.42 ; Type 2 diabetes mellitus with other circulatory complications E11.59 ; Atherosclerotic heart disease of [place] coronary artery without angina pectoris I25.10 ; Routine medical exam Z00.00 and Encounter for immunization Z23 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 Up-to-date with microalbumin testing. 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 109 LDL at last visit, would like to put her still bit lower. 01/07/2025 Hyperlipemia, idiopathic familial (ICD-10 - E78.5) Check labs as noted. No other change in plan at this point from a lipid perspective 01/07/2025 Hypertension, essential (ICD-10 - I10) Blood pressures are good, however given my request of patient to hold Entresto I will see him back in 4 weeks to reassess volume status 01/07/2025 Immunization(s) administered (ICD-10 - Z23) 03/05/2024 Type 2 diabetes mellitus with other specified complication (ICD-10 - E11.69) Check labs. Due for A1c. Please note that I ordered labs and I will review all labs personally 03/05/2024 Hyperlipemia, idiopathic familial (ICD-10 - E78.5) 09/10/2024 Chronic combined systolic and diastolic heart failure (ICD-10 - I50.42) Appears euvolemic. Diuretic dose noted. Will check electrolytes today. 01/07/2025 Type 2 diabetes mellitus with other specified complication (ICD-10 - E11.69) Check A1c. I will review all labs personally 03/05/2024 Hypertension, essential (ICD-10 - I10) 09/10/2024 Type 2 diabetes mellitus with other circulatory complications (ICD-10 - E11.59) A1c has been under good control 06/06/2024 Atrial fibrillation with controlled ventricular rate (ICD-10 - I48.91) Rates well-controlled. No changes in plan 06/06/2024 Restless leg syndrome (ICD-10 - G25.81) Check electrolytes, symptoms seem to be at baseline 09/10/2024 Atherosclerotic heart disease of [place] coronary artery without angina pectoris (ICD-10 - I25.10) See notes above 03/05/2024 HFrEF (heart failure with reduced ejection fraction) (ICD-10 - I50.20) Continue current regimen as above. BP in goal range today following dose reduction of Entresto. Follow-up with Cardiology as scheduled. 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 No change at this point 09/10/2024 Routine medical exam (ICD-10 - Z00.00) Given patient''s advanced age is not a candidate for typical healthcare screening such as colonoscopy. Needs Tdap, But patient has no part D coverage. Will send to health department. 05/21 word recall. Depression screening negative. Family is healthcare surrogate Follow-up 4 months for flu shot Nonsmoker. 01/07/2025 Chronic combined systolic and diastolic heart failure (ICD-10 - I50.42) Will hold Entresto. I am concerned that angioedema might be from low-dose angiotensin receptor blockade. Patient notes that he is have this problem for 2 years and has been on Entresto about that same length of time 06/06/2024 HFrEF (heart failure with reduced ejection fraction) (ICD-10 - I50.20) A lot of her low blood pressure but no falls or dizziness. No changes in plans 06/06/2024 Acquired hypothyroidism (ICD-10 - E03.9) Check thyroid panel. Clinically euthyroid. I will review all labs personally 01/07/2025 Swelling of both lips (ICD-10 - R22.0) Check inflammatory labs, hold Entresto 09/10/2024 Encounter for immunization (ICD-10 - Z23) Plan Of Treatment Pending Test Test Name Order Date Physical Therapy 06/17/2021 H-HGBA1C 11/25/2015 Comp. Metabolic Panel (14) 05/03/2023 TSH 05/03/2023 Lipid Panel 05/03/2023 Hemoglobin A1c 05/03/2023 M-Complete Blood Count Auto Diff 023 M-Complete Blood Count Auto Diff 020 M-Complete Blood Count Auto Diff 021 M-INR/PT 07/16/2019 M-Comprehensive Metabolic Panel 06/11/19 M-Comprehensive Metabolic Panel 11/17/19 M-Basic Metabolic Panel 05/26/2020 M-Hemoglobin A1C 11/16/2022 M-Hemoglobin A1C 04/13/2021 M-Hemoglobin A1C 06/11/2019 M-Lipid Panel 06/11/2019 M-Lipid Panel 04/13/2021 M-Lipid Panel 11/16/2022 M-Thyroid Stimulating Hormone 11/16/2022 CBC (INCLUDES DIFF/PLT) (6399) 4 Next Appt Details Provider Name:Gulshan Haines, 02/04/2025 11:15:00 AM, [address] [place] [facility] [address] [facility], [address], [place], [address], Insurance Providers Payer Name Payer Address Payer Phone Subscriber Number Group Number Insured Name Patient Relationship to Insured Coverage Start Date Coverage End Date [place] [address] [place] [phone] [id number] Jerson Chris Self - patient is the insured Obvious [address] [place] [address] [address] [place] [address] ACL Jerson Chris Self - patient is the insured Medications Administered Medication Instructions Date of Administration Dosage Notes Kenalog 40mg 05/02/2017 40 mg Medical (General) History Medical History History ICD Code Hypertension 401.9 hyperlipidemia GERD Mitral valve regurgitation Carpal tunnel syndrome Heart Attack Pacemaker/AICD EGD with chronic gastritis Diabetes anemia Fluid on Lungs Surgical History Surgery Date(Month/Year) cataract removal bilateral rotator cuff tear repair right multiple eye surgerys 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
--- OUTSIDE RECORDS SUMMARY | 2025-01-20 02:40 | XMS_ITS | Clinical Summary ---
Author Organization [facility] Address [address] [place] [address] Care Team Providers Care Admissions Nurse Name Role Phone Gulshan Haines MD Primary Care Provider + [phone] Song Hopper MD Unavailable [phone] Constantino Hutton MD Unavailable [phone] Allergies No known active allergies Medications citalopram (CeleXA) 20 MG tablet Take 1 tablet (20 mg) by mouth daily. 06/12/19 21 Active famotidine (Pepcid) 20 MG tablet Take 1 tablet (20 mg) by mouth daily. 06/12/19 21 Active pantoprazole (ProtoNix) 40 MG EC tablet Take 1 tablet (40 mg) by mouth daily. 07/10/19 21 Active ascorbic acid (Vitamin C) 100 MG tablet Take 1 tablet (100 mg) by mouth daily. Active Euthyrox 88 MCG tablet Take 1 tablet (88 mcg) by mouth daily. 10/30/19 21 Active tamsulosin (Flomax) 0.4 MG 24 hr capsule Take 1 capsule (0.4 mg) by mouth daily. Active metoprolol succinate XL (Toprol-XL) 50 MG 24 hr tablet Take 1 tablet (50 mg) by mouth 2 (two) times a day. Do not crush or chew. Active senna (Senokot) 8.6 MG tablet Take 1 tablet (8.6 mg) by mouth nightly. Active rosuvastatin (Crestor) 40 MG tablet TAKE 1 TABLET BY MOUTH ONCE DAILY FOR CHOLESTEROL 04/11/19 23 Active sacubitril-konrad sartan (Entresto) 24-26 MG tablet Take 1 tablet by mouth 2 (two) times a day. 180 tablet 3 02/02/20 24 Active dapagliflozin (Farxiga) 10 MG tablet Take 1 tablet (10 mg) by mouth 1 (one) time each day. 90 tablet 3 02/02/20 24 Active furosemide (Lasix) 40 MG tablet Take 1 tablet by mouth. Takes 1 tablet Tuesday, Tuesday, Tuesday04/03/19 25 Active spironolactone (Aldactone) 100 MG tablet Take 1 tablet by mouth once daily 90 tablet 3 11/06/19 25 Active prednisoLONE acetate (Pred-Forte) 1 % ophthalmic suspension INSTILL 1 DROP INTO RIGHT EYE TWICE DAILY 10 mL 12/02/19 25 Active latanoprost (Xalatan) 0.005 % ophthalmic solution INSTILL 1 DROP INTO EACH EYE ONCE DAILY AT NIGHT 3 mL 12/21/19 25 Active timolol (Timoptic) 0.5 % ophthalmic solution INSTILL 1 DROP INTO RIGHT EYE TWICE DAILY 10 mL 01/03/20 25 Active BRIMONIDINE 0.2 % OP ophthalmic solution INSTILL 1 DROP INTO RIGHT EYE TWICE DAILY 5 mL 01/03/20 25 Active timolol (Timoptic) 0.5 % ophthalmic solution INSTILL 1 DROP INTO RIGHT EYE TWICE DAILY 10 mL 09/18/19 25 025 Discontinued BRIMONIDINE 0.2 % OP ophthalmic solution INSTILL 1 DROP INTO RIGHT EYE TWICE DAILY 5 mL 10/22/19 25 025 Discontinued Active Problems Problem Noted Date Diagnosed Date Macular edema 08/05/2022 Epiretinal membrane, left eye 05/27/2022 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, modera te stage 03/23/2022 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 02/08/2022 Pseudophakia of both eyes 08/10/2021 Dry eyes 08/10/2021 Chronic systolic heart failure 06/25/2021 Biventricular ICD (implantab le cardioverter-defibrillator) in place 06/25/2021 Essential hypertension 06/25/2021 Meibomian gland dysfunction 01/26/2021 Presence of intraocular lens in anterior chamber 01/26/2021 History of retinal detachment 01/26/2021 Orthopnea 09/03/2020 DANIELLE (obstructive sleep apnea) 09/03/2020 Gastroesophageal reflux disease 09/03/2020 PUD (peptic ulcer disease) 09/03/2020 Hyperlipemia 08/31/2020 Hypertension 08/31/2020 Obesity (BMI 30.0-34.9) 06/30/2020 A-fib 04/18/2018 CAD (coronary artery disease) 04/18/2018 LBBB (left bundle branch block) 04/18/2018 Tricuspid regurgitation 04/18/2018 Primary open angle glaucoma (POAG) of both eyes, moderate stage 11/18/2016 Non-rheumatic mitral regurgitation 08/03/2016 Penetrating keratoplasty graft in place 04/20/19 17 Corneal edema 04/20/2016 Resolved Problems Problem Noted Date Diagnosed Date Resolved Date History of mitral valve repair 06/25/2021 12/09/2024 Lactic acid acidosis 09/10/2020 021 Overview (09/10/2020): - trend LA/ABG q2 hrs - continue postoperative resuscitation Metabolic acidosis 09/10/2020 Overview (09/10/2020): - trend LA/ABG q2 hrs - continue postoperative resuscitation Hypotension 09/10/2020 09/12/2020 Mitral valve insufficiency 09/09/2020 0 09/16/2020 Overview (09/11/2020): - s/p MV repair with Dr. Ortiz on 09/09 -on milrinone, norepi, and epi upon arrival to the ICU - adequate cardiac index at 2.1 - Now off all drips -ventricular pacing wires in place, not currently being paced -CI goals >2.2 Acute postoperative anemia d ue to expected blood loss 09/09/2020 11/14/2020 Acute postoperative respiratory insufficiency 09/10/19 21 09/16/2020 Overview (09/12/2020): - Arrived to ICU intubated on mechanical ventilation - extubated and on NC - Agrressive Pulmonary toliet Fluid overload 09/09/2020 11/14/2020 Hyperglycemia 09/09/2020 09/12/2020 Overview (09/11/2020): - SSI Low cardiac output syndrome 09/09/2020 09/12/2020 Overview (09/11/2020): -off all inotropic support Decreased body weight 09/03/20202020 Arthritis 09/03/2020 12/09/2024 Chronic dryness of both eyes 10/23/2019 08/31/2020 Meibomian gland dysfunction (MGD), bilateral, both upper and lower lids 04/20/2016 08/31/2020 Encounters Date Type Department Care Team Description 01/02/2025 [facility] [place] [address], [address] [place] [address] Sina Kc MD 12/15/2024 [facility] [address] [facility] [place] [address] Sina Kc MD 12/12/2024 Telephone [facility] [address], [address] [place] [id number] Maia Land APRN HCBel Same Day Appt/Overbook Request 11/30/2024 [facility] [address] [facility] [place] [address] Sina Kc MD 11/04/2024 [facility] [place] [address] [place] [address] Maia Land APRN 10/21/2024 [facility] [address] [facility] [facility] [place] [address] Sina Kc MD from Last 3 Months Immunizations Immunization Administration Dates Next Due Influenza, high-dose, quadrivalent 12/22,01/09/2020,12/08/2018,12/14 Influenza, injectable, quadrivalent 01/19/2017 Moderna COVID-19 Vaccine (Re d Cap) 12+ years 09/01/2020,08/04/2020 Pneumococcal 20-konrad Conj Vaccine 07/14/2022 Pneumococcal Polysaccharide PPV23 09/06/2016 Tdap 11/15/2011 Family History Medical History Relation Name Comments Coronary artery disease Other 1 Hypertension Other 2 Heart attack Other 3 Relation Name Status Comments Other 1 Other 2 Other 3 Social History Tobacco Use Types Packs/Day Years Used Date Smoking Tobacco: Former Passive Smoke Exposure: Past Smokeless Tobacco: Never Tobacco Cessation:Counseling Given: Not Answered Alcohol Use Standard Drinks/Week Comments No 0 [...] Orientation Straight 05/27/2021 4: 34 PM EST Last Filed Vital Signs Vital Sign Reading Time Taken Comments Blood Pressure 111/70 09/13/2024 10:58 AM EDT Pulse 85 09/13/2024 10:58 AM EDT Temperature 37 C (98.6 F) 02/02/2024 12:55 PM EST Respiratory Rate 18 02/02/2024 12:55 PM EST Oxygen Saturation 93% 09/13/2024 10:58 AM EDT Inhaled Oxygen Concentration - - Weight 123 kg (270 lb 8.1 oz) 09/13/2024 10:58 A M EDT Height 185.4 cm (6' 1 ) 09/13/2024 10:58 AM EDT Body Mass Index 35.69 09/13/2024 10:58 AM EDT Plan of Treatment Upcoming Encounters Date Type Department Care Team (Late st Contact Info) Description 01/28/2025 10:30 AM EST Office Visit [facility] [place] [address], [address] [place] [address] Sina Kc MD [address] [facility] [address] [place] [address] 03/28/2025 10:00 AM EST Appointment Medical Office Building Cardiac Diagnostic Testing Medical Office Building Echo Lab [address], [address] [place] [address] 03/28/2025 10:40 AM EST Office Visit [facility] [place] [address], [address] [place] [address] Maia Land, HAND TURNER [address] [place] [address] Health Maintenance Due Date Last Done Comments [facility]-Hepatitis C Screening 1950 [facility]-Medicare Annual Wellness (AWV) 1950 [facility]-/Child/Adol SDOH Screenings 1950 [facility]- SDOH Screenings 1966 [facility]-Adult SDOH Screenings 1966 [facility]-Zoster Vaccines (1 of 2) 1998 [facility]-DTaP,Tdap,and Td Vaccines (2 - Td or Tdap) 11/14/2021 11/15/2011 [facility]-RSV Vaccine: 60+ Years or (1 - 1-dose 75+ series) 12/17/2023 [id number] Vaccine ( - 2024- season) 2024 12/02/2021, 09/02/2021, 03/04/2021, Additional history exists [facility]-Influenza Vaccine (#1) 11/19/202412/06, 12/22/2020, 01/09/2020, Additional history exists [facility]-Depression Screening 09/13/2025 09/13/2024, 08/20 [facility]-Pneumococcal Vaccine: 50+ Years Completed 07/14/2022, 09/06/2016 [facility]-Diabetes: Hemoglobin A1C Discontinued 11/25/2022, 11/25/2022, 09/03/2020, Additional history exists [facility]-Obesity Intervention Completed 025, 09/13/2024, 05/10/2024, Additional history exists HPV Vaccines Aged Out No longer eligi ble based on patient's age to complete this topic [facility]-HIB Vaccines Aged Out No longer e ligible based on patient's age to complete this topic [facility]-Hepatitis A Vaccines Aged Out No longer eligible based on patient's age to complete this topic [facility]-IPV Vaccines Aged Out No longer e ligible based on patient's age to complete this topic [facility]-Rotavirus Vaccines Aged Out No lo nger eligible based on patient's age to complete this topic Medical Devices Implanted Type Area Tank Bottom Assembler Device Identifier Shelf Expiration Date Model / Serial / Lot 0675 Wesley 4-Front [id number] Lead 0675 RELIANCE 4-FRONT / [id number] / [id number] Acuity X4 Straight [id number] Lead 4672 ACUI TY X4 STRAIGHT / [id number] / [id number] Ingevity Mri [id number] Lead [id number] INGEVITY MRI / [id number] / [id number] Vigilant X4 Processor Solid Propellant-D [id number] Implanted:2018 (Quantity not on file) Pacemaker Chest [employer] G247 VIGILANT X4 PLANER SETUP OPERATOR-D / [id number] / Valve Annuloplasty Ring 36mm Ring Carpet - [id number] Implanted:Qty: 1 on 09/10/2020 by Manda Ortiz MD at [facility]-[id number] 0 10/08/2024 [id number] / [id number] / [id number] Procedures Procedure Name Priority Date/Time Associated Diagnosis Comments HEMOGLOBIN A1C Routine 11/25/2022 from Last 3 Months or Most Recently Relevant to Health Maintenance Results * Hemoglobin A1c (11/25/2022) External Hemoglobin A1c 6.3 Comment:H Blood Venous blood specimen / Unknown 11/25/2022 us Historical Provider LAB BLOOD ORDERABLES Final R esult from Last 3 Months or Most Recently Relevant to Health [place] [address] [place] [address] MEDICARE Advance Directives Documents on File Type Date Recorded Patient 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
--- OUTSIDE RECORDS SUMMARY | 2025-01-20 02:40 | XMS_ITS | Encounter Summary ---
Author Organization [facility] Address [address] [place] [address] Care Team Providers Care Gas Processing Plant Operator Name Role Phone Gulshan Haines MD Primary Care Provider + [phone] Song Hopper MD Unavailable [phone] Constantino Hutton MD Unavailable [phone] Reason for Visit * Reason Comments Med Refill Encounter Details Date Type Department Care Team (Late st Contact Info) Description 04/05/2022 Refill [facility] [place] [address] [facility] [facility], [address] [place] [address] Vickie Lorenzo MD [address] [place] [address] Social History Tobacco Use Types Packs/Day Years Used Date Smoking Tobacco: Former Smokeless Tobacco: Never Alcohol Use Standard Drinks/Week Comments No 0 (1 standard drink = 0.6 oz pur e alcohol) Sex and Gender Information Value Date Recorded Sex Assigned at Male 05/27/2021 4:34 PM EST Legal Sex Male 7:29 PM EDT Gender Identity Not on file Sexual Orientation Straight 05/27/2021 4: 34 PM EST documented as of this encounter Plan of Treatment Upcoming Encounters Date Type Department Care Team (Late st Contact Info) Description 01/28/2025 10:30 AM EST Office Visit [facility] [place] [address] [facility] [address] [facility] [place] [address] Sina Kc MD [address] [place] [address] 03/28/2025 10:00 AM EST Appointment Medical Office Building Cardiac Diagnostic Testing Medical Office Building Echo Lab [address], [address] [place] [address] 03/28/2025 10:40 AM EST Office Visit [facility] [place] [address], [address] [place] [address] Maia Land, SOLDERER PRODUCTION LINE [address] [place] [address] documented as of this encounter Visit Diagnoses Not on filedocumented in this encounter Additional Health Concerns Assessment Noted Time A fall risk assessment has been complete d for the patient 02/09/2022 11:18 AM EST documented as of this encounter Care Teams Gas Processing Plant Operator Relationship Specialty Start Date End Date Gulshan Haines MD [address] [facility] [address] [facility] [address] [place] [address] PCP - General 08/01/20 Song Hopper MD [address] [facility] [address] [place] [address] Referring Physician 11/14/20 Constantino Hutton MD [address] [place] [address] Referring Physician Interventional Cardiology 07/13/21 documented as of this encounter
--- NOTE | 2025-01-20 02:41 | [facility].EDCP ---
Discharge Plan Disposition Patient Disposition: Admitted Condition: Fair Prescriptions Prescriptions: No Action aspirin 81 mg tablet,delayed release (DR/EC) 81 mg PO DAILY tamsulosin 0.4 mg capsule 0.4 mg PO DAILY Patient Comments: TAKE 1 CAPSULE BY MOUTH ONCE DAILY Entresto 24-26 mg tablet 0.5 tab PO BID citalopram 20 mg tablet 20 mg PO HS Farxiga 10 mg tablet 10 mg PO DAILY spironolactone 100 mg tablet 100 mg PO DAILY Patient Comments: TAKE 1 TABLET BY MOUTH ONCE DAILY timolol maleate 0.5 % drops 1 drp Eye-Right BID Patient Comments: INSTILL 1 DROP INTO RIGHT EYE TWICE DAILY latanoprost 0.005 % drops 1 drp Eye-Both HS Patient Comments: INSTILL 1 DROP INTO EACH EYE ONCE DAILY AT NIGHT Fish Oil 100-160-1,000 mg capsule 1,000 cap PO BID furosemide [Lasix] 40 mg tablet 40 mg PO DAILY Qty: 90 5RF rosuvastatin 40 mg tablet See Rx Instructions .ROUTE .COMPLEX Qty: 90 3RF Dose Instruction: TAKE ONE TABLET BY MOUTH ONCE A DAY FOR CHOLESTEROL Rx Instructions: TAKE ONE TABLET BY MOUTH ONCE A DAY FOR CHOLESTEROL metoprolol succinate 50 mg tablet extended release 24 hr 50 mg PO BID Qty: 180 1RF brimonidine 5 ML bottle 1 drp Eye-Right BID pantoprazole 40 MG tablet,delayed release (DR/EC) 40 mg PO BID sennosides [senna] 8.6 mg Tablet 8.6 mg PO HS famotidine 20 mg Tablet 20 mg PO DAILY prednisolone acetate 1 % drops,suspension 1 drp Eye-Right BID Patient Comments: INSTILL 1 DROP INTO RIGHT EYE TWICE DAILY ascorbic acid (vitamin C) 100 mg Tablet 100 mg PO DAILY Referrals Follow up/Referrals: Provider,Referral, [Primary Care Provider, Medical] - See instructions Clinical Impressions Clinical Impression: Volume overload, Heart failure with reduced ejection fraction (HFrEF) Print Language Print Language: Maori Discharge ED Provider: Vanessa Hayden General Chief Complaint: Shortness of Breath/Dyspnea Stated Complaint: fluid on lungs Time Seen by Provider: 01/20/25 02:15 Mode of Arrival: Ambulatory Source of Information: Patient Description of Symptoms (Recalled from ER Triage Doc. by RN): Pt reports SOA, productive cough for approx 7 days. Pt states it is worse today. Pt denies pain, but states when he was leaving home he fell and sat in the rain for approx 45 min. Pt does have noted abrasion to bilateral knees. History of Present Illness HPI narrative: 74-year-old male presents to the ER complaining of shortness of breath and productive cough. Patient states he has fluid in the lungs . Patient has a history of HFrEF, AICD, mitral regurg, hypertension, hyperlipidemia, CAD, left bundle branch block. Patient reports he received a phone call from the cardiology office a couple weeks ago that his AICD report was concerning and they told him to increase his Lasix dose from 3 days a week to every day of the week for 1 week. He states he completed this and is back to only taking it 3 days a week for the last few days but still feels short of breath and feels like his symptoms are worse. He states he is not having any new or worsening swelling in the feet or legs, no swelling in the abdomen. He reports no fevers or chills. No chest pain. Patient states he was leaving home to come to the hospital when he lost his balance on the steps and fell. It was only 2 steps and he landed initially on his knees then fell to his bottom. He denies striking his head or losing consciousness. He does take blood thinners. He was able to get himself off the ground and bring himself to the ER. He ambulated with his cane into the ER. Denies fevers or chills, no congestion, vomiting, or diarrhea. No other complaints or concerns. Related Data Home Medications ?Medication ?Instructions ?Recorded ?Confirmed citalopram 20 mg tablet 20 mg PO HS Depression 05/02/17 08/27/24 brimonidine 0.2 % eye drops 1 drp Eye-Right BID EYES 05/11/20 08/27/24 pantoprazole 40 mg tablet,delayed 40 mg PO BID GERD 06/23/20 08/27/24 release tamsulosin 0.4 mg capsule 0.4 mg PO DAILY 06/24/21 08/27/24 aspirin 81 mg tablet,delayed 81 mg PO DAILY 09/30/21 08/27/24 release dapagliflozin propanediol 10 mg 10 mg PO DAILY 12/30/21 08/27/24 tablet (Farxiga) latanoprost 0.005 % eye drops 1 drp Eye-Both HS 04/06/23 08/27/24 spironolactone 100 mg tablet 100 mg PO DAILY 04/06/23 08/27/24 timolol maleate 0.5 % eye drops 1 drp Eye-Right BID 04/06/23 08/27/24 ascorbic acid (vitamin C) 100 mg 100 mg PO DAILY 04/27/23 08/27/24 tablet famotidine 20 mg tablet 20 mg PO DAILY 04/27/23 08/27/24 prednisolone acetate 1 % eye 1 drp Eye-Right BID 04/27/23 08/27/24 drops,suspension sennosides 8.6 mg tablet (senna) 8.6 mg PO HS 04/27/23 08/27/24 omega 4-nbc-irl-fish oil 100 1,000 cap PO BID 10/04/23 08/27/24 mg-160 mg-1,000 mg capsule (Fish Oil) sacubitril 24 mg-valsartan 26 mg 0.5 tab PO BID 02/27/24 08/27/24 tablet (Entresto) Previous Rx's ?Medication ?Instructions ?Recorded furosemide 40 mg tablet (Lasix) 40 mg PO DAILY #90 tabs 07/05/24 rosuvastatin 40 mg tablet See Rx Instructions .Route 09/20/24 .COMPLEX #90 tabs metoprolol succinate 50 mg 50 mg PO BID #180 tabs 10/22/24 tablet,extended release 24 hr Allergies Allergy/AdvReac Type Severity Reaction Status Date / Time No Known Drug Allergies Allergy Unknown Verified 08/27/24 10:57 (NKDA) [facility] Disclaimer: The information contained in this section may have been updated after the patient was seen, as this information can be updated by other users. Medical History HFrEF (heart failure with reduced ejection fraction) Severe mitral valve regurgitation Anemia Atypical angina Encounter for pre-operative cardiovascular clearance Gynecomastia Ischemic mitral valve regurgitation HLD (hyperlipidemia) HHD (hypertensive heart disease) CAD (coronary artery disease) Current use of shelter anticoagulation Surgical History Presence of biventricular AICD History of colonoscopy S/P left atrial appendage ligation Social History Smoking Status: Former smoker tobacco type: cigarettes packs per day: 1 second hand exposure: No alcohol intake: former substance use type: denies use current occupational status: retired Travel in the last 8 weeks?: Inside the [place] household members: family housing: apartment current occupational exposures/hazards: No caffeine: Yes Have you lived/traveled outside [place] in past 30 days?: No Contact w/someone who lives/traveled outside [place] past 30 days?: No Exposure to someone with infectious disease in past 14 days?: No Do you have a fever (greater than 100.4 F or 38 C)?: No Have you tested positive for COVID-19?: No Exposed to someone with COVID-19 in past 14 days?: No Do you have a sore throat?: No Do you have a cough?: No Do you have any weakness?: No Do you have any diarrhea?: No Are you experiencing any unusual bleeding?: No Do you have any muscle aches/pain?: No Do you have any abdominal pain?: No Are you experiencing loss of taste or smell?: No Other Medical History Have you received the Flu Vaccine for this season: No Have you received the Pneumonia Vaccine: Yes ROS Obtained: Yes Systems reviewed as appropriate & no additional complaints except as documented per HPI Physical Exam General General appearance: alert and in no apparent distress Head Head exam: atraumatic and normocephalic Eye Eye exam: Present PERRL and EOMI ENT ENT exam: Present mucous membranes moist Neck Neck exam: Present normal inspection and full ROM Chest Chest inspection: Present symmetric chest wall rise; Absent tenderness Respiratory Respiratory exam: Present other (Mild tachypnea on arrival but no accessory muscle use, no prolonged expiratory phase, diminished breath sounds bilaterally worse on the left); Absent respiratory distress, wheezes or stridor Cardiovascular Cardiovascular exam: Present normal rhythm and tachycardia (Mild) Abdominal Exam Abdominal exam: Present soft; Absent distention or tenderness Extremities Exam Extremities exam: Present full ROM, tenderness (Mild tenderness of bilateral knees with overlying abrasion and ecchymosis, extensor mechanism intact, full range of motion present, neurovascularly intact, no crepitus or deformity), normal capillary refill and edema (+1 bilateral lower extremity pitting edema) Neurological Exam Neurological exam: Present alert and oriented X3; Absent motor sensory deficit Psychiatric Psychiatric exam: Present normal affect and normal mood Skin Skin exam: Present warm and dry HEART Score HEART Score HEART Score assessment performed?: Yes History (anamnesis): Slightly suspicious ECG: Non-specific disturbance Age: >65 years Risk factors: Atherosclerosis history Troponin: </= normal limit HEART Score: 5 Procedures Miscellaneous Procedure Procedure Performed: Limited lung ultrasound Performed by: Vanessa Hayden MD A focused ultrasound exam of the pleural spaces was performed to evaluate for pneumothorax, pulmonary edema, pleural effusion and/or consolidation. The ultrasound was performed with the following indications, as noted in the H&P: Shortness of breath Identified structures: Bilateral thoracic cavities were examined. Findings: Lung sliding: Present bilaterally B-lines: Present bilaterally Pleural effusion: Not appreciated Consolidation: Not appreciated Impression: No pneumothorax, pleural effusion, or consolidation appreciated. B-lines present at bilateral lung bases Images were saved to permanent archive The study was technically adequate CPT 74470-22 This study was performed by ia, and I personally interpreted all images/videos. Based on my clinical judgement, these images were added and did not necessitate further imaging. Limited Cardiac Ultrasound Performed by: Vanessa Hayden MD Indication: Shortness of breath Identified cardiac views: [-Cardiac parasternal long axis] [-Cardiac parasternal short axis] [-Cardiac apical four-chamber] [-Cardiac subxiphoid] Findings: Cardiac activity present, globally reduced wall motion, grossly reduced EF, no right heart strain, no pericardial effusion Impression: Cardiac activity present, globally reduced wall motion, grossly reduced EF, no right heart strain, no pericardial effusion Images were saved to permanent archive The study was technically adequate CPT: 85337 This study was performed by ia, and I personally interpreted all images/videos. Based on my clinical judgement, these images were adequate and did not necessitate further imaging. Critical Care Critical Care Time Critical Care Time: No Medical Decision Making Medical Records Medical records reviewed: Yes I reviewed the patient's medical records. MR Comment: Most recent cardiology note demonstrates patient is on a every other day administration of Lasix due to falls and dizziness with daily administration. History of EF 20 to 25% and mitral regurg. Finesse Inquiry Pt receiving controlled substance: No Vital Signs Vital Signs: 01/20/25 02:25 Temperature 99 F Temperature Source Oral Pulse Rate [Left] 107 H Respiratory Rate 26 H Blood Pressure [Right Arm] 128/84 Blood Pressure Mean [Right Arm] 98 Blood Pressure Source [Right Arm] Automatic Cuff 02 Sat by Pulse Oximetry 93 L Oxygen Delivery Method Room Air Response Orders (Tests/Meds): ED MEDICATIONS Discontinued Medications Generic Name Dose Route Start Last Admin Trade Name Patrica PRN Reason Stop Dose Admin Aspirin 324 mg 01/20/25 02:17 Aspirin 81mg Chewable Tablet PO 01/20/25 02:18 ONCE ONE ORDERS Category Date Time Status CT angio chest PE protocol Stat Cat Scan 01/20/25 02:[address] cervical spine wo con Stat Cat Scan 01/20/25 02:[address] head/brain wo con Stat Cat Scan 01/20/25 02:22 Ordered XR chest portable Stat Exams 01/20/25 02:17 Ordered XR knee LT 3V Stat Exams 01/20/25 02:22 Ordered XR knee RT 3V Stat Exams 01/20/25 02:22 Ordered Complete Blood Count Auto Diff Stat Lab 01/20/25 02:31 Received Comprehensive Metabolic Panel Stat Lab 01/20/25 02:31 Received Full Resp Panel w/COVID ([facility]) Routine Lab 01/20/25 02:40 Ordered NT Pro Brain Natriuretic Pep. Stat Lab 01/20/25 02:31 Received Prothrombin Time INR Stat Lab 01/20/25 02:31 Received Troponin I Q3H Lab 01/20/25 05:30 Ordered Troponin I Q3H Lab 01/20/25 08:30 Ordered Troponin I Stat Lab 01/20/25 02:31 Ordered MDM Narrative Medical Decision Narrative: In summary, this 74-year-old male currently described in the HPI presents to the emergency department today with shortness of breath, fluid in the lungs . On initial evaluation patient is hemodynamically stable, afebrile, mildly tachypneic on arrival with no adventitious sounds but slightly diminished throughout, left worse than right, patient has abrasions to bilateral knees, right greater than left but was independently ambulatory into the ER using his cane. He does not have other traumatic findings. Extensor mechanism intact. Neurovascularly intact. Differential diagnosis includes but is not limited to ACS, PE, volume overload, kidney dysfunction, electrolyte abnormality, pneumonia, viral syndrome, with patient's fall I considered the possibility of intracranial injury though he denies striking his head he is on blood thinners, I also considered the possibility of osseous injury in the knees. Based on these concerns, I ordered hematologic and serum labs, cardiac workup, CTA PE was initially ordered as well as x-rays. ECG personally interpreted demonstrates V paced rhythm, rate 109, borderline prolonged QTc, no STEMI Patient received aspirin initially for treatment. Labs personally reviewed demonstrate mild leukocytosis and anemia which are nonactionable at this time, normal platelets, PT/INR slightly elevated but nonactionable, VBG with normal pH, no hypercarbia, VBG lactic 2.9, patient does have new hyponatremia, normal potassium, kidney function is slightly worse than previous creatinine now 2.0 previous baseline 1.5. GFR is 33. I had extensive discussion with the patient about the risks of IV contrast versus potential of missing a dangerous pathology without using the contrast, but after shared decision making since the patient's BNP is significantly elevated and he will require diuresis which may further strain the kidneys I am going to order a D-dimer and perform [id number] ultrasound to evaluate the heart for any right heart strain as well as evaluate the lungs rather than do CTA PE at this time to avoid contrast nephropathy since this patient will not be able to tolerate IV fluids. XR personally interpreted demonstrates left pleural effusion, likely mild right pulmonary edema on chest x-ray. Degenerative changes but no acute osseous injury of the knees. See radiology reads for final interpretations CT imaging personally interpreted demonstrate No acute traumatic injuries, see radiology read for final interpretation. [id number] ultrasound of the heart and lungs demonstrates B-lines, grossly reduced ejection fraction, no right heart strain. See procedure note for details. D-dimer resulted and is elevated at 1.41. Despite no evidence of right heart strain and no hypotension this does still increase my concern for potential PE. Unfortunately because of the risk of contrast-induced nephropathy and patient's inability to tolerate IV fluids to help washout contrast if it were to be given, I believe it is more appropriate to treat this patient with Lovenox then to send him for PET scan at this time. I reached out to the pharmacist on-call, Rajeev, and we discussed the patient's weight and labs as well as my goals of treating with therapeutic Lovenox. He still recommends 1 mg/kg every 12 hours. I appreciate his recommendations. This has been ordered for the patient. Patient's oxygen saturation has been hovering in the low 90s and he remains slightly tachypneic in the low 20s. Nasal cannula applied for comfort and oxygen saturation has improved to 98 and respiratory rate is currently 17. He is appropriate for admission at this time for continued management. IV furosemide is being administered to help diurese. I discussed this case with the hospitalist, Shira, reviewing his presentation, history, and findings today. I informed her of the recommended Lovenox dosing. Patient was graciously accepted and admitted in stable condition.
[2025-01-20] MEDS: ASPIRIN 81MG CHEWABLE TABLET 324 MG PO (02:45)
[2025-01-20 02:54] LABS: Albumin Level 5.5 g/dl (3.5-5.0); Chloride 89 mmol/L (98-107); Potassium 3.9 mmoL/L (3.5-5.1); Sodium 129 mmol/L (136-145)
--- NOTE | 2025-01-20 02:54 | ECG_ITS ---
APPROVED REPORT Exam: Resting ECG HR:109 bpm ECG Measurements Heart Rate 109 AXES MN 173 P 231 QRSd 187 QRS 156 QT 427 T 27 QTc 491 Conclusion ELECTRONIC VENTRICULAR PACEMAKER ABNORMAL RHYTHM ECG No STEMI Electronically signed by : JAZZMINE HERNANDEZ, 01/21/2025 00:52:21
[2025-01-20 02:55] LABS: Adenovirus,PCR Not Detected (NotDetected); Chlamydophila Pneumoniae, PCR Not Detected (NotDetected); Coronavirus 19, PCR Not Detected (NotDetected); Coronovirus HKU1,PCR Not Detected (NotDetected); Influenza AH1, 2009 Not Detected (NotDetected); Influenza AH1, PCR Not Detected (NotDetected); Influenza AH3,PCR Not Detected (NotDetected); Influenza B, PCR Not Detected (NotDetected); Mycoplasma Pneumoniae, PCR Not Detected (NotDetected); Parainfluenza 1, PCR Not Detected (NotDetected); Parainfluenza 2, PCR Not Detected (NotDetected); Parainfluenza 3, PCR Not Detected (NotDetected); Parainfluenza 4, PCR Not Detected (NotDetected)
[2025-01-20 02:57] LABS: Alanine Aminotransferase 61 U/L (12-78); Albumin/Globulin Ratio 1.7 (1.1-1.8); Alkaline Phosphatase 133 U/L (38-126); Anion Gap 17.9 mEq/L (5-15); Aspartate Amino Transferase 65 U/L (17-59); Bilirubin,Total 1.4 mg/dl (0.2-1.3); Calcium 9.4 mg/dl (8.4-10.2); Carbon Dioxide 26 mmol/L (22.0-30.0); Globulin 3.3 g/dL (1.3-3.2); Glucose 143 mg/dl (74-100); Total Protein,Serum 8.8 g/dl (6.3-8.2)
[2025-01-20 03:04] LABS: Hematocrit 35.7 % (42.0-52.0); Hemoglobin 12.1 g/dL (14.1-18.0); Immature Granulocytes % 0.7 %; Mean Corpuscular HGB Conc 33.9 g/dL (31.8-35.4); Mean Corpuscular Hemoglobin 32.1 pg (27.0-31.2); Mean Corpuscular Volume 94.7 fl (80-94); Nucleated Red Blood Cells % 0 %; Platelet Count 263 K/mm3 (142-424); Red Blood Count 3.77 M/mm3 (4.60-6.20); Red Cell Distribution Width-SD 46.2 fL; White Blood Count 11.1 K/mm3 (4.8-10.8)
[2025-01-20 03:06] LABS: NT Pro Brain Natriuretic Pep. 12900 pg/mL (0-450)
[2025-01-20 03:09] LABS: Troponin I 0.03 ng/ml (0.00-0.034)
[2025-01-20 03:16] LABS: Blood Urea Nitrogen 34 mg/dl (9-20); Creatinine Clearance Estimated 53 mL/min (50-200); Creatinine,Serum 2.00 mg/dl (0.66-1.25); Estimated Glomerular Filt Rate 33 ml/min (>60); GFR (African American) 40 ML/MIN (>60)
[2025-01-20 03:17] LABS: Lactate Venous 2.9 mmol/L (0.4-2.0); VBG HCO3 25.1 mmol/L (23-30); VBG PCO2 40.3 mmol/L (35-51); VBG PH 7.41 mmol/L (7.31-7.41); VBG PO2 32.0 mmol/L (28-40)
[2025-01-20 03:20] LABS: INR 1.22 (0.9-1.1); Prothrombin Time 13.3 seconds (10.1-12.5)
[2025-01-20] MEDS: TET/DIPHTH/PERT-ADULT 0.5ML SYRINGE 0.5 ML IM (03:34)
[2025-01-20] MEDS: BACITRACIN ZINC OINT 30GM TUBE TP (03:36)
[2025-01-20 03:44] LABS: D-Dimer 1.41 ug/mL (0.0-0.5)
--- NOTE | 2025-01-20 04:14 | PC.NURSE ---
Pt placed on 2L NC per MD Hayden
[2025-01-20 04:35] LABS: Influenza A, PCR Detected (NotDetected)
--- NOTE | 2025-01-20 05:38 | P.HP_ITS ---
<Statement entered by Tuan Cortes MD - 01/20/25 14:33> Rounded on patient after nurse practitioner. Personally examined and interviewed patient. Agree with exam findings and care plan as documented. On rounds, patient feeling a little bit better. Seeing some improvement in kidney function, creatinine improved to 1.8 down from 2.0. Baseline appears to be 1.5. Initiated on Tamiflu. 75 mg once followed by 30 mg twice daily, renally dosed. If doing better in the morning, anticipate possible discharge tomorrow. Wean oxygen as tolerated for goal sats greater 90%. Repeat CBC, CMP, magnesium ordered for the morning. History of Present Illness *Admission Date: 01/20/25 *Reason for visit:: Shortness of breath *History of present illness: Patient is a 74-year-old male with past medical history significant for congestive heart failure, presence of biventricular AICD, status post mitral valve repair, HLD, hypertensive heart disease, CAD. Patient presents to [facility] emergency department with complaint of shortness of breath. Patient concerned that he has become volume overloaded. Reports symptoms are very similar with prior episodes of CHF exacerbation. States he is compliant with his diuretic at home. Patient reports that he was notified of some abnormal activity with his AICD per his line ordering clinician. Instructed to take furosemide every day for the past week. Typically takes 3 times a week. Reports increased shortness of breath despite increased use of diuretics. Noted to be slightly tachypneic in the emergency department, on room air satting 91 to 92%. Imaging study with x-ray noted a left-sided effusion. Patient denies fever, chills, nausea, vomiting or chest pain. Initial ED workup included laboratory studies and imaging. Significant findings included WBC 11.1, INR 1.22, D-dimer 1.41, VBG 2.9, sodium 129, chloride 89, anion gap 17.9, BUN 34, creatinine 2, GFR 33 glucose 143, total bilirubin 1.4, AST 65, BNP 12,900, influenza A positive. Chest x-ray obtained, personally reviewed noting a new left-sided effusion, stable cardiomegaly. Cervical spine CT, head CT, knee x-ray reviewed unremarkable for any acute findings. Due to elevated D-dimer ultrasound evaluated, noted no heart strain. [facility] Disclaimer: The information contained in this section may have been updated after the patient was seen, as this information can be updated by other users. Medical History HFrEF (heart failure with reduced ejection fraction) Severe mitral valve regurgitation Anemia Atypical angina Encounter for pre-operative cardiovascular clearance Gynecomastia Ischemic mitral valve regurgitation HLD (hyperlipidemia) HHD (hypertensive heart disease) CAD (coronary artery disease) Current use of snf anticoagulation Surgical History Presence of biventricular AICD History of colonoscopy S/P left atrial appendage ligation Social History Smoking Status: Former smoker tobacco type: cigarettes packs per day: 1 second hand exposure: No alcohol intake: former substance use type: denies use current occupational status: retired Travel in the last 8 weeks?: Inside the [facility] household members: family housing: apartment current occupational exposures/hazards: No caffeine: Yes Have you lived/traveled outside [place] in past 30 days?: No Contact w/someone who lives/traveled outside [place] past 30 days?: No Exposure to someone with infectious disease in past 14 days?: No Do you have a fever (greater than 100.4 F or 38 C)?: No Have you tested positive for COVID-19?: No Exposed to someone with COVID-19 in past 14 days?: No Do you have a sore throat?: No Do you have a cough?: No Do you have any weakness?: No Are you experiencing any nausea/vomitting?: No Do you have any diarrhea?: No Are you experiencing any unusual bleeding?: No Do you have any muscle aches/pain?: No Do you have any abdominal pain?: No Are you experiencing loss of taste or smell?: No Other Medical History Have you received the Flu Vaccine for this season: No Have you received the Pneumonia Vaccine: Yes Review of Systems Review of Systems Review of systems:: pertinent systems reviewed and negative unless documented below Constitutional Constitutional: Reports as per HPI Eyes Eyes: Reports as per HPI ENT Ears, Nose, Mouth, and Throat: Reports as per HPI *Cardiovascular Cardiovascular: Reports as per HPI and Reports dyspnea *Respiratory Respiratory: Reports as per HPI, Reports chest congestion, Reports cough and Reports dyspnea *Gastrointestinal Gastrointestinal: Reports system reviewed and no additional complaints, except as documented and Reports as per HPI *Genitourinary Genitourinary: Reports system reviewed and no additional complaints, except as documented and Reports as per HPI *Musculoskeletal Musculoskeletal: Reports as per HPI Integumentary/Breasts Skin/Breast: Reports as per HPI *Neurologic Neurologic: Reports as per HPI Psychiatric Psychiatric: Reports as per HPI Endocrine Endocrine: Reports as per HPI Hematologic/Lymphatic Hematologic/Lymphatic: Reports as per HPI Allergic/Immunologic Allergic/Immunologic: Reports as per HPI Meds Home Medications and Allergies Home Medications ?Medication ?Instructions ?Recorded ?Confirmed ?Type pantoprazole 40 mg tablet,delayed 40 mg PO DAILY GERD 06/23/20 01/20/25 History release tamsulosin 0.4 mg capsule 0.4 mg PO HS 06/24/21 History dapagliflozin propanediol 10 mg 10 mg PO DAILY 2 01/20/25 History tablet (Farxiga) latanoprost 0.005 % eye drops 1 drp Eye-Both HS 01/20/25 History spironolactone 100 mg tablet 100 mg PO DAILY 04/06/23 01/20/25 History timolol maleate 0.5 % eye drops 1 drp Eye-Right BID 01/20/25 History ascorbic acid (vitamin C) 100 mg 100 mg PO DAILY 04/2701/20/25 History tablet famotidine 20 mg tablet 20 mg PO DAILY 04/27/2305/15 History prednisolone acetate 1 % eye 1 drp Eye-Right BID 04/2701/20/25 History drops,suspension sennosides 8.6 mg tablet (senna) 8.6 mg PO HS 04/27/23 01/20/25 History omega 5-otg-bcu-fish oil 100 2 cap PO DAILY 10/04/23 1 03/22/24 History mg-160 mg-1,000 mg capsule (Fish Oil) brimonidine 0.2 % eye drops 1 drp Eye-Right BID 01/20/25 History citalopram 20 mg tablet 20 mg PO DAILY 01/20/2505/15 History levothyroxine 88 mcg tablet 88 mcg PO DAILYDM 01/20/25 01/20/25 History metoprolol succinate 50 mg 50 mg PO DAILY 01/20/2505/15 History tablet,extended release 24 hr rosuvastatin 40 mg tablet 40 mg PO DAILY 01/20/2505/15 History sacubitril 49 mg-valsartan 51 mg 1 tab PO BID 01/20/25 01/20/25 History tablet (Entresto) New Prescriptions to Start Prescriptions: Allergies Allergy/AdvReac Type Severity Reaction Status Date / Time No Known Drug Allergies Allergy Unknown Verified 08/27/24 10:57 (NKDA) Exam Data for Last 24 hours Vital signs and Labs for Last 24 Hours: Temp Pulse Resp BP Pulse Ox O2 Del Method O2 Flow Rate 97.9 F 110 H 14 122/57 L 94 L Nasal Cannula 2 01/20/25 05:00 01/20/25 05:00 01/20/25 05:00 01/20/25 05:00 01/20/25 05:00 01/20/25 05:00 01/20/25 05:00 Laboratory Results - last 24 hr 01/20/25 02:31: PT 13.3 H, INR 1.22 H, D-Dimer 1.41 H, Sodium 129 L, Potassium 3.9, Chloride 89 L, Carbon Dioxide 26, Anion Gap 17.9 H, BUN 34 H, Creatinine 2.00 H, Estimated Creat Clear 53, Estimated GFR 33 L, Est GFR ( Amer) 40 L, Glucose 143 H, Calcium 9.4, Total Bilirubin 1.4 H, AST 65 H, ALT 61, Alkaline Phosphatase 133 H, Troponin I 0.03, NT-Pro-B Natriuret Pep 59543 H, Total Protein 8.8 H, Albumin 5.5 H, Globulin 3.3 H, Albumin/Globulin Ratio 1.7 01/20/25 02:36: Chlamy pneumoniae PCR Not detected, Adenovirus (PCR) Not detected, B. pertussis DNA (PCR) Not detected, Coronavirus OC43 (PCR) Not detected, Coronavirus HKU1 (PCR) Not detected, Coronavirus 229E (PCR) Not detected, SARS-CoV-2 (PCR) Not detected, Coronavirus NL63 (PCR) Not detected, Human Metapneumovir PCR Not detected, Influenza A (H1) PCR Not detected, Influ A (H1N1/09) PCR Not detected, Influenza A (H3) PCR Not detected, Influenza Type A (PCR) Detected A, Influenza Type B (PCR) Not detected, M. pneumoniae (PCR) Not detected, Parainfluenza 1 (PCR) Not detected, Parainfluenza 2 (PCR) Not detected, Parainfluenza 3 (PCR) Not detected, Parainfluenza 4 (PCR) Not detected, RSV (PCR) Not detected, Entero/Rhino (PCR) Not detected 01/20/25 02:56: WBC 11.1 H, RBC 3.77 L, Hgb 12.1 L, Hct 35.7 L, MCV 94.7 H, MCH 32.1 H, MCHC 33.9, RDW 13.2, Plt Count 263, MPV 9.2, Neut % (Auto) 82.6 H, Lymph % (Auto) 6.7 L, Casey % (Auto) 9.5 H, Eos % (Auto) 0.1, Baso % (Auto) 0.4, Neut # (Auto) 9.2 H, Lymph # (Auto) 0.7, Casey # (Auto) 1.1 H, Eos # (Auto) 0.0, Baso # (Auto) 0.1 01/20/25 03:15: VBG pH 7.41, VBG pCO2 40.3, VBG pO2 32.0, VBG HCO3 25.1, VBG Total CO2 26.3, VBG O2 Saturation 58.6, VBG Base Excess 0.5, VBG Lactic Acid 2.9 H I & O for Last 24 hours: Intake & Output 01/17/25 01/18/25 01/19/25 01/20/25 23:59 23:59 23:59 22:59 Weight 118.841 kg Constitutional Constitutional: no acute distress *Routine HEENT Exam Head: Present normocephalic and atraumatic Eye: Present EOMI, PERRL and normal accommodation ENT: Present mucous membranes moist *Routine Neck Exam Neck: Present supple and full ROM *Routine Respiratory Exam Respiratory: Present decreased breath sounds, rhonchi and diminished air movement Comments: Mild tachypnea, no respiratory distress noted *Routine Cardiovascular Exam Cardiovascular: Present Normal S1 and Normal S2 *Routine Abdominal Exam Abdominal: Present soft and normoactive bowel sounds *Routine Rectal Exam Rectal:: deferred *Routine Genitalia Exam Genitalia:: deferred *Routine Extremities Exam Extremities: Present full ROM, pulses intact and normal capillary refill *Routine Skin Exam Skin: Present intact *Routine Neurological Exam Neurological: Present alert, oriented X3 and CN II-XII intact Routine Psychiatric Exam Psychiatric: Present normal affect Assessment and Plan *Assessment and plan (1) Acute respiratory distress syndrome: Status: Acute Category: Medical Code(s): J80 - Acute respiratory distress syndrome (2) Influenza A: Status: Acute Category: Medical Code(s): J10.1 - Influenza due to other identified influenza virus with other respiratory manifestations (3) CHF exacerbation: Status: Acute Category: Medical Code(s): I50.9 - Heart failure, unspecified (4) Leukocytosis: Status: Acute Category: Medical Code(s): D72.829 - Elevated white blood cell count, unspecified (5) Volume overload: Status: Acute Category: Medical Code(s): E87.70 - Fluid overload, unspecified (6) Systolic and diastolic CHF w/reduced LV function, NYHA class 4: Status: Chronic Category: Medical Code(s): I50.40 - Unspecified combined systolic (congestive) and diastolic (congestive) heart failure (7) AICD (automatic cardioverter/defibrillator) present: Status: Chronic Category: Surgical Code(s): Z95.810 - Presence of automatic (implantable) cardiac defibrillator (8) Status post mitral valve repair: Status: Chronic Category: Surgical Code(s): Z98.890 - Other specified postprocedural states (9) HLD (hyperlipidemia): Status: Chronic Qualifiers: Hyperlipidemia type: mixed hyperlipidemia Qualified Code(s): E78.2 - Mixed hyperlipidemia Category: Medical Code(s): E78.5 - Hyperlipidemia, unspecified (10) CAD (coronary artery disease): Status: Chronic Qualifiers: Associated angina: without angina Coronary Disease-Associated Artery/Lesion type: [place] artery [place] vs. transplanted heart: [place] heart Qualified Code(s): I25.10 - Atherosclerotic heart disease of [place] coronary artery without angina pectoris Category: Medical Code(s): I25.10 - Atherosclerotic heart disease of [place] coronary artery without angina pectoris (11) HTN (hypertension): Status: Chronic Qualifiers: Hypertension type: essential hypertension Qualified Code(s): I10 - Essential (primary) hypertension Category: Medical Code(s): I10 - Essential (primary) hypertension (12) Elevated d-dimer: Status: Acute Category: Medical Code(s): R79.89 - Other specified abnormal findings of blood chemistry (13) Hyponatremia: Status: Acute Category: Medical Code(s): E87.1 - Hypo-osmolality and hyponatremia (14) Acute kidney injury superimposed on CKD: Status: Acute Category: Medical Code(s): N17.9 - Acute kidney failure, unspecified; N18.9 - Chronic kidney disease, unspecified Plan 1. Acute respiratory distress: Presented with shortness of breath, on room air oxygen saturations approximately 92%. Suspect multifactorial in nature, respiratory pathogen panel positive for influenza A, likely contributing to underlying acute respiratory symptoms. Mild leukocytosis 11. Tamiflu initiat ed, symptomatic treatment. Mild CHF exacerbation possibly imaging noted new left-sided pleural effusion. Recently advised per his line ordering clinician to increase his diuretic every day this past week. Typically takes 3 times a day. On presentation patient does not appear to be hypervolemic. Although he did receive diuretics within the emergency department prior to transferring to the floor. BNP elevated from prior finding 12,900. Prior 2D echo noted with severe reduction in LV systolic function. EF of 20%. Continue to monitor closely strict I's and O's. 2. AICD present/HLD/HTN/CAD: Monitored per cardiology. Medical conditions reviewed. Patient on metoprolol aspirin and statin 3. Elevated D-dimer: Suspect elevated in the setting of congestive heart failure with noted pleural effusion-possible pulmonary embolism? ED provider obtained and evaluated ultrasound and noted no heart strain. Reluctant to send patient for CTA due to concern of chronic renal insufficiency, unable to flush with fluids due to congestive heart failure. Therapeutic Lovenox ordered for ED provider. Patient without any complaints of chest pain. Continue to monitor on telemetry. 4. Hyponatremia: 129 sodium, suspect decreased due to increased diuretic use. Will continue to monitor, repeat labs in the morning. If continues to decrease may need hypertonic solution. Patient is asymptomatic sodium level. 5. IRIS on CKD: Baseline creatinine approximately 1.3?1.5, ED laboratory findings with a creatinine of 2.0-possibly correlating with increased diuretic use/CHF. Will avoid nephrotoxic medication if at all possible. Continue to monitor trend with morning labs. 6. DVT prophylaxis: Lovenox Full code Healthy heart diet I personally discussed the management of this patient with the emergency department provider, plan to admit for further evaluation of respiratory distress, congestive heart failure, manage and flu symptoms, monitoring hyponatremia.
[2025-01-20 07:17] LABS: Reflex Lactic Add Lactic Reflex
[2025-01-20 07:17] LABS: Hematocrit 36.6 % (42.0-52.0); Hemoglobin 12.1 g/dL (14.1-18.0); Immature Granulocytes % 0.5 %; Mean Corpuscular HGB Conc 33.1 g/dL (31.8-35.4); Mean Corpuscular Hemoglobin 31.7 pg (27.0-31.2); Mean Corpuscular Volume 95.8 fl (80-94); Nucleated Red Blood Cells % 0 %; Platelet Count 279 K/mm3 (142-424); Red Blood Count 3.82 M/mm3 (4.60-6.20); Red Cell Distribution Width-SD 46.8 fL; White Blood Count 10.3 K/mm3 (4.8-10.8)
[2025-01-20 08:11] LABS: Alanine Aminotransferase 51 U/L (12-78); Albumin Level 3.9 g/dl (3.5-5.0); Albumin/Globulin Ratio 0.9 (1.1-1.8); Alkaline Phosphatase 143 U/L (38-126); Anion Gap 15.7 mEq/L (5-15); Aspartate Amino Transferase 60 U/L (17-59); Bilirubin,Total 1.2 mg/dl (0.2-1.3); Blood Urea Nitrogen 35 mg/dl (9-20); Calcium 9.1 mg/dl (8.4-10.2); Carbon Dioxide 23 mmol/L (22.0-30.0); Chloride 93 mmol/L (98-107); Creatinine Clearance Estimated 59 mL/min (50-200); Creatinine,Serum 1.80 mg/dl (0.66-1.25); Estimated Glomerular Filt Rate 37 ml/min (>60); GFR (African American) 45 ML/MIN (>60); Globulin 4.3 g/dL (1.3-3.2); Glucose 130 mg/dl (74-100); Potassium 3.7 mmoL/L (3.5-5.1); Sodium 128 mmol/L (136-145); Total Protein,Serum 8.2 g/dl (6.3-8.2)
[2025-01-20 08:20] LABS: Troponin I 0.05 ng/ml (0.00-0.034)
[2025-01-20 08:43] LABS: Lactic Acid Follow Up (RFLX 1) 1.6 mmol/L (0.7-2.1)
[2025-01-20] MEDS: OSELTAMIVIR 75MG CAPSULE 75 MG PO (09:00)
--- NOTE | 2025-01-20 10:36 | HMH.PHAINT1 ---
Pharmacy Intervention Comments: MEDICATION RECONCILIATION COMPLETE USING EXTERNAL PHARMACY FILL HISTORY, MOST RECENT CARDIOLOGY OFFICE VISIT NOTE. VERIFIED ENTRESTO DOSE WITH PATIENT'S NURSE (CARMEN) WHO SAID THAT DOSE WAS ON THE LIST PROVIDED BY THE PATIENT.
[2025-01-20 11:34] LABS: Hepatitis C Ab Qual. W/ RFX NEGATIVE (Negative)
[2025-01-20 13:11] LABS: Troponin I 0.05 ng/ml (0.00-0.034)
--- NOTE | 2025-01-20 18:18 | PC.NURSE ---
pt has done well today. he has been up and ambulated around his room multiple times. reports having some slight increase in his shortness of breath during his shower today. saturations have remained stable. he has not required oxygen.
[2025-01-20] MEDS: BRIMONIDINE 0.2% OPHTH SOLN 5ML BOTTLE OP (20:12)
[2025-01-20] MEDS: TAMSULOSIN 0.4MG CAPSULE 0.4 MG PO (20:15)
[2025-01-20] MEDS: ATORVASTATIN 40MG TABLET 80 MG PO (20:15)
[2025-01-20] MEDS: OSELTAMIVIR PHOSPHATE 6MG/ML ORAL SUSP 60ML 30 MG PO (20:16)
[2025-01-20] MEDS: LATANOPROST 0.005% OPTH SOLN 2.5ML OP (20:23)
[2025-01-20] MEDS: TIMOLOL 0.5% OPTH SOLN 5ML OP (20:28)
[2025-01-20] MEDS: GUAIFENESIN/DEXTROMETHORPHAN 200MG/20MG 10ML UDC 10 ML PO (20:49)
[2025-01-21] MEDS: GUAIFENESIN/DEXTROMETHORPHAN 200MG/20MG 10ML UDC 10 ML PO (02:05)
[2025-01-21 04:00] VITALS: BMI 33.0
--- NOTE | 2025-01-21 04:03 | PC.NURSE ---
Pt. is alert and orientated x 4. Pt. is on room air. Pt. states he is feeling better. Pt. c/o cough and medicated as per MAR. No c/o pain Pt. up ambulating around the room . Going from recliner chair to bed. Pt. sleeping on and off this shift. Personal items and call pleitez in reach. Bed in low and locked position. safety measures in place.
[2025-01-21 06:39] LABS: Hematocrit 36.0 % (42.0-52.0); Hemoglobin 11.8 g/dL (14.1-18.0); Mean Corpuscular HGB Conc 32.8 g/dL (31.8-35.4); Mean Corpuscular Hemoglobin 31.3 pg (27.0-31.2); Mean Corpuscular Volume 95.5 fl (80-94); Red Blood Count 3.77 M/mm3 (4.60-6.20); Red Cell Distribution Width-SD 46.9 fL; White Blood Count 8.8 K/mm3 (4.8-10.8)
[2025-01-21 06:40] LABS: Immature Granulocytes % 0.5 %; Nucleated Red Blood Cells % 0 %; Platelet Count 271 K/mm3 (142-424)
[2025-01-21] MEDS: LEVOTHYROXINE 88MCG (0.088MG) TAB 88 MCG PO (07:05)
[2025-01-21 07:06] LABS: Alanine Aminotransferase 42 U/L (12-78); Albumin Level 4.3 g/dl (3.5-5.0); Albumin/Globulin Ratio 1.3 (1.1-1.8); Alkaline Phosphatase 114 U/L (38-126); Anion Gap 11.7 mEq/L (5-15); Aspartate Amino Transferase 49 U/L (17-59); Bilirubin,Total 1.2 mg/dl (0.2-1.3); Blood Urea Nitrogen 32 mg/dl (9-20); Calcium 8.8 mg/dl (8.4-10.2); Carbon Dioxide 26 mmol/L (22.0-30.0); Chloride 97 mmol/L (98-107); Creatinine Clearance Estimated 67 mL/min (50-200); Creatinine,Serum 1.50 mg/dl (0.66-1.25); Estimated Glomerular Filt Rate 46 ml/min (>60); GFR (African American) 55 ML/MIN (>60); Globulin 3.3 g/dL (1.3-3.2); Glucose 116 mg/dl (74-100); Magnesium 2.0 mg/dl (1.6-2.3); Potassium 3.7 mmoL/L (3.5-5.1); Sodium 131 mmol/L (136-145); Total Protein,Serum 7.6 g/dl (6.3-8.2)
[2025-01-21 08:00] VITALS: BP 124/76; PULSE 70; RESP 18; TEMP 37.1; O2SAT 94
[2025-01-21] MEDS: CITALOPRAM 20MG TABLET 20 MG PO (08:41)
[2025-01-21] MEDS: PANTOPRAZOLE 40MG TABLET 40 MG PO (08:42)
[2025-01-21] MEDS: BRIMONIDINE 0.2% OPHTH SOLN 5ML BOTTLE OP (08:42)
[2025-01-21] MEDS: OSELTAMIVIR 75MG CAPSULE 75 MG PO (08:42)
[2025-01-21] MEDS: SPIRONOLACTONE 25MG TABLET 100 MG PO (08:42)
[2025-01-21] MEDS: METOPROLOL SUCCINATE XL 50MG TABLET 50 MG PO (08:42)
[2025-01-21] MEDS: TIMOLOL 0.5% OPTH SOLN 5ML OP (08:43)
--- NOTE | 2025-01-21 09:54 | EXP.DC.SUM ---
General Admission date:: 01/20/25 Discharge date: 01/21/25 HPI HPI HPI: Patient is a 74-year-old male with past medical history significant for congestive heart failure, presence of biventricular AICD, status post mitral valve repair, HLD, hypertensive heart disease, CAD. Patient presents to [facility] emergency department with complaint of shortness of breath. Patient concerned that he has become volume overloaded. Reports symptoms are very similar with prior episodes of CHF exacerbation. States he is compliant with his diuretic at home. Patient reports that he was notified of some abnormal activity with his AICD per his engineering manager electronics. Instructed to take furosemide every day for the past week. Typically takes 3 times a week. Reports increased shortness of breath despite increased use of diuretics. Noted to be slightly tachypneic in the emergency department, on room air satting 91 to 92%. Imaging study with x-ray noted a left-sided effusion. Patient denies fever, chills, nausea, vomiting or chest pain. Initial ED workup included laboratory studies and imaging. Significant findings included WBC 11.1, INR 1.22, D-dimer 1.41, VBG 2.9, sodium 129, chloride 89, anion gap 17.9, BUN 34, creatinine 2, GFR 33 glucose 143, total bilirubin 1.4, AST 65, BNP 12,900, influenza A positive. Chest x-ray obtained, personally reviewed noting a new left-sided effusion, stable cardiomegaly. Cervical spine CT, head CT, knee x-ray reviewed unremarkable for any acute findings. Due to elevated D-dimer ultrasound evaluated, noted no heart strain. Hospital Course Hospital Course Hospital Course: Mr. Chris is 74 male who presented with shortness of breath. Concern for CHF exacerbation along with found to be positive for flu A. Initially requiring oxygen. Able to wean to room air by morning of discharge. Initiated on Tamiflu. Given his clinical improvement, will discharge home to complete Tamiflu course. Recommend follow-up with PCP within the next week. Problems addressed as follows: Acute respiratory distress Influenza A infection - Presented with shortness of breath, on room air oxygen saturations approximately 92%. Suspect multifactorial in nature, respiratory pathogen panel positive for influenza A, likely contributing to underlying acute respiratory symptoms. Mild leukocytosis 11. Tamiflu initiated, symptomatic treatment. Mild CHF exacerbation possibly imaging noted new left-sided pleural effusion. Recently advised per his engineering manager electronics to increase his diuretic every day this past week. Typically takes 3 times a day. On presentation patient does not appear to be hypervolemic. Although he did receive diuretics within the emergency department prior to transferring to the floor. BNP elevated from prior finding 12,900. Prior 2D echo noted with severe reduction in LV systolic function. EF of 20%. Continue to monitor closely strict I's and O's. Resumed home medications for his heart failure. Showed gradual improvement with able to wean to room air by morning of discharge. Will complete 5 days of Tamiflu. - White count normal at 8 on day of discharge. - Continue to patient's home spironolactone. Received dose of Lasix in the ER. AICD present/HLD/HTN/CAD: Monitored per cardiology. Medical conditions reviewed. Patient on metoprolol aspirin and statin Elevated D-dimer: Suspect elevated in the setting of congestive heart failure. Given his ability to improve to room air, decision made not to pursue CTA of chest. Hyponatremia: 129 sodium on admission. Improved to 131 with chloride of 97 by day of discharge. Suspect secondary to his acute respiratory illness. Asymptomatic with no confusion. Recommend repeat labs in 1 week to monitor kidney function, electrolytes. IRIS on CKD: Baseline creatinine approximately 1.3?1.5, ED laboratory findings with a creatinine of 2.0. Showed improvement, back to 1.5 by day of discharge. Renally dose medications initially, able to tolerate full dose Tamiflu by day of discharge. Total time spent on discharge 32 minutes in counseling, documentation, chart review, and direct care with patient. Exam Data for Last 24 hours Vital signs and Labs for Last 24 Hours: Temp Pulse Resp BP Pulse Ox O2 Del Method O2 Flow Rate 98.7 F 70 18 124/76 94 L Room Air 4 01/21/25 08:00 01/21/25 08:00 01/21/25 08:00 01/21/25 08:00 01/21/25 08:00 01/21/25 08:08 01/20/25 16:00 Laboratory Results - last 24 hr 01/20/25 06:42: HCV Ab BRANDT w/Rflx PCR Qn Negative, HIV Ag/Ab Combo Qual Negative 01/20/25 08:20: Troponin I 0.05 H 01/21/25 05:53: WBC 8.8, RBC 3.77 L, Hgb 11.8 L, Hct 36.0 L, MCV 95.5 H, MCH 31.3 H, MCHC 32.8, RDW 13.2, Plt Count 271, MPV 9.5, Neut % (Auto) 74.2, Lymph % (Auto) 14.2, [place] % (Auto) 9.7 H, Eos % (Auto) 0.8, Baso % (Auto) 0.6, Neut # (Auto) 6.5, Lymph # (Auto) 1.3, [place] # (Auto) 0.9, Eos # (Auto) 0.1, Baso # (Auto) 0.1, Sodium 131 L, Potassium 3.7, Chloride 97 L, Carbon Dioxide 26, Anion Gap 11.7, BUN 32 H, Creatinine 1.50 H, Estimated Creat Clear 67, Estimated GFR 46 L, Est GFR ( Amer) 55 L D, Glucose 116 H, Calcium 8.8, Magnesium 2.0, Total Bilirubin 1.2, AST 49, ALT 42, Alkaline Phosphatase 114, Total Protein 7.6, Albumin 4.3 D, Globulin 3.3 H, Albumin/Globulin Ratio 1.3 I & O for Last 24 hours: Intake & Output 01/18/25 01/19/25 01/20/25 01/21/25 23:59 23:59 22:59 23:59 Intake Total 1150 / 1390 780 / 780 Output Total 0 / 0 Balance 1150 / 1390 780 / 780 Weight 118.841 kg 113.03 kg Constitutional Constitutional: no acute distress, obese, chronically ill appearing and cooperative *Routine HEENT Exam Head: Present normocephalic Eye: Present PERRL ENT: Present mucous membranes moist *Routine Neck Exam Neck: Absent lymphadenopathy *Routine Respiratory Exam Respiratory: Present CTA bilaterally; Absent rhonchi, wheezes or crackles *Routine Cardiovascular Exam Cardiovascular: Present RRR *Routine Abdominal Exam Abdominal: Present soft and normoactive bowel sounds; Absent tenderness *Routine Rectal Exam Patient deferred: visual exam *Routine Exam Patient deferred: penile exam *Routine Extremities Exam Extremities: Absent cyanosis, clubbing or edema *Routine Skin Exam Skin: Present intact and warm; Absent rash *Routine Neurological Exam Neurological: Present alert, oriented X3 and moving all extremities; Absent altered mental status Results Data Completed and Pending Labs on day of discharge: Labs from last 24 hours 01/21/25 01/20/25 01/20/25 05:53 08:20 06:42 WBC 8.8 RBC 3.77 L Hgb 11.8 L Hct 36.0 L MCV 95.5 H MCH 31.3 H MCHC 32.8 RDW 13.2 Plt Count 271 MPV 9.5 Neut % (Auto) 74.2 Lymph % (Auto) 14.2 [place] % (Auto) 9.7 H Eos % (Auto) 0.8 Baso % (Auto) 0.6 Neut # (Auto) 6.5 Lymph # (Auto) 1.3 [place] # (Auto) 0.9 Eos # (Auto) 0.1 Baso # (Auto) 0.1 Sodium 131 L Potassium 3.7 Chloride 97 L Carbon Dioxide 26 Anion Gap 11.7 BUN 32 H Creatinine 1.50 H Estimated Creat Clear 67 Estimated GFR 46 L Est GFR ( Amer) 55 L D Glucose 116 H Calcium 8.8 Magnesium 2.0 Total Bilirubin 1.2 AST 49 ALT 42 Alkaline Phosphatase 114 Troponin I 0.05 H Total Protein 7.6 Albumin 4.3 D Globulin 3.3 H Albumin/Globulin Ratio 1.3 HCV Ab BRANDT w/Rflx PCR Qn Negative HIV Ag/Ab Combo Qual Negative DS: Diagnosis Discharge Diagnosis (1) Acute respiratory distress syndrome: Status: Acute Code(s): J80 - Acute respiratory distress syndrome (2) Influenza A: Status: Acute Code(s): J10.1 - Influenza due to other identified influenza virus with other respiratory manifestations (3) CHF exacerbation: Status: Acute Code(s): I50.9 - Heart failure, unspecified (4) Leukocytosis: Status: Acute Code(s): D72.829 - Elevated white blood cell count, unspecified (5) Volume overload: Status: Acute Code(s): E87.70 - Fluid overload, unspecified (6) Systolic and diastolic CHF w/reduced LV function, NYHA class 4: Status: Chronic Code(s): I50.40 - Unspecified combined systolic (congestive) and diastolic (congestive) heart failure (7) AICD (automatic cardioverter/defibrillator) present: Status: Chronic Code(s): Z95.810 - Presence of automatic (implantable) cardiac defibrillator (8) Status post mitral valve repair: Status: Chronic Code(s): Z98.890 - Other specified postprocedural states (9) HLD (hyperlipidemia): Status: Chronic Code(s): E78.5 - Hyperlipidemia, unspecified Qualifiers: Hyperlipidemia type: mixed hyperlipidemia Qualified Code(s): E78.2 - Mixed hyperlipidemia (10) CAD (coronary artery disease): Status: Chronic Code(s): I25.10 - Atherosclerotic heart disease of [place] coronary artery without angina pectoris Qualifiers: Associated angina: without angina Coronary Disease-Associated Artery/Lesion type: [place] artery [place] vs. transplanted heart: [place] heart Qualified Code(s): I25.10 - Atherosclerotic heart disease of [place] coronary artery without angina pectoris (11) HTN (hypertension): Status: Chronic Code(s): I10 - Essential (primary) hypertension Qualifiers: Hypertension type: essential hypertension Qualified Code(s): I10 - Essential (primary) hypertension (12) Elevated d-dimer: Status: Acute Code(s): R79.89 - Other specified abnormal findings of blood chemistry (13) Hyponatremia: Status: Acute Code(s): E87.1 - Hypo-osmolality and hyponatremia (14) Acute kidney injury superimposed on CKD: Status: Acute Code(s): N17.9 - Acute kidney failure, unspecified; N18.9 - Chronic kidney disease, unspecified Meds Home Medications and Allergies Home Medications ?Medication ?Instructions ?Recorded ?Confirmed ?Type pantoprazole 40 mg tablet,delayed 40 mg PO DAILY GERD 06/23/20 01/20/25 History release tamsulosin 0.4 mg capsule 0.4 mg PO HS 06/24/21 01/20/25 History dapagliflozin propanediol 10 mg 10 mg PO DAILY 12/30/21 01/20/25 History tablet (Farxiga) latanoprost 0.005 % eye drops 1 drp Eye-Both HS 04/06/23 01/20/25 History spironolactone 100 mg tablet 100 mg PO DAILY 04/06/23 01/20/25 History timolol maleate 0.5 % eye drops 1 drp Eye-Right BID 04/06/23 01/20/25 History ascorbic acid (vitamin C) 100 mg 100 mg PO DAILY 04/27/23 01/20/25 History tablet famotidine 20 mg tablet 20 mg PO DAILY 04/27/23 01/20/25 History prednisolone acetate 1 % eye 1 drp Eye-Right BID 04/27/23 01/20/25 History drops,suspension sennosides 8.6 mg tablet (senna) 8.6 mg PO HS 04/27/23 01/20/25 History omega 9-wpa-uke-fish oil 100 2 cap PO DAILY 10/04/23 01/20/25 History mg-160 mg-1,000 mg capsule (Fish Oil) brimonidine 0.2 % eye drops 1 drp Eye-Right BID 01/20/25 01/20/25 History citalopram 20 mg tablet 20 mg PO DAILY 01/20/25 01/20/25 History levothyroxine 88 mcg tablet 88 mcg PO DAILYDM 01/20/25 01/20/25 History metoprolol succinate 50 mg 50 mg PO DAILY 01/20/25 01/20/25 History tablet,extended release 24 hr rosuvastatin 40 mg tablet 40 mg PO DAILY 01/20/25 01/20/25 History sacubitril 49 mg-valsartan 51 mg 1 tab PO BID 01/20/25 01/20/25 History tablet (Entresto) oseltamivir 75 mg capsule (Tamiflu) 75 mg PO BID 4 days #7 caps 01/21/25 Rx New Prescriptions to Start Prescriptions: oseltamivir [Tamiflu] Tuan Cortes Allergies Allergy/AdvReac Type Severity Reaction Status Date / Time No Known Drug Allergies Allergy Unknown Verified 08/27/24 10:57 (NKDA) Discharge Plan Disposition Patient Disposition: Home, Self-Care Condition: Fair Follow up Plan Follow up with: Gulshan Haines MD [Staff Physician, Internal Medicine] - 01/28/25 10:15 am Prescriptions/Medication Reconciliation: New oseltamivir [Tamiflu] 75 mg Capsule 75 mg PO BID 4 Days Qty: 7 0RF Continued tamsulosin 0.4 mg capsule 0.4 mg PO HS Patient Comments: TAKE 1 CAPSULE BY MOUTH ONCE DAILY Farxiga 10 mg tablet 10 mg PO DAILY spironolactone 100 mg tablet 100 mg PO DAILY Patient Comments: TAKE 1 TABLET BY MOUTH ONCE DAILY timolol maleate 0.5 % drops 1 drp Eye-Right BID Patient Comments: INSTILL 1 DROP INTO RIGHT EYE TWICE DAILY latanoprost 0.005 % drops 1 drp Eye-Both HS Patient Comments: INSTILL 1 DROP INTO EACH EYE ONCE DAILY AT NIGHT Fish Oil 100-160-1,000 mg capsule 2 cap PO DAILY pantoprazole 40 MG tablet,delayed release (DR/EC) 40 mg PO DAILY sennosides [senna] 8.6 mg Tablet 8.6 mg PO HS famotidine 20 mg Tablet 20 mg PO DAILY prednisolone acetate 1 % drops,suspension 1 drp Eye-Right BID Patient Comments: INSTILL 1 DROP INTO RIGHT EYE TWICE DAILY ascorbic acid (vitamin C) 100 mg Tablet 100 mg PO DAILY levothyroxine 88 mcg tablet 88 mcg PO DAILYDM Patient Comments: TAKE ONE TABLET BY MOUTH ONCE A DAY citalopram 20 mg tablet 20 mg PO DAILY Patient Comments: TAKE 1 TABLET BY MOUTH ONCE DAILY sacubitril-valsartan [Entresto] 49-51 mg Tablet 1 tab PO BID metoprolol succinate 50 mg tablet extended release 24 hr 50 mg PO DAILY rosuvastatin 40 mg tablet 40 mg PO DAILY brimonidine 0.2 % drops 1 drp Eye-Right BID Patient Comments: INSTILL 1 DROP INTO RIGHT EYE TWICE DAILY Problem Reconciliation Problems Reviewed?: Yes Patient Discharge Instructions ACTIVITY: Continue current activity DIET: continue same diet Patient Instructions: Influenza, Stop Light Heart Failure Print Language: Yoruba Providers Primary Care Provider: Provider,Referral Admit Provider: Tuan Cortes Attending Provider: Tuan Cortes
--- NOTE | 2025-01-21 10:22 | PC.NURSE ---
PT TOLERATED AMBULATING IN THE [place]. ROOM AIR SATURATION 95%.
--- NOTE | 2025-01-22 10:39 | SW/DCPLANNER ---
Spoke with patient on the phone. Patient stated that he is doing good. Patient stated that he is aware of his upcoming appointments. Patient stated that he was able to get his new medicine picked up from [facility]. Patient stated that he has no concerns or questions at this time. Isacc Chase
== END 2025-01-21 10:55 | disposition home or self-care (01) ==
LOC: ER 04:12 → 2ND 04:22
PROVIDERS: Nurse Practitioner Acute Care; Admitting Provider Internal Medicine Adolescent Medicine; Emergency Provider Emergency Medicine; Visit Provider Internal Medicine Adolescent Medicine
DX: I13.0 Hypertensive heart and chronic kidney disease with heart failure and stage 1 through stage 4 chronic kidney disease, or unspecified chronic kidney disease (principal); I50.42 Chronic combined systolic (congestive) and diastolic (congestive) heart failure; J10.1 Influenza due to other identified influenza virus with other respiratory manifestations; E87.70 Fluid overload, unspecified; E78.2 Mixed hyperlipidemia; I25.10 Atherosclerotic heart disease of native coronary artery without angina pectoris; R79.89 Other specified abnormal findings of blood chemistry; E87.1 Hypo-osmolality and hyponatremia; N17.9 Acute kidney failure, unspecified; N18.9 Chronic kidney disease, unspecified; J91.8 Pleural effusion in other conditions classified elsewhere; E66.9 Obesity, unspecified; Z23 Encounter for immunization; Z87.891 Personal history of nicotine dependence; Z95.810 Presence of automatic (implantable) cardiac defibrillator; Z98.890 Other specified postprocedural states; Z68.33 Body mass index [BMI] 33.0-33.9, adult; Z79.899 Other long term (current) drug therapy
CPT/HCPCS: 0223U; 36415; 70450; 71045; 72125; 73562; 80053; 82803; 83605; 83735; 83880; 84484; 85025; 85378; 85610; 86803; 87389; 90471; 90715; 93005; 96372; 99285; G0378; J1650